=== PATIENT | male | born 1955 | race Caucasian/White ===

== ENCOUNTER 2020-05-03 17:03 | Inpatient (IN) | payer OTHER, SELFPAY ==
--- NOTE | ~2020-05-03 | US_ITS ---
EXAMINATION: US renal BI DATE: 05/06/2020 08:07 INDICATION: Abnormal kidney function tests. TECHNIQUE: Multiple ultrasound grayscale images of the kidneys were obtained. COMPARISON: Chest CT 03/04/2011 FINDINGS: The right kidney measures 11.5 x 6.5 x 6.8 cm. The left kidney measures 10.7 x 5.3 x 5.7 cm. The kidn eys demonstrate normal parenchymal echogenicity. There are cysts in the kidneys measuring up to 3.0 c m on the right. There is no hydronephrosis. The bladder is normal. The prostate is mildly enlarged. IMPRESSION: 1. Normal kidney sizes. No hydronephrosis. Reviewed, dictated and finalized at location B.
--- NOTE | ~2020-05-03 | XR_ITS ---
EXAMINATION: XR foot RT min 3V EXAM DATE: 05/03/2020 19:03 INDICATION: Diabetic infection. Dorsal plantar blister 1st metatarsal region. TECHNIQUE: Right foot dorsoplantar, lateral and oblique projections obtained and reviewed. There is no prior study for comparison. FINDINGS: There is osteopenia surrounding the right 1st metatarsophalangeal joint, consistent with os teomyelitis, and maybe septic arthritis. Some regions of cara erosion or ulcer identified. There is severe hallux valgus. The 2nd proximal phalanx is completely dislocated posterolaterally at the MTP joint. There is erosion of the 3rd metatarsal head, could be avascular necrosis given that the proximal phalanx appears unre markable, but difficult to exclude osteomyelitis at this location as well. There is soft tissue swell ing. No subcutaneous gas. There are no acute fractures identified. IMPRESSION: 1. Findings suspicious for right 1st MTP septic arthritis, osteomyelitis. 2. 2nd proximal phalangeal dislocation. 3. 3rd metatarsal head avascular necrosis or osteomyelitis. 4. Soft tissue swelling. Reviewed, dictated and finalized at location A.
--- NOTE | ~2020-05-03 | XR_ITS ---
EXAMINATION: XR chest 1V portable DATE: 05/10/2020 16:04 INDICATION: Pacemaker insertion. TECHNIQUE: frontal view of the chest was obtained. COMPARISON: Chest radiograph dated 05/07/2020 FINDINGS: Interval placement of a dual lead pacemaker seen with leads projecting over the expected locations of the right atrium and right ventricle. Right upper extremity peripherally inserted central venous cat heter (PICC) tip at the mid superior vena cava. Unchanged large calcified right lower lobe nodule consistent with old granulomatous disease. No new a irspace opacities, pulmonary edema, pleural effusion or pneumothorax. The cardiomediastinal silhouett e is within normal limits for AP technique. Calcified right hilar and mediastinal lymph nodes consist ent with old granulomatous disease. IMPRESSION: 1. New dual-lead cardiac pacemaker in expected position. No acute cardiopulmonary disease. Reviewed, dictated and finalized at location A. IMPRESSION: 1. New dual-lead cardiac pacemaker in expected position. No acute cardiopulmona ry disease.
--- NOTE | ~2020-05-03 | XR_ITS ---
EXAMINATION: XR chest 2V DATE: 05/11/2020 11:39 INDICATION: Pacemaker insertion TECHNIQUE: AP and lateral views of the chest are obtained. COMPARISON: 05/10/2020 FINDINGS: A dual-lead pacemaker of the left chest wall ends with its leads in expected positions. The re is no pneumothorax. A calcified nodule of the right lower lobe is consistent with old granulomatou s disease. The lungs are free of acute opacities. There is no pleural effusion. The heart size is nor mal. There are bridging osteophytes at multiple levels in the spine, consistent with diffuse idiopath ic skeletal hyperostosis (DISH). A right upper extremity PICC ends with its tip in the midsuperior ve na cava. IMPRESSION: 1. Left chest wall pacemaker without pneumothorax. Reviewed, dictated and finalized at location A.
--- NOTE | ~2020-05-03 | US_ITS ---
EXAMINATION: US venous doppler LE RT EXAM DATE: 05/03/2020 17:47 INDICATION: Right leg swelling. Varicose veins. TECHNIQUE: Multiple grayscale, color flow and Doppler images of the right lower extremity deep venous system were obtained and reviewed. There is no prior study for comparison. FINDINGS: The right common femoral, femoral and profunda veins demonstrate normal color flow, respira tory variation, augmentation and compressibility. Compressibility, color flow confirmed within the r ight popliteal, posterior tibial, peroneal, and greater saphenous veins. IMPRESSION: 1. No right lower extremity deep venous thrombosis. Reviewed, dictated and finalized at location A.
--- NOTE | ~2020-05-03 | XR_ITS ---
XR chest PICC line DATE: 05/07/2020 12:22 INDICATION: PICC line placement TECHNIQUE: Portable AP chest on 05/07/2020 at 1223 hours COMPARISON: 07/16/2014 portable AP chest at 1825 hours FINDINGS: There is cardiomegaly. There is pulmonary vascular congestion and redistribution, prominenc e of minor fissure consistent with subpleural edema. There is aortic calcification and tortuosity. There is diffuse osteopenia. There is diffuse idiopathic skeletal hyperostosis of the thoracic spine. There is a right upper extremity PIC catheter, the catheter tip apparently in the superior vena cava, obscured to some extent by overlapping thoracic spine. Approximately 1.5 cm stable nodule in the right lateral lung base, unchanged since 07/16/2014, consis tent with benign process, likely an old granuloma. IMPRESSION: Right upper extremity PIC catheter apparently in superior vena cava Cardiomegaly, mild congestive changes Reviewed, dictated and finalized at Location A. Reviewed, dictated and finalized at location A.
--- NOTE | ~2020-05-03 | MR_ITS ---
EXAMINATION: MR foot RT wo con DATE: 05/04/2020 14:24 INDICATION: Diabetic foot ulcer. TECHNIQUE: Magnetic resonance imaging (MRI) of the right foot was performed without intravenous contr ast. Sequences included sagittal STIR FSE and T1-weighted FSE and short-axis and long-axis T1-weighte d FSE and T2-weighted FS FSE. COMPARISON: Right foot radiographs 05/03/2020 FINDINGS: There is moderate hallux valgus. There is dorsal dislocation of second proximal phalanx wit h respect to the metatarsal with joint effusion. There is chronic deformity of head of third metatars al. There is moderate to severe osteoarthritis of third metatarsophalangeal joint, likely posttraumat ic. There is bone marrow edema throughout first metatarsal and the great toe sesamoids. There is bone marrow edema in first proximal phalanx with sparing of the head. There is increased T2-weighted sign al intensity in the soft tissues around first metatarsal and first proximal phalanx. Foci of markedly increased T2-weighted signal intensity and decreased T1-weighted signal intensity in the soft tissue s medial to first metatarsal may be abscess. There is focal susceptibility artifact in the soft tissu es medial to head of first metatarsal correlating with a thin 2 mm radiopaque foreign body on radiogr aphs. There is moderate to severe fatty atrophy of the forefoot musculature. There is increased T2-we ighted signal intensity in all of the musculature, consistent with subacute on chronic denervation. T here is an ulcer plantar to first metatarsophalangeal joint. Lisfranc ligament is intact. IMPRESSION: 1. Osteomyelitis involving first metatarsal and first proximal phalanx. 2. Cellulitis around first metatarsal and first proximal phalanx with likely abscess medial to first metatarsal. 3. Dislocation of third metatarsophalangeal joint. 4. 2 mm radiopaque foreign body in the soft tissues medial to head of first proximal phalanx. Reviewed, dictated and finalized at location B. IMPRESSION: 1. Osteomyelitis involving first metatarsal and first proximal phalanx. 2. Cellulitis around first metatarsal and first proximal phalanx with likely ab scess medial to first metatarsal. 3. Dislocation of third metatarsophalangeal joint. 4. 2 mm radiopaque foreign body in the soft tissues medial to head of first pro ximal phalanx.
--- NOTE | ~2020-05-03 | XR_ITS ---
EXAMINATION: XR chest 2V DATE: 05/12/2020 13:58 INDICATION: Pick assessment post pacemaker insertion TECHNIQUE: AP and lateral views of the chest are obtained. COMPARISON: 05/11/2020 FINDINGS: The lungs are free of acute opacities. There is no pleural effusion or pneumothorax. The ca rdiomediastinal silhouette is normal. There are bridging osteophytes at multiple levels in the spine, consistent with diffuse idiopathic skeletal hyperostosis (DISH). A right upper extremity PICC ends w ith its tip in the midsuperior vena cava. There is a dual-lead pacemaker of the left chest wall with its leads in expected position. IMPRESSION: 1. Right upper extremity PICC ending in the midsuperior vena cava. 2. No acute cardiopulmonary abnormality. Reviewed, dictated and finalized at location A.
[2020-05-03 17:08] VITALS: BP 129/79; PULSE 94; RESP 16; TEMP 36.8; O2SAT 99
--- NOTE | 2020-05-03 17:40 | ED.LOWEXIN ---
HPI - Extremity Injury (Lower) General Chief Complaint: Extremity Injury, Lower Stated Complaint: blood clot right leg Time Seen by Provider: 05/03/20 17:17 Source: patient and family Mode of arrival: ambulatory Limitations: no limitations History of Present Illness HPI Narrative: Patient is a 64-year-old male with a history of hypertension, type 2 diabetes, who presents for evaluation of right leg swelling and pain. Patient reports right lower extremity swelling, pain over the past 4 weeks. Patient states pain has been worsening. Patient noticed that his vein has been more prominent in his legs. He does report some calf tenderness. No recent surgery or immobility, patient does ride motorcycles, developed a blister on his right great toe approximately 1 week ago, and is currently on Bactrim for a foot infection as prescribed by his primary care physician. Swelling, pain in foot and leg is not improving despite the bactrim. Patient denies any fever or chills. Patient states he had noticed leg swelling and calf pain prior to the evaluation of this. Related Data Home Medications Medication Instructions Recorded Confirmed albuterol sulfate INHALATION 05/03/20 allopurinol 05/03/20 gemfibrozil mg 05/03/20 inhalational spacing device 05/03/20 05/03/20 [[facility]] lisinopril 05/03/20 metformin mg PO 05/03/20 ofloxacin 05/03/20 prednisolone acetate 05/03/20 05/03/20 sitagliptin [Januvia] mg 05/03/20 Allergies Allergy/AdvReac Type Severity Reaction Status Date / Time ibuprofen Allergy Mild SWELLS Verified 05/03/20 17:05 RESPIR. DISTRESS Review of Systems Review of Systems: Narrative: CONSTITUTIONAL: Denies fever, chills, or sweats. EYES: Denies visual changes, redness, or discharge. ENT: Denies rhinorrhea, congestion, sore throat, or otalgia. CARDIOVASCULAR: Denies current chest pain, palpitations,reports right leg swelling or redness RESPIRATORY: Denies cough or dyspnea. GASTROINTESTINAL: Denies abdominal pain, nausea, vomiting, or diarrhea. GENITOURINARY: Denies dysuria or hematuria. SKIN:Reports right leg swelling, redness MUSCULOSKELETAL: Denies back pain, joint pain, or myalgia. NEUROLOGIC: Denies headache, numbness, or weakness. PMFSH Past Medical History Medical History (Updated 05/03/20 @ 19:09 by Carmen Reyes MD) Cellulitis of foot Chronic kidney disease Diabetes Hypertension Social History Social History (Updated 05/03/20 @ 17:43 by Carmen Reyes MD) Smoking status: Never smoker Alcohol intake: current Alcohol use details: Social Substance use: current Substance use type: marijuana Living arrangements: with family Gender identity (if verbalized by the patient): Male Exam Narrative: Exam Narrative: GENERAL: Awake, alert, conversant HEAD: Normocephalic, atraumatic. EYES: PERRLA and EOMI. ENT: Nares clear, no rhinorrhea or epistaxis. Mucous membranes moist. NECK: Supple. CHEST: No respiratory distress, breathing even and non labored HEART: Regular rate, sinus rhythm ABDOMEN:Non distended, non tender EXTREMITIES: Normal range of motion. Mild, nonpitting edema of the right lower extremity to the mid ankle, associated erythema extending from forefoot into ankle and lower calf, mild warmth. No petechiae. There is a stage II pressure ulceration, wound to the first metatarsal on the right foot. No drainage. No eschar. SKIN: Warm, dry, no rash. NEURO:No focal deficits. Alert and oriented x3 Course Vital Signs Vital signs: Vital Signs Temperature 36.8 C 05/03/20 17:08 Pulse Rate 94 05/03/20 17:08 Respiratory Rate 16 05/03/20 17:08 Blood Pressure 129/79 05/03/20 17:08 Pulse Oximetry 99 05/03/20 17:08 Temperature 36.8 C 05/03/20 17:08 Pulse Rate 94 05/03/20 17:08 Respiratory Rate 16 05/03/20 17:08 Blood Pressure 129/79 05/03/20 17:08 Pulse Oximetry 99 05/03/20 17:08 MDM - Extremity Injury (
[2020-05-03 18:01] LABS: Basophils Absolute Auto 0.1 K/mm3 (0.0-0.1); Basophils Percent Auto 0.6 % (0.2-1.2); Eosinophils Absolute Auto 0.3 K/mm3 (0-0.3); Eosinophils Percent Auto 2.4 % (0-4.4); Hematocrit 40.6 % (42.0-52.0); Hemoglobin 13.3 g/dL (14.0-18.0); Immature Granulocyte Absolute 0.07 K/mm3 (0.00-0.031); Immature Granulocyte Percent A 0.6 % (0-0.5); Lymphocytes Absolute Auto 3.02 K/mm3 (0.9-3.2); Lymphocytes Percent Auto 24.1 % (18.3-44.2); Mean Corpuscular HGB Conc 32.8 g/dl (32-36); Mean Corpuscular Volume 91.4 fl (80-100); Monocytes Absolute Auto 0.8 K/mm3 (0.1-0.6); Monocytes Percent Auto 6.6 % (2.6-8.5); Neutrophils Absolute Auto 8.2 K/mm3 (1.3-6.7); Neutrophils Percent Auto 65.7 % (45.5-73.1); Platelet Count Result 640 k/mm3 (150-375); Red Blood Count 4.44 M/mm3 (4.6-6.20); Red Cell Distribution Width 13.6 % (11.5-14.5); White Blood Count 12.5 K/mm3 (4.5-10.0)
[2020-05-03 18:13] LABS: Anion Gap 9 mmol/L (8-16); Blood Urea Nitrogen 27 mg/dL (9-20); CRP 6.1 mg/dL (<1.0); Calcium 10.2 mg/dL (8.4-10.2); Carbon Dioxide 26 mmol/L (22-30); Chloride 103 mmol/L (98-107); Estimated CRCL calculation 48 ml/min; Estimated Glomerular Filt Rate 36; Glucose 127 mg/dL (75-110); Potassium 5.5 mmol/L (3.4-5.0); Sodium 138 mmol/L (137-145)
[2020-05-03 18:34] LABS: Erythrocyte Sedimentation Rate 77 mm/hr (0-20)
--- NOTE | 2020-05-03 18:41 | ECG_ITS ---
Measurements Intervals [place] Rate: 86 P: 173 VA: 304 QRS: -3 QRSD: 109 T: 30 QT: 344 QTc: 413 Interpretive Statements SINUS OR ECTOPIC ATRIAL RHYTHM BASELINE ARTIFACT- I, II, III, AVR, AVL, AVF, V1-V6 BORDERLINE ECG Electronically Signed On 05-04-2020 7:12:56 CDT by Real Lopez D.O.
[2020-05-03] MEDS: SODIUM CHLORIDE 0.9% IV 1,000 ML 999 ML IV CONT (19:13)
[2020-05-03 20:56] VITALS: BP 137/80; PULSE 78; RESP 18; O2SAT 99
[2020-05-03 21:09] VITALS: BMI 33.3
[2020-05-03 21:30] VITALS: BP 125/59; PULSE 55; RESP 18; TEMP 36.8; O2SAT 99
[2020-05-03 21:40] VITALS: PULSE 60
[2020-05-03 21:59] LABS: Anion Gap 6 mmol/L (8-16); Blood Urea Nitrogen 26 mg/dL (9-20); Calcium 9.5 mg/dL (8.4-10.2); Carbon Dioxide 25 mmol/L (22-30); Chloride 103 mmol/L (98-107); Estimated CRCL calculation 50 ml/min; Estimated Glomerular Filt Rate 38; Glucose 139 mg/dL (75-110); Potassium 4.6 mmol/L (3.4-5.0); Sodium 134 mmol/L (137-145)
[2020-05-03] MEDS: SODIUM CHLORIDE 0.9% IV 1,000 ML 125 ML IV CONT (22:00)
--- NOTE | 2020-05-03 22:13 | ADMGEN ---
This patient, Ankur Corral, was admitted to Medical Room 340-01. Patient/family oriented to hospital policies and general routines including ID bracelet, bed and alarms, visiting hours, pain management, procedures, bathroom and other care routines, personal items, smoking policy, room service/diet, and visiting hours. Valuables list has been completed. Information on how to activate the Rapid Response Team has been discussed. Patient/Family are encouraged to report perceived risks to care and to ask questions if they do not understand what they are told or what they should do.
[2020-05-04] VITALS (19 sets, daily range): BP systolic 105–123; BP diastolic 46–75; PULSE 26–91; RESP 18–24; TEMP 36.2–36.7; O2SAT 98–100; BMI 33.3
--- NOTE | 2020-05-04 | ECHO_ITS ---
Patient Info Name: Ankur Corral Age: 64 years : 1955 Gender: Male Ht: 74 in Wt: 260 lbs BSA: 2.52 m2 HR: 45 bpm BP: 115 / 58 mmHg Heart Rhythm: Bradycardia Technical Quality: Good Exam Date: 05/04/2020 11:08 AM Exam Location: [facility] Patient Status: Inpatient Admit Date: 05/03/2020 Staff Ordering Physician: Mayi Marie DO Verse Writer: Jayjay Solomon RDCS Attending Provider: Mayi Marie DO Referring Physician: Cynthia SOUSA; Exam Type: CA echo dop color flow w con Study Info Indications I45.5 - Other specified heart block Complete two-dimensional, color flow and Doppler transthoracic echocardiogram is performed. Strain analysis performed. History/Risk Factors Third degree HB; DM, HTN, CKD3. Summary 1. Left ventricular chamber dimension is mildly enlarged. 2. Left ventricular systolic function is normal, estimated at 60-65%. 3. There is mildly increased left ventricular wall thickness. 4. Left ventricular septal wall motion is normal. 5. The left ventricular diastolic function is indeterminate. 6. Global longitudinal strain is normal at -17 %. 7. Left atrial chamber dimension is mildly enlarged. 8. There is mild mitral valve regurgitation. 9. There is mild tricuspid valve regurgitation. 10. Mild pulmonary hypertension, estimated pulmonary arterial systolic pressure is 40 mmHg. 11. Aortic valve leaflets are moderately thickened and restricted. 12. while no clear vegetation is seen, it cannot be excluded. Left Ventricle Left ventricular chamber dimension is mildly enlarged. Left ventricular systolic function is normal, estimated at 60-65%. There is mildly increased left ventricular wall thickness. Left ventricular septal wall motion is normal. The left ventricular diastolic function is indeterminate. Global longitudinal strain is normal at -17 %. Right Ventricle Right ventricular chamber dimension is normal. Right ventricular systolic function is normal. Left Atria Left atrial chamber dimension is mildly enlarged. Right Atria Right atrial chamber dimension is normal. Atrial Septum Intact interatrial septum visualized by color flow imaging. Aortic Valve The aortic valve is trileaflet. There is no aortic valve stenosis. There is trace aortic valve regurgitation. Aortic valve leaflets are moderately thickened and restricted. while no clear vegetation is seen, it cannot be excluded. Pulmonic Valve The pulmonic valve is normal. There is no pulmonic valve stenosis. There is trace pulmonic regurgitation. Mitral Valve The mitral valve has normal leaflets. There is no mitral valve stenosis. There is mild mitral valve regurgitation. Tricuspid Valve The tricuspid valve leaflets are normal. There is no significant tricuspid valve stenosis. There is mild tricuspid valve regurgitation. Mild pulmonary hypertension, estimated pulmonary arterial systolic pressure is 40 mmHg. Pericardium/Pleural The pericardium appears normal. There is no pericardial effusion. Inferior Vena Cava Normal inferior vena cava with >50% collapse upon inspiration consistent with elevated right atrial pressure, 10 mmHg. Aorta The aortic root size at the sinus of Valsalva is normal. The prox ascending aorta size is normal. Left Ventricular Outflow Tract Name Value Normal
--- NOTE | 2020-05-04 01:46 | ECG_ITS ---
Measurements Intervals [place] Rate: 39 P: ME: 0 QRS: 1 QRSD: 122 T: 46 QT: 471 QTc: 383 Interpretive Statements SINUS RHYTHM WITH COMPLETE HEART BLOCK JUNCTIONAL ESCAPE RHYTHM INTRAVENTRICULAR CONDUCTION DELAY CANNOT RULE OUT SEPTAL INFARCT, AGE INDETERMINATE BASELINE ARTIFACT- I, II, AVR, AVF ABNORMAL ECG Electronically Signed On 05-04-2020 7:16:52 CDT by Real Lopez D.O.
--- NOTE | 2020-05-04 02:27 | ECG_ITS ---
Measurements Intervals [place] Rate: 41 P: SD: 0 QRS: 0 QRSD: 130 T: 35 QT: 481 QTc: 401 Interpretive Statements SINUS RHYTHM WITH COMPLETE HEART BLOCK JUNCTIONAL ESCAPET RHYTHM INTRAVENTRICULAR CONDUCTION DELAY ABNORMAL ECG Electronically Signed On 05-04-2020 7:18:18 CDT by Real Lopez D.O.
--- NOTE | 2020-05-04 02:31 | PM.IMHP ---
H&P: HPI History of Present Illness Date/Time: 05/04/20 02:31 Chief complaint: right leg pain and bulging veins Narrative: Ankur Corral is a 64 year old male with a past medical history of obstructive sleep apnea, type 2 diabetes mellitus, and hypertension who presented to the ER due to right leg pain and bulging veins. The patient reports that about a month ago he had to come motorcycle trip throughout the [facility]. During the last 2 days of his trip his boot got saturated when it rained. he developed a blister on his right forefoot under is right great toe. He developed a right foot wound which was ulcerated. He reported that the wound had gradually started to fill in for about 2 weeks. However, about a week ago he noticed drainage from the right foot wound. he reported drainage is reddish in yellow in color. He denies having any pain in the foot. He does have diabetic neuropathy. He reports that about 7-10 days ago he was having some subjective fevers and night sweats. he called his primary care physician and received a prescription for Bactrim. After he started on antibiotic therapy his symptoms of fevers and chills resolved. despite being on antibiotic therapy he has been having right lower extremity swelling. He reports that if he leaves his leg down for any length of time he will start to get some discomfort in his leg associated with bulging veins and swelling. The pain in the leg has been getting worse especially longer he leaves his leg down. He had noticed also some calf tenderness. He had a venous Doppler performed in the ER which was negative for DVT. despite antibiotic therapy is continued to have swelling in his foot and calf pain. He has also noticed over recent months that if he closes eyes while he is in the shower that he will fall backwards. he does check his glucoses each morning and they are usually between 100 and 120. He is currently taking a supplement that he hopes will help eliminate his need for metformin. He admits to significant loss of feeling in his feet. He denies any chest pain, dyspnea on exertion, orthopnea or paroxysmal nocturnal dyspnea. He does have a history of obstructive sleep apnea but does not wear CPAP. He denies any palpitations. When the patient was initially arrived to the ER his EKG demonstrated normal sinus rhythm. The patient was admitted and placed on telemetry. Nursing staff noticed on telemetry bed he will continue to have multiple episodes of bradycardia. 2 repeat EKGs were performed that demonstrated third-degree heart block. The patient denies any cough, congestion or shortness of breath. He does have a significant smoking history and smoked up to 4 packs cigarettes per day but quit in 2006. He denies a history of COPD. He does admit that he has had decreased strength in his urinary stream and has difficulty starting and stopping his urinary stream. He often gets up 4-5 times a night to urinate. He has not discussed the symptoms with his primary care physician. He does have a history of chronic kidney disease but he does not know what his baseline creatinine. Review of Systems Review of Systems: Narrative: 12 systems were reviewed with pertinent positives and negatives per HPI. Except as documented in the HPI, all other systems were reviewed and are negative. [facility] Past Medical History Medical History Chronic kidney disease Chronic kidney disease, stage III (moderate) Diabetes Diabetic neuropathy Gout Hyperlipidemia Hypertension Kidney stones Reflex sympathetic dystrophy a left lower extremity Surgical History Surgical History History of colonoscopy with polypectomy 1999 History of left inguinal hernia repair 2015 History of surgical removal of pilonidal cyst History of umbilical hernia repair 2001 Presence of intrathecal pump nonfunctioning p
--- NOTE | 2020-05-04 04:33 | PC.NURSE ---
This patient, Ankur Corral, was transferred to [ IMU [id number]] on 05/04/20 at 0433. Personal belongings sent with patient. Belongings list checked and signed. Appropriate documentation sent with patient.
[2020-05-04 05:44] LABS: Basophils Percent Auto 0.5 % (0.2-1.2); Eosinophils Absolute Auto 0.3 K/mm3 (0-0.3); Hematocrit 35.6 % (42.0-52.0); Hemoglobin 11.7 g/dL (14.0-18.0); Immature Granulocyte Absolute 0.03 K/mm3 (0.00-0.031); Immature Granulocyte Percent A 0.3 % (0-0.5); Lymphocytes Absolute Auto 2.46 K/mm3 (0.9-3.2); Lymphocytes Percent Auto 28.7 % (18.3-44.2); Mean Corpuscular HGB Conc 32.9 g/dl (32-36); Mean Corpuscular Hemoglobin 29.9 pg (26-34); Monocytes Absolute Auto 0.7 K/mm3 (0.1-0.6); Monocytes Percent Auto 8.2 % (2.6-8.5); Neutrophils Absolute Auto 5.1 K/mm3 (1.3-6.7); Neutrophils Percent Auto 59.3 % (45.5-73.1); Platelet Count Result 504 k/mm3 (150-375); Red Blood Count 3.91 M/mm3 (4.6-6.20); Red Cell Distribution Width 13.6 % (11.5-14.5); White Blood Count 8.6 K/mm3 (4.5-10.0)
[2020-05-04 05:55] LABS: Anion Gap 6 mmol/L (8-16); Blood Urea Nitrogen 25 mg/dL (9-20); Calcium 8.9 mg/dL (8.4-10.2); Carbon Dioxide 25 mmol/L (22-30); Chloride 105 mmol/L (98-107); Estimated CRCL calculation 53 ml/min; Estimated Glomerular Filt Rate 41; Glucose 102 mg/dL (75-110); Potassium 4.7 mmol/L (3.4-5.0); Sodium 136 mmol/L (137-145)
[2020-05-04] MEDS: SODIUM CHLORIDE 0.9% IV 1,000 ML 125 ML IV CONT ×2 (06:41→18:02)
[2020-05-04] MEDS: allopurinoL 300 MG TABLET PO (08:39)
[2020-05-04] MEDS: ASPIRIN 81 MG CHEWABLE TABLET PO (08:39)
[2020-05-04] MEDS: allopurinoL 150 MG TABLET PO (08:39)
[2020-05-04] MEDS: lisinopriL 20 MG TABLET PO (08:40)
[2020-05-04] MEDS: TAMSULOSIN HCL 0.4 MG CAPSULE PO (08:40)
[2020-05-04] MEDS: ENOXAPARIN 40 MG/0.4 ML SYRINGE SUB-Q (09:25)
--- NOTE | 2020-05-04 09:29 | PM.CNCAR ---
Assessment and Plan Assessment and plan (1) Third degree heart block: Code(s): I44.2 - Atrioventricular block, complete Status: Acute Assessment and Plan: 64-year-old male with hypertension, type 2 diabetes mellitus, BILLY not compliant with CPAP, obesity, history of tobacco abuse. Patient admitted with right leg swelling and bilateral feet wounds with possibility of osteomyelitis in the right foot. He was incidentally found to be in bradyarrhythmia with complete heart block and junctional escape. Patient is essentially asymptomatic from cardiac standpoint without any dizziness or syncope. Hypertension with mildly elevated but does not explain the complete heart block. No prior cardiac history of bradyarrhythmias or any known coronary events. - at this time, continue to monitor patient on telemetry. There is no urgency for either temporary or permanent pacemaker at this time , especially given patient's ongoing infection and the fact that patient has a stable junctional rhythm and is essentially asymptomatic. However, he does need close monitoring on the telemetry, and may eventually need a permanent pacemaker. - monitor electrolytes - check bilateral lower extremity arterial Doppler to assess for any significant to peripheral artery disease. - Recommend MRI of the foot to rule out osteomyelitis. - Recommend Infectious Disease evaluation and appropriate antibiotics - echocardiogram With Doppler is pending. - will continue to follow and make further recommendations As appropriate. (2) Diabetic foot infection: Code(s): E11.628 - Type 2 diabetes mellitus with other skin complications; L08.9 - Local infection of the skin and subcutaneous tissue, unspecified Status: Acute Assessment and Plan: Management as per primary team (3) Type 2 diabetes mellitus: Qualifiers: Diabetes mellitus fci insulin use: without fci use Diabetes mellitus complication status: with skin complications Diabetes mellitus complication detail: with foot ulcer Qualified Code(s): E11.621 - Type 2 diabetes mellitus with foot ulcer; L97.509 - Non-pressure chronic ulcer of other part of unspecified foot with unspecified severity Code(s): E11.9 - Type 2 diabetes mellitus without complications Status: Acute History of Present Illness History of Present Illness Consult date/time: 05/04/20 09:29 Date of service -05/04/2020 Reason for consult: heart block Requesting physician:Dr Marie Chief complaint: Right leg swelling HPI: 64-year-old male with hypertension, type 2 diabetes mellitus, BILLY not compliant with CPAP, obesity, history of tobacco abuse. Patient was admitted to [facility] on 05/03/2020 with complaints of right leg swelling. 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 He also has numbness in the right leg associated with wounds in bilateral feet. He denies chest pain, shortness of breath, palpitation, dizziness. He denies any known prior cardiac history including any heart blocks. His initial EKG which I personally evaluated showed sinus rhythm. On telemetry, patient was found to be in AV block, and subsequent EKG showed complete heart block with junctional escape rhythm closed 40 beats per minute. K is mildly elevated at 5.5, creatinine elevated at 1.9. Right lower extremity venous Doppler was negative for DVT. X-ray of the foot reportedly showed findings suspicious for right 1st MTP septic arthritis, osteomyelitis, 2nd proximal phalangeal dislocation, 3rd metatarsal head avascular necrosis or osteomyelitis, soft tissue swelling. Reason For Visit: right leg pain and bulging veins Review of Systems Constitutional: Constitutional: Denies chills, Denies fatigue, Denies fever(s) and Denies headache(s) Eyes: Eyes: Reports as per HPI, Denies change in vision, Denies loss of vision and Denies eye p
--- NOTE | 2020-05-04 11:05 | PM.CNGS ---
Assessment and Plan Assessment and plan (1) Diabetic foot infection: Code(s): E11.628 - Type 2 diabetes mellitus with other skin complications; L08.9 - Local infection of the skin and subcutaneous tissue, unspecified Status: Acute Assessment and Plan: The patient has a diabetic right foot ulcer that does tunnel to bone on exam. X-rays suggesting possible right 1st MTP septic arthritis versus osteomyelitis, 2nd proximal phalangeal dislocation, and 3rd metatarsal head avascular necrosis or osteomyelitis. There is no purulent drainage on exam. No wound cultures were obtained prior to my exam and the patient has already been started on broad-spectrum IV antibiotics. I discussed the patient's case and plan of care with Dr. Rubalcava. We will initiate local wound care with a silver mepilex dressing and gauze to the wounds. Although he is high risk for peripheral vascular disease, he does have strong pulses on exam and will defer further vascular work-up at this time. The patient is currently afebrile and his white blood cell count has come down to normal this morning. CRP elevated at 6.1 on admission. We will order an MRI of the right foot today. It is not ideal, but this will be done without contrast due to his kidney function. If the MRI does show evidence of osteomyelitis, then we will consult an Orthopedic Surgeon to evaluate the patient for partial foot amputation and also consider Infectious Disease consultation. That being said, the patient does have multiple other medical issues that make him a poor surgical candidate at this time. With the complete heart block, he would have to be evaluated and cleared by Cardiology prior to performing any surgical intervention. I discussed the current treatment plan with the patient and answered all questions. Thank you for allowing us to see the patient in consultation and we will continue to follow along with you. (2) Third degree heart block: Code(s): I44.2 - Atrioventricular block, complete Status: Acute Assessment and Plan: Cardiology following and recommendations noted. No plan for pacing at this time. Patient is asymptomatic. Echocardiogram pending. (3) Chronic kidney disease, stage III (moderate): Code(s): N18.3 - Chronic kidney disease, stage 3 (moderate) Status: Acute Assessment and Plan: Creatinine 1.9 on admission and down to 1.7 today. Discussed this with the Hospitalist regarding using contrast for the MRI and will defer using contrast at this time. Continue management per the primary service. (4) Type 2 diabetes mellitus: Qualifiers: Diabetes mellitus intermediate insulin use: without ferry terminal agent use Diabetes mellitus complication status: with skin complications Diabetes mellitus complication detail: with foot ulcer Qualified Code(s): E11.621 - Type 2 diabetes mellitus with foot ulcer; L97.509 - Non-pressure chronic ulcer of other part of unspecified foot with unspecified severity Code(s): E11.9 - Type 2 diabetes mellitus without complications Status: Acute Assessment and Plan: Glucose has been stable on labs with normal glucose this morning. Metformin is being held due to kidney function and he is on sliding scale insulin for glycemic control for now. Management per primary service. (5) BPH (benign prostatic hyperplasia): Qualifiers: Lower urinary tract symptom presence: symptoms present Lower urinary tract symptom detail: weak urinary stream Qualified Code(s): N40.1 - Benign prostatic hyperplasia with lower urinary tract symptoms; R39.12 - Poor urinary stream Code(s): N40.0 - Benign prostatic hyperplasia without lower urinary tract symptoms Status: Acute (6) Wound of left foot: Code(s): S91.302A - Unspecified open wound, left foot, initial encounter Status: Acute Assessment and Plan: There is also a stable diabetic foot wound on the left foot. No active infection or surrounding cellul
[2020-05-04] MEDS: PERFLUTREN LIPID MICROSPHERES 1.5 ML VIAL DILUTED TO 10 ML TOTAL VOLUME IV PUSH (11:29)
[2020-05-04 12:23] LABS: Glucose Point of Care 135 (65-105)
[2020-05-04] MEDS: gemfibroziL 600 MG TABLET PO (16:02)
[2020-05-04 16:25] LABS: Glucose Point of Care 124 (65-105)
--- NOTE | 2020-05-04 18:10 | PM.IMPN ---
Progress Note: A&P Assessment and Plan (1) Diabetic foot infection: Code(s): E11.628 - Type 2 diabetes mellitus with other skin complications; L08.9 - Local infection of the skin and subcutaneous tissue, unspecified Status: Acute Assessment and Plan: with possible underlying osteomyelitis. The patient has been started on Primaxin and vancomycin per antibiotic stewardship guidelines. General surgery has been consulted. an MRI order (2) Third degree heart block: Code(s): I44.2 - Atrioventricular block, complete Status: Acute Assessment and Plan: Patient is relatively asymptomatic. He is not on any beta-blockers or rate-controlling medications. echocardiogram has been ordered evaluate cardiac structure and function Cardiology to [place] (3) Chronic kidney disease, stage III (moderate): Code(s): N18.3 - Chronic kidney disease, stage 3 (moderate) Status: Acute Assessment and Plan: creatinine 1.7 probably his baseline, check ultrasound (4) BPH (benign prostatic hyperplasia): Qualifiers: Lower urinary tract symptom presence: symptoms present Lower urinary tract symptom detail: weak urinary stream Qualified Code(s): N40.1 - Benign prostatic hyperplasia with lower urinary tract symptoms; R39.12 - Poor urinary stream Code(s): N40.0 - Benign prostatic hyperplasia without lower urinary tract symptoms Status: Acute Assessment and Plan: Will start the patient on Flomax 0.4 mg p.o. daily. (5) Type 2 diabetes mellitus: Qualifiers: Diabetes mellitus exterminator insulin use: without exterminator use Diabetes mellitus complication status: with skin complications Diabetes mellitus complication detail: with foot ulcer Qualified Code(s): E11.621 - Type 2 diabetes mellitus with foot ulcer; L97.509 - Non-pressure chronic ulcer of other part of unspecified foot with unspecified severity Code(s): E11.9 - Type 2 diabetes mellitus without complications Status: Acute Assessment and Plan: will hold the patient's metformin due to his kidney function. Continue home Januvia. Will add low-dose sliding scale insulin with Accu-Cheks a.c. HS. (6) Acute hyperkalemia: Code(s): E87.5 - Hyperkalemia Status: Resolved Assessment and Plan: Resolved after IV fluid administration. Subjective Date/time seen: 05/04/20 18:10 Interval history: date of visit 05/04. 64-year-old hypertensive type 2 diabetic admitted swollen right leg and wound MTP plantar surface of right foot. neuropathy some not much pain. no fever no chills no shortness of breath Exam Narrative: Exam Narrative: PHYSICAL EXAM: blood pressure 116/56 pulse 46 sat 99% on room air afebrile General: no acute distress, obese, appears stated age HEENT: pupils equal and reactive to light sclera anicteric and mouth normal Respiratory: clear to auscultation bilaterally, Cardiovascular: irregularly irregular, bradycardic Gastrointestinal: soft, nontender, nondistended, positive bowel sounds Skin: generalized pallor, non jaundice Musculoskeletal: foot ulcer in the right 1st metatarsal head, serous sanguinous drainage, small amount of macerated skin around the lateral edge, thick callus to the 1st metatarsal head of the left foot Neurological: decreased sensation to both feet, otherwise alert and no focal deficits Psychiatric: appropriate mood and affect, pleasant and cooperative : deferred Hematologic/lymphatic: no petechiae, bruising or bleeding Objective Data Vital Signs Vital Signs: Vital Signs - 24 hr 05/03/20 20:56 05/03/20 21:30 05/03/20 21:40 Temperature 36.8 C Pulse Rate 78 55 L 60 Respiratory Rate 18 18 Blood Pressure 137/80 125/59 L Pulse Oximetry 99 99 05/04/20 00:00 05/04/20 04:00 05/04/20 04:27 Temperature Pulse Rate 41 L 67 40 L Respiratory Rate Blood Pressure Pulse Oximetry
[2020-05-04 20:33] LABS: Glucose Point of Care 131 (65-105)
[2020-05-05] VITALS (13 sets, daily range): BP systolic 113–150; BP diastolic 59–77; PULSE 30–113; RESP 18–20; TEMP 36.3–36.9; O2SAT 98–100
[2020-05-05] MEDS: SODIUM CHLORIDE 0.9% IV 1,000 ML 125 ML IV CONT ×3 (02:06→23:00)
[2020-05-05 09:08] LABS: Glucose Point of Care 112 (65-105)
[2020-05-05] MEDS: ASPIRIN 81 MG CHEWABLE TABLET PO (09:44)
[2020-05-05] MEDS: ENOXAPARIN 40 MG/0.4 ML SYRINGE SUB-Q (09:44)
[2020-05-05] MEDS: allopurinoL 150 MG TABLET PO (09:45)
[2020-05-05] MEDS: lisinopriL 20 MG TABLET PO (09:45)
[2020-05-05] MEDS: TAMSULOSIN HCL 0.4 MG CAPSULE PO (09:45)
[2020-05-05] MEDS: allopurinoL 300 MG TABLET PO (09:45)
--- NOTE | 2020-05-05 10:28 | PM.PNCARD ---
Progress Note: A&P Additional Plan 64-year-old man with high-grade AV block including complete heart block. This morning rhythm appears to be more consistent with second-degree AV block. He has no history of syncope or near-syncope in his escape rhythm appears to be favorable. Implantation of the pacemaker is indicated but I would agree with Dr. Salcedo''s note yesterday that the procedure should ideally be delayed until he is no longer infected. My expectation would be that this infection will be treated as an inpatient, finished as an outpatient and then we will follow him in the office and determine appropriate planning for scheduling a pacemaker implant. Certainly if he becomes symptomatic in the arrhythmia worsens we have may need to proceed more urgently. Nico Arnold MD [facility] Subjective Date/time seen: Date of service:05/05/20 10:28 Interval history: Follow-up visit in this 64-year-old man with complete heart block admitted with treatment of an infected diabetic foot ulcer. Patient has no cardiovascular symptoms at all. detailed lengthy conversation about the patient regarding his heart block and indication for implantation of a pacemaker device. Since he is asymptomatic it would be far for for bbl to defer this procedure until he no longer has an active infection. Patient tells me today there is some concern that he might have osteomyelitis of the foot. Exam Const: General: comfortable and no acute distress HENMT: Mouth: Yes moist mucous membranes Eyes: Sclera: sclerae normal Pupils: Equal, round and reactive pupils present Neck: Neck: supple and no JVD Thyroid: thyroid normal Other: Carotid impulses normal, no bruits audible Resp: Effort & Inspection: normal respiratory effort Auscultation: clear to auscultation bilaterally Cardio: Rhythm: abnormal rhythm Other: irregular rhythm GI: Auscultation: normal bowel sounds Skin: General skin exam: normal color Neuro: Cognition (Neuro): normal cognition Extrem: General: normal to inspection Objective Data Vital Signs Vital Signs: Vital Signs - 24 hr 05/04/20 12:00 05/04/20 12:27 05/04/20 14:00 Temperature 36.6 C Pulse Rate 47 L 91 49 L Respiratory Rate 24 H Blood Pressure 114/62 Pulse Oximetry 98 05/04/20 16:00 05/04/20 17:22 05/04/20 18:00 Temperature 36.2 C L Pulse Rate 45 L 47 L 62 Respiratory Rate 20 Blood Pressure 117/55 L Pulse Oximetry 99 05/04/20 19:56 05/04/20 20:00 05/04/20 22:00 Temperature 36.5 C Pulse Rate 47 L 43 L 33 L Respiratory Rate 18 18 Blood Pressure 123/75 Pulse Oximetry 100 100 05/04/20 22:50 05/04/20 22:52 05/04/20 23:14 Temperature 36.7 C 36.7 C Pulse Rate 41 L 26 L 41 L Respiratory Rate 20 20 Blood Pressure 118/57 L 118/57 L Pulse Oximetry 100 100 05/05/20 00:00 05/05/20 02:00 05/05/20 04:00 Temperature 36.7 C Pulse Rate 41 L 30 L 34 L Respiratory Rate 20 18 Blood Pressure 113/59 L Pulse Oximetry 100 99 05/05/20 06:00 05/05/20 08:00 05/05/20 10:00 Temperature 36.3 C L Pulse Rate 39 L 55 L 57 L Respiratory Rate 18 Blood Pressure 143/77 H Pulse Oximetry 98 Intake/Output Intake/Output: Intake & Output 05/02/20 05/03/20 05/04/20 05/05/20 23:59 23:59 23:59 23:59 Intake Total 1600 4120 1150 Output Total 600 2550 950 Balance 1000 1570 200 Meds/Results Medications: Active Medications Generic Name Dose Route Start Last Admin Trade Name Freq PRN Reason Stop Dose Admin Acetaminophen 650 mg 05/03/20 19:13 Tylenol Tablet PO Q4H PRN Mild Pain (1-3) or Fever Allopurinol 150 mg 05/04/20 09:00 05/05/20 09:45 Zyloprim PO 150 mg DAILY CHRISTIANO Administration Allopurinol 300 mg 05/04/20 09:00 05/05/20 09:45 Zyloprim PO 300 mg DAILY CHRISTIANO Administration Artificial Tears 1 drop 05/04/20 03:01 EACH EYE BID PRN Dry Eye(s) Aspirin 81 mg 05/04/20 09:00 05/05/20 09:44 Aspirin
--- NOTE | 2020-05-05 11:17 | PM.PNGS ---
Progress Note: A&P Assessment and Plan (1) Wound of left foot: Code(s): S91.302A - Unspecified open wound, left foot, initial encounter Status: Acute Assessment and Plan: cont local wound care, cont abx, MRI reviewed, consult ortho for likely amp (2) Type 2 diabetes mellitus: Qualifiers: Diabetes mellitus intermediate frame tender insulin use: without intermediate frame tender use Diabetes mellitus complication status: with skin complications Diabetes mellitus complication detail: with foot ulcer Qualified Code(s): E11.621 - Type 2 diabetes mellitus with foot ulcer; L97.509 - Non-pressure chronic ulcer of other part of unspecified foot with unspecified severity Code(s): E11.9 - Type 2 diabetes mellitus without complications Status: Acute Assessment and Plan: cont bs control per primary Subjective Subjective Date/Time Seen: 05/05/20 11:17 pt doing better, reports no c/o Review of Systems Constitutional: Constitutional: Reports fatigue, Reports lethargy and Reports weakness Cardiovascular: Cardiovascular: Denies chest pain Respiratory: Respiratory: Denies dyspnea Gastrointestinal: Gastrointestinal: Denies abdominal pain, Denies nausea and Denies vomiting Exam Const: General: no acute distress Resp: Auscultation: clear to auscultation bilaterally Cardio: Rate: regular rate Rhythm: regular rhythm GI: Other: SNTND Extrem: Other: len foot - drsg C/D/I Objective Data Vital Signs Vital Signs: Vital Signs - 24 hr 05/04/20 12:00 05/04/20 12:27 05/04/20 14:00 Temperature 36.6 C Pulse Rate 47 L 91 49 L Respiratory Rate 24 H Blood Pressure 114/62 Pulse Oximetry 98 05/04/20 16:00 05/04/20 17:22 05/04/20 18:00 Temperature 36.2 C L Pulse Rate 45 L 47 L 62 Respiratory Rate 20 Blood Pressure 117/55 L Pulse Oximetry 99 05/04/20 19:56 05/04/20 20:00 05/04/20 22:00 Temperature 36.5 C Pulse Rate 47 L 43 L 33 L Respiratory Rate 18 18 Blood Pressure 123/75 Pulse Oximetry 100 100 05/04/20 22:50 05/04/20 22:52 05/04/20 23:14 Temperature 36.7 C 36.7 C Pulse Rate 41 L 26 L 41 L Respiratory Rate 20 20 Blood Pressure 118/57 L 118/57 L Pulse Oximetry 100 100 05/05/20 00:00 05/05/20 02:00 05/05/20 04:00 Temperature 36.7 C Pulse Rate 41 L 30 L 34 L Respiratory Rate 20 18 Blood Pressure 113/59 L Pulse Oximetry 100 99 05/05/20 06:00 05/05/20 08:00 05/05/20 10:00 Temperature 36.3 C L Pulse Rate 39 L 55 L 57 L Respiratory Rate 18 Blood Pressure 143/77 H Pulse Oximetry 98 Intake/Output Intake/Output: Intake & Output 05/02/20 05/03/20 05/04/20 05/05/20 23:59 23:59 23:59 23:59 Intake Total 1600 4120 2150 Output Total 600 2550 950 Balance 1000 1570 1200 Meds/Results Medications: Active Medications Generic Name Dose Route Start Last Admin Trade Name Freq PRN Reason Stop Dose Admin Acetaminophen 650 mg 05/03/20 19:13 Tylenol Tablet PO Q4H PRN Mild Pain (1-3) or Fever Allopurinol 150 mg 05/04/20 09:00 05/05/20 09:45 Zyloprim PO 150 mg DAILY CHRISTIANO Administration Allopurinol 300 mg 05/04/20 09:00 05/05/20 09:45 Zyloprim PO 300 mg DAILY CHRISTIANO Administration Artificial Tears 1 drop 05/04/20 03:01 EACH EYE BID PRN Dry Eye(s) Aspirin 81 mg 05/04/20 09:00 05/05/20 09:44 Aspirin Chewable PO 81 mg DAILY CHRISTIANO Administration Dextrose 12.5 gm 05/04/20 02:19 Dextrose 50% Syringe IV PUSH PRN PRN Hypoglycemia Protocol Enoxaparin Sodium 40 mg 05/04/20 09:00 05/05/20 09:44 Lovenox SUB-Q 40 mg DAILY CHRISTIANO Administration Gemfibrozil 600 mg 05/04/20 07:30 05/05/20 09:43 Lopid PO Not Given 0730,1630 CHRISTIANO Glucagon 1 mg 05/04/20 02:19 Glucagon For Inj IM PRN PRN Hypoglycemia Protocol Glucose 15 gm 05/04/20 02:19 Glutose 15 PO PRN PRN Hypoglycemia Protocol Sodium Chloride 1,000 mls @
[2020-05-05 12:36] LABS: Glucose Point of Care 122 (65-105)
--- NOTE | 2020-05-05 15:41 | PM.CNOR ---
Assessment and Plan Assessment and plan (1) Osteomyelitis of foot, acute: Code(s): M86.179 - Other acute osteomyelitis, unspecified ankle and foot Status: Acute Assessment and Plan: right diabetic foot ulcer plantar hallux metatarsophalangeal joint. Ulceration over the past month. Worsening over the past several days and not improved with oral antibiotics. MRI shows changes of the 1st metatarsal and metatarsophalangeal joint consistent with septic arthritis and osteomyelitis. Ulcer open to bone in joint on exam. Also complicated by severe hallux valgus deformity and clawtoe deformity most likely secondary to neuropathy. Also patient with history of ankle fracture with loss of dorsiflexion of the ankle with resultant increased pressure on the right forefoot. Patient has been started on oral antibiotics. He started on dressing changes 2 days ago. His MRI results were reviewed with the patient showing bone involvement. In addition he has a heart block and needs cardiac treatment with possible pacemaker placement in the near future. Potential for salvage of the toe and foot versus amputation were discussed in detail with the patient in regard to treatment for the osteomyelitis. Patient's questions were answered. Risks, benefits and alternatives of debridement with salvage versus limited amputation versus forefoot amputation reviewed in detail. He would like to proceed with toe amputation. Discussed amputation of the hallux and evaluation of the 2nd toe with possible need for amputation of the 2nd toe at the time of surgery. Discussed nonoperative and operative treatment options with the patient. Risks and benefits of each as well as alternatives were reviewed. All of the patient's questions were answered. The risks of surgery reviewed including but not limited to: Neurovascular damage, wound complication, infection, blood clot, pulmonary embolus, stroke, myocardial infarction, and anesthetic risks up to and including . Continued pain and possible dysfunction were explained. Specific risks of the procedure including later recurrence of deformity. No guarantees were offered. If hardware used, discussed risk of failure/ breakage and possible need for removal. If complications occur, the patient understands the need for further treatment, possible further surgery. Patient verbalizes understanding and wishes to proceed. PLAN: Right hallux amputation with possible 2nd toe amputation. 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 Continue with local wound care. No signs of infection. (5) Diabetic foot ulcer associated with diabetes mellitus due to underlying condition: Code(s): E08.621 - Diabetes mellitus due to underlying condition with foot ulcer; L97.509 - Non-pressure chronic ulcer of other part of unspecified foot with unspecified severity Status: Acute Additional Plan Discussed the patient's case and plan of care with Dr. Rubalcava. History of Present Illness HPI Consult date: 05/05/20 Requesting physician: Katina Rubalcava MD Consult reason: other ( right foot osteomyelitis) Chief complaint: right leg pain and bulging veins Narrative: 64-
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
[2020-05-05] MEDS: gemfibroziL 600 MG TABLET PO (17:05)
[2020-05-05 17:22] LABS: Glucose Point of Care 103 (65-105)
--- NOTE | 2020-05-05 17:40 | PM.IMPN ---
Progress Note: A&P Assessment and Plan (1) Diabetic foot infection: Code(s): E11.628 - Type 2 diabetes mellitus with other skin complications; L08.9 - Local infection of the skin and subcutaneous tissue, unspecified Status: Acute Assessment and Plan: with underlying osteomyelitis by MR. The patient has been started on Primaxin and vancomycin per antibiotic stewardship guidelines. Ortho plans amp and will need long tem antibiotics post per ID especially with probable pacer later (2) Third degree heart block: Code(s): I44.2 - Atrioventricular block, complete Status: Acute Assessment and Plan: Patient is relatively asymptomatic. He is not on any beta-blockers or rate-controlling medications. echocardiogram normal EF and no structural abnorm Cardiology evaluate for pacer after infection all cleared (3) Chronic kidney disease, stage III (moderate): Code(s): N18.3 - Chronic kidney disease, stage 3 (moderate) Status: Acute Assessment and Plan: creatinine 1.7 probably his baseline, check ultrasound (4) BPH (benign prostatic hyperplasia): Qualifiers: Lower urinary tract symptom presence: symptoms present Lower urinary tract symptom detail: weak urinary stream Qualified Code(s): N40.1 - Benign prostatic hyperplasia with lower urinary tract symptoms; R39.12 - Poor urinary stream Code(s): N40.0 - Benign prostatic hyperplasia without lower urinary tract symptoms Status: Acute Assessment and Plan: Will start the patient on Flomax 0.4 mg p.o. daily. (5) Type 2 diabetes mellitus: Qualifiers: Diabetes mellitus medical terminologist insulin use: without intermediate use Diabetes mellitus complication status: with skin complications Diabetes mellitus complication detail: with foot ulcer Qualified Code(s): E11.621 - Type 2 diabetes mellitus with foot ulcer; L97.509 - Non-pressure chronic ulcer of other part of unspecified foot with unspecified severity Code(s): E11.9 - Type 2 diabetes mellitus without complications Status: Acute Assessment and Plan: will hold the patient's metformin due to his kidney function. Continue home Januvia. Will add low-dose sliding scale insulin with Accu-Cheks a.c. HS. FBS 112 today (6) Acute hyperkalemia: Code(s): E87.5 - Hyperkalemia Status: Resolved Assessment and Plan: Resolved after IV fluid administration. Subjective Date/time seen: 08/12/20 17:40 Interval history: date of visit 05/05. 64-year-old hypertensive type 2 diabetic admitted swollen right leg and wound MTP plantar surface of right foot. neuropathy some not much pain. no fever no chills no shortness of breath Exam Narrative: Exam Narrative: PHYSICAL EXAM: blood pressure 138/72 pulse 60 sat 98% on room air afebrile General: no acute distress, obese, appears stated age HEENT: pupils equal and reactive to light sclera anicteric Respiratory: clear to auscultation bilaterally, Cardiovascular: irregularly irregular, bradycardic Gastrointestinal: soft, nontender, nondistended, positive bowel sounds Skin: generalized pallor, non jaundice Musculoskeletal: foot ulcer in the right 1st metatarsal head, serous sanguinous drainage, small amount of macerated skin around the lateral edge, thick callus to the 1st metatarsal head of the left foot Neurological: decreased sensation to both feet, otherwise alert and no focal deficits Psychiatric: appropriate mood and affect, pleasant and cooperative : deferred Hematologic/lymphatic: no petechiae, bruising or bleeding Objective Data Vital Signs Vital Signs: Vital Signs - 24 hr 05/04/20 18:00 05/04/20 19:56 05/04/20 20:00 Temperature 36.5 C Pulse Rate 62 47 L 43 L Respiratory Rate 18 18 Blood Pressure 123/75 Pulse Oximetry 100 100 05/04/20 22:00 05/04/20 22:50 05/04/20 22:52 Temperature 36.7 C Pulse Rate
[2020-05-05 20:50] LABS: Glucose Point of Care 93 (65-105)
--- NOTE | 2020-05-05 22:24 | PCRCNOTE ---
PT REFUSES SLEEP STUDY; HAS HAD BEFORE AND HAS CPAP @ HOME THAT HE CANNOT WEAR, HOME [facility] CANNOT FIT MASK APPROPRIATELY
[2020-05-06] VITALS (21 sets, daily range): BP systolic 96–146; BP diastolic 53–83; PULSE 35–85; RESP 12–22; TEMP 35.7–37.2; O2SAT 96–100
[2020-05-06 01:51] LABS: Vancomycin Trough 13.3 ug/mL (10.0-20.0)
[2020-05-06 04:47] LABS: Basophils Absolute Auto 0.1 K/mm3 (0.0-0.1); Basophils Percent Auto 0.9 % (0.2-1.2); Eosinophils Absolute Auto 0.3 K/mm3 (0-0.3); Eosinophils Percent Auto 4.4 % (0-4.4); Hematocrit 33.8 % (42.0-52.0); Hemoglobin 11.1 g/dL (14.0-18.0); Immature Granulocyte Absolute 0.03 K/mm3 (0.00-0.031); Immature Granulocyte Percent A 0.4 % (0-0.5); Lymphocytes Absolute Auto 2.98 K/mm3 (0.9-3.2); Lymphocytes Percent Auto 38.9 % (18.3-44.2); Mean Corpuscular HGB Conc 32.8 g/dl (32-36); Mean Corpuscular Hemoglobin 29.9 pg (26-34); Mean Corpuscular Volume 91.1 fl (80-100); Mean Platelet Volume 10.1 fl (7.4-10.4); Monocytes Absolute Auto 0.6 K/mm3 (0.1-0.6); Monocytes Percent Auto 7.8 % (2.6-8.5); Neutrophils Absolute Auto 3.7 K/mm3 (1.3-6.7); Neutrophils Percent Auto 47.6 % (45.5-73.1); Platelet Count Result 478 k/mm3 (150-375); Red Blood Count 3.71 M/mm3 (4.6-6.20); Red Cell Distribution Width 13.5 % (11.5-14.5); White Blood Count 7.7 K/mm3 (4.5-10.0)
[2020-05-06 05:04] LABS: Anion Gap 6 mmol/L (8-16); Blood Urea Nitrogen 23 mg/dL (9-20); Calcium 8.7 mg/dL (8.4-10.2); Carbon Dioxide 24 mmol/L (22-30); Chloride 107 mmol/L (98-107); Estimated CRCL calculation 64 ml/min; Estimated Glomerular Filt Rate 51; Glucose 138 mg/dL (75-110); Sodium 137 mmol/L (137-145)
--- NOTE | 2020-05-06 07:18 | WPDHPUPDATE1 ---
History and Physical Update Update Date/Time: 05/06/20 07:18 History and Physical has been reviewed, including an updated exam of the patient. There are NO changes in the patient's condition. Risks, benefits, and alternatives have been discussed and questions answered. Patient agrees to proceed with procedure.
[2020-05-06 07:42] LABS: Glucose Point of Care 96 (65-105)
[2020-05-06] MEDS: allopurinoL 300 MG TABLET PO (08:15)
[2020-05-06] MEDS: lisinopriL 20 MG TABLET PO (08:15)
[2020-05-06] MEDS: ASPIRIN 81 MG CHEWABLE TABLET PO (08:15)
[2020-05-06] MEDS: allopurinoL 150 MG TABLET PO (08:15)
[2020-05-06] MEDS: TAMSULOSIN HCL 0.4 MG CAPSULE PO (08:15)
[2020-05-06] MEDS: SODIUM CHLORIDE 0.9% IV 1,000 ML 125 ML IV CONT (09:35)
--- NOTE | 2020-05-06 10:19 | PM.PNCARD ---
Progress Note: A&P Assessment and Plan (1) Third degree heart block: Code(s): I44.2 - Atrioventricular block, complete Status: Acute Assessment and Plan: 64-year-old male with hypertension, type 2 diabetes mellitus, BILLY not compliant with CPAP, obesity, history of tobacco abuse. Patient admitted with right leg swelling and bilateral feet wounds with possibility of osteomyelitis in the right foot. He was incidentally found to be in bradyarrhythmia with complete heart block and junctional escape. Patient is essentially asymptomatic from cardiac standpoint without any dizziness or syncope. Hypertension with mildly elevated but does not explain the complete heart block. No prior cardiac history of bradyarrhythmias or any known coronary events. continue Telemetry. Eventual pacemaker after treatment of his osteo (2) Diabetic foot infection: Code(s): E11.628 - Type 2 diabetes mellitus with other skin complications; L08.9 - Local infection of the skin and subcutaneous tissue, unspecified Status: Acute Assessment and Plan: Management as per primary team (3) Type 2 diabetes mellitus: Qualifiers: Diabetes mellitus mcfp insulin use: without intermediate card tender use Diabetes mellitus complication status: with skin complications Diabetes mellitus complication detail: with foot ulcer Qualified Code(s): E11.621 - Type 2 diabetes mellitus with foot ulcer; L97.509 - Non-pressure chronic ulcer of other part of unspecified foot with unspecified severity Code(s): E11.9 - Type 2 diabetes mellitus without complications Status: Acute Subjective Date/time seen: 05/06/20 10:19 Interval history: Follow-up visit in this 64-year-old man with complete heart block admitted with treatment of an infected diabetic foot ulcer. date of service 05/06/2020: My cardiac perspective he continues to feel well. No chest pain or shortness of breath. No syncope or presyncope. Plan is for partial amputation of his right foot/toes today Review of Systems Constitutional: Constitutional: Denies chills, Denies fatigue, Denies fever(s) and Denies headache(s) Eyes: Eyes: Reports as per HPI, Denies change in vision, Denies loss of vision and Denies eye pain ENT: Reports as per HPI, Reports Normal hearing present, Denies headache(s), Denies lip swelling, Denies epistaxis and Denies sore throat Cardiovascular: Cardiovascular: Reports as per HPI, Denies chest pain, Denies syncope, Denies irregular heart rhythm, Denies lightheadedness and Denies dyspnea Respiratory: Respiratory: Reports as per HPI, Denies cough, Denies dyspnea and Denies wheezing Gastrointestinal: Gastrointestinal: Reports as per HPI, Denies abdominal pain, Denies melena, Denies nausea and Denies vomiting Genitourinary: Genitourinary: Reports as per HPI Musculoskeletal: Musculoskeletal: Reports as per HPI, Denies myalgias, Denies muscle cramps and Denies muscle weakness Integumentary/Breasts: Skin/Breast: Reports as per HPI, Denies pruritus and Denies rash Neurologic: Reports as per HPI, Reports Normal hearing present, Denies behavioral changes, Denies syncope, Denies headache(s) and Denies loss of vision Psychiatric: Psychiatric: Reports as per HPI, Denies anxiety, Denies behavioral changes and Denies depression Endocrine: Endocrine: Reports as per HPI, Denies fatigue, Denies polydipsia and Denies polyuria Hematologic/Lymphatic: Hematologic/Lymphatic: Reports as per HPI, Denies easy bleeding and Denies easy bruising Allergic/Immunologic: Allergic/Immunologic: Reports as per HPI, Denies lip swelling and Denies wheezing Exam Const: General: comfortable, no acute distress, alert and awake HENMT: Head: normocephalic and atraumatic Ears: hearing grossly normal bilaterally and external ears normal General nose exam: Normal external nose present and no epistaxis Face and sinus: normal facial exam and no ecchymosis Mouth: Yes tongue normal an
[2020-05-06] MEDS: LACTATED RINGERS 1,000 ML 30 ML IV CONT (10:20)
--- NOTE | 2020-05-06 11:02 | WPDANESEPPF ---
Anes - Initial Pre Proc Eval Procedure: Operation Date: 05/06/20 11:30 Proposed Procedures p Right Great Toe Amputation, Possible Right Second Toe Amputation - Alexy Del Cid MD Date/Time: 05/06/20 11:02 Surgeon: Mayi Marie DO Pre Op Diagnosis: right leg pain and bulging veins Patient Data Age: 64 Gender: M Height: 6 ft 2 in Weight: 117.9 kg Last Vital Signs Temp 96.2 F L 05/06/20 08:18 Pulse 40 L 05/06/20 08:18 Resp 22 H 05/06/20 08:18 BP 146/79 H 05/06/20 08:18 Pulse Ox 100 05/06/20 08:18 Allergies Allergy/AdvReac Type Severity Reaction Status Date / Time ibuprofen Allergy Mild SWELLS Verified 05/06/20 10:49 RESPIR. DISTRESS bee venom protein (honey bee) Allergy Swelling Verified 05/06/20 10:49 of Lip/Tongue/Throat Home Medications Medication Instructions Recorded Confirmed Type Refresh Tears 1 drp OPHTHALMIC (EYE) BID PRN 05/03/20 05/03/20 History albuterol sulfate 90 mcg INHALATION BID PRN 05/03/20 05/03/20 History allopurinol 450 mg PO DAILY 05/03/20 05/03/20 History aspirin 81 mg PO DAILY 05/03/20 05/03/20 History gemfibrozil 600 mg PO BID 05/03/20 05/03/20 History inhalational spacing device 05/03/20 05/03/20 History [[facility]] lisinopril 20 mg PO DAILY 05/03/20 05/03/20 History metformin 1,000 mg PO DAILY 05/03/20 05/03/20 History sitagliptin [Januvia] 100 mg PO DAILY 05/03/20 05/03/20 History Laboratory Tests 05/05/20 05/05/20 05/05/20 12:14 16:39 20:46 WBC RBC Hgb Hct MCV MCH MCHC RDW Plt Count MPV Immature Gran % (Auto) Neut % (Auto) Lymph % (Auto) [place] % (Auto) Eos % (Auto) Baso % (Auto) Lymph # (Auto) [place] # (Auto) Eos # (Auto) Baso # (Auto) Abs Immat Gran (auto) Absolute Neuts (auto) Absolute Nucleated RBC Nucleated RBC % Sodium Potassium Chloride Carbon Dioxide Anion Gap BUN Creatinine Estim Creat Clear Calc Estimated GFR Glucose POC Capillary Glucose 122 mg/dl H mg/dl 103 mg/dl mg/dl 93 mg/dl mg/dl (65-105) (65-105) (65-105) Calcium Vancomycin Trough 05/06/20 05/06/20 05/06/20 01:20 04:02 04:02 WBC 7.7 K/mm3 K/mm3 (4.5-10.0) RBC 3.71 M/mm3 L M/mm3 (4.6-6.20) Hgb 11.1 g/dL L g/dL (14.0-18.0) Hct 33.8 % L % (42.0-52.0) MCV 91.1 fl fl (80-100) MCH 29.9 pg pg (26-34) MCHC 32.8 g/dl g/dl (32-36) RDW 13.5 % % (11.5-14.5) Plt Count 478 k/mm3 H k/mm3 (150-375) MPV 10.1 fl fl (7.4-10.4) Immature Gran % (Auto) 0.4 % % (0-0.5) Neut % (Auto) 47.6 % % (45.5-73.1) Lymph % (Auto) 38.9 % % (18.3-44.2) [place] % (Auto) 7.8 % % (2.6-8.5) Eos % (Auto) 4.4 % % (0-4.4) Baso % (Auto) 0.9 % % (0.2-1.2) Lymph # (Auto) 2.98 K/mm3 K/mm3 (0.9-3.2) [place] # (Auto) 0.6 K/mm3 K/mm3 (0.1-0.6) Eos # (Auto) 0.3 K/mm3 K/mm3 (0-0.3) Baso # (Auto) 0.1 K/mm3 K/mm3 (0.0-0.1) Abs Immat Gran (auto) 0.03 K/mm3 K/mm3 (0.00-0.031) Absolute Neuts (auto) 3.7 K/mm3 K/mm3 (1.3-6.7) Absolute Nucleated RBC 0.0 K/mm3 K/mm3 (0.0-0.012) Nucleated RBC % 0.0 % % (0.0-0.2) Sodium 137 mmol/L mmol/L (137-145) Potassium 4.0 mmol/L mmol/L (3.4-5.0) Chloride 107 mmol/L mmol/L (98-107) Carbon Dioxide 24 mmol/L mmol/L (22-30) Anion Gap 6 mmol/L L mmol/L (8-16) BUN 23 mg/dL H m
[2020-05-06 11:29] LABS: Glucose Point of Care 112 (65-105)
--- NOTE | 2020-05-06 13:01 | PM.PROC ---
Procedure Note - Detailed Date of procedure: 05/06/20 Pre-op diagnosis: right leg pain and bulging veins right 1st ray osteomyelitis, 2nd metatarsophalangeal dislocation and diabetic foot ulcer Post-op diagnosis: same Procedure performed: right 1st ray amputation, excision of 2nd metatarsal head, Excisional debridement diabetic foot ulcer to the muscle layer Description of procedure: indications: Patient is a 64-year-old gentleman with dense peripheral neuropathy, diabetes and diabetic foot ulcer of the right foot. He has developed osteomyelitis of the 1st ray as well as dislocation of the 2nd metatarsophalangeal joint. He presents now for operative treatment. Description of procedure: Patient identified in the preoperative holding. Informed consent given. Operative extremity marked. Patient received intravenous antibiotics. Patient brought to the operating room where underwent general anesthetic by anesthesia team. Positioned supine on operating room table. Time-out performed confirming the patient, site of the surgery and the plan. Right foot prepped and draped in usual sterile surgical fashion using Betadine prep solution. There was an ulcer over the planter medial aspect of the hallux which revealed full-thickness necrosis with exposed bone of the First metatarsal. No ability to heal the wound and no soft tissue coverage of the bone, amputation of the hallux was indicated. Fifteen blade knife used to make fishmouth shaped incision at the base of the hallux. Hemostasis controlled with electrocautery. the incision was extended proximally on the dorsum in a longitudinal fashion to expose the distal 1st metatarsal. Sagittal saw used to transect the 1st metatarsal at the midportion, the metatarsal and hallux removed and passed off the table. plantar plate, sesamoids and tendinous structures removed and passed off. Thorough irrigation done. Metatarsal Prominences removed with a rongeur and smoothed. Wound thoroughly irrigated again. 2nd dislocation metatarsophalangeal joint was then addressed. The medial soft tissue and capsule were divided over the metatarsophalangeal joint to expose fluid and inflammation in the joint itself. The distal 2nd metatarsal resected with sagittal saw and removed with rongeur. Metatarsal prominences smoothed with a rongeur. Thorough irrigation done. The capsules and closed with 0 Vicryl interrupted suture. The soft tissue was closed in a pursestring fashion over the end of the 1st metatarsal with 0 Vicryl interrupted suture. Wound closed with 0 Vicryl interrupted suture for the deep tissue and 3 O nylon interrupted sutures for the skin. Diabetic foot ulcer on the plantar aspect was then debrided with 15 blade knife to excise and passed off the skin, subcutaneous tissue, muscle at the ulcer area. [place] E used to excise and remove a large devitalized tissue fragments. Wound thoroughly irrigated with antibiotic solution and closed with 3 O nylon interrupted suture. Sterile dressings applied. Patient awoke from anesthesia, extubated and taken to the recovery room in stable condition. All sponge needle and instrument counts correct at the end the case. Anesthesia: GLMA Surgeon: Alexy Del Cid MD Gas Utility Worker: 1st event sales assistant Estimated blood loss (mL): 5 Tourniquet time (min): 45 Drains: No Packing: No Pathology: none sent Complications: None Condition: stable Disposition: PACU
[2020-05-06 13:16] LABS: Glucose Point of Care 79 (65-105)
--- NOTE | 2020-05-06 14:33 | SUR.PHASEI ---
1430: Left a message for Dr. Del Cid's office about missing orders if any since transfer orders got deleted by RN on accident.
--- NOTE | 2020-05-06 15:50 | SUR.PHASEI ---
1550: Left a second voicemail at Dr. Del Cid's office in regards to this patient stating that I accidentally deleted the orders when trying to change the transfer location from Med surg to IMU.
[2020-05-06 17:14] LABS: Glucose Point of Care 150 (65-105)
[2020-05-06] MEDS: gemfibroziL 600 MG TABLET PO (17:33)
--- NOTE | 2020-05-06 17:35 | PM.IMPN ---
Progress Note: A&P Assessment and Plan (1) Diabetic foot infection: Code(s): E11.628 - Type 2 diabetes mellitus with other skin complications; L08.9 - Local infection of the skin and subcutaneous tissue, unspecified Status: Acute Assessment and Plan: with underlying osteomyelitis by MR. The patient has been started on Primaxin and vancomycin per antibiotic stewardship guidelines. Ortho plans amp today and will need long tem antibiotics post, per ID especially with probable pacer later (2) Third degree heart block: Code(s): I44.2 - Atrioventricular block, complete Status: Acute Assessment and Plan: Patient is relatively asymptomatic. He is not on any beta-blockers or rate-controlling medications. echocardiogram normal EF and no structural abnorm Cardiology evaluate for pacer after infection all cleared (3) Chronic kidney disease, stage III (moderate): Code(s): N18.3 - Chronic kidney disease, stage 3 (moderate) Status: Acute Assessment and Plan: creatinine 1.4 today slightly improved and sonogram no obstruction or abnormalities (4) BPH (benign prostatic hyperplasia): Qualifiers: Lower urinary tract symptom presence: symptoms present Lower urinary tract symptom detail: weak urinary stream Qualified Code(s): N40.1 - Benign prostatic hyperplasia with lower urinary tract symptoms; R39.12 - Poor urinary stream Code(s): N40.0 - Benign prostatic hyperplasia without lower urinary tract symptoms Status: Acute Assessment and Plan: started the patient on Flomax 0.4 mg p.o. daily. (5) Type 2 diabetes mellitus: Qualifiers: Diabetes mellitus halfway insulin use: without moth exterminator use Diabetes mellitus complication status: with skin complications Diabetes mellitus complication detail: with foot ulcer Qualified Code(s): E11.621 - Type 2 diabetes mellitus with foot ulcer; L97.509 - Non-pressure chronic ulcer of other part of unspecified foot with unspecified severity Code(s): E11.9 - Type 2 diabetes mellitus without complications Status: Acute Assessment and Plan: hold the patient's metformin due to his kidney function. Continue home Januvia. added low-dose sliding scale insulin with Accu-Cheks a.c. HS. FBS 138 today and will check a1c (6) Acute hyperkalemia: Code(s): E87.5 - Hyperkalemia Status: Resolved Assessment and Plan: Resolved after IV fluid administration. Subjective Date/time seen: 05/06/20 17:35 Interval history: date of visit 05/06. 64-year-old hypertensive type 2 diabetic admitted swollen right leg and wound MTP plantar surface of right foot. neuropathy some not much pain. no fever no chills no shortness of breath. In 3rd degree heart block also , asymtomatic Exam Narrative: Exam Narrative: PHYSICAL EXAM: blood pressure 134/70 pulse 60 sat 96% on room air afebrile General: no acute distress, obese, appears stated age HEENT: pupils equal and reactive to light sclera anicteric Respiratory: clear to auscultation bilaterally, Cardiovascular: irregularly irregular, bradycardic Gastrointestinal: soft, nontender, nondistended, positive bowel sounds Skin: generalized pallor, non jaundice Musculoskeletal: foot ulcer in the right 1st metatarsal head, serous sanguinous drainage, small amount of macerated skin around the lateral edge, Neurological: decreased sensation to both feet, otherwise alert and no focal deficits Psychiatric: appropriate mood and affect, pleasant and cooperative : deferred Hematologic/lymphatic: no petechiae, bruising or bleeding Objective Data Vital Signs Vital Signs: Vital Signs - 24 hr 05/05/20 18:00 05/05/20 20:00 05/05/20 22:00 Temperature 36.6 C Pulse Rate 59 L 47 L 60 Respiratory Rate 20 Blood Pressure 131/62 Pulse Oximetry 98 05/05/20 23:33 05/06/20 00:00 05/06/20 02:00
[2020-05-06 20:57] LABS: Glucose Point of Care 144 (65-105)
[2020-05-06] MEDS: ACETAMINOPHEN 325 MG TABLET 650 MG PO (21:44)
[2020-05-07] VITALS (16 sets, daily range): BP systolic 111–143; BP diastolic 55–67; PULSE 34–95; RESP 12–20; TEMP 36–36.9; O2SAT 94–100
[2020-05-07] MEDS: ACETAMINOPHEN 325 MG TABLET 650 MG PO ×4 (02:00→20:21)
[2020-05-07 05:25] LABS: Basophils Absolute Auto 0.1 K/mm3 (0.0-0.1); Basophils Percent Auto 0.6 % (0.2-1.2); Eosinophils Absolute Auto 0.3 K/mm3 (0-0.3); Eosinophils Percent Auto 2.9 % (0-4.4); Hematocrit 35.4 % (42.0-52.0); Hemoglobin 11.6 g/dL (14.0-18.0); Immature Granulocyte Absolute 0.04 K/mm3 (0.00-0.031); Immature Granulocyte Percent A 0.4 % (0-0.5); Lymphocytes Absolute Auto 2.51 K/mm3 (0.9-3.2); Lymphocytes Percent Auto 23.1 % (18.3-44.2); Mean Corpuscular HGB Conc 32.8 g/dl (32-36); Mean Corpuscular Hemoglobin 30.1 pg (26-34); Mean Corpuscular Volume 91.9 fl (80-100); Mean Platelet Volume 10.3 fl (7.4-10.4); Monocytes Absolute Auto 0.9 K/mm3 (0.1-0.6); Monocytes Percent Auto 8.2 % (2.6-8.5); Neutrophils Percent Auto 64.8 % (45.5-73.1); Platelet Count Result 441 k/mm3 (150-375); Red Blood Count 3.85 M/mm3 (4.6-6.20); Red Cell Distribution Width 13.6 % (11.5-14.5); White Blood Count 10.9 K/mm3 (4.5-10.0)
[2020-05-07 05:32] LABS: Anion Gap 5 mmol/L (8-16); Blood Urea Nitrogen 22 mg/dL (9-20); Calcium 8.3 mg/dL (8.4-10.2); Carbon Dioxide 23 mmol/L (22-30); Chloride 107 mmol/L (98-107); Estimated CRCL calculation 80 ml/min; Estimated Glomerular Filt Rate > 60; Glucose 140 mg/dL (75-110); Sodium 135 mmol/L (137-145)
[2020-05-07 05:44] LABS: Hemoglobin A1C 6.1 % (<5.7)
[2020-05-07] MEDS: ASPIRIN 81 MG CHEWABLE TABLET PO (08:26)
[2020-05-07] MEDS: gemfibroziL 600 MG TABLET PO ×2 (08:26→16:44)
[2020-05-07] MEDS: TAMSULOSIN HCL 0.4 MG CAPSULE PO (08:26)
[2020-05-07] MEDS: allopurinoL 150 MG TABLET PO (08:27)
[2020-05-07] MEDS: lisinopriL 20 MG TABLET PO (08:27)
[2020-05-07] MEDS: ENOXAPARIN 40 MG/0.4 ML SYRINGE SUB-Q (08:27)
[2020-05-07] MEDS: allopurinoL 300 MG TABLET PO (08:27)
[2020-05-07 08:53] LABS: Glucose Point of Care 125 (65-105)
--- NOTE | 2020-05-07 09:29 | PM.PNORT ---
Progress Note: A&P Assessment and Plan (1) Osteomyelitis of foot, acute: Code(s): M86.179 - Other acute osteomyelitis, unspecified ankle and foot Status: Acute Assessment and Plan: postop day 1. 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 Incision clean and dry. Dressing changed. Good capillary refill neuro remaining toes. May start with heel weight-bearing for the right foot. Daily dressing change orders entered. Okay from orthopedic standpoint to proceed with cardiac treatment as necessary. (2) Diabetic foot ulcer associated with diabetes mellitus due to underlying condition: Code(s): E08.621 - Diabetes mellitus due to underlying condition with foot ulcer; L97.509 - Non-pressure chronic ulcer of other part of unspecified foot with unspecified severity Status: Acute Assessment and Plan: Continue dressing changes on the left foot. Postop shoe for pressure relief. PT/OT. (3) Chronic kidney disease, stage III (moderate): Code(s): N18.3 - Chronic kidney disease, stage 3 (moderate) Status: Acute Assessment and Plan: Creatinine improved. Continue supportive care. Subjective Subjective Date/Time Seen: 05/07/20 09:29 Patient awake and alert. Eating breakfast. Minimal complaints of pain right foot. No new complaints. Exam Extrem: Right lower extremity: foot Details: vascular exam Details: dorsalis pedis pulse present and normal capillary refill ( Lesser toes), motor-sensory exam Details: light-touch abnormal Location: in all toes and other ( 1st ray amputated) Left lower extremity: foot Details: vascular exam Details: dorsalis pedis pulse present and normal capillary refill and motor-sensory exam light-touch abnormal in all toes Other: Right foot dressing removed. Incision clean dry and intact. Minimal sanguinous drainage. No erythema or warmth. Lesser toes appear viable with good capillary refill. Palpable DP pulse. New dressing applied. Left foot with nickel sized superficial ulceration plantar 1st metatarsal head. No erythema or drainage. Good capillary refill in the toes. Objective Data Vital Signs Vital Signs: Vital Signs - 24 hr 05/06/20 12:44 05/06/20 13:00 05/06/20 13:15 Temperature 97.8 F Pulse Rate 60 85 53 L Respiratory Rate 18 14 14 Blood Pressure 116/60 105/57 L 115/83 Pulse Oximetry 97 100 97 05/06/20 13:30 05/06/20 13:45 05/06/20 14:00 Temperature Pulse Rate 44 L 49 L 40 L Respiratory Rate 20 18 12 Blood Pressure 96/73 L 105/53 L 112/61 Pulse Oximetry 97 97 96 05/06/20 14:15 05/06/20 14:20 05/06/20 16:00 Temperature Pulse Rate 47 L 58 L 56 L Respiratory Rate 12 Blood Pressure 111/66 Pulse Oximetry 96 05/06/20 18:00 05/06/20 19:49 05/06/20 19:58 Temperature 98.2 F 98.2 F Pulse Rate 55 L 53 L 53 L Respiratory Rate 16 16 Blood Pressure 107/58 L 107/58 L Pulse Oximetry 97 97 05/06/20 20:00 05/06/20 22:00 05/06/20 23:24 Temperature 99 F Pulse Rate 60 53 L 57 L Respiratory Rate 16 20 Blood Pressure 116/62 Pulse Oximetry 97 98 05/07/20 00:00 05/07/20 02:00 05/07/20 04:00 Temperature 98.4 F Pulse Rate 42 L 43 L 45 L Respiratory Rate 20 18 Blood Pressure 111/58 L Pulse Oximetry 98 98 05/07/20 06:00 05/07/20 07:41 Temperature 96.8 F L Pulse Rate 34 L 48 L Respiratory Rate 16 Blood Pressure 131/60 Pulse Oximetry 100 Intake/Output Intake/Output: Intake & Output 05/04/20 05/05/20 05/06/20 05/07/20 23:59 23:59 23:59 23:59 Intake Total 4120 5170 3490 2500 Output Total 2550 3190 2950 1830 Balance 1570 1980 540 670 Meds/Results Medications: Active Medications Generic Name Dose Route Start Last Admin Trade Name Freq PRN Reason Stop Dose Admin Acetaminophen 650 mg 05/03/20 19:13 05/07/20 08:23 Tylenol Tablet PO 650 mg Q4H PRN Administration Mild Pain (1-3) or Fever Allopurinol 150 mg 05/04/20 09:00 05/07/20 08:27 Z
--- NOTE | 2020-05-07 10:42 | WPDANESPN ---
Anes - Prog Note Post-Op Date/Time: 05/07/20 10:42 Cardiovascular status: normal Respiratory status: normal Airway patency: baseline Mental status: baseline Post-Op hydration status: normal Vital Signs: Last Vital Signs Temp 36.0 C L 05/07/20 07:41 Pulse 95 05/07/20 10:00 Resp 16 05/07/20 07:41 BP 131/60 05/07/20 07:41 Pulse Ox 100 05/07/20 07:41 I/O: Intake & Output 05/06/20 05/07/20 05/07/20 23:59 07:59 15:59 Intake Total 1340 2500 Output Total 1350 1830 Balance -10 670 Laboratory Tests 05/07/20 04:13 05/07/20 04:13 05/06/20 05/06/20 05/06/20 11:26 13:13 17:09 WBC RBC Hgb Hct MCV MCH MCHC RDW Plt Count MPV Immature Gran % (Auto) Neut % (Auto) Lymph % (Auto) [place] % (Auto) Eos % (Auto) Baso % (Auto) Lymph # (Auto) [place] # (Auto) Eos # (Auto) Baso # (Auto) Abs Immat Gran (auto) Absolute Neuts (auto) Absolute Nucleated RBC Nucleated RBC % Sodium Potassium Chloride Carbon Dioxide Anion Gap BUN Creatinine Estim Creat Clear Calc Estimated GFR Glucose POC Capillary Glucose 112 H 79 150 H Hemoglobin A1c Calcium 05/06/20 05/07/20 05/07/20 20:52 04:13 04:13 WBC 10.9 H RBC 3.85 L Hgb 11.6 L Hct 35.4 L MCV 91.9 MCH 30.1 MCHC 32.8 RDW 13.6 Plt Count 441 H MPV 10.3 Immature Gran % (Auto) 0.4 Neut % (Auto) 64.8 Lymph % (Auto) 23.1 [place] % (Auto) 8.2 Eos % (Auto) 2.9 Baso % (Auto) 0.6 Lymph # (Auto) 2.51 [place] # (Auto) 0.9 H Eos # (Auto) 0.3 Baso # (Auto) 0.1 Abs Immat Gran (auto) 0.04 H Absolute Neuts (auto) 7.0 H Absolute Nucleated RBC 0.0 Nucleated RBC % 0.0 Sodium 135 L Potassium 4.0 Chloride 107 Carbon Dioxide 23 Anion Gap 5 L BUN 22 H Creatinine 1.10 Estim Creat Clear Calc 80 Estimated GFR > 60 Glucose 140 H POC Capillary Glucose 144 H Hemoglobin A1c Calcium 8.3 L 05/07/20 05/07/20 04:13 07:39 WBC RBC Hgb Hct MCV MCH MCHC RDW Plt Count MPV Immature Gran % (Auto) Neut % (Auto) Lymph % (Auto) [place] % (Auto) Eos % (Auto) Baso % (Auto) Lymph # (Auto) [place] # (Auto) Eos # (Auto) Baso # (Auto) Abs Immat Gran (auto) Absolute Neuts (auto) Absolute Nucleated RBC Nucleated RBC % Sodium Potassium Chloride Carbon Dioxide Anion Gap BUN Creatinine Estim Creat Clear Calc Estimated GFR Glucose POC Capillary Glucose 125 H Hemoglobin A1c 6.1 H Calcium Microbiology 05/05/20 11:50 Blood Blood Culture - Preliminary 05/05/20 12:06 Blood Blood Culture - Preliminary Post-procedural complaints: none Patient Feedback: Patient satisfied with anesthetic care.
[2020-05-07] MEDS: LIDOCAINE HCL 1% PF INJ 5 ML VIAL INFILTRATE (11:45)
--- NOTE | 2020-05-07 11:59 | WPDINFPN2 ---
Progress Note: A&P Assessment and Plan (1) Osteomyelitis of foot, acute: Code(s): M86.179 - Other acute osteomyelitis, unspecified ankle and foot Status: Acute Assessment and Plan: 1. Acute OM of R 1st toe and MT 1-2, POD # 1. BCs ng 2 days 2. CHB 3. DM REC Operative findings reviewed. Imipenem and Vanc #7 / 28-42 days. Glycemic control. PPM planned, ok with me anytime. Subjective Date/time seen: 05/07/20 11:59 Interval history: pain under control Exam Narrative: Exam Narrative: afebrile Const: General: no acute distress Resp: Effort & Inspection: normal respiratory effort Auscultation: clear to auscultation bilaterally Cardio: Rate: regular rate Rhythm: regular rhythm Heart sounds: no murmurs Extrem: Other: feet dressed Objective Data Vital Signs Vital Signs: Vital Signs - 24 hr 05/06/20 12:44 05/06/20 13:00 05/06/20 13:15 Temperature 36.6 C Pulse Rate 60 85 53 L Respiratory Rate 18 14 14 Blood Pressure 116/60 105/57 L 115/83 Pulse Oximetry 97 100 97 05/06/20 13:30 05/06/20 13:45 05/06/20 14:00 Temperature Pulse Rate 44 L 49 L 40 L Respiratory Rate 20 18 12 Blood Pressure 96/73 L 105/53 L 112/61 Pulse Oximetry 97 97 96 05/06/20 14:15 05/06/20 14:20 05/06/20 16:00 Temperature Pulse Rate 47 L 58 L 56 L Respiratory Rate 12 Blood Pressure 111/66 Pulse Oximetry 96 05/06/20 18:00 05/06/20 19:49 05/06/20 19:58 Temperature 36.8 C 36.8 C Pulse Rate 55 L 53 L 53 L Respiratory Rate 16 16 Blood Pressure 107/58 L 107/58 L Pulse Oximetry 97 97 05/06/20 20:00 05/06/20 22:00 05/06/20 23:24 Temperature 37.2 C Pulse Rate 60 53 L 57 L Respiratory Rate 16 20 Blood Pressure 116/62 Pulse Oximetry 97 98 05/07/20 00:00 05/07/20 02:00 05/07/20 04:00 Temperature 36.9 C Pulse Rate 42 L 43 L 45 L Respiratory Rate 20 18 Blood Pressure 111/58 L Pulse Oximetry 98 98 05/07/20 06:00 05/07/20 07:41 05/07/20 08:00 Temperature 36.0 C L Pulse Rate 34 L 48 L 50 L Respiratory Rate 16 Blood Pressure 131/60 Pulse Oximetry 100 05/07/20 10:00 Temperature Pulse Rate 95 Respiratory Rate Blood Pressure Pulse Oximetry Intake/Output Intake/Output: Intake & Output 05/04/20 05/05/20 05/06/20 05/07/20 23:59 23:59 23:59 23:59 Intake Total 4120 5170 3490 2980 Output Total 2550 3190 2950 1830 Balance 1570 5934 409 6108 Meds/Results Medications: Active Medications Generic Name Dose Route Start Last Admin Trade Name Freq PRN Reason Stop Dose Admin Acetaminophen 650 mg 05/03/20 19:13 05/07/20 08:23 Tylenol Tablet PO 650 mg Q4H PRN Administration Mild Pain (1-3) or Fever Allopurinol 150 mg 05/04/20 09:00 05/07/20 08:27 Zyloprim PO 150 mg DAILY CHRISTIANO Administration Allopurinol 300 mg 05/04/20 09:00 05/07/20 08:27 Zyloprim PO 300 mg DAILY CHRISTIANO Administration Artificial Tears 1 drop 05/04/20 03:01 EACH EYE BID PRN Dry Eye(s) Aspirin 81 mg 05/04/20 09:00 05/07/20 08:26 Aspirin Chewable PO 81 mg DAILY CHRISTIANO Administration Dextrose 12.5 gm 05/04/20 02:19 Dextrose 50% Syringe IV PUSH PRN PRN Hypoglycemia Protocol Enoxaparin Sodium 40 mg 05/04/20 09:00 05/07/20 08:27 Lovenox SUB-Q 40 mg DAILY CHRISTIANO Administration Gemfibrozil 600 mg 05/04/20 07:30 05/07/20 08:26 Lopid PO 600 mg 0730,1630 CHRISTIANO Administration Glucagon 1 mg 05/04/20 02:19 Glucagon For Inj IM PRN PRN Hypoglycemia Protocol Glucose 15 gm 05/04/20 02:19 Glutose 15 PO PRN PRN Hypoglycemia Protocol Imipenem/Cilastatin Sodium 500 mg in 100 mls @ 300 mls/hr 05/04/20 02:00 05/07/20 09:20 Primaxin 500 Mg/D5w 100 Ml IVPB 300 mls/hr Q8H CHRISTIANO Administration Dextrose 1,000 mls @ 100 mls/hr 05/04/20 02:19 Dextrose 5% 1,000 Ml IVPB PRN PRN Hypoglycemia Protocol Vancomycin HCl 1,750 mg in 500 mls @ 2
[2020-05-07] MEDS: traMADol HCL 50 MG TABLET PO ×2 (12:13→20:22)
[2020-05-07 12:50] LABS: Glucose Point of Care 134 (65-105)
--- NOTE | 2020-05-07 13:45 | PM.PNCARD ---
Progress Note: A&P Assessment and Plan (1) Third degree heart block: Code(s): I44.2 - Atrioventricular block, complete Status: Acute Assessment and Plan: Vital signs stable. No complaints of dizziness, lightheadedness or faint feeling. Eventual pacemaker implantation. He has a follow-up appointment scheduled in the office with Dr. Arnold to discuss the timing of pacemaker implantation. Reassured that his rhythm has been stable. His vital signs have been stable. Need for treatment of the infection before pacemaker can be placed. Clarified that the device will NOT be placed during this hospitalization unless he becomes unstable. (2) Diabetic foot infection: Code(s): E11.628 - Type 2 diabetes mellitus with other skin complications; L08.9 - Local infection of the skin and subcutaneous tissue, unspecified Status: Acute Assessment and Plan: Management as per surgical andprimary team (3) Type 2 diabetes mellitus: Qualifiers: Diabetes mellitus fdc insulin use: without adjunct faculty for medical terminology use Diabetes mellitus complication status: with skin complications Diabetes mellitus complication detail: with foot ulcer Qualified Code(s): E11.621 - Type 2 diabetes mellitus with foot ulcer; L97.509 - Non-pressure chronic ulcer of other part of unspecified foot with unspecified severity Code(s): E11.9 - Type 2 diabetes mellitus without complications Status: Acute Assessment and Plan: Management per primary team Additional Plan Plan discussed with Dr. Catalina Darby 05/07/2020 Subjective Date/time seen: 05/07/20 13:45 Interval history: Follow-up for: complete heart block admitted with treatment of an infected diabetic foot ulcer. Date of service: 05/07/2020 Subjective: Denied chest discomfort or shortness of breath. Feels that he has to take short breaths when he has some heart fluttering. PICC line has been inserted. Concerned about going home as he lives alone and has no nearby medical facilities. Review of Systems Constitutional: Constitutional: Denies chills, Denies fatigue, Denies fever(s) and Denies headache(s) Eyes: Eyes: Denies change in vision, Denies loss of vision and Denies eye pain ENT: Reports Normal hearing present, Denies headache(s), Denies lip swelling, Denies epistaxis and Denies sore throat Cardiovascular: Cardiovascular: Denies chest pain, Denies syncope, Denies irregular heart rhythm, Denies lightheadedness and Denies dyspnea Respiratory: Respiratory: Denies cough, Denies dyspnea and Denies wheezing Gastrointestinal: Gastrointestinal: Denies abdominal pain, Denies melena, Denies nausea and Denies vomiting Genitourinary: Genitourinary: Denies hematuria Musculoskeletal: Musculoskeletal: Denies myalgias, Denies muscle cramps and Denies muscle weakness Integumentary/Breasts: Skin/Breast: Denies pruritus and Denies rash Neurologic: Reports as per HPI, Reports Normal hearing present, Denies behavioral changes, Denies syncope, Denies headache(s) and Denies loss of vision Psychiatric: Psychiatric: Denies anxiety, Denies behavioral changes and Denies depression Endocrine: Endocrine: Denies fatigue, Denies polydipsia and Denies polyuria Hematologic/Lymphatic: Hematologic/Lymphatic: Denies easy bleeding and Denies easy bruising Allergic/Immunologic: Allergic/Immunologic: Denies lip swelling and Denies wheezing Exam Const: General: comfortable, no acute distress, alert and awake HENMT: Head: normocephalic and atraumatic Ears: hearing grossly normal bilaterally and external ears normal General nose exam: Normal external nose present and no epistaxis Face and sinus: normal facial exam and no ecchymosis Mouth: Yes tongue normal and Yes moist mucous membranes Teeth and gingiva: dentition normal Eyes: Conjunctivae: conjunctivae
[2020-05-07 14:09] LABS: Vancomycin Trough 18.5 ug/mL (10.0-20.0)
[2020-05-07] MEDS: CENTRAL LINE FLUSH 10 ML IV PUSH ×2 (15:00→22:16)
--- NOTE | 2020-05-07 17:33 | PM.IMPN ---
Progress Note: A&P Assessment and Plan (1) Diabetic foot infection: Code(s): E11.628 - Type 2 diabetes mellitus with other skin complications; L08.9 - Local infection of the skin and subcutaneous tissue, unspecified Status: Acute Assessment and Plan: with underlying osteomyelitis by MR. The patient was started on Primaxin and vancomycin and ID recommends 4-6 weeks rx. BC NG POD #1 amp of 1st and 2cnd toes R foot (2) Third degree heart block: Code(s): I44.2 - Atrioventricular block, complete Status: Acute Assessment and Plan: Patient is relatively asymptomatic. He is not on any beta-blockers or rate-controlling medications. echocardiogram normal EF and no structural abnorm Cardiology will decide appropriate time to place pacer (3) Chronic kidney disease, stage III (moderate): Code(s): N18.3 - Chronic kidney disease, stage 3 (moderate) Status: Acute Assessment and Plan: creatinine 1.1 today slightly improved and sonogram no obstruction or abnormalities (4) BPH (benign prostatic hyperplasia): Qualifiers: Lower urinary tract symptom presence: symptoms present Lower urinary tract symptom detail: weak urinary stream Qualified Code(s): N40.1 - Benign prostatic hyperplasia with lower urinary tract symptoms; R39.12 - Poor urinary stream Code(s): N40.0 - Benign prostatic hyperplasia without lower urinary tract symptoms Status: Acute Assessment and Plan: started the patient on Flomax 0.4 mg p.o. daily. (5) Type 2 diabetes mellitus: Qualifiers: Diabetes mellitus lobsterman insulin use: without lobsterman use Diabetes mellitus complication status: with skin complications Diabetes mellitus complication detail: with foot ulcer Qualified Code(s): E11.621 - Type 2 diabetes mellitus with foot ulcer; L97.509 - Non-pressure chronic ulcer of other part of unspecified foot with unspecified severity Code(s): E11.9 - Type 2 diabetes mellitus without complications Status: Acute Assessment and Plan: hold the patient's metformin due to his kidney function. Continue home Januvia. added low-dose sliding scale insulin with Accu-Cheks a.c. HS. FBS 134 today and A1c 6.1 (6) Acute hyperkalemia: Code(s): E87.5 - Hyperkalemia Status: Resolved Assessment and Plan: Resolved after IV fluid administration. Subjective Date/time seen: 05/07/20 17:33 Interval history: date of visit 05/07. 64-year-old hypertensive type 2 diabetic admitted swollen right leg and wound MTP plantar surface of right foot. neuropathy some not much pain. no fever no chills no shortness of breath. In 3rd degree heart block also , asymtomatic s/p amp 1 st and second toe R 05/06. tolerating pain well Exam Narrative: Exam Narrative: PHYSICAL EXAM: blood pressure 142/60 pulse 50 sat 96% on room air afebrile General: no acute distress, obese, appears stated age HEENT: pupils equal and reactive to light sclera anicteric Respiratory: clear to auscultation bilaterally, Cardiovascular: irregularly irregular, bradycardic Gastrointestinal: soft, nontender, nondistended, positive bowel sounds Skin: generalized pallor, non jaundice Musculoskeletal: foot bandaged and ot removed post op Neurological: decreased sensation to both feet, otherwise alert and no focal deficits Psychiatric: appropriate mood and affect, pleasant and cooperative Objective Data Vital Signs Vital Signs: Vital Signs - 24 hr 05/06/20 18:00 05/06/20 19:49 05/06/20 19:58 Temperature 36.8 C 36.8 C Pulse Rate 55 L 53 L 53 L Respiratory Rate 16 16 Blood Pressure 107/58 L 107/58 L Pulse Oximetry 97 97 05/06/20 20:00 05/06/20 22:00 05/06/20 23:24 Temperature 37.2 C Pulse Rate 60 53 L 57 L Respiratory Rate 16 20 Blood Pressure 116/62 Pulse Oximetry 97 98 05/07/20 00:00 05/07/20 02:00 05/07/20
[2020-05-07 17:57] LABS: Glucose Point of Care 158 (65-105)
[2020-05-07 21:46] LABS: Glucose Point of Care 101 (65-105)
[2020-05-08] VITALS (17 sets, daily range): BP systolic 123–147; BP diastolic 62–66; PULSE 34–66; RESP 16–20; TEMP 35.8–36.5; O2SAT 97–100
[2020-05-08] MEDS: ACETAMINOPHEN 325 MG TABLET 650 MG PO ×4 (00:11→19:43)
[2020-05-08] MEDS: traMADol HCL 50 MG TABLET PO ×3 (04:26→19:43)
[2020-05-08] MEDS: CENTRAL LINE FLUSH 10 ML IV PUSH ×3 (05:32→21:27)
[2020-05-08] MEDS: allopurinoL 300 MG TABLET PO (08:37)
[2020-05-08] MEDS: gemfibroziL 600 MG TABLET PO ×2 (08:37→17:03)
[2020-05-08] MEDS: lisinopriL 20 MG TABLET PO (08:38)
[2020-05-08] MEDS: ASPIRIN 81 MG CHEWABLE TABLET PO (08:38)
[2020-05-08] MEDS: allopurinoL 150 MG TABLET PO (08:39)
[2020-05-08] MEDS: TAMSULOSIN HCL 0.4 MG CAPSULE PO (08:39)
[2020-05-08] MEDS: ENOXAPARIN 40 MG/0.4 ML SYRINGE SUB-Q (08:39)
[2020-05-08 08:45] LABS: Glucose Point of Care 105 (65-105)
--- NOTE | 2020-05-08 09:26 | PM.PNCARD ---
Progress Note: A&P Additional Plan 64-year-old man with acquired complete heart block. Implanting the patient's pacemaker as an outpatient would still be reasonable but in order to achieve patient's satisfaction we will proceed with this before discharge. There are a lot of cases already on the schedule for [facility] this pre implant will not take place until later in the day on Sunday. Nico Arnold MD [facility] Subjective Date/time seen: date of service:05/08/20 09:26 Interval history: 64-year-old man with acquired complete heart block with which remarkably he has been essentially asymptomatic. Foot infection with complicated osteomyelitis status post operative resection of the infected toe Long conversation with the patient today about plans for pacemaker implantation. Initially the plan was to allow the patient's infection to completely heal and then implant his pacemaker device in an elective fashion since he is asymptomatic. According to the chart and reading the ID consultants note they are fine with device implantation at any time. The patient is not happy about the planned to implanted device as an outpatient he wants to have it done during this hospitalization. To satisfy that desire we will anticipate implanting pacemaker next week hopefully I can get this done on Sunday Exam Const: General: comfortable and no acute distress Other: patient comfortable receiving physical therapy range of motion exercises when I entered the room to see him HENMT: Mouth: Yes moist mucous membranes Eyes: Sclera: sclerae normal Pupils: Equal, round and reactive pupils present Neck: Neck: supple and no JVD Thyroid: thyroid normal Resp: Effort & Inspection: normal respiratory effort Auscultation: clear to auscultation bilaterally Cardio: Rhythm: abnormal rhythm irregularly irregular GI: Auscultation: normal bowel sounds Skin: General skin exam: normal color Neuro: Cognition (Neuro): normal cognition Extrem: Other: surgical foot dressings are clean and dry Objective Data Vital Signs Vital Signs: Vital Signs - 24 hr 05/07/20 10:00 05/07/20 12:00 05/07/20 14:00 Temperature 36.1 C L Pulse Rate 95 59 L 60 Respiratory Rate 16 Blood Pressure 132/67 Pulse Oximetry 94 05/07/20 16:00 05/07/20 16:57 05/07/20 18:00 Temperature 36.2 C L Pulse Rate 51 L 51 L 59 L Respiratory Rate 16 Blood Pressure 143/60 H Pulse Oximetry 98 05/07/20 19:34 05/07/20 20:00 05/07/20 22:00 Temperature 36.1 C L Pulse Rate 40 L 48 L 37 L Respiratory Rate 12 12 Blood Pressure 116/55 L Pulse Oximetry 100 100 05/07/20 23:53 05/08/20 00:00 05/08/20 02:00 Temperature 36.4 C L Pulse Rate 44 L 37 L 42 L Respiratory Rate 20 Blood Pressure 132/58 L Pulse Oximetry 99 05/08/20 04:00 05/08/20 04:20 05/08/20 05:28 Temperature 36.5 C Pulse Rate 48 L 37 L 34 L Respiratory Rate 20 20 Blood Pressure 123/66 Pulse Oximetry 100 100 05/08/20 09:10 Temperature 35.8 C L Pulse Rate 59 L Respiratory Rate 16 Blood Pressure 147/65 H Pulse Oximetry 100 Intake/Output Intake/Output: Intake & Output 05/05/20 05/06/20 05/07/20 05/08/20 23:59 23:59 23:59 23:59 Intake Total 5170 3490 5136 1586 Output Total 3190 2950 4075 1380 Balance 7116 200 8333 206 Meds/Results Medications: Active Medications Generic Name Dose Route Start Last Admin Trade Name Freq PRN Reason Stop Dose Admin Acetaminophen 650 mg 05/03/20 19:13 05/08/20 04:25 Tylenol Tablet PO 650 mg Q4H PRN Administration Mild Pain (1-3) or Fever Allopurinol 150 mg 05/04/20 09:00 05/08/20 08:39 Zyloprim PO 150 mg DAILY CHRISTIANO Administration Allopurinol 300 mg 05/04/20 09:00 05/08/20 08:37 Zyloprim PO 300 mg DAILY CHRISTIANO Administration Artificial Tears 1 drop 05/04/20 03:01 EACH EYE BID PRN Dry Eye(s) Aspirin 81 mg 05/04/20 09:00 05/08/20 08:38 Aspirin Chew
[2020-05-08 13:09] LABS: Glucose Point of Care 160 (65-105)
--- NOTE | 2020-05-08 17:02 | PM.IMPN ---
Progress Note: A&P Assessment and Plan (1) Diabetic foot infection: Code(s): E11.628 - Type 2 diabetes mellitus with other skin complications; L08.9 - Local infection of the skin and subcutaneous tissue, unspecified Status: Acute Assessment and Plan: with underlying osteomyelitis by MR. The patient was started on Primaxin and vancomycin and ID recommends 4-6 weeks rx. BC NG POD #2 amp of 1st and 2cnd toes R foot (2) Third degree heart block: Code(s): I44.2 - Atrioventricular block, complete Status: Acute Assessment and Plan: Patient is relatively asymptomatic but sob with exertion. He is not on any beta-blockers or rate-controlling medications. echocardiogram normal EF and no structural abnorm Cardiology Proceed with pacer placement 05/10 since has been cleared by ID and Ortho (3) Chronic kidney disease, stage III (moderate): Code(s): N18.3 - Chronic kidney disease, stage 3 (moderate) Status: Acute Assessment and Plan: creatinine 1.1 05/07 slightly improved and sonogram no obstruction or abnormalities recheck am (4) BPH (benign prostatic hyperplasia): Qualifiers: Lower urinary tract symptom presence: symptoms present Lower urinary tract symptom detail: weak urinary stream Qualified Code(s): N40.1 - Benign prostatic hyperplasia with lower urinary tract symptoms; R39.12 - Poor urinary stream Code(s): N40.0 - Benign prostatic hyperplasia without lower urinary tract symptoms Status: Acute Assessment and Plan: started the patient on Flomax 0.4 mg p.o. daily. (5) Type 2 diabetes mellitus: Qualifiers: Diabetes mellitus fpc insulin use: without fpc use Diabetes mellitus complication status: with skin complications Diabetes mellitus complication detail: with foot ulcer Qualified Code(s): E11.621 - Type 2 diabetes mellitus with foot ulcer; L97.509 - Non-pressure chronic ulcer of other part of unspecified foot with unspecified severity Code(s): E11.9 - Type 2 diabetes mellitus without complications Status: Acute Assessment and Plan: hold the patient's metformin due to his kidney function. Continue home Januvia. added low-dose sliding scale insulin with Accu-Cheks a.c. HS. FBS 105 today and A1c 6.1 (6) Acute hyperkalemia: Code(s): E87.5 - Hyperkalemia Status: Resolved Assessment and Plan: Resolved after IV fluid administration. Subjective Date/time seen: 05/08/20 17:02 Interval history: date of visit 05/08. 64-year-old hypertensive type 2 diabetic admitted swollen right leg and wound MTP plantar surface of right foot. neuropathy so not much pain. no fever no chills no shortness of breath. In 3rd degree heart block also , asymtomatic s/p amp 1 st and second toe R 8/13. tolerating pain well, up with PT and sob with exertion Exam Narrative: Exam Narrative: PHYSICAL EXAM: blood pressure 124/62 pulse 42 sat 98% on room air afebrile General: no acute distress, obese, appears stated age HEENT: pupils equal and reactive to light sclera anicteric Respiratory: clear to auscultation bilaterally, Cardiovascular: irregularly irregular, bradycardic Gastrointestinal: soft, nontender, positive bowel sounds Skin: generalized pallor, non jaundice Musculoskeletal: foot bandaged and not removed post op Neurological: decreased sensation to both feet, otherwise alert and no focal deficits Psychiatric: appropriate mood and affect, pleasant and cooperative Objective Data Vital Signs Vital Signs: Vital Signs - 24 hr 05/07/20 18:00 05/07/20 19:34 05/07/20 20:00 Temperature 36.1 C L Pulse Rate 59 L 40 L 48 L Respiratory Rate 12 12 Blood Pressure 116/55 L Pulse Oximetry 100 100 05/07/20 22:00 05/07/20 23:53 05/08/20 00:00 Temperature 36.4 C L Pulse Rate 37 L 44 L 37 L Respiratory Rate 20 Blood Pressure
[2020-05-08 17:13] LABS: Glucose Point of Care 140 (65-105)
[2020-05-08 20:09] LABS: Glucose Point of Care 109 (65-105)
[2020-05-09] VITALS (17 sets, daily range): BP systolic 116–148; BP diastolic 60–77; PULSE 35–65; RESP 16–20; TEMP 35.9–36.5; O2SAT 98–100
[2020-05-09] MEDS: ACETAMINOPHEN 325 MG TABLET 650 MG PO ×3 (04:08→20:25)
[2020-05-09] MEDS: traMADol HCL 50 MG TABLET PO (04:11)
[2020-05-09 04:34] LABS: Basophils Absolute Auto 0.1 K/mm3 (0.0-0.1); Basophils Percent Auto 0.7 % (0.2-1.2); Eosinophils Absolute Auto 0.4 K/mm3 (0-0.3); Hematocrit 34.3 % (42.0-52.0); Hemoglobin 11.5 g/dL (14.0-18.0); Immature Granulocyte Absolute 0.02 K/mm3 (0.00-0.031); Immature Granulocyte Percent A 0.2 % (0-0.5); Lymphocytes Absolute Auto 3.29 K/mm3 (0.9-3.2); Lymphocytes Percent Auto 38.5 % (18.3-44.2); Mean Corpuscular HGB Conc 33.5 g/dl (32-36); Mean Corpuscular Hemoglobin 30.3 pg (26-34); Mean Corpuscular Volume 90.3 fl (80-100); Mean Platelet Volume 9.9 fl (7.4-10.4); Monocytes Absolute Auto 0.7 K/mm3 (0.1-0.6); Monocytes Percent Auto 8.1 % (2.6-8.5); Neutrophils Absolute Auto 4.1 K/mm3 (1.3-6.7); Neutrophils Percent Auto 47.5 % (45.5-73.1); Platelet Count Result 412 k/mm3 (150-375); Red Cell Distribution Width 13.8 % (11.5-14.5); White Blood Count 8.5 K/mm3 (4.5-10.0)
[2020-05-09 04:47] LABS: Anion Gap 4 mmol/L (8-16); Blood Urea Nitrogen 16 mg/dL (9-20); Calcium 8.8 mg/dL (8.4-10.2); Carbon Dioxide 27 mmol/L (22-30); Chloride 105 mmol/L (98-107); Estimated CRCL calculation 80 ml/min; Estimated Glomerular Filt Rate > 60; Glucose 155 mg/dL (75-110); Potassium 3.7 mmol/L (3.4-5.0); Sodium 136 mmol/L (137-145)
[2020-05-09] MEDS: CENTRAL LINE FLUSH 10 ML IV PUSH ×2 (06:47→14:43)
[2020-05-09 08:08] LABS: Glucose Point of Care 108 (65-105)
[2020-05-09] MEDS: ENOXAPARIN 40 MG/0.4 ML SYRINGE SUB-Q (08:27)
[2020-05-09] MEDS: allopurinoL 300 MG TABLET PO (08:28)
[2020-05-09] MEDS: allopurinoL 150 MG TABLET PO (08:28)
[2020-05-09] MEDS: TAMSULOSIN HCL 0.4 MG CAPSULE PO (08:28)
[2020-05-09] MEDS: lisinopriL 20 MG TABLET PO (08:28)
[2020-05-09] MEDS: gemfibroziL 600 MG TABLET PO ×2 (08:28→17:12)
[2020-05-09] MEDS: ASPIRIN 81 MG CHEWABLE TABLET PO (08:29)
--- NOTE | 2020-05-09 09:52 | PM.PNCARD ---
Progress Note: A&P Additional Plan 64-year-old man with: Acquired complete heart block either asymptomatic or minimally symptomatic. As dictated in my note yesterday plans are to proceed with pacemaker implantation tomorrow. As the case will not happen until the afternoon will allow him to be NPO after breakfast. Nico Arnold MD [facility] Subjective Date/time seen: Date of service:05/09/20 09:53 Interval history: 64-year-old man with acquired complete heart block with which remarkably he has been essentially asymptomatic. Foot infection with complicated osteomyelitis status post operative resection of the infected toe Long conversation with the patient today about plans for pacemaker implantation. Initially the plan was to allow the patient's infection to completely heal and then implant his pacemaker device in an elective fashion since he is asymptomatic. According to the chart and reading the ID consultants note they are fine with device implantation at any time. The patient is not happy about the planned to implanted device as an outpatient he wants to have it done during this hospitalization. To satisfy that desire we will anticipate implanting pacemaker next week hopefully I can get this done on Sunday Exam Const: General: comfortable HENMT: Mouth: Yes moist mucous membranes Eyes: Sclera: sclerae normal Pupils: Equal, round and reactive pupils present Neck: Neck: supple Thyroid: thyroid normal Resp: Effort & Inspection: normal respiratory effort Auscultation: clear to auscultation bilaterally Cardio: Rate: regular rate Rhythm: regular rhythm GI: Auscultation: normal bowel sounds Skin: General skin exam: normal color Neuro: Cognition (Neuro): normal cognition Extrem: General: normal to inspection Objective Data Vital Signs Vital Signs: Vital Signs - 24 hr 05/08/20 10:00 05/08/20 11:54 05/08/20 12:00 Temperature 35.9 C L Pulse Rate 66 65 59 L Respiratory Rate 16 Blood Pressure 133/65 Pulse Oximetry 97 05/08/20 14:00 05/08/20 16:00 05/08/20 16:13 Temperature 35.9 C L Pulse Rate 66 53 L 43 L Respiratory Rate 16 Blood Pressure 124/63 Pulse Oximetry 98 05/08/20 18:00 05/08/20 19:30 05/08/20 20:00 Temperature 36.0 C L Pulse Rate 41 L 48 L 48 L Respiratory Rate 16 16 Blood Pressure 130/62 Pulse Oximetry 98 98 05/08/20 21:49 05/09/20 00:00 05/09/20 00:19 Temperature 36.3 C L Pulse Rate 49 L 50 L 43 L Respiratory Rate 20 20 Blood Pressure 120/61 Pulse Oximetry 100 100 05/09/20 02:00 05/09/20 04:00 05/09/20 04:05 Temperature 36.3 C L Pulse Rate 42 L 54 L 41 L Respiratory Rate 20 20 Blood Pressure 130/77 Pulse Oximetry 100 100 05/09/20 06:00 05/09/20 07:43 Temperature 35.9 C L Pulse Rate 38 L 51 L Respiratory Rate 16 Blood Pressure 148/68 H Pulse Oximetry 98 Intake/Output Intake/Output: Intake & Output 05/06/20 05/07/20 05/08/20 05/09/20 23:59 23:59 23:59 23:59 Intake Total 3490 5136 3276 1826 Output Total 2950 4075 3105 1100 Balance 540 1061 171 726 Meds/Results Medications: Active Medications Generic Name Dose Route Start Last Admin Trade Name Freq PRN Reason Stop Dose Admin Acetaminophen 650 mg 05/03/20 19:13 05/09/20 04:08 Tylenol Tablet PO 650 mg Q4H PRN Administration Mild Pain (1-3) or Fever Allopurinol 150 mg 05/04/20 09:00 05/09/20 08:28 Zyloprim PO 150 mg DAILY [facility] Administration Allopurinol 300 mg 05/04/20 09:00 05/09/20 08:28 Zyloprim PO 300 mg DAILY [facility] Administration Artificial Tears 1 drop 05/04/20 03:01 EACH EYE BID PRN Dry Eye(s) Aspirin 81 mg 05/04/20 09:00 05/09/20 08:29 Aspirin Chewable PO 81 mg DAILY [facility] Administration Dextrose 12.5 gm 05/04/20 02:19 Dextrose 50% Syringe IV PUSH PRN PRN Hypoglycemia Protocol Enoxaparin Sodium 40 mg 05/04/20 09:00 05/09/20 08:27 Lovenox
[2020-05-09 13:34] LABS: Glucose Point of Care 152 (65-105)
[2020-05-09 15:41] LABS: Vancomycin Trough 20.4 ug/mL (10.0-20.0)
--- NOTE | 2020-05-09 16:48 | PM.IMPN ---
Progress Note: A&P Assessment and Plan (1) Diabetic foot infection: Code(s): E11.628 - Type 2 diabetes mellitus with other skin complications; L08.9 - Local infection of the skin and subcutaneous tissue, unspecified Status: Acute Assessment and Plan: with underlying osteomyelitis by MR. The patient was started on Primaxin and vancomycin and ID recommends 4-6 weeks rx. BC NG POD #3 amp of 1st and 2cnd toes R foot (2) Third degree heart block: Code(s): I44.2 - Atrioventricular block, complete Status: Acute Assessment and Plan: Patient is relatively asymptomatic but sob with exertion. He is not on any beta-blockers or rate-controlling medications. echocardiogram normal EF and no structural abnorm Cardiology Proceed with pacer placement 05/10 since has been cleared by ID and Ortho (3) Chronic kidney disease, stage III (moderate): Code(s): N18.3 - Chronic kidney disease, stage 3 (moderate) Status: Acute Assessment and Plan: creatinine 1.1 again today and sonogram no obstruction or abnormalities (4) BPH (benign prostatic hyperplasia): Qualifiers: Lower urinary tract symptom presence: symptoms present Lower urinary tract symptom detail: weak urinary stream Qualified Code(s): N40.1 - Benign prostatic hyperplasia with lower urinary tract symptoms; R39.12 - Poor urinary stream Code(s): N40.0 - Benign prostatic hyperplasia without lower urinary tract symptoms Status: Acute Assessment and Plan: started the patient on Flomax 0.4 mg p.o. daily. (5) Type 2 diabetes mellitus: Qualifiers: Diabetes mellitus watermelon inspector insulin use: without watermelon inspector use Diabetes mellitus complication status: with skin complications Diabetes mellitus complication detail: with foot ulcer Qualified Code(s): E11.621 - Type 2 diabetes mellitus with foot ulcer; L97.509 - Non-pressure chronic ulcer of other part of unspecified foot with unspecified severity Code(s): E11.9 - Type 2 diabetes mellitus without complications Status: Acute Assessment and Plan: held the patient's metformin due to his kidney function. Continue home Januvia. added low-dose sliding scale insulin with Accu-Cheks a.c. HS. FBS 155 today and A1c 6.1 (6) Acute hyperkalemia: Code(s): E87.5 - Hyperkalemia Status: Resolved Assessment and Plan: Resolved after IV fluid administration. Subjective Date/time seen: 05/09/20 16:48 Interval history: date of visit 05/09. 64-year-old hypertensive type 2 diabetic admitted swollen right leg and wound MTP plantar surface of right foot. neuropathy so not much pain. no fever no chills no shortness of breath. In 3rd degree heart block also , asymtomatic s/p amp [address] st and second toe R 8/13. tolerating pain well, up with PT and sob with exertion. Up in chair anxious to get pacer placed Exam Narrative: Exam Narrative: PHYSICAL EXAM: blood pressure 116/60 pulse 56 sat 98% on room air afebrile General: no acute distress HEENT: pupils equal and reactive to light sclera anicteric Respiratory: clear to auscultation bilaterally, Cardiovascular: irregularly irregular, bradycardic Gastrointestinal: soft, nontender, positive bowel sounds Skin: generalized pallor, non jaundice Musculoskeletal: foot bandaged and not removed post op Neurological: decreased sensation to both feet, otherwise alert and no focal deficits Psychiatric: appropriate mood and affect, pleasant and cooperative Objective Data Vital Signs Vital Signs: Vital Signs - 24 hr 05/08/20 18:00 05/08/20 19:30 05/08/20 20:00 Temperature 36.0 C L Pulse Rate 41 L 48 L 48 L Respiratory Rate 16 16 Blood Pressure 130/62 Pulse Oximetry 98 98 05/08/20 21:49 05/09/20 00:00 05/09/20 00:19 Temperature 36.3 C L Pulse Rate 49 L 50 L 43 L Respiratory Rate 20 20 Blood Pressure 120/61
[2020-05-09 17:40] LABS: Glucose Point of Care 114 (65-105)
[2020-05-09 20:36] LABS: Glucose Point of Care 101 (65-105)
[2020-05-10] VITALS (17 sets, daily range): BP systolic 124–148; BP diastolic 52–89; PULSE 34–71; RESP 14–20; TEMP 36.4–36.8; O2SAT 96–99
[2020-05-10] MEDS: CENTRAL LINE FLUSH 10 ML IV PUSH ×3 (01:20→16:36)
[2020-05-10 06:12] LABS: Estimated CRCL calculation 88 ml/min; Estimated Glomerular Filt Rate > 60
[2020-05-10] MEDS: lisinopriL 20 MG TABLET PO (08:10)
[2020-05-10] MEDS: gemfibroziL 600 MG TABLET PO ×2 (08:10→16:40)
[2020-05-10] MEDS: TAMSULOSIN HCL 0.4 MG CAPSULE PO (08:10)
[2020-05-10] MEDS: allopurinoL 300 MG TABLET PO (08:10)
[2020-05-10] MEDS: allopurinoL 150 MG TABLET PO (08:10)
[2020-05-10] MEDS: ACETAMINOPHEN 325 MG TABLET 650 MG PO (08:18)
--- NOTE | 2020-05-10 08:30 | WPDINFPN2 ---
Progress Note: A&P Assessment and Plan (1) Osteomyelitis of foot, acute: Code(s): M86.179 - Other acute osteomyelitis, unspecified ankle and foot Status: Acute Assessment and Plan: 1. Acute OM of R 1st toe and MT 1-2, POD # 4. BCs ng, no micro sent from OR 2. CHB 3. DM REC Imipenem and Vanc #10 / 42 days, through 06/11. PICC in place. Glycemic control. PPM planned today, ok discharge planning thereafter. Subjective Date/time seen: 05/10/20 08:30 Interval history: not sleeping well. He is more aware of his low HR than he had been. Foot pain doing much better Exam Narrative: Exam Narrative: afebrile Const: General: no acute distress Resp: Effort & Inspection: normal respiratory effort Auscultation: clear to auscultation bilaterally Cardio: Rate: bradycardic Heart sounds: no gallops and no murmurs GI: GI Palp: Yes Soft to palpation, No Tenderness to palpation present (GI) and No Guarding due to palpation present (GI) Skin: General skin exam: normal color and no rashes or lesions noted Other: feet dressed Objective Data Vital Signs Vital Signs: Vital Signs - 24 hr 05/09/20 10:00 05/09/20 12:00 05/09/20 14:00 Temperature 36.0 C L Pulse Rate 56 L 65 44 L Respiratory Rate 16 Blood Pressure 116/60 Pulse Oximetry 98 05/09/20 16:00 05/09/20 17:19 05/09/20 18:00 Temperature 35.9 C L Pulse Rate 41 L 48 L 50 L Respiratory Rate 16 Blood Pressure 131/73 Pulse Oximetry 98 98 05/09/20 20:00 05/09/20 22:00 05/09/20 23:40 Temperature 36.5 C 36.5 C Pulse Rate 52 L 35 L 58 L Respiratory Rate 18 20 Blood Pressure 140/72 137/73 Pulse Oximetry 99 98 05/10/20 00:00 05/10/20 02:00 05/10/20 04:00 Temperature 36.4 C Pulse Rate 35 L 42 L 34 L Respiratory Rate 20 Blood Pressure 137/65 Pulse Oximetry 97 05/10/20 06:00 Temperature Pulse Rate 41 L Respiratory Rate Blood Pressure Pulse Oximetry Intake/Output Intake/Output: Intake & Output 05/07/20 05/08/20 05/09/20 05/10/20 23:59 23:59 23:59 23:59 Intake Total 5136 3276 3796 900 Output Total 4075 3105 1950 650 Balance 9871 449 8252 250 Meds/Results Medications: Active Medications Generic Name Dose Route Start Last Admin Trade Name Freq PRN Reason Stop Dose Admin Acetaminophen 650 mg 05/03/20 19:13 05/10/20 08:18 Tylenol Tablet PO 650 mg Q4H PRN Administration Mild Pain (1-3) or Fever Allopurinol 150 mg 05/04/20 09:00 05/10/20 08:10 Zyloprim PO 150 mg DAILY [facility] Administration Allopurinol 300 mg 05/04/20 09:00 05/10/20 08:10 Zyloprim PO 300 mg DAILY [facility]O Administration Artificial Tears 1 drop 05/04/20 03:01 EACH EYE BID PRN Dry Eye(s) Aspirin 81 mg 05/04/20 09:00 05/09/20 08:29 Aspirin Chewable PO 81 mg DAILY [facility] Administration Dextrose 12.5 gm 05/04/20 02:19 Dextrose 50% Syringe IV PUSH PRN PRN Hypoglycemia Protocol Enoxaparin Sodium 40 mg 05/04/20 09:00 05/10/20 08:10 Lovenox SUB-Q Not Given DAILY [facility] Gemfibrozil 600 mg 05/04/20 07:30 05/10/20 08:10 Lopid PO 600 mg 0730,1630 [facility] Administration Glucagon 1 mg 05/04/20 02:19 Glucagon For Inj IM PRN PRN Hypoglycemia Protocol Glucose 15 gm 05/04/20 02:19 Glutose 15 PO PRN PRN Hypoglycemia Protocol Imipenem/Cilastatin Sodium 500 mg in 100 mls @ 300 mls/hr 05/04/20 02:00 05/10/20 01:40 Primaxin 500 Mg/D5w 100 Ml IVPB Infused Q8H [facility] Infusion Dextrose 1,000 mls @ 100 mls/hr 05/04/20 02:19 Dextrose 5% 1,000 Ml IVPB PRN PRN Hypoglycemia Protocol Vancomycin HCl 1,750 mg in 500 mls @ 250 mls/hr 05/06/20 14:00 05/10/20 03:20 Vancomycin 1,750 Mg/D5w 500 Ml IVPB Infused Q12H [facility] Infusion Insulin Aspart 2 - 5 units 05/04/20 08:00 05/10/20 08:10 Novolog SUB-Q Not Given TIDWM [facility] Protocol Lisinopril 20 mg 05/04/20 09:00 05/10/20 08:
--- NOTE | 2020-05-10 08:39 | PM.PNORT ---
Progress Note: A&P Assessment and Plan (1) Osteomyelitis of foot, acute: Code(s): M86.179 - Other acute osteomyelitis, unspecified ankle and foot Status: Acute Assessment and Plan: Postoperative day 4. Right 1st ray amputation. Patient overall improving. Appreciate Infectious Disease. Continue dressing changes. No new recommendations per Ortho. Subjective Subjective Date/Time Seen: 05/10/20 08:39 to patient states right foot pain improving. No new complaints. Exam Extrem: Other: Right foot dressing in place. Clean and dry. No proximal redness or streaking. Good pulses. Left foot dressing in place. Good pulses. No erythema. Objective Data Vital Signs Vital Signs: Vital Signs - 24 hr 05/09/20 10:00 05/09/20 12:00 05/09/20 14:00 Temperature 96.8 F L Pulse Rate 56 L 65 44 L Respiratory Rate 16 Blood Pressure 116/60 Pulse Oximetry 98 05/09/20 16:00 05/09/20 17:19 05/09/20 18:00 Temperature 96.7 F L Pulse Rate 41 L 48 L 50 L Respiratory Rate 16 Blood Pressure 131/73 Pulse Oximetry 98 98 05/09/20 20:00 05/09/20 22:00 05/09/20 23:40 Temperature 97.7 F 97.7 F Pulse Rate 52 L 35 L 58 L Respiratory Rate 18 20 Blood Pressure 140/72 137/73 Pulse Oximetry 99 98 05/10/20 00:00 05/10/20 02:00 05/10/20 04:00 Temperature 97.6 F Pulse Rate 35 L 42 L 34 L Respiratory Rate 20 Blood Pressure 137/65 Pulse Oximetry 97 05/10/20 06:00 Temperature Pulse Rate 41 L Respiratory Rate Blood Pressure Pulse Oximetry Intake/Output Intake/Output: Intake & Output 05/07/20 05/08/20 05/09/20 05/10/20 23:59 23:59 23:59 23:59 Intake Total 5136 1576 3796 900 Output Total 4070 9576 3692 650 Balance 8690 887 3938 250 Meds/Results Medications: Active Medications Generic Name Dose Route Start Last Admin Trade Name Freq PRN Reason Stop Dose Admin Acetaminophen 650 mg 05/03/20 19:13 05/10/20 08:18 Tylenol Tablet PO 650 mg Q4H PRN Administration Mild Pain (1-3) or Fever Allopurinol 150 mg 05/04/20 09:00 05/10/20 08:10 Zyloprim PO 150 mg DAILY [facility] Administration Allopurinol 300 mg 05/04/20 09:00 05/10/20 08:10 Zyloprim PO 300 mg DAILY [facility] Administration Artificial Tears 1 drop 05/04/20 03:01 EACH EYE BID PRN Dry Eye(s) Aspirin 81 mg 05/04/20 09:00 05/09/20 08:29 Aspirin Chewable PO 81 mg DAILY [facility] Administration Dextrose 12.5 gm 05/04/20 02:19 Dextrose 50% Syringe IV PUSH PRN PRN Hypoglycemia Protocol Enoxaparin Sodium 40 mg 05/04/20 09:00 05/10/20 08:10 Lovenox SUB-Q Not Given DAILY [facility] Gemfibrozil 600 mg 05/04/20 07:30 05/10/20 08:10 Lopid PO 600 mg 0730,1630 [facility] Administration Glucagon 1 mg 05/04/20 02:19 Glucagon For Inj IM PRN PRN Hypoglycemia Protocol Glucose 15 gm 05/04/20 02:19 Glutose 15 PO PRN PRN Hypoglycemia Protocol Imipenem/Cilastatin Sodium 500 mg in 100 mls @ 300 mls/hr 05/04/20 02:00 05/10/20 01:40 Primaxin 500 Mg/D5w 100 Ml IVPB Infused Q8H [facility] Infusion Dextrose 1,000 mls @ 100 mls/hr 05/04/20 02:19 Dextrose 5% 1,000 Ml IVPB PRN PRN Hypoglycemia Protocol Vancomycin HCl 1,750 mg in 500 mls @ 250 mls/hr 05/06/20 14:00 05/10/20 03:20 Vancomycin 1,750 Mg/D5w 500 Ml IVPB Infused Q12H [facility] Infusion Insulin Aspart 2 - 5 units 05/04/20 08:00 05/10/20 08:10 Novolog SUB-Q Not Given TIDWM [facility] Protocol Lisinopril 20 mg 05/04/20 09:00 05/10/20 08:10 Prinivil PO 20 mg DAILY [facility] Administration Ondansetron HCl 4 mg 05/03/20 19:13 Zofran Inj IV PUSH Q4H PRN Nausea Silver 1 each 05/04/20 09:00 05/09/20 08:29 Mepilex Ag 4 X4 Dressing TOPICAL 1 each DAILY [facility] Administration Sitagliptin Phosphate 100 mg 05/04/20 09:00 05/10/20 08:09 Januvia PO 100 mg DAILY [facility]O Administration
[2020-05-10 08:40] LABS: Glucose Point of Care 96 (65-105)
[2020-05-10 12:29] LABS: Glucose Point of Care 110 (65-105)
--- NOTE | 2020-05-10 12:29 | WPDMODSED ---
Moderate Sedation Note-Pt Data Patient Data Diagnosis: acquired complete heart block Present Complaint: 64-year-old patient with no previous cardiac history who presented to the hospital with infection of the lower extremity. He had osteomyelitis of his foot and the infected toe has been surgically removed. The patient surprisingly was found to be bradycardic with evidence of complete heart block and has no history of syncope. He does have symptoms of exertional fatigue and shortness of breath which certainly may be attributable to AV node dysfunction. Because of acquired complete heart block a permanent pacemaker has been recommended. As the infected bone has been amputated the patient is felt to be acceptable candidate now for device implantation. Blood cultures are negative. Procedure to be performed/Plan: Implantation of permanent dual-chamber pacemaker Allergies Allergy/AdvReac Type Severity Reaction Status Date / Time ibuprofen Allergy Mild SWELLS Verified 05/06/20 10:49 RESPIR. DISTRESS bee venom protein (honey bee) Allergy Swelling Verified 05/06/20 10:49 of Lip/Tongue/Throat Home Medications Medication Instructions Recorded Confirmed Type Refresh Tears 1 drp OPHTHALMIC (EYE) BID PRN 05/03/20 05/03/20 History albuterol sulfate 90 mcg INHALATION BID PRN 05/03/20 05/03/20 History allopurinol 450 mg PO DAILY 05/03/20 05/03/20 History aspirin 81 mg PO DAILY 05/03/20 05/03/20 History gemfibrozil 600 mg PO BID 05/03/20 05/03/20 History inhalational spacing device 05/03/20 05/03/20 [facility] lisinopril 20 mg PO DAILY 05/03/20 05/03/20 History metformin 1,000 mg PO DAILY 05/03/20 05/03/20 History sitagliptin [Januvia] 100 mg PO DAILY 05/03/20 05/03/20 History Current Medications: Active Medications Acetaminophen (Tylenol Tablet) 650 mg PO Q4H PRN PRN Reason: Mild Pain (1-3) or Fever Last Admin: 05/10/20 08:18 Dose: 650 mg Documented by: Allopurinol (Zyloprim) 150 mg PO DAILY [facility] Last Admin: 05/10/20 08:10 Dose: 150 mg Documented by: Allopurinol (Zyloprim) 300 mg PO DAILY [facility] Last Admin: 08/17/20 08:10 Dose: 300 mg Documented by: Artificial Tears () 1 drop EACH EYE BID PRN PRN Reason: Dry Eye(s) Aspirin (Aspirin Chewable) 81 mg PO DAILY [facility] Last Admin: 05/09/20 08:29 Dose: 81 mg Documented by: Dextrose (Dextrose 50% Syringe) 12.5 gm IV PUSH PRN PRN; Protocol PRN Reason: Hypoglycemia Enoxaparin Sodium (Lovenox) 40 mg SUB-Q DAILY [facility] Last Admin: 05/10/20 08:10 Dose: Not Given Documented by: Gemfibrozil (Lopid) 600 mg PO 0730,1630 [facility] Last Admin: 05/10/20 08:10 Dose: 600 mg Documented by: Glucagon (Glucagon For Inj) 1 mg IM PRN PRN; Protocol PRN Reason: Hypoglycemia Glucose (Glutose 15) 15 gm PO PRN PRN; Protocol PRN Reason: Hypoglycemia Imipenem/Cilastatin Sodium (Primaxin 500 Mg/D5w 100 Ml) 500 mg in 100 mls @ 300 mls/hr IVPB Q8H [facility] Last Infusion: 05/10/20 10:05 Dose: Infused Documented by: Dextrose (Dextrose 5% 1,000 Ml) 1,000 mls @ 100 mls/hr IVPB PRN PRN; Protocol PRN Reason: Hypoglycemia Vancomycin HCl (Vancomycin 1,750 Mg/D5w 500 Ml) 1,750 mg in 500 mls @ 250 mls/hr IVPB Q12H [facility] Last Infusion: 05/10/20 03:20 Dose: Infused Documented by: Insulin Aspart (Novolog) 2 - 5 units SUB-Q TIDWM [facility]; Protocol Last Admin: 05/10/20 08:10 Dose: Not Given Documented by: Lisinopril (Prinivil) 20 mg PO DAILY [facility] Last Admin: 05/10/20 08:10 Dose: 20 mg Documented by: Ondansetron HCl (Zofran Inj) 4 mg IV PUSH Q4H PRN PRN Reason: Nausea Silver (Mepilex Ag 4 X4 Dressing) 1 each TOPICAL DAILY [facility] Last Admin: 05/10/20 10:00 Dose: 1 each Documented by: Sitagliptin Phosphate (Januvia) 100 mg PO DAILY [facility] Last Admin: 05/10/20 08:09 Dose: 100 mg Documented by: Sodium Chloride (Central Line Flush) 10 ml IV PUSH Q8HR [facility] Last Admin: 05/10/20 05:47 Dose: 10 ml Documented by: Sodium Chloride (Central Line Flush) 10
--- NOTE | 2020-05-10 13:25 | PC.NURSE ---
Patient to cath lab technologist for pace maker placement.
--- NOTE | 2020-05-10 14:51 | ECG_ITS ---
Measurements Intervals [place] Rate: 71 P: 34 [place]: 153 QRS: -78 QRSD: 212 T: 81 QT: 498 QTc: 544 Interpretive Statements ATRIAL SENSE- ELECTRONIC VENTRICULAR PACEMAKER NO FURTHER INTERPRETATION IS POSSIBLE ATYPICAL ECG Electronically Signed On 05-10-2020 16:06:27 CDT by Real Lopez D.O.
--- NOTE | 2020-05-10 14:53 | WPDCARDPROC ---
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 Coincidentally he was found to have complete heart block. As the infected bone has been excised and cultures are negative infectious Disease consultation has felt that implantation of pacemaker is now reasonable Procedure Procedure performed:: permanent dual-chamber pacemaker implantation Sedation/Medication given:: fentanyl 50 mg Versed 4 mg case start time 2:05 p.m. case end time 2:47 p.m. sedation provided Scarlet Alan RN, trained observer Access site:: left subclavian Estimated blood loss:: 10-15 cc Procedure note:: patient was brought to the cardiac catheterization lab in the postabsorptive state where the left anterior chest wall was prepared and draped in the usual sterile fashion. Anesthesia was provided with 1% lidocaine infiltrated below the clavicle. Incision was then made for about an inch below the clavicle clavicle from the midclavicular line to the deltopectoral groove. Sharp and blunt dissection was used to separate the subcutaneous tissue to the level of the prepectoral fascia. Electrocautery was used to provide cutaneous hemostasis. Following this blunt dissection was used to create a pacemaker pocket along the fascial plane inferior to the incision. This was packed with an antibiotic-soaked 4 x 4. After this attention was turned a venous access. Two separate punctures were made of the left subclavian vein using the needles in the safe sheath kit. The J stylets were placed into the venous circulation under fluoroscopic visualization to the level of the right atrium. After this attention was turned to the ventricular lead. The straight stylet was removed and a J-tip stylet was placed into the lead which was used to direct the lead through the right ventricle out to the pulmonary artery position. A straight stylet was placed into the lead and used to position the lead tip in the right ventricular apex. The fixation screw was then deployed. The lead was tested using the Analyzer with appropriate pacing and sensing performance being documented and a 10 volts stimulation showed no evidence of extracardiac stimulation. following this attention was turned to the atrial lead. The straight stylet was removed and replaced with a preformed atrial J. This was used to place the lead tip in the right atrial appendage. The fixation screw was deployed upon withdrawal of the stylet the lead tip was fixed into position. The lead was tested using the analyzer and appropriate pacing and sensing performance was again demonstrated and no evidence of extracardiac stimulation was seen with a 10 volts stimulus. Following this the leads were secured to the base of the pocket using 2 0 silk ties and the suture sleeves that are on the leads. The retained sponge was removed from the pocket and the pocket was irrigated with Ancef infused saline. The generator detailed below was connected to the lead using the torque wrench and the entire assembly was placed into the newly created pocket. The pocket was then closed in layers using 3 0 Vicryl in an interrupted fashion for the subcutaneous tissue and 4 0 Vicryl in a running subcuticular fashion for the skin. The wound was dressed with an Aquacel dressing and the case was terminated. The patient was taken to the holding area left arm was placed in a mobilizer postop EKG chest x-ray and antibiotics and analgesics were ordered. Findings:: Patient received a Biotronik dual-chamber pacemaker model Edora * DR-T, serial number [id number]. the device is programmed in the DDD mode lower rate limit 60 upper rate limit 130. The atrial lead is a Biotronik screw-in bipolar lead model Solia S 53, serial
--- NOTE | 2020-05-10 16:30 | PC.NURSE ---
Patient returned to room following pace maker insertion.
[2020-05-10 17:26] LABS: Glucose Point of Care 101 (65-105)
--- NOTE | 2020-05-10 18:16 | PM.IMPN ---
Progress Note: A&P Assessment and Plan (1) Diabetic foot infection: Code(s): E11.628 - Type 2 diabetes mellitus with other skin complications; L08.9 - Local infection of the skin and subcutaneous tissue, unspecified Status: Acute Assessment and Plan: with underlying osteomyelitis by MR. The patient was started on Primaxin and vancomycin and ID recommends 4-6 weeks rx. BC NG day to end 06/11 Picc in and arranging home antibotics POD #4 amp of 1st and 2cnd toes R foot (2) Third degree heart block: Code(s): I44.2 - Atrioventricular block, complete Status: Acute Assessment and Plan: Patient is relatively asymptomatic but sob with exertion. He is not on any beta-blockers or rate-controlling medications. echocardiogram normal EF and no structural abnorm Cardiology Proceed with pacer placement today since has been cleared by ID and Ortho (3) Chronic kidney disease, stage III (moderate): Code(s): N18.3 - Chronic kidney disease, stage 3 (moderate) Status: Acute Assessment and Plan: creatinine 1.0 down from 1.7 on admission and sonogram no obstruction or abnormalities (4) BPH (benign prostatic hyperplasia): Qualifiers: Lower urinary tract symptom presence: symptoms present Lower urinary tract symptom detail: weak urinary stream Qualified Code(s): N40.1 - Benign prostatic hyperplasia with lower urinary tract symptoms; R39.12 - Poor urinary stream Code(s): N40.0 - Benign prostatic hyperplasia without lower urinary tract symptoms Status: Acute Assessment and Plan: started the patient on Flomax 0.4 mg p.o. daily. (5) Type 2 diabetes mellitus: Qualifiers: Diabetes mellitus prison insulin use: without emt intermediate use Diabetes mellitus complication status: with skin complications Diabetes mellitus complication detail: with foot ulcer Qualified Code(s): E11.621 - Type 2 diabetes mellitus with foot ulcer; L97.509 - Non-pressure chronic ulcer of other part of unspecified foot with unspecified severity Code(s): E11.9 - Type 2 diabetes mellitus without complications Status: Acute Assessment and Plan: held the patient's metformin due to his kidney function on admission. Continue home Januvia. added low-dose sliding scale insulin with Accu-Cheks a.c. HS. FBS 101 today and A1c 6.1 (6) Acute hyperkalemia: Code(s): E87.5 - Hyperkalemia Status: Resolved Assessment and Plan: Resolved after IV fluid administration. Subjective Date/time seen: 05/10/20 18:16 Interval history: date of visit 05/10. 64-year-old hypertensive type 2 diabetic admitted swollen right leg and wound MTP plantar surface of right foot. neuropathy so not much pain. no fever no chills no shortness of breath. In 3rd degree heart block also , asymtomatic at rest s/p amp 1 st and second toe R 05/06. tolerating pain well, up with PT and sob with exertion. Up in chair anxious to get pacer placed today Exam Narrative: Exam Narrative: PHYSICAL EXAM: blood pressure 134/60 pulse 50 sat 98% on room air afebrile General: no acute distress HEENT: sclera anicteric Respiratory: clear to auscultation Cardiovascular: irregularly irregular, bradycardic Gastrointestinal: soft, Skin: generalized pallor, non jaundice Musculoskeletal: foot bandaged and not removed post op Neurological: decreased sensation to both feet, otherwise alert and no focal deficits Psychiatric: appropriate mood and affect, pleasant and cooperative Objective Data Vital Signs Vital Signs: Vital Signs - 24 hr 05/09/20 20:00 05/09/20 22:00 05/09/20 23:40 Temperature 36.5 C 36.5 C Pulse Rate 52 L 35 L 58 L Respiratory Rate 18 20 Blood Pressure 140/72 137/73 Pulse Oximetry 99 98 05/10/20 00:00 05/10/20 02:00 05/10/20 04:00 Temperature 36.4 C Pulse Rate 35 L 42 L 34 L Respiratory Ra
[2020-05-10] MEDS: SODIUM CHLORIDE 0.9% IV 1,000 ML 50 ML IV CONT (18:20)
[2020-05-10] MEDS: ASPIRIN 81 MG CHEWABLE TABLET PO (18:20)
[2020-05-10 21:17] LABS: Glucose Point of Care 129 (65-105)
[2020-05-11] VITALS (16 sets, daily range): BP systolic 127–158; BP diastolic 68–82; PULSE 56–87; RESP 18–20; TEMP 36.1–37.2; O2SAT 93–100
[2020-05-11] MEDS: CENTRAL LINE FLUSH 10 ML IV PUSH ×4 (00:26→20:22)
[2020-05-11 07:54] LABS: Glucose Point of Care 113 (65-105)
[2020-05-11] MEDS: allopurinoL 300 MG TABLET PO (08:02)
[2020-05-11] MEDS: TAMSULOSIN HCL 0.4 MG CAPSULE PO (08:02)
[2020-05-11] MEDS: lisinopriL 20 MG TABLET PO (08:02)
[2020-05-11] MEDS: ASPIRIN 81 MG CHEWABLE TABLET PO (08:02)
[2020-05-11] MEDS: allopurinoL 150 MG TABLET PO (08:02)
[2020-05-11] MEDS: gemfibroziL 600 MG TABLET PO ×2 (08:03→17:47)
[2020-05-11] MEDS: ENOXAPARIN 40 MG/0.4 ML SYRINGE SUB-Q (08:03)
--- NOTE | 2020-05-11 11:20 | PM.PNCARD ---
Progress Note: A&P Assessment and Plan (1) Third degree heart block: Code(s): I44.2 - Atrioventricular block, complete Status: Acute Assessment and Plan: Post dual chamber pacemaker 05/10/2020. Pacemaker functioning normally . Immobilizer removed. Activity restrictions with left arm reviewed. Chest x-ray reviewed. No pneumothorax. (2) Diabetic foot infection: Code(s): E11.628 - Type 2 diabetes mellitus with other skin complications; L08.9 - Local infection of the skin and subcutaneous tissue, unspecified Status: Acute Assessment and Plan: Management as per surgical andprimary team (3) Type 2 diabetes mellitus: Qualifiers: Diabetes mellitus complication detail: with foot ulcer Diabetes mellitus complication status: with skin complications Diabetes mellitus terminal clerk insulin use: without terminal clerk use Qualified Code(s): E11.621 - Type 2 diabetes mellitus with foot ulcer; L97.509 - Non-pressure chronic ulcer of other part of unspecified foot with unspecified severity Code(s): E11.9 - Type 2 diabetes mellitus without complications Status: Acute Assessment and Plan: Management per primary team Additional Plan OK to discharge from cardiac standpoint. See discharge instructions for follow-up He states that he will be staying until tomorrow so that the infusion and home health can be set up. He does not need to stay in IMU nor on telemetry Plan discussed Dr Acosta 1230 05/11/2020 Subjective Date/time seen: 05/11/20 11:20 Interval history: Follow-up for: complete heart block admitted with treatment of an infected diabetic foot ulcer. Date of service: 05/11/2020 Subjective:No chest discomfort or shortness of breath. Feels like he has better circulation and energy since the pacemaker was put in. No lightheadedness or dizziness. Review of Systems Constitutional: Constitutional: Denies chills, Denies fatigue, Denies fever(s) and Denies headache(s) Eyes: Eyes: Denies change in vision, Denies loss of vision and Denies eye pain ENT: Reports Normal hearing present, Denies headache(s), Denies lip swelling, Denies epistaxis and Denies sore throat Cardiovascular: Cardiovascular: Denies chest pain, Denies syncope, Denies irregular heart rhythm, Denies lightheadedness and Denies dyspnea Respiratory: Respiratory: Denies cough, Denies dyspnea and Denies wheezing Gastrointestinal: Gastrointestinal: Denies abdominal pain, Denies melena, Denies nausea and Denies vomiting Genitourinary: Genitourinary: Denies hematuria Musculoskeletal: Musculoskeletal: Denies myalgias, Denies muscle cramps and Denies muscle weakness Integumentary/Breasts: Skin/Breast: Denies pruritus and Denies rash Neurologic: Reports Normal hearing present, Denies behavioral changes, Denies syncope, Denies headache(s) and Denies loss of vision Psychiatric: Psychiatric: Denies anxiety, Denies behavioral changes and Denies depression Endocrine: Endocrine: Denies fatigue, Denies polydipsia and Denies polyuria Hematologic/Lymphatic: Hematologic/Lymphatic: Denies easy bleeding and Denies easy bruising Allergic/Immunologic: Allergic/Immunologic: Denies lip swelling and Denies wheezing Exam Narrative: Exam Narrative: Up in chair. Cheerful. Const: General: comfortable, no acute distress, alert and awake HENMT: Head: normocephalic and atraumatic Ears: hearing grossly normal bilaterally and external ears normal General nose exam: Normal external nose present and no epistaxis Face and sinus: normal facial exam and no ecchymosis Mouth: Yes tongue normal and Yes moist mucous membranes Eyes: Conjunctivae: conjunctivae normal Sclera: sclerae normal Pupils: Equal, round and reactive pupils present Neck: Neck: normal visual inspection and supple Chest: Other: Left subclavian Aquacel dressing intact. No
--- NOTE | 2020-05-11 12:13 | PM.PNORT ---
Progress Note: A&P Assessment and Plan (1) Osteomyelitis of foot, acute: Code(s): M86.179 - Other acute osteomyelitis, unspecified ankle and foot Status: Acute Assessment and Plan: POD #5: Right 1st ray amputation. Patient overall improving. Wants to go home. No complaints of pain. Appreciate Infectious Disease recommendations. Awaiting home infusion arrangement. Continue dressing changes daily. PWB on heel. Post Op Shoe. Walker. Will arrange follow up for 3 weeks post op for suture removal. Subjective Subjective Date/Time Seen: 05/11/20 12:13 POD #5. Wants to go home. Feeling well. No complaints of pain. Review of Systems Constitutional: Constitutional: Denies fever(s) Eyes: Eyes: Denies blurry vision ENT: Reports Normal hearing present Cardiovascular: Cardiovascular: Denies chest pain and Denies dyspnea Respiratory: Respiratory: Denies dyspnea and Denies wheezing Gastrointestinal: Gastrointestinal: Denies abdominal pain Genitourinary: Genitourinary: Denies urinary urgency Musculoskeletal: Musculoskeletal: Reports as per HPI and Denies numbness Integumentary/Breasts: Skin/Breast: Denies changing lesions and Denies sores Neurologic: Reports Normal hearing present, Denies behavioral changes, Denies confusion, Reports numbness (bilateral feet) and Denies convulsions Psychiatric: Psychiatric: Denies behavioral changes, Denies confusion and Denies hallucinations Endocrine: Endocrine: Denies heat intolerance Hematologic/Lymphatic: Hematologic/Lymphatic: Denies easy bleeding Allergic/Immunologic: Allergic/Immunologic: Denies wheezing Exam Extrem: Other: Right foot dressing in place. Clean and dry. No proximal redness or streaking. Good pulses. Left foot dressing in place. Good pulses. No erythema. Objective Data Vital Signs Vital Signs: Vital Signs - 24 hr 05/10/20 15:15 05/10/20 15:30 05/10/20 15:45 Temperature Pulse Rate 63 64 60 Respiratory Rate 14 14 15 Blood Pressure 143/80 H 124/75 126/79 Pulse Oximetry 99 99 98 05/10/20 16:00 05/10/20 16:30 05/10/20 17:00 Temperature 36.6 C 36.6 C Pulse Rate 60 61 63 Respiratory Rate 14 18 18 Blood Pressure 141/76 H 143/89 H 133/69 Pulse Oximetry 98 99 98 05/10/20 18:00 05/10/20 20:00 05/10/20 22:00 Temperature 36.8 C 36.6 C Pulse Rate 68 71 68 Respiratory Rate 16 20 Blood Pressure 131/66 132/60 Pulse Oximetry 98 99 05/11/20 00:00 05/11/20 02:00 05/11/20 04:00 Temperature 36.6 C 36.1 C L Pulse Rate 63 68 60 Respiratory Rate 20 18 Blood Pressure 148/74 H 139/68 Pulse Oximetry 100 99 05/11/20 06:00 05/11/20 07:56 05/11/20 08:00 Temperature 36.3 C L Pulse Rate 60 56 L 60 Respiratory Rate 18 Blood Pressure 155/82 H Pulse Oximetry 93 05/11/20 10:00 05/11/20 11:46 Temperature 36.9 C Pulse Rate 68 76 Respiratory Rate 18 Blood Pressure 142/79 H Pulse Oximetry 97 Intake/Output Intake/Output: Intake & Output 05/08/20 05/09/20 05/10/20 05/11/20 23:59 23:59 23:59 23:59 Intake Total 3276 3796 2810 1340 Output Total 3105 1950 2200 775 Balance 171 1846 610 565 Meds/Results Medications: Active Medications Generic Name Dose Route Start Last Admin Trade Name Freq PRN Reason Stop Dose Admin Acetaminophen 650 mg 05/03/20 19:13 05/10/20 08:18 Tylenol Tablet PO 650 mg Q4H PRN Administration Mild Pain (1-3) or Fever Allopurinol 150 mg 05/04/20 09:00 05/11/20 08:02 Zyloprim PO 150 mg DAILY CHRISTIANO Administration Allopurinol 300 mg 05/04/20 09:00 05/11/20 08:02 Zyloprim PO 300 mg DAILY CHRITSIANO Administration Artificial Tears 1 drop 05/04/20 03:01 EACH EYE BID PRN Dry Eye(s) Aspirin 81 mg 05/04/20 09:00 05/11/20 08:02 Aspirin Chewable PO 81 mg DAILY CHRISTIANO Administration Dextrose 12.5 gm 05/04/20 02:19 Dextrose 50% Syringe IV PUSH PRN PRN Hypoglycemia Protocol Enoxaparin Sodium 40
--- NOTE | 2020-05-11 12:40 | WPDINFPN2 ---
Progress Note: A&P Assessment and Plan (1) Osteomyelitis of foot, acute: Code(s): M86.179 - Other acute osteomyelitis, unspecified ankle and foot Status: Acute Assessment and Plan: 1. Acute OM of R 1st toe and MT 1-2, POD # 5. BCs ng, no micro sent from OR 2. CHB 3. DM REC Imipenem and Vanc #11 / 42 days, through 06/11. PICC in place. Glycemic control. ok discharge once above arranged. Leave PICC in place x 6 additional weeks, awaiting PPM leads to firmly implant, before removal. Subjective Date/time seen: 05/11/20 12:40 Interval history: no complaints Exam Narrative: Exam Narrative: afebrile Const: General: no acute distress Skin: General skin exam: normal color and no rashes or lesions noted Other: pacemaker pocket L chest = no hematoma Extrem: Other: right foot dressed, no pus Objective Data Vital Signs Vital Signs: Vital Signs - 24 hr 05/10/20 15:15 05/10/20 15:30 05/10/20 15:45 Temperature Pulse Rate 63 64 60 Respiratory Rate 14 14 15 Blood Pressure 143/80 H 124/75 126/79 Pulse Oximetry 99 99 98 05/10/20 16:00 05/10/20 16:30 05/10/20 17:00 Temperature 36.6 C 36.6 C Pulse Rate 60 61 63 Respiratory Rate 14 18 18 Blood Pressure 141/76 H 143/89 H 133/69 Pulse Oximetry 98 99 98 05/10/20 18:00 05/10/20 20:00 05/10/20 22:00 Temperature 36.8 C 36.6 C Pulse Rate 68 71 68 Respiratory Rate 16 20 Blood Pressure 131/66 132/60 Pulse Oximetry 98 99 05/11/20 00:00 05/11/20 02:00 05/11/20 04:00 Temperature 36.6 C 36.1 C L Pulse Rate 63 68 60 Respiratory Rate 20 18 Blood Pressure 148/74 H 139/68 Pulse Oximetry 100 99 05/11/20 06:00 05/11/20 07:56 05/11/20 08:00 Temperature 36.3 C L Pulse Rate 60 56 L 60 Respiratory Rate 18 Blood Pressure 155/82 H Pulse Oximetry 93 05/11/20 10:00 05/11/20 11:46 Temperature 36.9 C Pulse Rate 68 76 Respiratory Rate 18 Blood Pressure 142/79 H Pulse Oximetry 97 Intake/Output Intake/Output: Intake & Output 05/08/20 05/09/20 05/10/20 05/11/20 23:59 23:59 23:59 23:59 Intake Total 3276 3796 2810 1340 Output Total 3105 1950 2200 775 Balance 171 1846 610 565 Meds/Results Medications: Active Medications Generic Name Dose Route Start Last Admin Trade Name Freq PRN Reason Stop Dose Admin Acetaminophen 650 mg 05/03/20 19:13 05/10/20 08:18 Tylenol Tablet PO 650 mg Q4H PRN Administration Mild Pain (1-3) or Fever Allopurinol 150 mg 05/04/20 09:00 05/11/20 08:02 Zyloprim PO 150 mg DAILY CHRISTIANO Administration Allopurinol 300 mg 05/04/20 09:00 05/11/20 08:02 Zyloprim PO 300 mg DAILY CHRISTIANO Administration Artificial Tears 1 drop 05/04/20 03:01 EACH EYE BID PRN Dry Eye(s) Aspirin 81 mg 05/04/20 09:00 05/11/20 08:02 Aspirin Chewable PO 81 mg DAILY CHRISTIANO Administration Dextrose 12.5 gm 05/04/20 02:19 Dextrose 50% Syringe IV PUSH PRN PRN Hypoglycemia Protocol Enoxaparin Sodium 40 mg 05/04/20 09:00 05/11/20 08:03 Lovenox SUB-Q 40 mg DAILY CHRISTIANO Administration Gemfibrozil 600 mg 05/04/20 07:30 05/11/20 08:03 Lopid PO 600 mg 0730,1630 CHRISTIANO Administration Glucagon 1 mg 05/04/20 02:19 Glucagon For Inj IM PRN PRN Hypoglycemia Protocol Glucose 15 gm 05/04/20 02:19 Glutose 15 PO PRN PRN Hypoglycemia Protocol Imipenem/Cilastatin Sodium 500 mg in 100 mls @ 300 mls/hr 05/04/20 02:00 05/11/20 10:55 Primaxin 500 Mg/D5w 100 Ml IVPB Infused Q8H CHRISTIANO Infusion Dextrose 1,000 mls @ 100 mls/hr 05/04/20 02:19 Dextrose 5% 1,000 Ml IVPB PRN PRN Hypoglycemia Protocol Vancomycin HCl 1,750 mg in 500 mls @ 250 mls/hr 05/06/20 14:00 05/11/20 03:00 Vancomycin 1,750 Mg/D5w 500 Ml IVPB Infused Q12H CHRISTIANO Infusion Insulin Aspart 2 - 5 units 05/04/20 08:00 05/11/20 11:32 Novolog SUB-Q Not Given TIDWM [facility] Protocol Lisinopril 20 mg 0
[2020-05-11 12:41] LABS: Glucose Point of Care 147 (65-105)
[2020-05-11 16:40] LABS: Glucose Point of Care 102 (65-105)
--- NOTE | 2020-05-11 17:50 | PM.IMPN ---
Progress Note: A&P Assessment and Plan (1) Diabetic foot infection: Code(s): E11.628 - Type 2 diabetes mellitus with other skin complications; L08.9 - Local infection of the skin and subcutaneous tissue, unspecified Status: Acute Assessment and Plan: Right foot cellulitis with underlying osteomyelitis by MRI. POD #5 amp of 1st and 2nd toes R foot. The patient was started on Primaxin and vancomycin and ID recommends 4-6 weeks rx. BCx negative. Day (through 06/11/20). PICC line in place for home abx. (2) Third degree heart block: Code(s): I44.2 - Atrioventricular block, complete Status: Acute Assessment and Plan: Patient is relatively asymptomatic but sob with exertion. He is not on any beta-blockers or rate-controlling medications. Echocardiogram normal EF and no structural abnormalities. Cardiology consulted and they proceed with pacer placement 05/10. He has tolerated the procedure well. (3) Chronic kidney disease, stage III (moderate): Code(s): N18.3 - Chronic kidney disease, stage 3 (moderate) Status: Acute Assessment and Plan: ISMAEL with creatinine 1.9 on admission but down from 1.0. Renal US showing no obstruction or abnormalities. (4) BPH (benign prostatic hyperplasia): Qualifiers: Lower urinary tract symptom detail: weak urinary stream Lower urinary tract symptom presence: symptoms present Qualified Code(s): N40.1 - Benign prostatic hyperplasia with lower urinary tract symptoms; R39.12 - Poor urinary stream Code(s): N40.0 - Benign prostatic hyperplasia without lower urinary tract symptoms Status: Acute Assessment and Plan: Started the patient on Flomax 0.4 mg p.o. daily. (5) Type 2 diabetes mellitus: Qualifiers: Diabetes mellitus complication detail: with foot ulcer Diabetes mellitus complication status: with skin complications Diabetes mellitus filleter insulin use: without filleter use Qualified Code(s): E11.621 - Type 2 diabetes mellitus with foot ulcer; L97.509 - Non-pressure chronic ulcer of other part of unspecified foot with unspecified severity Code(s): E11.9 - Type 2 diabetes mellitus without complications Status: Acute Assessment and Plan: A1c 6.1. Glucose reviewed on 05/11. Glucose well controlled. Continue Januvia. Continue low-dose sliding scale insulin with Accu-Cheks (6) Acute hyperkalemia: Code(s): E87.5 - Hyperkalemia Status: Resolved Assessment and Plan: Related to ISMAEL. Resolved after IV fluid administration. Subjective Date/time seen: 05/11/20 17:50 Interval history: date of visit 05/11. 64-year-old male with HTN and DM admitted swollen right leg and wound MTP plantar surface of right foot. In 3rd degree heart block s/p PM placement. Had amputation 1 st and second toe R 05/06. PM site pain well controlled. No CP ro SOB. No cough. Feels better. Toelrating therapy. No n/v. Exam Narrative: Exam Narrative: AF 158/82 66 96% Gen - NARD Chest - CTA bilaterally, nml RR CV - RRR S1/S2; tele showing paced rhythm Abd - soft, NT/ND, +BS Ext - no pedal edema, bilateral foot dressing clean and dry. Neruo - no sensation to the toes to light touch Pscyh - in good spirits Objective Data Vital Signs Vital Signs: Vital Signs - 24 hr 05/10/20 18:00 05/10/20 20:00 05/10/20 22:00 Temperature 98.2 F 97.9 F Pulse Rate 68 71 68 Respiratory Rate 16 20 Blood Pressure 131/66 132/60 Pulse Oximetry 98 99 05/11/20 00:00 05/11/20 02:00 05/11/20 04:00 Temperature 97.9 F 97.0 F L Pulse Rate 63 68 60 Respiratory Rate 20 18 Blood Pressure 148/74 H 139/68 Pulse Oximetry 100 99 05/11/20 06:00 05/11/20 07:56 05/11/20 08:00 Temperature 97.4 F L Pulse Rate 60 56 L 60 Respiratory Rate 18 Blood Pressure 155/82 H Pulse Oximetry 93 05/11/20 10:00 05/11/20 11:46 05/11/20 12:00 Temperature 98.5 F Pu
[2020-05-11 20:36] LABS: Glucose Point of Care 138 (65-105)
[2020-05-12] VITALS (10 sets, daily range): BP systolic 129–170; BP diastolic 66–84; PULSE 59–89; RESP 16–18; TEMP 36.1–36.6; O2SAT 98–100; BMI 33.3
[2020-05-12 08:36] LABS: Glucose Point of Care 106 (65-105)
[2020-05-12] MEDS: ASPIRIN 81 MG CHEWABLE TABLET PO (09:36)
[2020-05-12] MEDS: ENOXAPARIN 40 MG/0.4 ML SYRINGE SUB-Q (09:36)
[2020-05-12] MEDS: allopurinoL 150 MG TABLET PO (09:36)
[2020-05-12] MEDS: allopurinoL 300 MG TABLET PO (09:36)
[2020-05-12] MEDS: gemfibroziL 600 MG TABLET PO (09:36)
[2020-05-12] MEDS: TAMSULOSIN HCL 0.4 MG CAPSULE PO (09:37)
--- NOTE | 2020-05-12 11:29 | PM.DS ---
DS: Admitting Diagnosis Admitting Diagnosis Admitting Diagnosis: Status post pacemaker implantation DS: Discharge Diagnosis Discharge Diagnosis (1) Diabetic foot infection: Code(s): E11.628 - Type 2 diabetes mellitus with other skin complications; L08.9 - Local infection of the skin and subcutaneous tissue, unspecified Status: Acute Assessment and Plan: Right foot cellulitis with underlying osteomyelitis by MRI. Amputation 05/06 of 1st and 2nd toes R foot. The patient was started on Primaxin and vancomycin and ID recommended 6 weeks rx. BCx negative. Day (through 06/11/20). PICC line in place for home abx. (2) Third degree heart block: Code(s): I44.2 - Atrioventricular block, complete Status: Acute Assessment and Plan: Patient is relatively asymptomatic but sob with exertion. He is not on any beta-blockers or rate-controlling medications. Echocardiogram normal EF and no structural abnormalities. Cardiology consulted and they proceed with pacer placement 05/10. He has tolerated the procedure well. (3) ISMAEL (acute kidney injury): Code(s): N17.9 - Acute kidney failure, unspecified Status: Acute Assessment and Plan: ISMAEL with creatinine 1.9 on admission but down from 1.0. Renal US showing no obstruction or abnormalities. (4) Chronic kidney disease, stage III (moderate): Code(s): N18.3 - Chronic kidney disease, stage 3 (moderate) Status: Acute Assessment and Plan: Patient has CKD listed but renal function better now with eGFR >60. Continue to monitor as outpatient (5) BPH (benign prostatic hyperplasia): Qualifiers: Lower urinary tract symptom detail: weak urinary stream Lower urinary tract symptom presence: symptoms present Qualified Code(s): N40.1 - Benign prostatic hyperplasia with lower urinary tract symptoms; R39.12 - Poor urinary stream Code(s): N40.0 - Benign prostatic hyperplasia without lower urinary tract symptoms Status: Acute Assessment and Plan: Started the patient on Flomax 0.4 mg p.o. daily. Will continue (6) Type 2 diabetes mellitus: Qualifiers: Diabetes mellitus complication detail: with foot ulcer Diabetes mellitus complication status: with skin complications Diabetes mellitus buttermaker helper insulin use: without senior living use Qualified Code(s): E11.621 - Type 2 diabetes mellitus with foot ulcer; L97.509 - Non-pressure chronic ulcer of other part of unspecified foot with unspecified severity Code(s): E11.9 - Type 2 diabetes mellitus without complications Status: Acute Assessment and Plan: A1c 6.1. Glucose monitored closely. Glucose well controlled. We continued Januvia. We continued sliding scale insulin with Accu-Cheks (7) Acute hyperkalemia: Code(s): E87.5 - Hyperkalemia Status: Resolved Assessment and Plan: Related to ISMAEL. Resolved after IV fluid administration. DS: Summary Hospital Course Reason for hospitalization: 64yo male here for cellulitis and osteomyelitis who developed third-degree AVB. please see H&P for details Hospital Course: as above. Time Spent with Patient Time attestation: Total time spent providing and/or coordinating discharge services: 35 minutes Time spent: Greater than 30 minutes Exam Narrative: Exam Narrative: No problems overnight. Patient slept well. Pain is well controlled. No chest pain. Doing well with therapy. Voices understanding of therapy restrictions AF 143/66 89 Gen - NARD Chest - CTA bilaterally, nml RR CV - RRR S1/S2; tele showing paced rhythm Abd - soft, NT/ND, +BS Ext - no pedal edema, bilateral foot dressings clean and dry. Negative Karis's sign. Psych - in good spirits DS: Data Data Completed and Pending Completed studies during hospitalization: Pending at discharge 05/06/20 12:12 Surgical [PTH] Routine Labs on day of discharge: Labs from last
[2020-05-12 12:20] LABS: Glucose Point of Care 134 (65-105)
[2020-05-12] MEDS: lisinopriL 20 MG TABLET PO (12:53)
[2020-05-12] MEDS: ALTEPLASE 2 MG VIAL (CATHFLO) IV PUSH (13:36)
[2020-05-12] MEDS: CENTRAL LINE FLUSH 10 ML IV PUSH (13:46)
[2020-05-12 16:39] LABS: Glucose Point of Care 118 (65-105)
== END 2020-05-12 18:00 | disposition home health service (06) | DRG 305 ==
LOC: ANHED 19:22 → ANH3MED 19:48 → ANHIMU 05-04 04:35
PROVIDERS: Internal Medicine; Orthopaedic Surgery; Specialist; Admitting Provider Internal Medicine; Emergency Provider Emergency Medicine; PCP Physician Assistant; Visit Provider Internal Medicine
PROC: 0Y6M0Z4 Detachment at Right Foot, Complete 1st Ray, Open Approach (ICD-10-PCS; principal; 2020-05-06 11:30)
PROC: 0JH606Z Insertion of Pacemaker, Dual Chamber into Chest Subcutaneous Tissue and Fascia, Open Approach (ICD-10-PCS; CPT 33208; principal; 2020-05-10 12:30)
DX: E11.69 Type 2 diabetes mellitus with other specified complication (principal); M86.171 Other acute osteomyelitis, right ankle and foot; E11.628 Type 2 diabetes mellitus with other skin complications; I44.2 Atrioventricular block, complete; I12.9 Hypertensive chronic kidney disease with stage 1 through stage 4 chronic kidney disease, or unspecified chronic kidney disease; E11.22 Type 2 diabetes mellitus with diabetic chronic kidney disease; N18.3 Chronic kidney disease, stage 3 (moderate); Z87.891 Personal history of nicotine dependence; N40.0 Benign prostatic hyperplasia without lower urinary tract symptoms; E87.5 Hyperkalemia; E11.621 Type 2 diabetes mellitus with foot ulcer; L97.519 Non-pressure chronic ulcer of other part of right foot with unspecified severity; E66.9 Obesity, unspecified; L03.115 Cellulitis of right lower limb; N17.9 Acute kidney failure, unspecified
CPT/HCPCS: 33208; 36415; 36569; 71045; 71046; 73630; 73718; 76775; 80048; 80202; 82565; 83036; 85025; 85652; 86140; 87040; 88305; 88311; 93005; 93971; 96361; 96365; 96366; 96367; 96372; 97110; 97116; 97161; 97164; 97165; 97530; 99285; A9270; C1751; C1779; C1785; C8929; G0378; G0379; J0690; J0743; J1650; J2250; J2405; J2704; J2997; J3010; J3370; J7030; J7040; J7120; Q9957

== ENCOUNTER 2020-05-28 07:38 | Outpatient (RCR) | payer OTHER, SELFPAY ==
[2020-05-28 10:46] LABS: Anion Gap 6 mmol/L (8-16); Blood Urea Nitrogen 25 mg/dL (9-20); Calcium 9.4 mg/dL (8.4-10.2); Carbon Dioxide 27 mmol/L (22-30); Chloride 107 mmol/L (98-107); Estimated Glomerular Filt Rate > 60; Glucose 97 mg/dL (75-110); Potassium 4.4 mmol/L (3.4-5.0); Sodium 140 mmol/L (137-145)
== END 2020-08-26 23:59 | disposition home or self-care (01) ==
LOC: ANHVASCINF 07:38
PROVIDERS: PCP Physician Assistant; Visit Provider Internal Medicine Infectious Disease
DX: M86.10 Other acute osteomyelitis, unspecified site (principal); T82.898A Other specified complication of vascular prosthetic devices, implants and grafts, initial encounter
CPT/HCPCS: 36415; 36592; 36593; 80048; J2997

== ENCOUNTER 2020-06-10 14:36 | Outpatient (RCR) | payer OTHER, SELFPAY ==
[2020-05-25 19:13] LABS: Basophils Absolute Auto 0.1 K/mm3 (0.0-0.1); Basophils Percent Auto 1.1 % (0.2-1.2); Eosinophils Absolute Auto 0.7 K/mm3 (0-0.3); Eosinophils Percent Auto 10.8 % (0-4.4); Hemoglobin 13.1 g/dL (14.0-18.0); Immature Granulocyte Absolute 0.02 K/mm3 (0.00-0.031); Immature Granulocyte Percent A 0.3 % (0-0.5); Lymphocytes Absolute Auto 3.09 K/mm3 (0.9-3.2); Lymphocytes Percent Auto 46.8 % (18.3-44.2); Mean Corpuscular HGB Conc 33.6 g/dl (32-36); Mean Corpuscular Hemoglobin 30.9 pg (26-34); Monocytes Absolute Auto 0.6 K/mm3 (0.1-0.6); Monocytes Percent Auto 8.3 % (2.6-8.5); Neutrophils Absolute Auto 2.2 K/mm3 (1.3-6.7); Neutrophils Percent Auto 32.7 % (45.5-73.1); Platelet Count Result 301 k/mm3 (150-375); Red Blood Count 4.24 M/mm3 (4.6-6.20); White Blood Count 6.6 K/mm3 (4.5-10.0)
[2020-05-25 19:14] LABS: Anion Gap 7 mmol/L (8-16); Blood Urea Nitrogen 21 mg/dL (9-20); CRP < 0.5 mg/dL (<1.0); Calcium 9.6 mg/dL (8.4-10.2); Carbon Dioxide 29 mmol/L (22-30); Chloride 105 mmol/L (98-107); Estimated Glomerular Filt Rate > 60; Glucose 131 mg/dL (75-110); Potassium 4.2 mmol/L (3.4-5.0); Sodium 141 mmol/L (137-145)
[2020-05-25 19:32] LABS: Vancomycin Random 16.7 ug/mL (10-20)
[2020-06-08 18:02] LABS: Basophils Absolute Auto 0.1 K/mm3 (0.0-0.1); Basophils Percent Auto 1.4 % (0.2-1.2); Eosinophils Absolute Auto 0.5 K/mm3 (0-0.3); Hematocrit 39.7 % (42.0-52.0); Hemoglobin 13.1 g/dL (14.0-18.0); Immature Granulocyte Absolute 0.01 K/mm3 (0.00-0.031); Immature Granulocyte Percent A 0.2 % (0-0.5); Lymphocytes Absolute Auto 2.08 K/mm3 (0.9-3.2); Mean Corpuscular Hemoglobin 30.3 pg (26-34); Mean Corpuscular Volume 91.7 fl (80-100); Mean Platelet Volume 10.7 fl (7.4-10.4); Monocytes Absolute Auto 0.6 K/mm3 (0.1-0.6); Monocytes Percent Auto 15.1 % (2.6-8.5); Neutrophils Absolute Auto 0.8 K/mm3 (1.3-6.7); Neutrophils Percent Auto 20.3 % (45.5-73.1); Platelet Count Result 247 k/mm3 (150-375); Red Blood Count 4.33 M/mm3 (4.6-6.20); Red Cell Distribution Width 14.7 % (11.5-14.5); White Blood Count 4.2 K/mm3 (4.5-10.0)
[2020-06-08 18:11] LABS: Anion Gap 6 mmol/L (8-16); Blood Urea Nitrogen 27 mg/dL (9-20); Calcium 9.4 mg/dL (8.4-10.2); Carbon Dioxide 28 mmol/L (22-30); Chloride 106 mmol/L (98-107); Estimated Glomerular Filt Rate > 60; Glucose 132 mg/dL (75-110); Potassium 4.2 mmol/L (3.4-5.0); Sodium 140 mmol/L (137-145)
[2020-06-08 18:48] LABS: Vancomycin Trough 17.2 ug/mL (10.0-20.0)
[2020-06-10 15:13] LABS: Anion Gap 7 mmol/L (8-16); Blood Urea Nitrogen 24 mg/dL (9-20); Calcium 9.9 mg/dL (8.4-10.2); Carbon Dioxide 26 mmol/L (22-30); Chloride 105 mmol/L (98-107); Estimated Glomerular Filt Rate > 60; Glucose 161 mg/dL (75-110); Potassium 4.1 mmol/L (3.4-5.0); Sodium 138 mmol/L (137-145)
[2020-06-10 15:35] LABS: CRP < 0.5 mg/dL (<1.0)
== END 2020-08-23 23:59 | disposition home or self-care (01) ==
LOC: HOME HLTH 14:36
PROVIDERS: PCP Physician Assistant; Visit Provider Internal Medicine Infectious Disease
DX: M86.10 Other acute osteomyelitis, unspecified site (principal)
CPT/HCPCS: 80048; 80202; 85025; 86140

== ENCOUNTER 2020-10-16 09:09 | Outpatient (CLI) | payer OTHER, SELFPAY ==
[2020-10-16 10:30] LABS: Basophils Absolute Auto 0.1 K/mm3 (0.0-0.1); Basophils Percent Auto 0.6 % (0.2-1.2); Eosinophils Absolute Auto 0.4 K/mm3 (0-0.3); Eosinophils Percent Auto 5.1 % (0-4.4); Hemoglobin 14.5 g/dL (14.0-18.0); Immature Granulocyte Absolute 0.02 K/mm3 (0.00-0.031); Immature Granulocyte Percent A 0.2 % (0-0.5); Lymphocytes Absolute Auto 3.48 K/mm3 (0.9-3.2); Lymphocytes Percent Auto 43.4 % (18.3-44.2); Mean Corpuscular HGB Conc 33.7 g/dl (32-36); Mean Corpuscular Volume 92.1 fl (80-100); Mean Platelet Volume 11.4 fl (7.4-10.4); Monocytes Absolute Auto 0.4 K/mm3 (0.1-0.6); Monocytes Percent Auto 5.1 % (2.6-8.5); Neutrophils Absolute Auto 3.7 K/mm3 (1.3-6.7); Neutrophils Percent Auto 45.6 % (45.5-73.1); Platelet Count Result 237 k/mm3 (150-375); Red Blood Count 4.67 M/mm3 (4.6-6.20); Red Cell Distribution Width 13.4 % (11.5-14.5)
[2020-10-16 10:42] LABS: Alanine Aminotransferase 28 U/L (4-50); Albumin Level 4.4 g/dL (3.5-5.1); Alkaline Phosphatase 54 U/L (38-126); Anion Gap 5 mmol/L (8-16); Aspartate Amino Transferase 30 U/L (17-59); Bilirubin,Total 0.6 mg/dL (0.2-1.3); Blood Urea Nitrogen 35 mg/dL (9-20); Calcium 10.3 mg/dL (8.4-10.2); Carbon Dioxide 31 mmol/L (22-30); Chloride 103 mmol/L (98-107); Estimated Glomerular Filt Rate 41; Glucose 219 mg/dL (75-110); Potassium 4.7 mmol/L (3.4-5.0); Sodium 139 mmol/L (137-145)
== END 2020-10-16 09:10 | disposition home or self-care (01) ==
PROVIDERS: PCP Physician Assistant; Visit Provider Internal Medicine Cardiovascular Disease
DX: I48.91 Unspecified atrial fibrillation (principal); Z95.0 Presence of cardiac pacemaker
CPT/HCPCS: 36415; 80053; 85025

== ENCOUNTER 2020-11-16 17:03 | Outpatient (CLI) | payer OTHER, SELFPAY ==
[2020-11-16 17:27] LABS: Basophils Absolute Auto 0.1 K/mm3 (0.0-0.1); Basophils Percent Auto 0.8 % (0.2-1.2); Eosinophils Absolute Auto 0.7 K/mm3 (0-0.3); Eosinophils Percent Auto 7.2 % (0-4.4); Hemoglobin 13.6 g/dL (14.0-18.0); Immature Granulocyte Absolute 0.04 K/mm3 (0.00-0.031); Immature Granulocyte Percent A 0.4 % (0-0.5); Lymphocytes Percent Auto 46.2 % (18.3-44.2); Mean Corpuscular HGB Conc 33.2 g/dl (32-36); Mean Corpuscular Hemoglobin 30.6 pg (26-34); Mean Corpuscular Volume 92.3 fl (80-100); Mean Platelet Volume 10.7 fl (7.4-10.4); Monocytes Absolute Auto 0.7 K/mm3 (0.1-0.6); Monocytes Percent Auto 7.9 % (2.6-8.5); Neutrophils Absolute Auto 3.5 K/mm3 (1.3-6.7); Neutrophils Percent Auto 37.5 % (45.5-73.1); Platelet Count Result 260 k/mm3 (150-375); Red Blood Count 4.44 M/mm3 (4.6-6.20); Red Cell Distribution Width 13.1 % (11.5-14.5); White Blood Count 9.3 K/mm3 (4.5-10.0)
[2020-11-16 17:37] LABS: Prothrombin Time 14.2 Seconds (11.1-14.7)
[2020-11-16 17:38] LABS: Alanine Aminotransferase 29 U/L (4-50); Albumin Level 4.2 g/dL (3.5-5.1); Alkaline Phosphatase 46 U/L (38-126); Anion Gap 5 mmol/L (8-16); Aspartate Amino Transferase 27 U/L (17-59); Bilirubin,Total 0.3 mg/dL (0.2-1.3); Blood Urea Nitrogen 28 mg/dL (9-20); Carbon Dioxide 30 mmol/L (22-30); Chloride 108 mmol/L (98-107); Estimated Glomerular Filt Rate 41; Glucose 121 mg/dL (75-110); Potassium 4.1 mmol/L (3.4-5.0); Sodium 143 mmol/L (137-145)
== END 2020-11-16 17:04 | disposition home or self-care (01) ==
LOC: ANHLAB 17:05
PROVIDERS: PCP Physician Assistant; Visit Provider Internal Medicine Cardiovascular Disease
DX: R94.39 Abnormal result of other cardiovascular function study (principal)
CPT/HCPCS: 36415; 80053; 85025; 85610

== ENCOUNTER → 2020-11-27 00:33 | Outpatient (CLI) | payer OTHER, SELFPAY ==
[2020-11-27 19:48] LABS: SARS-CoV-2 RNA PCR Negative
== END ==
PROVIDERS: PCP Physician Assistant; Visit Provider Internal Medicine Cardiovascular Disease
DX: Z01.812 Encounter for preprocedural laboratory examination (principal); Z20.822 Contact with and (suspected) exposure to COVID-19
CPT/HCPCS: 80053; 83735; C9803; U0003; U0005

== ENCOUNTER 2020-11-27 08:17 | Outpatient (CLI) | payer OTHER, SELFPAY ==
[2020-11-27 09:21] LABS: Alanine Aminotransferase 23 U/L (4-50); Albumin Level 4.2 g/dL (3.5-5.1); Alkaline Phosphatase 52 U/L (38-126); Anion Gap 8 mmol/L (8-16); Aspartate Amino Transferase 28 U/L (17-59); Bilirubin,Total 0.2 mg/dL (0.2-1.3); Blood Urea Nitrogen 35 mg/dL (9-20); Calcium 9.4 mg/dL (8.4-10.2); Carbon Dioxide 29 mmol/L (22-30); Chloride 105 mmol/L (98-107); Estimated Glomerular Filt Rate 43; Glucose 207 mg/dL (75-110); Magnesium 1.8 mg/dL (1.6-2.3); Potassium 4.1 mmol/L (3.4-5.0); Sodium 142 mmol/L (137-145)
== END 2020-11-27 08:18 | disposition home or self-care (01) ==
PROVIDERS: PCP Physician Assistant; Visit Provider Nurse Practitioner Adult Health
DX: I48.91 Unspecified atrial fibrillation (principal)
CPT/HCPCS: 36415; 80053; 83735

== ENCOUNTER 2020-11-30 00:31 | Day surgery (SDC) | payer OTHER, SELFPAY ==
[2020-11-29 14:29] VITALS: BMI 36.6
--- NOTE | 2020-11-30 08:00 | ECG_ITS ---
Measurements Intervals [place] Rate: 69 P: 16 MS: 96 QRS: -78 QRSD: 217 T: 89 QT: 470 QTc: 505 Interpretive Statements ELECTRONIC ATRIAL PACEMAKER WITH INHIBITION ELECTRONIC VENTRICULAR PACEMAKER NO FURTHER INTERPRETATION IS POSSIBLE ATYPICAL ECG Electronically Signed On 11-30-2020 8:13:01 TELEVISION DIRECTOR by Real Lopez D.O.
[2020-11-30 08:30] VITALS: BP 122/80; PULSE 73; RESP 18; TEMP 36.8; O2SAT 99
--- NOTE | 2020-11-30 09:39 | ECG_ITS ---
Measurements Intervals [place] Rate: 70 P: 150 MA: 175 QRS: -77 QRSD: 219 T: 87 QT: 483 QTc: 521 Interpretive Statements ELECTRONIC ATRIAL PACEMAKER ELECTRONIC VENTRICULAR PACEMAKER NO FURTHER INTERPRETATION IS POSSIBLE ATYPICAL ECG Electronically Signed On 11-30-2020 9:46:06 ELECTRONIC PARTS SALESPERSON by Real Lopez D.O.
--- NOTE | 2020-11-30 09:41 | WPDMODSED ---
Moderate Sedation Note-Pt Data Patient Data Allergies Allergy/AdvReac Type Severity Reaction Status Date / Time ibuprofen Allergy Mild SWELLS Verified 06/23/20 10:10 RESPIR. DISTRESS bee venom protein (honey bee) Allergy Unknown Swelling Verified 06/23/20 10:10 of Lip/Tongue/Throat Home Medications Medication Instructions Recorded Confirmed Type Januvia 100 mg PO DAILY 05/03/20 11/29/20 History OptiChamber [facility] 05/03/20 05/03/20 History Refresh Tears 1 drp OPHTHALMIC (EYE) BID PRN 05/03/20 11/29/20 History albuterol sulfate 90 mcg INHALATION BID PRN 05/03/20 11/29/20 History allopurinol 450 mg PO DAILY 05/03/20 11/29/20 History aspirin 81 mg PO DAILY 05/03/20 11/29/20 History gemfibrozil 600 mg PO BID 05/03/20 11/29/20 History lisinopril 20 mg PO DAILY 05/03/20 11/29/20 History metformin 1,000 mg PO DAILY 05/03/20 05/03/20 History tamsulosin 0.4 mg PO QAM #30 cap 05/12/20 11/29/20 Rx apixaban [Eliquis] 5 mg PO BID 11/29/20 11/29/20 History rosuvastatin 20 mg PO DAILY 11/29/20 11/29/20 History ticagrelor [Brilinta] 90 mg PO Q12H 11/29/20 11/29/20 History Current Medications: Active Medications Sodium Chloride (Normal Saline Iv) 1,000 mls @ 30 mls/hr IV CONT .Q24H CHRISTIANO Sedation/Anesthesia: No previous sedation/anesthesia problems (including family history). [facility] Past Medical History Medical History Chronic kidney disease Chronic kidney disease, stage III (moderate) Diabetes Diabetic foot ulcer associated with diabetes mellitus due to underlying condition Diabetic neuropathy Gout Hyperlipidemia Hypertension Kidney stones Osteomyelitis of foot, acute Reflex sympathetic dystrophy a left lower extremity Surgical History Surgical History History of colonoscopy with polypectomy 1999 History of left inguinal hernia repair 2014 History of surgical removal of pilonidal cyst History of umbilical hernia repair 2002 Presence of intrathecal pump nonfunctioning pain pump Status post cataract extraction of both eyes with insertion of intraocular lens Family History Family History Other Unknown family medical history Social History Social History Smoking packs per day: 4 Smoking cigarettes per day: 80.0 Years smoked: 45 Smoking pack-years: 180.00 Smoking status: Former smoker Tobacco type: cigarettes Alcohol intake: never Drinks per week: 3 Substance use: current Substance use type: marijuana Other substance usage details: 2 joints a day. Last use: 05/03/2020 Living arrangements: with roommate(s) Additional living arrangements comments: He lives with his girlfriend of 20 years. 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 Gender identity (if verbalized by the patient): Male Spiritual care concerns: No Mod Sed Physical Exam Physical Exam Pre Procedural Exam: Normal: Throat Hours since solid foods: 10 Hours since liquid intake: 10 Internal Medicine - PN: Obj Da Vital Signs Vital Signs: Vital Signs - 24 hr 11/30/20 08:30 Temperature 36.8 C Pulse Rate 73 Respiratory Rate 18 Blood Pressure 122/80 Pulse Oximetry 99 Meds/Results Medications: Active Medications Generic Name Dose Route Start Last Admin Trade Name Freq PRN Reason Stop Dose Admin Sodium Chloride 1,000 mls @ 30 mls/hr 11/30/20 08:00 Normal Saline Iv IV CONT .Q24H CHRISTIANO ASA Classification/Sedation ASA Classification/Sedation Risks: Risks, benefits and alternatives explained and patient/family accepted plan for sedation. Patient re-evaluated immediately prior to sedation.
--- NOTE | 2020-11-30 09:42 | PM.IMHP ---
H&P: HPI History of Present Illness Date/Time: 11/30/20 09:42 Chief complaint-shortness of breath HPI: 64-year-old male with history of complete heart block status post Biotronik dual-chamber pacemaker placement on 05/10/2020, CAD status post PCI/stenting, hypertension, type 2 diabetes mellitus, BILLY not compliant with CPAP, obesity, history of tobacco abuse. Patient has been experiencing dyspnea on exertion, and his pacemaker interrogation showed that patient has been in persistent atrial fibrillation. Patient opted rhythm control strategy with DC cardioversion. He has been on chronic anticoagulation with apixaban. Patient was brought to the hospital today for planned DC cardioversion. Chief Complaint: Shortness of breath Narrative: Ankur Corral is a 64 year old male [facility] Past Medical History Medical History (Updated 11/30/20 @ 09:44 by Heath Salcedo MD) Chronic kidney disease Chronic kidney disease, stage III (moderate) Diabetes Diabetic foot ulcer associated with diabetes mellitus due to underlying condition Diabetic neuropathy Gout Hyperlipidemia Hypertension Kidney stones Osteomyelitis of foot, acute Reflex sympathetic dystrophy a left lower extremity Surgical History Surgical History History of colonoscopy with polypectomy 1999 History of left inguinal hernia repair 2014 History of surgical removal of pilonidal cyst History of umbilical hernia repair 2001 Presence of intrathecal pump nonfunctioning pain pump Status post cataract extraction of both eyes with insertion of intraocular lens Family History Family History Other Unknown family medical history Social History Social History Smoking packs per day: 4 Smoking cigarettes per day: 80.0 Years smoked: 45 Smoking pack-years: 180.00 Smoking status: Former smoker Tobacco type: cigarettes Alcohol intake: never Drinks per week: 3 Substance use: current Substance use type: marijuana Other substance usage details: 2 joints a day. Last use: 05/03/2020 Living arrangements: with roommate(s) Additional living arrangements comments: He lives with his girlfriend of 20 years. 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 Gender identity (if verbalized by the patient): Male Spiritual care concerns: No Meds Home Medications and Allergies Home Medications Medication Instructions Recorded Confirmed Type Januvia 100 mg PO DAILY 05/03/20 11/29/20 History OptiChamber [facility] 05/03/20 05/03/20 History Refresh Tears 1 drp OPHTHALMIC (EYE) BID PRN 05/03/20 11/29/20 History albuterol sulfate 90 mcg INHALATION BID PRN 05/03/20 11/29/20 History allopurinol 450 mg PO DAILY 05/03/20 11/29/20 History aspirin 81 mg PO DAILY 05/03/20 11/29/20 History gemfibrozil 600 mg PO BID 05/03/20 11/29/20 History lisinopril 20 mg PO DAILY 05/03/20 11/29/20 History metformin 1,000 mg PO DAILY 05/03/20 05/03/20 History tamsulosin 0.4 mg PO QAM #30 cap 05/12/20 11/29/20 Rx apixaban [Eliquis] 5 mg PO BID 11/29/20 11/29/20 History rosuvastatin 20 mg PO DAILY 11/29/20 11/29/20 History ticagrelor [Brilinta] 90 mg PO Q12H 11/29/20 11/29/20 History Allergies Allergy/AdvReac Type Severity Reaction Status Date / Time ibuprofen Allergy Mild SWELLS Verified 06/23/20 10:10 RESPIR. DISTRESS bee venom protein (honey bee) Allergy Unknown Swelling Verified 06/23/20 10:10 of Lip/Tongue/Throat Vital Signs Vital Signs - 24 hr 11/30/20 08:30 Temperature 36.8 C Pulse Rate 73 Respiratory Rate 18 Blood Pressure 122/80 Pulse Oximetry 99 Exam Narrative: Exam Narrative: PHYSICAL EXAMINATION: GENERAL: Alert, oriented, no acute distress MENTAL STATUS: affect appropriate to mood E
[2020-11-30 09:45] VITALS: BP 100/68; PULSE 70; RESP 14; O2SAT 97
--- NOTE | 2020-11-30 09:45 | P.PCNCVR_ITS ---
Cardioversion Cardioversion Date of procedure: 11/30/20 Description of procedure: DATE OF PROCEDURE: 11/30/2020 INDICATION FOR PROCEDURE: Persistent atrial fibrillation PROCEDURES PERFORMED: 1. Successful synchronized DC cardioversion with jehovah's witness of sinus rhythm 2. Moderate sedation -CPT 90680 SEDATION: Propofol 80 mg in divided doses; start time 0932, stop time 0945; total anoc-yl-zcnk time 13 minutes; Lj Wesley RN was trained observer for the moderate sedation. PROCEDURE: Informed consent was taken prior to the procedure. Transcutaneous pads were placed in the right parasternal and left paravertebral positions. The pacemaker rep from the [employer] interrogated the device prior to the procedure, which showed underlying atrial fibrillation. After adequate conscious sedation with IV propofol, synchronized DC cardioversion was performed with 200 joules x with jehovah's witness of sinus rhythm. Postprocedure pacemaker interrogation showed sinus rhythm with A paced V paced rhythm. Patient tolerated procedure well without any immediate procedure related complications. CONCLUSIONS: Successful, synchronized DC cardioversion with jehovah's witness of sinus rhythm. RECOMMENDATIONS: Patient will continue on current medications including anticoagulation with apixaban. Follow-up in 1 week with EP nurse for pacemaker interrogation. Cardiology follow-up in 3-4 weeks or sooner if needed.
[2020-11-30 10:00] VITALS: BP 108/68; PULSE 70; RESP 14; O2SAT 99
[2020-11-30 10:15] VITALS: BP 117/66; PULSE 70; RESP 11; O2SAT 100
[2020-11-30 10:30] VITALS: BP 116/66; PULSE 70; RESP 11; O2SAT 100
--- NOTE | 2020-11-30 10:59 | SUR.PHASEII ---
1055-pt given D/C orders and instructions. Questions answered and verbalized understanding. AOx4. PIV removed intact. Taken via wheelchair to waiting vehicle. No distress noted or verbalized at time of departure.
== END 2020-11-30 10:57 | disposition home or self-care (01) ==
PROVIDERS: PCP Physician Assistant; Visit Provider Internal Medicine Cardiovascular Disease
PROC: 5A2204Z Restoration of Cardiac Rhythm, Single (ICD-10-PCS; principal; 2020-11-30 09:30)
DX: I48.19 Other persistent atrial fibrillation (principal); I12.9 Hypertensive chronic kidney disease with stage 1 through stage 4 chronic kidney disease, or unspecified chronic kidney disease; N18.30 Chronic kidney disease, stage 3 unspecified; E11.22 Type 2 diabetes mellitus with diabetic chronic kidney disease; E11.40 Type 2 diabetes mellitus with diabetic neuropathy, unspecified; E78.5 Hyperlipidemia, unspecified; M10.9 Gout, unspecified; G90.522 Complex regional pain syndrome I of left lower limb; Z79.01 Long term (current) use of anticoagulants; Z79.84 Long term (current) use of oral hypoglycemic drugs; Z87.891 Personal history of nicotine dependence; F12.90 Cannabis use, unspecified, uncomplicated
CPT/HCPCS: 92960; 93005; J2704; J7030

== ENCOUNTER 2020-12-07 15:32 | Outpatient (CLI) | payer OTHER, SELFPAY | END 2020-12-07 15:33 | disposition home or self-care (01) | LOC: ANHCOVIDVC 15:32 | PROVIDERS: PCP Physician Assistant | DX: Z23 Encounter for immunization (principal) | CPT/HCPCS: 0001A; 91300 ==

== ENCOUNTER 2020-12-09 21:07 | Inpatient (IN) | payer OTHER, SELFPAY ==
[2020-12-09] VITALS (10 sets, daily range): BP systolic 125–132; BP diastolic 77–79; PULSE 79–82; RESP 14–21; O2SAT 93–99
--- NOTE | ~2020-12-09 | CT_ITS ---
EXAMINATION: CT chest abdomen pelvis w con DATE: 12/10/2020 02:22 INDICATION: Chest and abdominal injury. Fall. TECHNIQUE: Computed tomography (CT) of the chest, abdomen, and pelvis was performed with 100 mL Omnip aque 350 intravenous contrast. Automated exposure control and iterative reconstruction technique were employed. The dose-length product was 1897.36 mGy-cm. COMPARISON: Chest CT 03/04/2011 FINDINGS: CHEST CT: There is mild emphysema. A calcified right lung nodule and calcified right hilar and mediastinal lymp h nodes are consistent with old granulomatous disease. There is mild atelectasis bilaterally. There i s a 3 mm nodule in right middle lobe, likely benign. No pleural effusion. The heart size is normal. T here are coronary artery calcifications. No pericardial effusion. There is a left chest wall pacer wi th leads in the right atrium and right ventricle. An intrathecal catheter is noted. There are bridgin g endplate osteophytes at multiple levels in the spine, consistent with diffuse idiopathic skeletal h yperostosis (DISH). There are fractures of the left fourth, fifth, and sixth ribs. ABDOMEN/PELVIS CT: The liver, gallbladder, spleen, pancreas, and adrenal glands are normal. There are cysts in the kidne ys measuring up to 3.3 cm on the right. There are 2 hyperdense masses in left kidney measuring up to 11 mm. There is a 3 mm stone in left kidney. There are no dilated loops of bowel. The appendix is nor mal. There are no pathologically enlarged lymph nodes. There is no free intraperitoneal fluid. There is moderate lumbar spondylosis. IMPRESSION: 1. Acute fractures of the left fourth-sixth ribs. 2. Mild emphysema. 3. Two hyperdense left kidney masses measuring up 11 mm, which may be hemorrhagic cysts or less likel y renal cell carcinoma. Abdomen CT without and with contrast is recommended. Reviewed, dictated and finalized at location A. IMPRESSION: 1. Acute fractures of the left fourth-sixth ribs. 2. Mild emphysema. 3. Two hyperdense left kidney masses measuring up 11 mm, which may be hemorrhag ic cysts or less likely renal cell carcinoma. Abdomen CT without and with contr ast is recommended.
--- NOTE | ~2020-12-09 | XR_ITS ---
EXAMINATION: XR chest 2V 12/14/2020 14:39 INDICATION: Cough. Rib fractures. PROCEDURE: AP and lateral views of the chest COMPARISON: Comparison to multiple prior studies sequentially, with oldest reviewed study dated 05/11. FINDINGS: The lungs are clear. The cardiomediastinal silhouette is within normal limits. There are no pleural effusions. There is no pneumothorax suspected. Densely calcified granuloma right lung ba se. Pacemaker leads are stable. Mildly elevated left diaphragm appears chronic. IMPRESSION: 1: NO ACUTE CARDIOPULMONARY DISEASE. Reviewed, dictated and finalized at location A.
--- NOTE | ~2020-12-09 | CT_ITS ---
EXAMINATION: CT cervical spine wo con DATE: 12/10/2020 02:16 INDICATION: Neck injury. TECHNIQUE: Computed tomography (CT) of the cervical spine was performed without intravenous contrast. Automated exposure control and iterative reconstruction technique were employed. The dose-length pro duct was 586.59 mGy-cm. COMPARISON: None FINDINGS: There is kyphosis of lower cervical spine. There is 2 mm anterolisthesis of C4 on C5. Verte bral body heights are normal. There is mildly decreased disc height at C4-C5, C5-C6, and C6-C7. The f ollowing disc levels are specifically discussed: C2-C3: There is moderate and severe left uncovertebral joint osteoarthritis. There is moderate right and severe left facet joint osteoarthritis. There is moderate left neural foraminal stenosis. There i s mild central canal stenosis. C3-C4: There is moderate right and severe left uncovertebral joint osteoarthritis. There is severe bi lateral facet joint osteoarthritis. There is mild right and moderate left neural foraminal stenosis. There is mild central canal stenosis. C4-C5: There is mild bilateral uncovertebral joint osteoarthritis. There is severe bilateral facet patrick int osteoarthritis. There is mild bilateral neural foraminal stenosis. There is mild central canal st enosis. C5-C6: There is mild right and moderate left uncovertebral joint osteoarthritis. There is mild bilate ral facet joint osteoarthritis. There is mild left neural foraminal stenosis. There is mild central c anal stenosis. C6-C7: There is no uncovertebral joint osteoarthritis. There is mild bilateral facet joint osteoarthr itis. There is no neural foraminal stenosis. There is no central canal stenosis. C7-T1: There is mild bilateral uncovertebral joint osteoarthritis. There is severe bilateral facet patrick int osteoarthritis. There is mild bilateral neural foraminal stenosis. There is no central canal sten osis. IMPRESSION: 1. No fracture. 2. Moderate cervical spondylosis. Reviewed, dictated and finalized at location A.
--- NOTE | ~2020-12-09 | XR_ITS ---
XR chest 2V 12/13/2020 12:23 Indication: Cough. Increased sputum production. Procedure: AP and lateral views of the chest Comparison: Comparison to multiple prior studies sequentially, with oldest reviewed study dated 05/10. Findings: Cardiomegaly. Small left pleural effusion. Densely calcified granuloma right lower lung zon e. Pacemaker leads are stable. No focal pneumonia, edema or pneumothorax. No acute osseous abnormalit y. Impression: 1: Small left pleural effusion. 2: Cardiomegaly. Reviewed, dictated and finalized at location A. Impression: 1: Small left pleural effusion. 2: Cardiomegaly.
--- NOTE | ~2020-12-09 | CT_ITS ---
EXAMINATION: CT brain wo con DATE: 12/09/2020 23:13 INDICATION: Fall. Head injury. TECHNIQUE: Computed tomography (CT) of the head was performed without intravenous contrast. The mA wa s adjusted according to patient size. Iterative reconstruction technique was employed. Exam dose: 68 1.00 mGy-cm total exam DLP. COMPARISON: None FINDINGS: Bilateral vertebral artery and bilateral carotid siphon internal carotid artery calcificati ons. There is nonspecific diminished attenuation of the cerebral white matter, likely due to chronic small vessel ischemic changes. No intracranial mass lesion or hemorrhage or cerebrovascular accident is evident. No midline shift or mass effect effect. No subdural or epidural hematoma is detected. There is a prominent left cephalohematoma and left periorbital soft tissue hematoma. No skull fracture is evident. No coup or contrecoup intracranial injury is identified. Bilateral maxillary sinus soft tissue thickening and patchy opacification of bilateral ethmoid air ce lls. The mastoid air cells are normally aerated. IMPRESSION: Prominent left frontal cephalohematoma; no skull fracture or acute intracranial finding Reviewed, dictated and finalized at [facility]. Reviewed, dictated and finalized at [facility].
--- NOTE | ~2020-12-09 | XR_ITS ---
XR ribs LT 2V w CXR 2V DATE: 12/09/2020 23:15 INDICATION: Fall. Lower anterior to axillary and posterior rib pain TECHNIQUE: PA and lateral chest. 3 views of the left ribs. COMPARISON: 05/12/2022 view chest 02/2011 PA and lateral views FINDINGS: Anterolateral left fourth minimally displaced acute rib fracture. Lateral fifth and sixth m inimally displaced acute rib fractures. Minimal atelectasis at the left lung base. No pleural effusio n or pneumothorax is evident. Chronic probable calcified pulmonary granuloma in the lateral right lung base, stable since 02/2011. Normal heart size. Aortic calcification. Left-sided dual-lead pacemaker device with leads overlying r ight atrium and right ventricle. Diffuse idiopathic skeletal hyperostosis of the thoracic spine. IMPRESSION: Acute left fourth, fifth and sixth rib fractures, minimally displaced; no pneumothorax Reviewed, dictated and finalized at [facility]. IMPRESSION: Acute left fourth, fifth and sixth rib fractures, minimally displac ed; no pneumothorax
--- NOTE | 2020-12-09 21:34 | ED.HEATRA ---
HPI - Head Injury General Chief complaint: Head Injury <Lindsey Bowser MD - Last Filed: 12/09/20 22:50> Stated complaint: fall/ hematoma to head <Lindsey Bowser MD - Last Filed: 12/09/20 22:50> Time Seen by Provider: 12/09/20 21:18 <Lindsey Bowser MD - Last Filed: 12/09/20 22:50> Source: patient and family <Lindsey Bowser MD - Last Filed: 12/09/20 22:50> Mode of arrival: ambulatory <Lindsey Bowser MD - Last Filed: 12/09/20 22:50> Limitations: no limitations <Lindsey Bowser MD - Last Filed: 12/09/20 22:50> History of Present Illness HPI Narrative: Patient 64 years old white male had a fall prior to arrival to the emergency room after his foot got hanged on something on the ground. Struck left forehead, complaining of headache and left upper chest pain. Patient denies other injuries. Patient denies any fever, chills, nausea, vomiting, shortness of breath, chest pain or neck pain. Currently patient on aspirin, Brilinta and Eliquis <Lindsey Bowser MD - Last Filed: 12/09/20 22:50> Related Data Home medications: Home Medications Medication Instructions Recorded Confirmed Januvia 100 mg PO DAILY 05/03/20 11/29/20 Breannajesus [facility] 05/03/20 05/03/20 Refresh Tears 1 drp OPHTHALMIC (EYE) BID PRN 05/03/20 11/29/20 albuterol sulfate 90 mcg INHALATION BID PRN 05/03/20 11/29/20 allopurinol 450 mg PO DAILY 05/03/20 11/29/20 aspirin 81 mg PO DAILY 05/03/20 11/29/20 gemfibrozil 600 mg PO BID 05/03/20 11/29/20 lisinopril 20 mg PO DAILY 05/03/20 11/29/20 metformin 1,000 mg PO DAILY 05/03/20 05/03/20 apixaban [Eliquis] 5 mg PO BID 11/29/20 11/29/20 rosuvastatin 20 mg PO DAILY 11/29/20 11/29/20 ticagrelor [Brilinta] 90 mg PO Q12H 11/29/20 11/29/20 <Lindsey Bowser MD - Last Filed: 12/09/20 22:50> Allergies/Adverse reactions: Allergies Allergy/AdvReac Type Severity Reaction Status Date / Time bee venom protein (honey bee) Allergy Severe Swelling Verified 12/07/20 15:38 of Lip/Tongue/Throat ibuprofen Allergy Severe SWELLS Verified 12/07/20 15:38 RESPIR. DISTRESS <Lindsey Bowser MD - Last Filed: 12/09/20 22:50> Review of Systems Review of Systems: Narrative: CONSTITUTIONAL: Denies fever, chills, or sweats. EYES: Denies visual changes, redness, or discharge. ENT: Denies rhinorrhea, congestion, sore throat, or otalgia. CARDIOVASCULAR: Denies chest pain, palpitations, or edema. RESPIRATORY: Denies cough or dyspnea. GASTROINTESTINAL: Denies abdominal pain, nausea, vomiting, or diarrhea. GENITOURINARY: Denies dysuria or hematuria. SKIN: Denies rash or itching. MUSCULOSKELETAL: Denies back pain, joint pain, or myalgia. NEUROLOGIC: Denies headache, numbness, or weakness. PSYCHIATRIC: Denies anxiety or depression. <Lindsey Bowser MD - Last Filed: 12/09/20 22:50> [facility] Past Medical History Medical History: Medical History (Updated 12/10/20 @ 01:34 by Randy Workman PA-C) Chronic kidney disease Chronic kidney disease, stage III (moderate) Diabetes Diabetic foot ulcer associated with diabetes mellitus due to underlying condition Diabetic neuropathy Gout Hyperlipidemia Hypertension Kidney stones Osteomyelitis of foot, acute Reflex sympathetic dystrophy a left lower extremity <Lindsey Bowser MD - Last Filed: 12/09/20 22:50> Surgical History Surgical History: Surgical History History of colonoscopy with polypectomy 1999 History of left inguinal hernia repair 2015 History of surgical removal of pilonidal cyst History of umbilical hernia repair 2001 Presence of intrathecal pump nonfunctioning pain pump Status post cataract extraction of both eyes with insertion of intraocular lens <Lindsey Bowser MD - Last Filed: 12/09/20 22:50> Family History Family History: Family History Other Unknown family medical history <Omero
--- NOTE | 2020-12-09 22:30 | PC.NURSE ---
pt refusing to go to imaging at this time unless he is medicated and it kicks in.
[2020-12-09] MEDS: HYDROcodone/acetaminophen (*CRX) 5-325 MG TABLET 1 TAB PO (22:41)
[2020-12-09] MEDS: ONDANSETRON INJ 4 MG/2 ML VIAL IV PUSH (22:47)
[2020-12-09] MEDS: MORPHINE SULFATE (*CRX) 4 MG/ML INJ IV PUSH (22:48)
--- NOTE | 2020-12-09 23:06 | ECG_ITS ---
Measurements Intervals [place] Rate: 79 P: [place]: 0 QRS: -80 QRSD: 209 T: 89 QT: 449 QTc: 516 Interpretive Statements ELECTRONIC VENTRICULAR PACEMAKER NO FURTHER INTERPRETATION IS POSSIBLE ATYPICAL ECG Electronically Signed On 12-10-2020 7:02:27 CDT by Real Lopez D.O.
[2020-12-10] VITALS (18 sets, daily range): BP systolic 115–146; BP diastolic 68–89; PULSE 78–86; RESP 11–23; TEMP 36.2–36.8; O2SAT 93–99; BMI 81.8; BMI 42.8
--- NOTE | 2020-12-10 00:10 | ED.GENADULT ---
HPI - General Adult General Chief complaint: Head Injury Stated complaint: fall/ hematoma to head Time Seen by Provider: 12/09/20 21:18 Source: patient and family Mode of arrival: ambulatory Limitations: no limitations Related Data Home Medications Medication Instructions Recorded Confirmed Januvia 100 mg PO DAILY 05/03/20 11/29/20 Jose J Minaya [facility] 05/03/20 05/03/20 Refresh Tears 1 drp OPHTHALMIC (EYE) BID PRN 05/03/20 11/29/20 albuterol sulfate 90 mcg INHALATION BID PRN 05/03/20 11/29/20 allopurinol 450 mg PO DAILY 05/03/20 11/29/20 aspirin 81 mg PO DAILY 05/03/20 11/29/20 gemfibrozil 600 mg PO BID 05/03/20 11/29/20 lisinopril 20 mg PO DAILY 05/03/20 11/29/20 metformin 1,000 mg PO DAILY 05/03/20 05/03/20 apixaban [Eliquis] 5 mg PO BID 11/29/20 11/29/20 rosuvastatin 20 mg PO DAILY 11/29/20 11/29/20 ticagrelor [Brilinta] 90 mg PO Q12H 11/29/20 11/29/20 Allergies Allergy/AdvReac Type Severity Reaction Status Date / Time bee venom protein (honey bee) Allergy Severe Swelling Verified 12/07/20 15:38 of Lip/Tongue/Throat ibuprofen Allergy Severe SWELLS Verified 12/07/20 15:38 RESPIR. DISTRESS PMFSH Past Medical History Medical History (Updated 12/10/20 @ 00:13 by Randy Workman PA-C) Chronic kidney disease Chronic kidney disease, stage III (moderate) Diabetes Diabetic foot ulcer associated with diabetes mellitus due to underlying condition Diabetic neuropathy Gout Hyperlipidemia Hypertension Kidney stones Osteomyelitis of foot, acute Reflex sympathetic dystrophy a left lower extremity Surgical History Surgical History History of colonoscopy with polypectomy 1999 History of left inguinal hernia repair 2014 History of surgical removal of pilonidal cyst History of umbilical hernia repair 2001 Presence of intrathecal pump nonfunctioning pain pump Status post cataract extraction of both eyes with insertion of intraocular lens Family History Family History Other Unknown family medical history Social History Social History Smoking packs per day: 4 Smoking cigarettes per day: 80.0 Years smoked: 45 Smoking pack-years: 180.00 Smoking status: Former smoker Tobacco type: cigarettes Alcohol intake: never Drinks per week: 3 Substance use: current Substance use type: marijuana Other substance usage details: 2 joints a day. Last use: 05/03/2020 Additional living arrangements comments: He lives with his girlfriend of 20 years. 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 Gender identity (if verbalized by the patient): Male Spiritual care concerns: No Course Vital Signs Vital signs: Vital Signs Pulse Rate 79 12/09/20 21:13 Respiratory Rate 20 12/09/20 21:13 Blood Pressure 132/78 12/09/20 21:13 Pulse Oximetry 93 12/09/20 21:13 Pulse Rate 79 12/09/20 21:13 Respiratory Rate 20 12/09/20 21:13 Blood Pressure 132/78 12/09/20 21:13 Pulse Oximetry 93 12/09/20 21:13 Medical Decision Making Vital Signs Vital Signs: Vital Signs Pulse Rate 79 12/09/20 21:13 Respiratory Rate 20 12/09/20 21:13 Blood Pressure 132/78 12/09/20 21:13 Pulse Oximetry 93 12/09/20 21:13 Pulse Rate 79 12/09/20 21:13 Respiratory Rate 20 12/09/20 21:13 Blood Pressure 132/78 12/09/20 21:13 Pulse Oximetry 93 12/09/20 21:13 Imaging Data Radiologist's impression: ITS Impressions Head CT 12/09/20 23:24 IMPRESSION: Prominent left frontal cephalohematoma; no skull fracture or acute intracranial finding Ribs w/Chest X-Ray 12/09/20 23:30 IMPRESSION: Acute left fourth, fifth and sixth rib fractures, minimally displaced; no pneumothorax Disch
[2020-12-10 01:16] LABS: Alveolar/Arterial O2 Gradient 23.9 mmHg; Base Excess ABG -2.2 mEq/l (+/-2.0); Carboxyhemoglobin 0.7 % THb (0-2.0); Fractional Inspired Oxygen 21 %; HCO3 ABG 22.8 mEq/l (22.0-26.0); Methemoglobin ABG 0.4 %THb (0-1.5); Oxygen Content ABG 19.6 %vol (16.0-22.0); Oxygen Saturation ABG 95.2 % (95.0-100.0); Oxyhemoglobin 93.5 % THb (90.0-100.0); PCO2 ABG 40.2 mmHg (35.0-45.0); PO2 ABG 77.7 mmHg (80.0-100.0); Reduced Hemoglobin 5.4 %THb (0-5.0); Total Hemoglobin 14.9 g/dL (12.0-18.0); pH ABG 7.372 (7.350-7.450)
[2020-12-10 01:17] LABS: Device ROOM AIR; Modified Allen's Test Pass; Site Drawn LEFT RADIAL
--- NOTE | 2020-12-10 01:22 | PC.NURSE ---
Patient requesting to stay and be admitted. Patient and his stating he does not feel safe to go home.
[2020-12-10 01:34] LABS: Basophils Absolute Auto 0.1 K/mm3 (0.0-0.1); Basophils Percent Auto 0.4 % (0.2-1.2); Eosinophils Absolute Auto 0.1 K/mm3 (0-0.3); Eosinophils Percent Auto 0.8 % (0-4.4); Hematocrit 42.8 % (42.0-52.0); Hemoglobin 14.2 g/dL (14.0-18.0); Immature Granulocyte Absolute 0.07 K/mm3 (0.00-0.031); Immature Granulocyte Percent A 0.4 % (0-0.5); Lymphocytes Absolute Auto 2.24 K/mm3 (0.9-3.2); Lymphocytes Percent Auto 14.2 % (18.3-44.2); Mean Corpuscular HGB Conc 33.2 g/dl (32-36); Mean Corpuscular Hemoglobin 30.6 pg (26-34); Mean Corpuscular Volume 92.2 fl (80-100); Mean Platelet Volume 10.7 fl (7.4-10.4); Monocytes Absolute Auto 0.7 K/mm3 (0.1-0.6); Monocytes Percent Auto 4.6 % (2.6-8.5); Neutrophils Absolute Auto 12.5 K/mm3 (1.3-6.7); Neutrophils Percent Auto 79.6 % (45.5-73.1); Platelet Count Result 267 k/mm3 (150-375); Red Blood Count 4.64 M/mm3 (4.6-6.20); Red Cell Distribution Width 13.3 % (11.5-14.5); White Blood Count 15.7 K/mm3 (4.5-10.0)
[2020-12-10 01:36] LABS: Add Urine Microscopic? YES; Appearance Urine Clear (Clear); Bilirubin Urine Negative (Negative); Blood Urine Negative (Negative); Color Urine Yellow (Yellow); Glucose Urine UA 3+ mg/dL (Negative); Ketones Urine Negative (Negative); Leukocyte Esterase Ur Negative LEU/UL (Negative); Nitrate Urine Negative (Negative); Protein Urine 1+ mg/dL (Negative); RBC Urine 0-2 /hpf (0-2); Specific Grav Ur 1.015 (1.001-1.035); Urobilinogen Urine Negative mg/dL (<2.0); WBC Urine 0-3 /hpf
[2020-12-10 01:47] LABS: Anion Gap 8 mmol/L (8-16); Blood Urea Nitrogen 39 mg/dL (9-20); Carbon Dioxide 25 mmol/L (22-30); Chloride 107 mmol/L (98-107); Estimated CRCL calculation 55 ml/min; Estimated Glomerular Filt Rate 40; Glucose 258 mg/dL (75-110); Potassium 4.9 mmol/L (3.4-5.0); Sodium 140 mmol/L (137-145)
[2020-12-10] MEDS: HYDROcodone/acetaminophen (*CRX) 5-325 MG TABLET 1 TAB PO ×4 (04:52→21:28)
--- NOTE | 2020-12-10 05:52 | ADMGEN ---
This patient, Ankur Corral, was admitted to Medical Room 348-. Patient/family oriented to hospital policies and general routines including ID bracelet, bed and alarms, visiting hours, pain management, procedures, bathroom and other care routines, personal items, smoking policy, room service/diet, and visiting hours. Information on how to activate the Rapid Response Team has been discussed. Patient/Family are encouraged to report perceived risks to care and to ask questions if they do not understand what they are told or what they should do.
[2020-12-10] MEDS: TAMSULOSIN HCL 0.4 MG CAPSULE PO (09:51)
[2020-12-10] MEDS: ROSUVASTATIN 10 MG TABLET 20 MG PO (09:51)
[2020-12-10] MEDS: lisinopriL 20 MG TABLET PO (09:51)
--- NOTE | 2020-12-10 12:08 | PM.IMHP ---
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 Mr. Corral had been at a bar playing pool in his weekly pool league when he was walking to the bathroom, he stated that his right leg got tripped up over his left leg and his left leg gave out. He fell directly on to his left-sided face. He had immediate pain of the left forehead and left eye, and was bleeding from the forehead. He denied loss of consciousness or confusion. He had 1 serving of whiskey prior to falling and denies intoxication. He denies precipitating symptoms including dizziness, lightheadedness, chest pain, or shortness of breath. He states this was simply a mechanical fall and his left leg will give out on him from time to time. He attempted to stop the bleeding from his forehead and continue to play pool, however he continued to have a steady stream of blood, therefore his friends convinced him to go to the emergency department. His significant other brought him in. At that time, he was complaining of stabbing, pleuritic pain in his left-sided chest, especially with deep inspiration. Upon presentation to the ED, his vital signs were stable, head CT evaluated showed prominent left frontal cephalohematoma without skull fracture or acute intracranial findings, and CXR with ribs showed acute left 4th 5th and 6th rib fractures, minimally displaced with no evidence of pneumothorax. Plan was to discharge from the ED, however upon preparing to go home, he was having difficulty getting around, which he states was due to his rib pain. At this time, he is complaining of sharp pain in the ribs. Also complaining of 6/10 pain in his head stretching from his left eye to his left ear. His left eye is swollen and he reports blurred vision on the left side. He is being admitted to the hospitalist service for observation. Supervising physician for this history and physical is Dr. Zahraa Lazaro. Review of Systems Review of Systems: Narrative: All systems reviewed with pertinent positives and negatives as per HPI. Additionally, patient complains of numbness and tingling in his legs which he reports is chronic. He is experiencing sinus congestion which is typical for him. He endorses shortness of breath only with a deep breath, which he attributes to pain. He denies wheezing, orthopnea, PND, or BAL. He reports his COPD is well controlled and he uses his rescue inhaler 3-4 times per week. He denies abdominal pain, vomiting, fever, or chills. He had occasional nausea only when his pain was severe. He has a blister on his left 4th toe, which he popped and has been dressing it daily. He reports urinary hesitancy and dribbling, which is chronic. He has been having regular bowel movements. His appetite has been good. Denies weight changes. [facility] Past Medical History Medical History (Updated 12/10/20 @ 12:33 by Rachel Buitrago PA-C) Atrial fibrillation Chronic kidney disease, stage III (moderate) Coronary artery disease Degenerative disc disease Diabetic foot ulcer associated with diabetes mellitus due to underlying condition Gout History of amputation of toe April 2020 History of cardioversion November
[2020-12-10 12:34] LABS: Glucose Point of Care 193 (65-105)
[2020-12-10] MEDS: ASPIRIN 81 MG CHEWABLE TABLET PO (13:59)
[2020-12-10] MEDS: APIXABAN 5 MG TABLET PO (16:49)
[2020-12-10 17:52] LABS: Glucose Point of Care 154 (65-105)
[2020-12-10 21:13] LABS: Glucose Point of Care 192 (65-105)
[2020-12-10] MEDS: TICAGRELOR 90 MG TABLET PO (21:27)
[2020-12-11] MEDS: HYDROcodone/acetaminophen (*CRX) 5-325 MG TABLET 1 TAB PO ×5 (02:43→21:17)
[2020-12-11 05:10] VITALS: BP 138/85; PULSE 79; RESP 18; TEMP 36.1; O2SAT 97
[2020-12-11 05:50] LABS: Hematocrit 40.8 % (42.0-52.0); Hemoglobin 13.7 g/dL (14.0-18.0); Mean Corpuscular HGB Conc 33.6 g/dl (32-36); Mean Corpuscular Hemoglobin 30.7 pg (26-34); Mean Corpuscular Volume 91.5 fl (80-100); Mean Platelet Volume 10.6 fl (7.4-10.4); Platelet Count Result 231 k/mm3 (150-375); Red Blood Count 4.46 M/mm3 (4.6-6.20); Red Cell Distribution Width 13.2 % (11.5-14.5); White Blood Count 10.6 K/mm3 (4.5-10.0)
[2020-12-11 06:27] LABS: Anion Gap 4 mmol/L (8-16); Blood Urea Nitrogen 29 mg/dL (9-20); Calcium 9.2 mg/dL (8.4-10.2); Carbon Dioxide 30 mmol/L (22-30); Chloride 104 mmol/L (98-107); Estimated CRCL calculation 63 ml/min; Estimated Glomerular Filt Rate 43; Glucose 151 mg/dL (75-110); Potassium 4.2 mmol/L (3.4-5.0); Sodium 138 mmol/L (137-145)
[2020-12-11 06:43] LABS: Hemoglobin A1C 6.7 % (<5.7)
[2020-12-11] MEDS: ROSUVASTATIN 10 MG TABLET 20 MG PO (08:17)
[2020-12-11] MEDS: TAMSULOSIN HCL 0.4 MG CAPSULE PO (08:17)
[2020-12-11] MEDS: TICAGRELOR 90 MG TABLET PO ×2 (08:17→21:18)
[2020-12-11] MEDS: lisinopriL 20 MG TABLET PO (08:18)
[2020-12-11] MEDS: ASPIRIN 81 MG CHEWABLE TABLET PO (08:18)
[2020-12-11] MEDS: APIXABAN 5 MG TABLET PO ×2 (08:18→16:52)
[2020-12-11 08:47] LABS: Glucose Point of Care 228 (65-105)
[2020-12-11 11:48] LABS: Glucose Point of Care 169 (65-105)
--- NOTE | 2020-12-11 12:07 | PM.IMPN ---
Progress Note: A&P Assessment and Plan (1) Closed rib fracture: Code(s): S22.39XA - Fracture of one rib, unspecified side, initial encounter for closed fracture Status: Acute Assessment and Plan: Acute fracture of left 4th, 5th, and 6th ribs with minimal displacement. No evidence of pneumothorax. Secondary to fall. He is having difficulty getting around due to pain from fracture. Pain is 9/10 with movement. Supportive care. Ice and heat. Continue PT/OT Analgesics available as needed He does not feel he can safely return home and ambulate at this time due to his pain. He does not want to go to [place]. CC following and considering home health. I am hopeful these issues will improve with adequate pain control. (2) Fall: Code(s): W19.XXXA - Unspecified fall, initial encounter Status: Acute Assessment and Plan: Mechanical fall on 12/09/2020. No precipitating symptoms to suggest syncope. Head CT negative for acute intracranial findings. PT/OT eval appreciated Fall precautions in place (3) Traumatic hematoma of forehead: Qualifiers: Encounter type: subsequent encounter Qualified Code(s): S00.83XD - Contusion of other part of head, subsequent encounter Code(s): S00.83XA - Contusion of other part of head, initial encounter Status: Acute Assessment and Plan: Secondary to fall. Prominent large left frontal cephalohematoma appreciated on exam and noted on head CT. No evidence of skull fracture. Supportive care. Ice packs p.r.n. Analgesics available as needed for pain (4) Leukocytosis: Code(s): D72.829 - Elevated white blood cell count, unspecified Status: Acute Assessment and Plan: WBC elevated at 15.7 upon arrival. May be reactive secondary to fall. No signs or symptoms to suggest underlying infectious etiology. Review of prior labs demonstrate normal baseline WBC. White count improved today at 10.6. Trend CBC (5) Chronic kidney disease, stage III (moderate): Code(s): N18.3 - Chronic kidney disease, stage 3 (moderate) Status: Acute Assessment and Plan: Baseline creatinine appears to be about 1.7. Labs are consistent with baseline. Monitor renal function. Renally dose medications and avoid nephrotoxins. (6) Type 2 diabetes mellitus with diabetic neuropathy: Code(s): E11.40 - Type 2 diabetes mellitus with diabetic neuropathy, unspecified Status: Inactive Assessment and Plan: A1c is 6.7 (12/10/2020). Blood sugars reviewed and are elevated above target. Fasting blood sugar was 151 this morning. Accu-Cheks, sliding scale insulin, and hypoglycemic protocol Initiate Lantus while hospitalized Hold home Lucy (7) Wound of foot: Code(s): S91.309A - Unspecified open wound, unspecified foot, initial encounter Status: Acute Assessment and Plan: He has a history of diabetic foot ulcers with associated osteomyelitis, for which he has undergone debridement. He has a callus of the left 5th toe and an area of ulceration on the right 4th toe with no signs or symptoms of underlying infection. Evaluated by wound nurse and input appreciated. Local wound care with topical Betadine application (8) Coronary artery disease: Code(s): I25.10 - Atherosclerotic heart disease of [place] coronary artery without angina pectoris Status: Inactive Assessment and Plan: He underwent cardiac catheterization 2 weeks ago at [facility]. He had 4 stents placed. He is asymptomatic. Continue Brilinta and aspirin Continue rosuvastatin (9) Kidney mass: Code(s): N28.89 - Other specified disorders of kidney and ureter Status: Acute Assessment and Plan: Two hyperdense kidney masses measuring up to 11 mm incident[address] noted on [address] chest/abdomen/pelvis. May be hemorrhagic cyst or less likely renal cell carcinoma. He will
[2020-12-11 14:00] VITALS: BP 122/80; PULSE 74; RESP 18; TEMP 36.1; O2SAT 96
[2020-12-11] MEDS: LORATADINE 5 MG TABLET PO (15:35)
[2020-12-11] MEDS: guaiFENesin 12 HR 600 MG TABCR PO ×2 (15:35→21:18)
[2020-12-11] MEDS: FLUTICASONE PROPIONATE 0.05% NA SPR 16 GM BTL (*BKC) 1 SPRAY NASAL ×2 (15:36→21:18)
[2020-12-11 18:20] LABS: Glucose Point of Care 171 (65-105)
[2020-12-11 20:51] VITALS: BP 110/68; PULSE 75; RESP 18; TEMP 36.3; O2SAT 98
[2020-12-11] MEDS: LIDOCAINE 5% PATCH 1 PATCH TRANSDERM (21:18)
[2020-12-11] MEDS: INSULIN GLARGINE (*BKC) 100 UNITS/ML 23 UNITS SUB-Q (21:19)
[2020-12-11 21:54] LABS: Glucose Point of Care 148 (65-105)
[2020-12-11] MEDS: ALBUTEROL SULFATE (*SP) AEROSOL 1 PUFF INHALATION (22:43)
[2020-12-11 23:18] VITALS: O2SAT 97
[2020-12-12] MEDS: HYDROcodone/acetaminophen (*CRX) 5-325 MG TABLET 1 TAB PO ×2 (01:39→06:24)
[2020-12-12 05:51] LABS: Hematocrit 41.5 % (42.0-52.0); Hemoglobin 13.8 g/dL (14.0-18.0); Mean Corpuscular HGB Conc 33.3 g/dl (32-36); Mean Corpuscular Hemoglobin 30.3 pg (26-34); Mean Platelet Volume 10.6 fl (7.4-10.4); Platelet Count Result 242 k/mm3 (150-375); Red Blood Count 4.56 M/mm3 (4.6-6.20); Red Cell Distribution Width 13.2 % (11.5-14.5); White Blood Count 8.4 K/mm3 (4.5-10.0)
[2020-12-12 06:17] LABS: Anion Gap 6 mmol/L (8-16); Blood Urea Nitrogen 29 mg/dL (9-20); Calcium 9.2 mg/dL (8.4-10.2); Carbon Dioxide 27 mmol/L (22-30); Chloride 103 mmol/L (98-107); Estimated CRCL calculation 72 ml/min; Estimated Glomerular Filt Rate 51; Glucose 134 mg/dL (75-110); Sodium 136 mmol/L (137-145)
[2020-12-12 06:48] VITALS: BP 127/81; PULSE 82; RESP 18; TEMP 35.9; O2SAT 99
[2020-12-12 07:09] LABS: Glucose Point of Care 134 (65-105)
[2020-12-12] MEDS: FLUTICASONE PROPIONATE 0.05% NA SPR 16 GM BTL (*BKC) 1 SPRAY NASAL ×2 (09:41→21:05)
[2020-12-12] MEDS: lisinopriL 20 MG TABLET PO (09:41)
[2020-12-12] MEDS: ASPIRIN 81 MG CHEWABLE TABLET PO (09:41)
[2020-12-12] MEDS: LORATADINE 5 MG TABLET PO (09:41)
[2020-12-12] MEDS: ROSUVASTATIN 10 MG TABLET 20 MG PO (09:41)
[2020-12-12] MEDS: TAMSULOSIN HCL 0.4 MG CAPSULE PO (09:41)
[2020-12-12] MEDS: TICAGRELOR 90 MG TABLET PO ×2 (09:41→21:04)
[2020-12-12] MEDS: APIXABAN 5 MG TABLET PO ×2 (09:41→16:25)
[2020-12-12] MEDS: guaiFENesin 12 HR 600 MG TABCR PO ×2 (09:41→21:04)
[2020-12-12] MEDS: LIDOCAINE 5% PATCH 1 PATCH TRANSDERM (09:42)
--- NOTE | 2020-12-12 11:09 | PM.IMPN ---
Progress Note: A&P Assessment and Plan (1) Closed rib fracture: Code(s): S22.39XA - Fracture of one rib, unspecified side, initial encounter for closed fracture Status: Acute Assessment and Plan: Acute fracture of left 4th, 5th, and 6th ribs with minimal displacement. No evidence of pneumothorax. Secondary to fall. His pain is poorly controlled, 9/10 with movement or deep inspiration. 7/10 at rest. Supportive care. Ice and heat. Continue PT/OT Schedule Tylenol 325 mg q.6 hours Administer 1 time dose 0.5 mg hydromorphone. Continue oral analgesics available as needed for pain. He does not wish to remain on IV analgesics. He does not feel he can safely return home and ambulate at this time due to his pain. He does not want to go to [place]. CC following and considering home health. I am hopeful issues with ambulation will improve with adequate pain control. (2) Fall: Code(s): W19.XXXA - Unspecified fall, initial encounter Status: Acute Assessment and Plan: Mechanical fall on 12/09/2020. No precipitating symptoms to suggest syncope. Head CT negative for acute intracranial findings. PT/OT eval appreciated Fall precautions in place (3) Traumatic hematoma of forehead: Qualifiers: Encounter type: subsequent encounter Qualified Code(s): S00.83XD - Contusion of other part of head, subsequent encounter Code(s): S00.83XA - Contusion of other part of head, initial encounter Status: Acute Assessment and Plan: Secondary to fall. Prominent large left frontal cephalohematoma appreciated on exam and noted on head CT. No evidence of skull fracture. Supportive care. Ice packs p.r.n. Analgesics available as needed for pain (4) Leukocytosis: Code(s): D72.829 - Elevated white blood cell count, unspecified Status: Acute Assessment and Plan: Resolved. WBC elevated at 15.7 upon arrival. Likely reactive secondary to fall. No signs or symptoms to suggest underlying infectious etiology. Review of prior labs demonstrate normal baseline WBC. White count has normalized. (5) Chronic kidney disease, stage III (moderate): Code(s): N18.3 - Chronic kidney disease, stage 3 (moderate) Status: Acute Assessment and Plan: Baseline creatinine appears to be about 1.7. Labs are consistent with baseline. Creatinine 1.4 today. Monitor renal function. Renally dose medications and avoid nephrotoxins. (6) Type 2 diabetes mellitus with diabetic neuropathy: Code(s): E11.40 - Type 2 diabetes mellitus with diabetic neuropathy, unspecified Status: Inactive Assessment and Plan: A1c is 6.7 (12/10/2020). Blood sugars reviewed and have been elevated above target. Fasting blood sugar was 134 this morning. Accu-Cheks, sliding scale insulin, and hypoglycemic protocol Initiate Lantus while hospitalized. Increase dose today with goal fasting glucose <120 Hold home Lucy (7) Wound of foot: Code(s): S91.309A - Unspecified open wound, unspecified foot, initial encounter Status: Acute Assessment and Plan: He has a history of diabetic foot ulcers with associated osteomyelitis, for which he has undergone debridement. He has a callus of the left 5th toe and an area of ulceration on the right 4th toe with no signs or symptoms of underlying infection. Evaluated by wound nurse and input appreciated. Local wound care with topical Betadine application (8) Coronary artery disease: Code(s): I25.10 - Atherosclerotic heart disease of [place] coronary artery without angina pectoris Status: Inactive Assessment and Plan: He underwent cardiac catheterization 2 weeks ago at [facility]. He had 4 stents placed. He is asymptomatic. Continue Brilinta and aspirin Continue rosuvastatin (9) Kidney mass: Code(s): N28.89 - Other specified disorders of kidney and ureter
[2020-12-12] MEDS: HYDROmorphone HCL INJ (*CRX) 1 MG/ML SYR 0.5 MG IV PUSH (11:55)
[2020-12-12 12:56] LABS: Glucose Point of Care 145 (65-105)
[2020-12-12 14:00] VITALS: BP 152/97; PULSE 109; RESP 12; TEMP 36.2; O2SAT 100
--- NOTE | 2020-12-12 14:37 | PCPTNOTE ---
Patient declined PT due to pain. PT will continue to follow per plan of care.
[2020-12-12] MEDS: ACETAMINOPHEN 325 MG TABLET PO (16:25)
[2020-12-12 18:57] LABS: Glucose Point of Care 118 (65-105)
[2020-12-12 20:00] VITALS: BP 128/74; PULSE 80; RESP 18; TEMP 35.9; O2SAT 97
[2020-12-12] MEDS: MELATONIN 3 MG TABLET PO (21:04)
[2020-12-12] MEDS: DOCUSATE SODIUM 100 MG CAPSULE PO (21:04)
[2020-12-12 21:13] LABS: Glucose Point of Care 166 (65-105)
[2020-12-12] MEDS: HYDROcodone/acetaminophen (*CRX) 7.5-325 MG TABLET 1 TAB PO (21:13)
[2020-12-12] MEDS: INSULIN GLARGINE (*BKC) 100 UNITS/ML 27 UNITS SUB-Q (21:20)
[2020-12-13] MEDS: traMADol HCL (*CRX) 50 MG TABLET PO ×2 (00:40→05:51)
[2020-12-13] MEDS: ACETAMINOPHEN 325 MG TABLET PO ×2 (00:40→05:51)
[2020-12-13] MEDS: HYDROcodone/acetaminophen (*CRX) 7.5-325 MG TABLET 1 TAB PO (04:28)
[2020-12-13 06:00] VITALS: BP 109/64; PULSE 80; RESP 18; TEMP 36.1; O2SAT 100
[2020-12-13 06:03] LABS: Hemoglobin 13.6 g/dL (14.0-18.0); Mean Corpuscular HGB Conc 33.2 g/dl (32-36); Mean Corpuscular Hemoglobin 29.8 pg (26-34); Mean Corpuscular Volume 89.9 fl (80-100); Mean Platelet Volume 10.4 fl (7.4-10.4); Platelet Count Result 239 k/mm3 (150-375); Red Blood Count 4.56 M/mm3 (4.6-6.20); White Blood Count 9.5 K/mm3 (4.5-10.0)
[2020-12-13 06:13] LABS: Anion Gap 4 mmol/L (8-16); Blood Urea Nitrogen 28 mg/dL (9-20); Calcium 9.3 mg/dL (8.4-10.2); Carbon Dioxide 29 mmol/L (22-30); Chloride 104 mmol/L (98-107); Estimated CRCL calculation 59 ml/min; Estimated Glomerular Filt Rate 40; Glucose 157 mg/dL (75-110); Potassium 3.8 mmol/L (3.4-5.0); Sodium 137 mmol/L (137-145)
[2020-12-13 07:37] LABS: Glucose Point of Care 188 (65-105)
[2020-12-13] MEDS: LORATADINE 5 MG TABLET PO (08:35)
[2020-12-13] MEDS: FLUTICASONE PROPIONATE 0.05% NA SPR 16 GM BTL (*BKC) 1 SPRAY NASAL ×2 (08:35→20:27)
[2020-12-13] MEDS: APIXABAN 5 MG TABLET PO ×2 (08:35→17:25)
[2020-12-13] MEDS: TAMSULOSIN HCL 0.4 MG CAPSULE PO (08:35)
[2020-12-13] MEDS: lisinopriL 20 MG TABLET PO (08:35)
[2020-12-13] MEDS: guaiFENesin 12 HR 600 MG TABCR PO ×2 (08:36→20:27)
[2020-12-13] MEDS: DOCUSATE SODIUM 100 MG CAPSULE PO ×2 (08:36→20:27)
[2020-12-13] MEDS: TICAGRELOR 90 MG TABLET PO ×2 (08:36→20:27)
[2020-12-13] MEDS: ASPIRIN 81 MG CHEWABLE TABLET PO (08:36)
[2020-12-13] MEDS: ROSUVASTATIN 10 MG TABLET 20 MG PO (08:36)
--- NOTE | 2020-12-13 10:33 | PCPTNOTE ---
Attempted PT treatment. Pt refused as he was going to shower.Will try again at later time.
[2020-12-13 11:40] LABS: Glucose Point of Care 148 (65-105)
[2020-12-13] MEDS: ACETAMINOPHEN 325 MG TABLET 650 MG PO ×3 (12:35→23:41)
[2020-12-13 14:00] VITALS: BP 106/58; PULSE 79; RESP 16; TEMP 36.6; O2SAT 97
--- NOTE | 2020-12-13 16:03 | PM.IMPN ---
Progress Note: A&P Assessment and Plan (1) Closed rib fracture: Code(s): S22.39XA - Fracture of one rib, unspecified side, initial encounter for closed fracture Status: Acute Assessment and Plan: Acute fracture of left 4th, 5th, and 6th ribs with minimal displacement. No evidence of pneumothorax. Secondary to fall. His pain is poorly controlled, 9/10 with movement or deep inspiration. 6/10 at rest. Supportive care. Ice and heat. Continue PT/OT Scheduled Tylenol 325 mg q.6 hours Tramadol prn pain 4-6 and hydromorphone prn pain 7-10. (2) Fall: Code(s): W19.XXXA - Unspecified fall, initial encounter Status: Acute Assessment and Plan: Mechanical fall on 12/09/2020. No precipitating symptoms to suggest syncope. Head CT negative for acute intracranial findings. PT/OT eval appreciated Fall precautions in place (3) Traumatic hematoma of forehead: Qualifiers: Encounter type: subsequent encounter Qualified Code(s): S00.83XD - Contusion of other part of head, subsequent encounter Code(s): S00.83XA - Contusion of other part of head, initial encounter Status: Acute Assessment and Plan: Secondary to fall. Prominent large left frontal cephalohematoma appreciated on exam and noted on head CT. No evidence of skull fracture. Supportive care. Ice packs p.r.n. Analgesics available as needed for pain (4) Periorbital hematoma: Qualifiers: Laterality: left Qualified Code(s): H05.232 - Hemorrhage of left orbit Code(s): H05.239 - Hemorrhage of unspecified orbit Status: Acute Assessment and Plan: Secondary to fall. As above, no skull fracture or intracranial hemorrhage. He is having blurred vision of the left eye. Vision was 20/200 in the left eye and 20/25 in the right eye. Funduscopic exam performed with no evidence of retinal detachment or hemorrhage. I spoke with the on-call carton stamper at [facility] regarding this who does not believe that patient needs emergent evaluation but would like to see the patient as an outpatient within the week. Reports that based on findings, traumatic globe injury is less likely. Notes that given his history of cataracts, lens dislocation or refractive changes from periorbital swelling is most likely cause for blurred vision. Patient does not have excess tearing, flashes, or floaters. Follow-up with [facility] carton stamper Dr. Flores within 1 week. Sooner evaluation or inpatient transfer to [facility] would be warranted if patient develops new flashes or floaters, increased eye pain, tearing, redness, or acute onset of nausea or vomiting. (5) Leukocytosis: Code(s): D72.829 - Elevated white blood cell count, unspecified Status: Acute Assessment and Plan: Resolved. WBC elevated at 15.7 upon arrival. Likely reactive secondary to fall. No signs or symptoms to suggest underlying infectious etiology. Review of prior labs demonstrate normal baseline WBC. White count has normalized. (6) Chronic kidney disease, stage III (moderate): Code(s): N18.3 - Chronic kidney disease, stage 3 (moderate) Status: Acute Assessment and Plan: Baseline creatinine appears to be about 1.7. Labs are consistent with baseline. Monitor renal function. Renally dose medications and avoid nephrotoxins. (7) Type 2 diabetes mellitus with diabetic neuropathy: Code(s): E11.40 - Type 2 diabetes mellitus with diabetic neuropathy, unspecified Status: Inactive Assessment and Plan: A1c is 6.7 (12/10/2020). Blood sugars reviewed and have been elevated above target. Fasting blood sugar was 157 this morning. Accu-Cheks, sliding scale insulin, and hypoglycemic protocol Continue Lantus while hospitalized. Hold home Lucy (8) Wound of foot: Code(s): S91.309A - Unspecified open wound, unspecified foot, initial encounter Status: Acute A
[2020-12-13 16:36] LABS: Glucose Point of Care 168 (65-105)
[2020-12-13] MEDS: ALBUTEROL SULFATE NEB 2.5 MG/0.5 ML INH INHALATION (18:18)
[2020-12-13 18:21] VITALS: PULSE 88; RESP 20
[2020-12-13 18:29] VITALS: PULSE 79; RESP 20
[2020-12-13 20:00] VITALS: BP 124/78; PULSE 78; RESP 18; TEMP 36; O2SAT 97
[2020-12-13] MEDS: MELATONIN 3 MG TABLET PO (20:26)
[2020-12-13] MEDS: HYDROmorphone HCL INJ (*CRX) 1 MG/ML SYR 0.5 MG IV PUSH (20:31)
[2020-12-13] MEDS: INSULIN GLARGINE (*BKC) 100 UNITS/ML 27 UNITS SUB-Q (20:38)
[2020-12-13 20:44] LABS: Glucose Point of Care 158 (65-105)
[2020-12-14] VITALS (7 sets, daily range): BP systolic 111–166; BP diastolic 61–99; PULSE 77–91; RESP 16–18; TEMP 35.9–36.6; O2SAT 96–100
[2020-12-14] MEDS: ALBUTEROL SULFATE NEB 2.5 MG/0.5 ML INH INHALATION ×2 (01:08→14:50)
[2020-12-14] MEDS: ACETAMINOPHEN 325 MG TABLET 650 MG PO ×3 (05:29→23:09)
[2020-12-14 06:08] LABS: Anion Gap 5 mmol/L (8-16); Blood Urea Nitrogen 26 mg/dL (9-20); Calcium 8.9 mg/dL (8.4-10.2); Carbon Dioxide 30 mmol/L (22-30); Chloride 105 mmol/L (98-107); Estimated CRCL calculation 63 ml/min; Estimated Glomerular Filt Rate 43; Glucose 141 mg/dL (75-110); Sodium 140 mmol/L (137-145)
[2020-12-14] MEDS: lisinopriL 20 MG TABLET PO (09:45)
[2020-12-14] MEDS: TICAGRELOR 90 MG TABLET PO ×2 (09:45→20:55)
[2020-12-14] MEDS: guaiFENesin 12 HR 600 MG TABCR PO ×2 (09:45→20:54)
[2020-12-14] MEDS: TAMSULOSIN HCL 0.4 MG CAPSULE PO (09:45)
[2020-12-14] MEDS: BENZONATATE 100 MG CAPSULE 200 MG PO ×3 (09:45→19:04)
[2020-12-14] MEDS: LORATADINE 5 MG TABLET PO (09:45)
[2020-12-14] MEDS: FLUTICASONE PROPIONATE 0.05% NA SPR 16 GM BTL (*BKC) 1 SPRAY NASAL ×2 (09:45→20:55)
[2020-12-14] MEDS: ROSUVASTATIN 10 MG TABLET 20 MG PO (09:45)
[2020-12-14] MEDS: DOCUSATE SODIUM 100 MG CAPSULE PO ×2 (09:45→20:54)
[2020-12-14] MEDS: ASPIRIN 81 MG CHEWABLE TABLET PO (09:45)
[2020-12-14] MEDS: APIXABAN 5 MG TABLET PO ×2 (09:45→19:05)
[2020-12-14] MEDS: LIDOCAINE 5% PATCH 1 PATCH TRANSDERM (09:46)
[2020-12-14] MEDS: traMADol HCL (*CRX) 50 MG TABLET PO ×2 (09:49→19:08)
[2020-12-14 12:00] LABS: Glucose Point of Care 223 (65-105)
[2020-12-14 12:00] LABS: Glucose Point of Care 167 (65-105)
--- NOTE | 2020-12-14 13:19 | PM.IMPN ---
Progress Note: A&P Assessment and Plan (1) Closed rib fracture: Code(s): S22.39XA - Fracture of one rib, unspecified side, initial encounter for closed fracture Status: Acute Assessment and Plan: Acute fracture of left 4th, 5th, and 6th ribs with minimal displacement. No evidence of pneumothorax. Secondary to fall. His pain is poorly controlled but is improving. Repeat CXR with no evidence of pneumothorax. Supportive care. Ice and heat. Continue PT/OT Scheduled Tylenol 325 mg q.6 hours Tramadol prn pain 4-6 and hydromorphone prn pain 7-10. (2) Fall: Code(s): W19.XXXA - Unspecified fall, initial encounter Status: Acute Assessment and Plan: Mechanical fall on 12/09/2020. No precipitating symptoms to suggest syncope. Head CT negative for acute intracranial findings. PT/OT eval appreciated Fall precautions in place (3) Traumatic hematoma of forehead: Qualifiers: Encounter type: subsequent encounter Qualified Code(s): S00.83XD - Contusion of other part of head, subsequent encounter Code(s): S00.83XA - Contusion of other part of head, initial encounter Status: Acute Assessment and Plan: Secondary to fall. Prominent large left frontal cephalohematoma appreciated on exam and noted on head CT. No evidence of skull fracture. He notes significant improvement in swelling and pain. Supportive care. Ice packs p.r.n. Analgesics available as needed for pain (4) Periorbital hematoma: Qualifiers: Laterality: left Qualified Code(s): H05.232 - Hemorrhage of left orbit Code(s): H05.239 - Hemorrhage of unspecified orbit Status: Acute Assessment and Plan: Secondary to fall. As above, no skull fracture or intracranial hemorrhage. He did report blurred vision of the left eye. Funduscopic exam performed with no evidence of retinal detachment or hemorrhage. The previous provider spoke with the on-call auricular acupuncturist at [place] regarding the patient's injury and blurred vision and the auricular acupuncturist did not believe that patient needs emergent evaluation but would like to see the patient as an outpatient within this week. The on-call auricular acupuncturist noted that that based on findings, traumatic globe injury is less likely and given his history of cataracts, lens dislocation or refractive changes from periorbital swelling is most likely cause for blurred vision. Patient does not have excess tearing, flashes, or floaters. Vision has improved significnatly today. Follow-up with [facility] auricular acupuncturist Dr. Flores within 1 week. Sooner evaluation or inpatient transfer to [facility] would be warranted if patient develops new flashes or floaters, increased eye pain, tearing, redness, or acute onset of nausea or vomiting. (5) Leukocytosis: Code(s): D72.829 - Elevated white blood cell count, unspecified Status: Resolved Assessment and Plan: Resolved. WBC elevated at 15.7 upon arrival. Likely reactive secondary to fall. No signs or symptoms to suggest underlying infectious etiology. Review of prior labs demonstrate normal baseline WBC. White count has normalized. (6) Chronic kidney disease, stage III (moderate): Code(s): N18.3 - Chronic kidney disease, stage 3 (moderate) Status: Acute Assessment and Plan: Baseline creatinine appears to be about 1.7. Labs are consistent with baseline. Monitor renal function. Renally dose medications and avoid nephrotoxins. (7) Type 2 diabetes mellitus with diabetic neuropathy: Code(s): E11.40 - Type 2 diabetes mellitus with diabetic neuropathy, unspecified Status: Inactive Assessment and Plan: A1c is 6.7 (12/10/2020). Blood sugars were reviewed and are acceptable. Most recent blood sugar 167. Accu-Cheks, sliding scale insulin, and hypoglycemic protocol Continue Lantus while hospitalized. Hold home Lucy (8) Wound of foot:
[2020-12-14 19:19] LABS: Glucose Point of Care 236 (65-105)
[2020-12-14] MEDS: INSULIN GLARGINE (*BKC) 100 UNITS/ML 27 UNITS SUB-Q (20:53)
[2020-12-14] MEDS: MELATONIN 3 MG TABLET PO (20:54)
[2020-12-14 21:32] LABS: Glucose Point of Care 194 (65-105)
[2020-12-14] MEDS: HYDROmorphone HCL INJ (*CRX) 1 MG/ML SYR 0.5 MG IV PUSH (23:08)
[2020-12-15] MEDS: traMADol HCL (*CRX) 50 MG TABLET PO ×2 (04:30→12:05)
[2020-12-15] MEDS: ACETAMINOPHEN 325 MG TABLET 650 MG PO (05:21)
[2020-12-15 05:41] VITALS: BP 129/87; PULSE 80; RESP 17; TEMP 36.3; O2SAT 99
[2020-12-15 07:27] LABS: Glucose Point of Care 140 (65-105)
[2020-12-15] MEDS: LORATADINE 5 MG TABLET PO (08:36)
[2020-12-15] MEDS: BENZONATATE 100 MG CAPSULE 200 MG PO ×2 (08:36→12:06)
[2020-12-15] MEDS: lisinopriL 20 MG TABLET PO (08:36)
[2020-12-15] MEDS: ROSUVASTATIN 10 MG TABLET 20 MG PO (08:36)
[2020-12-15] MEDS: guaiFENesin 12 HR 600 MG TABCR PO (08:36)
[2020-12-15] MEDS: FLUTICASONE PROPIONATE 0.05% NA SPR 16 GM BTL (*BKC) 1 SPRAY NASAL (08:36)
[2020-12-15] MEDS: ASPIRIN 81 MG CHEWABLE TABLET PO (08:36)
[2020-12-15] MEDS: APIXABAN 5 MG TABLET PO (08:36)
[2020-12-15] MEDS: TAMSULOSIN HCL 0.4 MG CAPSULE PO (08:37)
[2020-12-15] MEDS: TICAGRELOR 90 MG TABLET PO (08:37)
[2020-12-15 09:31] VITALS: O2SAT 96
[2020-12-15 11:40] LABS: Glucose Point of Care 123 (65-105)
--- NOTE | 2020-12-15 13:12 | PM.DS ---
DS: Admitting Diagnosis Admitting Diagnosis Admitting Diagnosis: Fall, Rib fractures DS: Discharge Diagnosis Discharge Diagnosis (1) Closed rib fracture: Code(s): S22.39XA - Fracture of one rib, unspecified side, initial encounter for closed fracture Status: Acute Assessment and Plan: Discharge Summary (Date of service 12/15/20): Mr. Corral is a 65 y.o. male with a PMH significant for CKD stage 3, type 2 diabetes mellitus with associated neuropathy, osteomyelitis s/p right toe amputation in April 2020, degenerative disc disease with associated reflex sympathetic dystrophy and chronic pain syndrome with intrathecal pump in place with no current medication administration, CAD with recent cardiac catheterization approximately 2 weeks ago with subsequent placement of 4 cardiac stents, atrial fibrillation s/p cardioversion on 11/30/2020, and third-degree heart block s/p pacemaker placement who presented to the emergency department on 12/09/2020 via private vehicle with his significant other due to head injury. He was playing at a bar playing pool when he suffered a mechanical fall and landed on his left face. He noted immediate pain to the left forehead and left eye with bleeding from the left forehead. He has no precipitating loss of consciousness or lateralizing weakness. He noted associated pleuritic pain in the left chest with deep inspiration. Upon presentation to the ED, his vital signs were stable. Head CT evaluated showed prominent left frontal cephalohematoma without skull fracture or acute intracranial findings. CXR with ribs showed acute left 4th 5th and 6th rib fractures, minimally displaced with no evidence of pneumothorax. Plan was to discharge from the ED, however upon preparing to go home, he was having difficulty getting around due to his rib pain. He also noted blurred vision in the left eye. He was admitted for pain control. The on-call board hammer operator at [facility] was contacted regarding the patient's injury and blurred vision and the board hammer operator did not believe that the patient needed emergent evaluation but recommended close outpatient follow-up within the week. The on-call board hammer operator noted that that based on findings, traumatic globe injury was less likely and given his history of cataracts, lens dislocation or refractive changes from periorbital swelling was the most likely cause for blurred vision. His vision continued to improve daily. He also reported cough of yellow sputum with sinus congestion and post-nasal drip so sputum culture was ordered and demonstrated Haemophilus influenzae, therefore augmentin was prescribed. Two hyperdense kidney masses measuring up to 11 mm were incidentally noted on CT chest/abdomen/pelvis and described as hemorrhagic cyst or less likely renal cell carcinoma. He will benefit from repeat CT without and with contrast outpatient. Given his CKD, we did not want to give an additional dose of contrast during this hospitalization. He will need follow-up with his PCP and likely his illuminator for repeat imaging and further diagnostics/management. This was discussed with the patient. Fall precautions were discussed as he is at risk for bleeding given concurrent DAPT and eliquis therapy given his recent coronary intervention and atrial fibrillation. He verbalized understanding. His pain continued to improve and he requested discharge as he felt much better. He was discharged in hemodynamically stable condition on the afternoon of 12/15/20. Worrisome signs and symptoms which would warrant return to the emergency department were discussed and he verbalized understanding. (2) Pneumonia: Code(s): J18.9 - Pneumonia, unspecified organism Status: Acute Assessment and Plan: He reported productive cough with yellow sputum, sinus congestion, and post-nasal drip. Sputum culture was ordered and demonstrated Haemophilus influenzae. Augmentin was prescribed for 7 days. Supportive care was encouraged at
== END 2020-12-15 14:45 | disposition home or self-care (01) | DRG 135 ==
LOC: ANHED 12-10 01:22 → ANH3MED 12-10 05:20
PROVIDERS: Emergency Medicine Emergency Medical Services; Physician Assistant; Admitting Provider Internal Medicine; Emergency Provider Emergency Medicine; PCP Physician Assistant; Visit Provider Physician Assistant
DX: S22.42XA Multiple fractures of ribs, left side, initial encounter for closed fracture (principal); J18.9 Pneumonia, unspecified organism; B96.3 Hemophilus influenzae [H. influenzae] as the cause of diseases classified elsewhere; R09.81 Nasal congestion; S00.83XA Contusion of other part of head, initial encounter; H05.232 Hemorrhage of left orbit; W19.XXXA Unspecified fall, initial encounter; E11.42 Type 2 diabetes mellitus with diabetic polyneuropathy; E11.22 Type 2 diabetes mellitus with diabetic chronic kidney disease; I12.9 Hypertensive chronic kidney disease with stage 1 through stage 4 chronic kidney disease, or unspecified chronic kidney disease; E78.5 Hyperlipidemia, unspecified; I25.10 Atherosclerotic heart disease of native coronary artery without angina pectoris; E11.621 Type 2 diabetes mellitus with foot ulcer; L97.519 Non-pressure chronic ulcer of other part of right foot with unspecified severity; N18.30 Chronic kidney disease, stage 3 unspecified; I48.20 Chronic atrial fibrillation, unspecified; D72.829 Elevated white blood cell count, unspecified; E66.9 Obesity, unspecified; G89.4 Chronic pain syndrome; N28.89 Other specified disorders of kidney and ureter; Z68.41 Body mass index [BMI] 40.0-44.9, adult; Z98.42 Cataract extraction status, left eye; Z98.41 Cataract extraction status, right eye; Z79.01 Long term (current) use of anticoagulants; Z79.82 Long term (current) use of aspirin; Z79.02 Long term (current) use of antithrombotics/antiplatelets; Z87.891 Personal history of nicotine dependence; Z89.421 Acquired absence of other right toe(s); Z95.5 Presence of coronary angioplasty implant and graft; Z95.0 Presence of cardiac pacemaker
CPT/HCPCS: 36415; 36600; 70450; 71046; 71100; 71260; 72125; 74177; 80048; 81001; 82375; 82805; 82948; 83036; 83050; 85025; 85027; 87070; 87077; 87185; 87205; 93005; 94640; 94668; 96374; 96375; 97110; 97116; 97161; 97165; 97530; 99285; A9270; G0378; G0379; J1170; J1815; J2270; J2405; Q9967

== ENCOUNTER 2020-12-28 15:27 | Outpatient (CLI) | payer OTHER, SELFPAY | END 2020-12-28 15:28 | disposition home or self-care (01) | LOC: ANHCOVIDVC 15:27 | PROVIDERS: PCP Physician Assistant | DX: Z23 Encounter for immunization (principal) | CPT/HCPCS: 0002A; 91300 ==

== ENCOUNTER 2020-12-28 16:03 | Outpatient (CLI) | payer OTHER, SELFPAY ==
--- NOTE | ~2020-12-28 | CT_ITS ---
EXAMINATION: CT abdomen pelvis wo/w con DATE: 12/28/2020 16:26 INDICATION: Neoplasm of uncertain behavior of unspecified kidney TECHNIQUE: Computed tomography (CT) of the abdomen was performed without intravenous contrast. CT of the abdomen and pelvis was then performed with a total of 100 mL Omnipaque 350 intravenous contrast. The dose-length product (DLP) was 2409.85 mGy-cm. Automated exposure control and iterative reconstruc tion technique were employed. COMPARISON: 12/10/2020 FINDINGS: Minimal dependent atelectasis is present in the lung bases. The heart size is normal. There is a calcified granuloma of the right lower lobe. The liver, spleen, pancreas, gallbladder, and adre nal glands are normal. There is an 11 mm hemorrhagic cyst in the upper pole of the left kidney. Cysts of the kidneys measure up to 3.3 cm on the right. No abnormal enhancing kidney mass is identified. T he second left kidney mass questioned on the comparison CT is consistent with a cyst. There is a 3 mm nonobstructing stone of the left kidney. No pathologically enlarged abdominal or pelvic lymph nodes are identified. There is no free intraperitoneal gas or evidence of bowel obstruction. There is moder ate lumbar spondylosis. IMPRESSION: 1. Hemorrhagic cyst of the left kidney corresponding to one of the two masses in question on the comp arison CT. Additional masses are consistent with simple cysts. No suspicious renal or urothelial lesi on identified. Reviewed, dictated and finalized at location A. IMPRESSION: 1. Hemorrhagic cyst of the left kidney corresponding to one of the two masses i n question on the comparison CT. Additional masses are consistent with simple c ysts. No suspicious renal or urothelial lesion identified.
== END 2020-12-28 16:04 | disposition home or self-care (01) ==
PROVIDERS: PCP Physician Assistant; Visit Provider Physician Assistant
DX: D49.519 Neoplasm of unspecified behavior of unspecified kidney (principal); N28.1 Cyst of kidney, acquired
CPT/HCPCS: 0002A; 74178; Q9967

== ENCOUNTER → 2021-01-15 07:04 | Outpatient (CLI) | payer OTHER, SELFPAY ==
[2021-01-15 20:54] LABS: SARS-CoV-2 RNA PCR Negative
== END ==
PROVIDERS: PCP Physician Assistant; Visit Provider Internal Medicine Cardiovascular Disease
DX: Z01.812 Encounter for preprocedural laboratory examination (principal); Z20.822 Contact with and (suspected) exposure to COVID-19
CPT/HCPCS: 36415; 80048; 83735; C9803; U0003; U0005

== ENCOUNTER 2021-01-15 09:26 | Outpatient (CLI) | payer OTHER, SELFPAY ==
[2021-01-15 10:21] LABS: Anion Gap 4 mmol/L (8-16); Blood Urea Nitrogen 33 mg/dL (9-20); Calcium 9.6 mg/dL (8.4-10.2); Carbon Dioxide 32 mmol/L (22-30); Chloride 107 mmol/L (98-107); Estimated Glomerular Filt Rate 36; Glucose 141 mg/dL (75-110); Magnesium 1.7 mg/dL (1.6-2.3); Potassium 4.1 mmol/L (3.4-5.0); Sodium 143 mmol/L (137-145)
== END 2021-01-15 09:27 | disposition home or self-care (01) ==
PROVIDERS: PCP Physician Assistant; Visit Provider Internal Medicine Cardiovascular Disease
DX: I48.91 Unspecified atrial fibrillation (principal)
CPT/HCPCS: 36415; 80048; 83735

== ENCOUNTER 2021-01-18 03:12 | Day surgery (SDC) | payer OTHER, SELFPAY ==
[2021-01-17 15:26] VITALS: BMI 37.3
[2021-01-18] VITALS (9 sets, daily range): BP systolic 107–138; BP diastolic 78–90; PULSE 79; RESP 14–22; TEMP 36.3; O2SAT 96–100
--- NOTE | 2021-01-18 07:00 | ECG_ITS ---
Measurements Intervals [place] Rate: 80 P: NE: 0 QRS: -72 QRSD: 228 T: 89 QT: 480 QTc: 556 Interpretive Statements ELECTRONIC VENTRICULAR PACEMAKER VENTRICULAR PREMATURE COMPLEX NO FURTHER INTERPRETATION IS POSSIBLE ATYPICAL ECG Electronically Signed On 01-18-2021 9:44:02 CDT by Real Lopez D.O.
--- NOTE | 2021-01-18 10:12 | WPDMODSED ---
Moderate Sedation Note-Pt Data Patient Data Allergies Allergy/AdvReac Type Severity Reaction Status Date / Time bee venom protein (honey bee) Allergy Severe Swelling Verified 01/17/21 15:17 of Lip/Tongue/Throat ibuprofen Allergy Severe SWELLS Verified 01/17/21 15:17 RESPIR. DISTRESS Home Medications Medication Instructions Recorded Confirmed Type Januvia 100 mg PO DAILY 05/03/20 01/17/21 History OptiChamber [facility] 05/03/20 12/10/20 History Refresh Tears 1 drp OPHTHALMIC (EYE) BID PRN 05/03/20 01/17/21 History albuterol sulfate 90 mcg INHALATION BID PRN 05/03/20 01/17/21 History allopurinol 450 mg PO DAILY 05/03/20 01/17/21 History lisinopril 20 mg PO DAILY 05/03/20 01/17/21 History tamsulosin 0.4 mg PO QAM #30 cap 05/12/20 01/17/21 Rx Brilinta 90 mg PO Q12H 11/29/20 01/17/21 History Eliquis 5 mg PO BID 11/29/20 01/17/21 History rosuvastatin 20 mg PO DAILY 11/29/20 01/17/21 History acetaminophen [Mapap 650 mg PO Q6HR PRN 7 Days #56 12/15/20 01/17/21 Rx (acetaminophen)] tablet fluticasone propionate 1 spray INTRANASAL Q12HR 7 Days 12/15/20 01/17/21 Rx #16 g guaifenesin [Mucus Relief ER] 600 mg PO Q12HR 7 Days #14 tablet 12/15/20 01/17/21 Rx lidocaine [Lidoderm] 1 patch TRANSDERMAL DAILY PRN 7 12/15/20 01/17/21 Rx Days #7 ea tramadol 50 mg PO Q6H PRN #24 tablet 12/15/20 01/17/21 Rx amiodarone 200 mg PO BID 01/17/21 01/17/21 History metoprolol tartrate 25 mg PO BID 01/17/21 01/17/21 History Current Medications: Active Medications Sodium Chloride (Normal Saline Iv) 500 mls @ 100 mls/hr IV CONT .Q5H CHRISTIANO Sedation/Anesthesia: No previous sedation/anesthesia problems (including family history). [facility] Past Medical History Medical History (Updated 12/16/20 @ 08:38 by Abigail Rodriguez PA-C) Atrial fibrillation Chronic kidney disease, stage III (moderate) Coronary artery disease Degenerative disc disease Diabetic foot ulcer associated with diabetes mellitus due to underlying condition Gout History of amputation of toe April 2020 History of cardioversion November 2020 Hyperlipidemia Hypertension Kidney stones Osteomyelitis of foot, acute Pacemaker Secondary to third-degree heart block Reflex sympathetic dystrophy a left lower extremity Type 2 diabetes mellitus with diabetic neuropathy Surgical History Surgical History (Updated 12/10/20 @ 12:33 by Rachel Buitrago PA-C) History of colonoscopy with polypectomy 2000 History of heart artery stent X4 November 2020 History of left inguinal hernia repair 2015 History of surgical removal of pilonidal cyst History of umbilical hernia repair 2001 Presence of intrathecal pump nonfunctioning pain pump Status post cataract extraction of both eyes with insertion of intraocular lens Family History Family History (Updated 12/10/20 @ 12:35 by Rachel Buitrago PA-C) Mother Unknown family medical history Sibling Multiple sclerosis Father , MVA No problems noted. Social History Social History (Updated 01/17/21 @ 15:25 by Betzaida Hoyt RN) Social History: Mr. Corral lives at home with his long-term significant other. He is independent in his daily activities. 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 His primary care provider is Joe Ha PA-C. He designates his significant other, Zahida, as his surrogate decision maker. He would like to be a full code. Smoking packs per day: 3 Smoking cigarettes per day: 60.0 Years smoked: 46 Smoking pack-years: 138.00 Smoking status: Former smoker Tobacco type: cigarettes Second hand tobacco smoke exposure: Yes Alcohol intake: former Substance use: current Substance use type: marijuana Other substance usage details: Smokes marijuana as needed for pain control Living arrangements: with friend(s) Additional living arrangements comments: Gender identity (if verbalized by the patient): Male Spiritual care concerns: No Mo
--- NOTE | 2021-01-18 10:45 | P.PCNCVR_ITS ---
Cardioversion Cardioversion Date of procedure: 01/18/21 Description of procedure: DATE OF PROCEDURE: 01/18/2021 INDICATION FOR PROCEDURE: Symptomatic, persistent atrial fibrillation PROCEDURES PERFORMED: 1. Successful synchronized DC cardioversion x2 with failure to restore sinus rhythm 2. Moderate sedation -CPT 04513 SEDATION: Propofol 120 mg in divided doses; start time 1025, stop time 1040; total [id number] time 15 minutes; Hale RN was trained observer for the moderate sedation. PROCEDURE: Informed consent was taken prior to the procedure. Transcutaneous pads were placed in the right parasternal and left paravertebral positions. The pacemaker rep from the [employer] interrogated the device prior to the procedure, which showed underlying atrial fibrillation. After adequate conscious sedation with IV propofol, synchronized DC cardioversion was performed with 200 joules x 2 with failure to restore sinus rhythm. Burst atrial pacing was attempted through the pacemaker, but patient still remained in the atrial fibrillation. Postprocedure pacemaker interrogation showed persistent atrial fibrillation. Patient tolerated procedure well without any immediate procedure related complications. CONCLUSIONS: Successful, synchronized DC cardioversion x2 with failure to restore sinus rhythm. RECOMMENDATIONS: Patient will continue on current medications including anticoagulation with apixaban. Patient has history of untreated BILLY. Spoke wi th patient and his in detail about importance of adequate treatment of BILLY. Patient is willing to be evaluated. He will be referred to sleep specialist to repeat polysomnography and for optimal management of BILLY.
== END 2021-01-18 11:45 | disposition home or self-care (01) ==
PROVIDERS: PCP Physician Assistant; Visit Provider Internal Medicine Cardiovascular Disease
PROC: 5A2204Z Restoration of Cardiac Rhythm, Single (ICD-10-PCS; principal; 2021-01-18 10:00)
DX: I48.19 Other persistent atrial fibrillation (principal); E11.22 Type 2 diabetes mellitus with diabetic chronic kidney disease; I12.9 Hypertensive chronic kidney disease with stage 1 through stage 4 chronic kidney disease, or unspecified chronic kidney disease; N18.30 Chronic kidney disease, stage 3 unspecified; Z79.84 Long term (current) use of oral hypoglycemic drugs; E11.40 Type 2 diabetes mellitus with diabetic neuropathy, unspecified; G47.33 Obstructive sleep apnea (adult) (pediatric); E78.5 Hyperlipidemia, unspecified; Z91.19 Patient's noncompliance with other medical treatment and regimen; Z79.01 Long term (current) use of anticoagulants; Z79.02 Long term (current) use of antithrombotics/antiplatelets; Z95.5 Presence of coronary angioplasty implant and graft; Z87.891 Personal history of nicotine dependence; Z95.0 Presence of cardiac pacemaker
CPT/HCPCS: 92960; 93005; J2704; J7040

== ENCOUNTER 2021-02-07 08:09 | Outpatient (CLI) | payer OTHER, SELFPAY ==
[2021-02-07 08:48] LABS: Alanine Aminotransferase 27 U/L (4-50); Albumin Level 4.2 g/dL (3.5-5.1); Alkaline Phosphatase 58 U/L (38-126); Anion Gap 6 mmol/L (8-16); Aspartate Amino Transferase 34 U/L (17-59); Bilirubin,Total 0.5 mg/dL (0.2-1.3); Blood Urea Nitrogen 46 mg/dL (9-20); Calcium 9.7 mg/dL (8.4-10.2); Carbon Dioxide 29 mmol/L (22-30); Chloride 106 mmol/L (98-107); Estimated Glomerular Filt Rate 29; Glucose 198 mg/dL (75-110); Potassium 4.3 mmol/L (3.4-5.0); Sodium 141 mmol/L (137-145)
== END 2021-02-07 08:10 | disposition home or self-care (01) ==
LOC: ANHLAB 08:12
PROVIDERS: PCP Physician Assistant; Visit Provider Internal Medicine Cardiovascular Disease
DX: I10 Essential (primary) hypertension (principal)
CPT/HCPCS: 36415; 80053

== ENCOUNTER 2021-02-16 08:41 | Outpatient (CLI) | payer OTHER, SELFPAY ==
--- NOTE | 2021-03-02 14:12 | WPDHOMESLEEP ---
Sleep Study - Home Unattended Date of Study: 02/16/21 Ordering Provider: Heath Salcedo MD Interpreting Provider: Laurie Skinner MD Home Sleep Study Type: Apnea Link Air Height: 1.88 m Weight: 129.727 kg Body Mass Index: 36.7 Neck Circumference (inches): 16.25 [place]: 3 Reason for Sleep Study chronic pain, poor sleep; atrial fibrillation, pacemaker Sleep History Ankur Benavides is a 65 year old man referred for a home sleep test by his security and compliance project manager. He rarely awakens from sleep feeling short of breath. He frequently awakens at night with heartburn, belching or coughing. He frequently snores and is frequently loud enough that others complain about it. He occasionally has trouble sleeping with a cold. He rarely wakes up gasping for breath at night. He frequently has breathing problems at night observed by others. He does not sweat excessively at night. He frequently notices his heart pounding or beating irregularly at night. He occasionally falls asleep during the day, rarely involuntarily and never falls asleep while driving. He does not have loss of muscle tone with strong emotion. He does not have daytime difficulties due to excessive sleepiness. He does not feel paralyzed on waking or falling asleep. He does not have vivid dreamlike scenes upon awakening or falling asleep. He does not feel afraid to go to sleep. He rarely has nightmares. He rarely remembers his dreams. He occasionally has racing thoughts. He frequently feels sad or depressed. He occasionally has anxiety. He frequently has muscular tension. He frequently notices parts of his body jerking. He frequently kicks at night. He frequently has crawling and aching feelings in his legs. He rarely has morning jaw pain. He constantly is bothered by pain during the day. He frequently is awakened by pain at night and frequently wakes up feeling stiff in the morning. He occasionally wakes up with sore achy muscles. He constantly wakes up with pain in the neck and spine. He has depression, fatigue. Normal bedtime is between 9:00 p.m. and 11:00 p.m. usually falling asleep quickly. He typically wakes up 2 or 3 times at night. While awake, he may get up and move around and watch TV. On average he stays awake for 30 minutes but sometimes this may take hours for him to return to sleep. He typically wakes up between 4 and 5 in the morning. His weekend schedule is the same. He estimates getting 4-5 hours of sleep at night but it is very disrupted sleep. he does take naps in the afternoon or evening. Short naps are not refreshing. He is drowsy for 3 hours after waking. He feels better in the morning compared other times a day. Habits: No tobacco for many years. No caffeine or alcohol kee. He does consume recreational drugs, The type is not specified. [facility] Past Medical History Medical History Atrial fibrillation Chronic kidney disease, stage III (moderate) Coronary artery disease Degenerative disc disease Diabetic foot ulcer associated with diabetes mellitus due to underlying condition Gout History of amputation of toe April 2020 History of cardioversion November 2020 Hyperlipidemia Hypertension Kidney stones Osteomyelitis of foot, acute Pacemaker Secondary to third-degree heart block Reflex sympathetic dystrophy a left lower extremity Type 2 diabetes mellitus with diabetic neuropathy Surgical History Surgical History History of colonoscopy with polypectomy 2000 History of heart artery stent X4 November 2020 History of left inguinal hernia repair 2015 History of surgical removal of pilonidal cyst History of umbilical hernia repair 2001 Presence of intrathecal pump nonfunctioning pain pump Status post cataract extraction of both eyes with insertion of intraocular lens Family History Family History (Reviewed 03/02/21 @ 14:18 by Laurie Barry
[2021-03-02 14:13] VITALS: BMI 36.7
== END 2021-02-17 08:10 | disposition home or self-care (01) ==
LOC: ANHCSM 08:41
PROVIDERS: PCP Physician Assistant; Visit Provider Internal Medicine Cardiovascular Disease
DX: G47.33 Obstructive sleep apnea (adult) (pediatric) (principal); I25.9 Chronic ischemic heart disease, unspecified
CPT/HCPCS: 95806

== ENCOUNTER 2021-04-18 14:47 | Inpatient (IN) | payer OTHER, SELFPAY ==
[2021-04-18] VITALS (29 sets, daily range): BP systolic 138–173; BP diastolic 67–100; PULSE 70–95; RESP 11–30; TEMP 36.4–36.8; O2SAT 91–100; BMI 37.8
--- NOTE | ~2021-04-18 | XR_ITS ---
EXAMINATION: XR chest 2V DATE: 04/18/2021 15:05 INDICATION: Shortness of breath TECHNIQUE: PA and lateral views of the chest were obtained. COMPARISON: Chest radiograph dated 12/14/2020 FINDINGS: Large right lower lobe calcified granuloma projects over the right costophrenic angle. Chronic elevat ion of the left hemidiaphragm. Small opacity at the lateral left mid to lower lung zone. Small left p ericardial fat pad. No pulmonary edema, pleural effusion or pneumothorax. Cardiomegaly. Dual lead pac emaker seen with leads projecting over the expected locations of the right atrium and right ventricle . There are bridging osteophytes at multiple levels in the spine, consistent with diffuse idiopathi c skeletal hyperostosis (DISH). Likely intrathecal pain catheter projects over the central canal the lower thoracic spine with distal tip at the mid thoracic spine. IMPRESSION: 1. Small opacity lateral left mid to lower lung zone and favor atelectasis over pneumonia. 2. Cardiomegaly. Reviewed, dictated and finalized at location A.
--- NOTE | ~2021-04-18 | XR_ITS ---
EXAMINATION: XR chest 1V portable INDICATION: COPD exacerbation TECHNIQUE: Portable AP chest at 1622 hours COMPARISON: 04/18/2021 FINDINGS: The lungs are free of acute opacities. There is no pleural effusion or pneumothorax. Cardio megaly is noted. A dual-lead cardiac pacemaker of the left chest wall ends with leads in expected loc ations. IMPRESSION: 1. Cardiomegaly. Reviewed, dictated and finalized at location A. IMPRESSION: 1. Cardiomegaly.
--- NOTE | 2021-04-18 14:48 | ECG_ITS ---
Measurements Intervals [place] Rate: 70 P: 145 [place]: 171 QRS: -81 QRSD: 217 T: 87 QT: 490 QTc: 529 Interpretive Statements ELECTRONIC ATRIAL PACEMAKER ELECTRONIC VENTRICULAR PACEMAKER BASELINE ARTIFACT- I, II, III, AVR, AVL, AVF, V6 NO FURTHER INTERPRETATION IS POSSIBLE ATYPICAL ECG Electronically Signed On 04-18-2021 15:24:50 CDT by Real Lopez D.O.
[2021-04-18 15:03] LABS: Basophils Absolute Auto 0.1 K/mm3 (0.0-0.1); Basophils Percent Auto 0.8 % (0.2-1.2); Eosinophils Percent Auto 10.9 % (0-4.4); Hematocrit 46.4 % (42.0-52.0); Hemoglobin 15.1 g/dL (14.0-18.0); Immature Granulocyte Absolute 0.02 K/mm3 (0.00-0.031); Immature Granulocyte Percent A 0.2 % (0-0.5); Lymphocytes Absolute Auto 3.01 K/mm3 (0.9-3.2); Mean Corpuscular HGB Conc 32.5 g/dl (32-36); Mean Corpuscular Hemoglobin 29.3 pg (26-34); Mean Corpuscular Volume 89.9 fl (80-100); Mean Platelet Volume 10.8 fl (7.4-10.4); Monocytes Absolute Auto 0.7 K/mm3 (0.1-0.6); Monocytes Percent Auto 7.9 % (2.6-8.5); Neutrophils Absolute Auto 4.1 K/mm3 (1.3-6.7); Neutrophils Percent Auto 46.2 % (45.5-73.1); Platelet Count Result 259 k/mm3 (150-375); Red Blood Count 5.16 M/mm3 (4.6-6.20); Red Cell Distribution Width 13.8 % (11.5-14.5); White Blood Count 8.8 K/mm3 (4.5-10.0)
[2021-04-18 15:15] LABS: Anion Gap 10 mmol/L (8-16); Blood Urea Nitrogen 24 mg/dL (9-20); Calcium 9.6 mg/dL (8.4-10.2); Carbon Dioxide 26 mmol/L (22-30); Chloride 107 mmol/L (98-107); Estimated CRCL calculation 62 ml/min; Estimated Glomerular Filt Rate 47; Glucose 166 mg/dL (65-110); Sodium 143 mmol/L (137-145)
--- NOTE | 2021-04-18 15:25 | ED.SOB ---
HPI - SOB/Dyspnea General Chief Complaint: Shortness of Breath/Dyspnea Stated Complaint: sob Time Seen by Provider: 04/18/21 15:10 Source: RN notes reviewed History of Present Illness HPI Narrative: Patient presents emergency department from home for shortness of breath. States that symptoms began approximately 3 weeks ago and progressively worsened states is associated with nonproductive cough as well as left-sided chest pain that is intermittent chest pain is described as pressure goes down his left arm. Patient states he does smoke marijuana but does not smoke cigarettes he denies any fevers or chills abdominal pain nausea vomiting or any other symptoms Related Data Home Medications Medication Instructions Recorded Confirmed Januvia 100 mg PO DAILY 05/03/20 01/17/21 Jose J Minaya [facility] 05/03/20 12/10/20 albuterol sulfate 90 mcg INHALATION BID PRN 05/03/20 01/17/21 allopurinol 450 mg PO DAILY 05/03/20 01/17/21 Eliquis 5 mg PO BID 11/29/20 01/17/21 amoxicillin-pot clavulanate tablet 04/18/21 clopidogrel 04/18/21 fenofibrate nanocrystallized mg PO 04/18/21 rosuvastatin mg 04/18/21 04/18/21 Allergies Allergy/AdvReac Type Severity Reaction Status Date / Time bee venom protein (honey bee) Allergy Severe Swelling Verified 04/18/21 17:30 of Lip/Tongue/Throat ibuprofen Allergy Severe SWELLS Verified 04/18/21 17:30 RESPIR. DISTRESS Review of Systems Review of Systems: Narrative: Gen.: Denies fevers or chills ENT: Denies congestion Respiratory: See HPI CV: Reports chest pain GI: Denies abdominal pain nausea, emesis or diarrhea Musculoskeletal: Denies back pain or muscle pain Neuro: Denies numbness, tingling, weakness or focal weakness Skin: Denies rash Except as documented, all other systems reviewed and negative PEND[facility] S[facility] TO [facility] Past Medical History Medical History Atrial fibrillation Chronic kidney disease, stage III (moderate) Coronary artery disease Degenerative disc disease Diabetic foot ulcer associated with diabetes mellitus due to underlying condition Gout History of amputation of toe April 2020 History of cardioversion November 2020 Hyperlipidemia Hypertension Kidney stones Osteomyelitis of foot, acute Pacemaker Secondary to third-degree heart block Reflex sympathetic dystrophy a left lower extremity Type 2 diabetes mellitus with diabetic neuropathy Surgical History Surgical History History of colonoscopy with polypectomy 2000 History of heart artery stent X4 November 2020 History of left inguinal hernia repair 2015 History of surgical removal of pilonidal cyst History of umbilical hernia repair 2001 Presence of intrathecal pump nonfunctioning pain pump Status post cataract extraction of both eyes with insertion of intraocular lens Family History Family History Mother Unknown family medical history Sibling Multiple sclerosis Father , MVA No problems noted. Social History Social History Social History: Mr. Corral lives at home with his long-term significant other. He is independent in his daily activities. 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 His primary care provider is Joe Ha PA-C. He designates his significant other, Zahida, as his surrogate decision maker. He would like to be a full code. Smoking packs per day: 3 Smoking cigarettes per day: 60.0 Years smoked: 46 Smoking pack-years: 138.00 Smoking status: Former smoker Tobacco type: cigarettes Second hand tobacco smoke exposure: Yes Alcohol intake: former Alcohol use details: 2-4 alcohol beverages per week. Substance use: current Substance use type: marijuana Other substance usage details: Smokes marijuana as needed for pain control Additiona
[2021-04-18] MEDS: ALBUTEROL SULFATE NEB 2.5 MG/0.5 ML INH 5 MG INHALATION ×3 (15:30→17:10)
[2021-04-18] MEDS: IPRATROPIUM BR 0.02% INH SOLN 0.5 MG/2.5 ML VIAL INHALATION ×3 (15:31→17:10)
[2021-04-18] MEDS: methylPREDNISolone SOD SUCC 125 MG VIAL IV PUSH (15:53)
[2021-04-18 16:37] LABS: Troponin I 0.017 ng/mL (0.000-0.034)
[2021-04-18 16:39] LABS: D Dimer 0.27 ug/mL (<0.48)
--- NOTE | 2021-04-18 18:21 | PC.NURSE ---
Pt takes Eliquis at home on a 6AM and 6 PM schedule. OK to change to home schedule per Dr Mora. Called pharmacy to make change.
[2021-04-18] MEDS: APIXABAN 5 MG TABLET PO (18:55)
--- NOTE | 2021-04-18 20:00 | PM.IMHP ---
H&P: HPI History of Present Illness Date/Time: 04/18/21 20:00 Chief Complaint: Shortness of breath. Narrative: This is a very pleasant 65-year-old male, former heavy smoker, with COPD, paroxysmal atrial fibrillation, coronary artery disease, type 2 diabetes mellitus, chronic kidney disease, sleep apnea, and hypertension who presented to the emergency department earlier today via private vehicle from home for evaluation of shortness of breath. Over the last 3 weeks or so he has had progressive dyspnea on lesser and lesser exertion as well as a cough occasionally productive of yellow sputum. He has a rescue inhaler that he has been using, sometimes also every hour, with lesser and lesser benefit. He also notes that his shortness of breath will get even worse if and when he flips into atrial fibrillation which seems to be a more frequent occurrence, and in fact he has an upcoming appointment on May 06 for a cardiac ablation. He is not on maintenance inhalers and does not have nebulizers at home. At the time my evaluation he is very wheezy but feels a little bit better after receiving IV steroids and a nebulizer. He does not have any current chest pain or pleuritic pain but 2 times in the last week or so he had self-limiting left lateral chest discomfort that radiated somewhat into the left arm though that resolved. He has not had exertional chest pain. No nausea, vomiting, fever, chills, sweats, or sick contacts. No known exposure to those positive for COVID-19. He is vaccinated for COVID. Review of Systems Review of Systems: Narrative: 12 systems were reviewed with pertinent positives and negatives as per HPI. No headache. he frequently has postnasal drip. No sinus congestion, rhinorrhea, otalgia, or odynophagia. Denies dysphagia and concerns for aspiration. He has had issues over the years wearing his CPAP but he is getting a different machine in the next several weeks. He endorses mild orthopnea but with further questioning it sounds as though he coughs more when he is lying supine and is less due to shortness of breath. He has chronic, mild right lower extremity edema which is unchanged. No calf pain or tenderness. No syncope or near syncope. He does get a bit lightheaded with coughing jags however. Except as documented, all other systems were reviewed and are negative. [facility] Past Medical History Medical History (Updated 04/18/21 @ 21:27 by Lorrie Smith PA-C) Benign prostatic hyperplasia Chronic anticoagulation Chronic kidney disease, stage III (moderate) Baseline creatinine is around 1.4 to 1.70. Chronic obstructive pulmonary disease Coronary artery disease Status post stent x4. Patient of Dr. Salcedo. Degenerative disc disease Diabetic foot ulcer associated with diabetes mellitus due to underlying condition (04/2020) Gout History of cardioversion (11/2020) Sees Dr. Rosen (EP) at [facility]. Hyperlipidemia Hypertension Kidney stones Obstructive sleep apnea Osteomyelitis of foot, acute (04/2020) Pacemaker Secondary to third-degree heart block Paroxysmal atrial fibrillation Reflex sympathetic dystrophy Left lower extremity. Type 2 diabetes mellitus with diabetic neuropathy Hemoglobin A1c was 6.7% in November 2020. Surgical History Surgical History (Updated 04/18/21 @ 21:20 by Lorrie Smith PA-C) History of amputation of toe (04/2020) History of colonoscopy with polypectomy (1999) History of heart artery stent (11/2020) X4 History of left inguinal hernia repair (2014) History of surgical removal of pilonidal cyst History of umbilical hernia repair (2001) Presence of intrathecal pump Nonfunctioning. Status post cataract extraction of both eyes with insertion of intraocular lens Family History Family History Mother Unknown family medical history Sibling Multiple sclerosis Father , MVA No problems noted. Social History
[2021-04-18 20:09] LABS: Troponin I 0.016 ng/mL (0.000-0.034)
[2021-04-18 21:36] LABS: Glucose Point of Care 216 mg/dl (65-105)
[2021-04-18 22:04] LABS: Troponin I 0.015 ng/mL (0.000-0.034)
--- NOTE | 2021-04-18 22:05 | ADMGEN ---
04/18/21 at 2030--This patient, Ankur Corral, was admitted to 3 [facility] Surg Room 322-02. Patient/family oriented to hospital policies and general routines including ID bracelet, bed and alarms, visiting hours, pain management, procedures, bathroom and other care routines, personal items, smoking policy, room service/diet, and visiting hours. Information on how to activate the Rapid Response Team has been discussed. Patient/Family are encouraged to report perceived risks to care and to ask questions if they do not understand what they are told or what they should do. TDialRNC
[2021-04-18] MEDS: methylPREDNISolone SOD SUCC 125 MG VIAL 60 MG IV PUSH (22:09)
[2021-04-18] MEDS: AMOXICILLIN/CLAVULANATE K 875-125 MG TAB 1 TABLET PO (22:10)
[2021-04-19] VITALS (18 sets, daily range): BP systolic 108–161; BP diastolic 68–82; PULSE 70–89; RESP 16–20; TEMP 35.8–36.6; O2SAT 91–96
[2021-04-19] MEDS: IPRATROPIUM BR 0.02% INH SOLN 0.5 MG/2.5 ML VIAL INHALATION ×3 (01:57→22:02)
[2021-04-19] MEDS: methylPREDNISolone SOD SUCC 125 MG VIAL 60 MG IV PUSH ×3 (04:00→21:46)
[2021-04-19] MEDS: APIXABAN 5 MG TABLET PO ×2 (05:41→17:54)
[2021-04-19 06:45] LABS: Basophils Percent Auto 0.1 % (0.2-1.2); Hematocrit 46.7 % (42.0-52.0); Hemoglobin 15.1 g/dL (14.0-18.0); Immature Granulocyte Absolute 0.06 K/mm3 (0.00-0.031); Immature Granulocyte Percent A 0.5 % (0-0.5); Lymphocytes Absolute Auto 2.51 K/mm3 (0.9-3.2); Lymphocytes Percent Auto 20.8 % (18.3-44.2); Mean Corpuscular HGB Conc 32.3 g/dl (32-36); Mean Corpuscular Hemoglobin 29.4 pg (26-34); Mean Corpuscular Volume 90.9 fl (80-100); Mean Platelet Volume 10.9 fl (7.4-10.4); Monocytes Absolute Auto 0.1 K/mm3 (0.1-0.6); Monocytes Percent Auto 0.7 % (2.6-8.5); Neutrophils Absolute Auto 9.4 K/mm3 (1.3-6.7); Neutrophils Percent Auto 77.9 % (45.5-73.1); Platelet Count Result 268 k/mm3 (150-375); Red Blood Count 5.14 M/mm3 (4.6-6.20); White Blood Count 12.1 K/mm3 (4.5-10.0)
[2021-04-19 07:05] LABS: Anion Gap 13 mmol/L (8-16); Blood Urea Nitrogen 27 mg/dL (9-20); Calcium 9.7 mg/dL (8.4-10.2); Carbon Dioxide 25 mmol/L (22-30); Chloride 103 mmol/L (98-107); Estimated CRCL calculation 72 ml/min; Estimated Glomerular Filt Rate 55; Glucose 176 mg/dL (65-110); Magnesium 1.8 mg/dL (1.6-2.3); Potassium 4.8 mmol/L (3.4-5.0); Sodium 141 mmol/L (137-145)
[2021-04-19 08:37] LABS: Glucose Point of Care 193 mg/dl (65-105)
[2021-04-19] MEDS: guaiFENesin 600 MG/DEXTROMETHORPHAN 30 MG SR TAB 12 HR 1 TAB PO ×2 (08:59→21:45)
[2021-04-19] MEDS: FLUTICASONE PROPIONATE 0.05% NA SPR 16 GM BTL (*BKC) 1 SPRAY NASAL ×2 (08:59→21:44)
[2021-04-19] MEDS: AMOXICILLIN/CLAVULANATE K 875-125 MG TAB 1 TABLET PO ×2 (08:59→21:44)
[2021-04-19] MEDS: ROSUVASTATIN 10 MG TABLET 20 MG PO (09:00)
[2021-04-19] MEDS: TAMSULOSIN HCL 0.4 MG CAPSULE PO (09:00)
[2021-04-19] MEDS: allopurinoL 150 MG TABLET 450 MG PO (09:00)
[2021-04-19] MEDS: guaiFENesin 12 HR 600 MG TABCR PO ×2 (09:00→21:44)
[2021-04-19] MEDS: FENOFIBRATE NANOCRYSTALLIZED 145 MG TABLET PO (09:00)
[2021-04-19] MEDS: CLOPIDOGREL BISULFATE 75 MG TABLET PO (09:00)
[2021-04-19] MEDS: CHOLECALCIFEROL 1,000 UNITS TABLET 2000 UNITS PO (09:01)
[2021-04-19] MEDS: SOTALOL HCL 80 MG TABLET PO (10:54)
[2021-04-19 11:51] LABS: Glucose Point of Care 222 mg/dl (65-105)
[2021-04-19] MEDS: INSULIN ASPART (*BKC) 100 UNITS/ML SUB-Q (12:21)
--- NOTE | 2021-04-19 13:23 | PM.IMPN ---
Progress Note: A&P Assessment and Plan (1) Chronic obstructive pulmonary disease: Code(s): J44.9 - Chronic obstructive pulmonary disease, unspecified Status: Acute Assessment and Plan: Patient appears to be in a COPD exacerbation and we will continue IV steroids but start to wean - he was started on Symbicort and we will continue with Xopenex breathing treatments - I have recommended that he follow-up with a team manager since he has had a COPD exacerbation that has hospitalized him. I recommend PFTs - differential diagnoses the seem less likely are PE ( anticoagulated and D-dimer negative) and COVID-19 ( no other symptoms and vaccinated) (2) Chronic kidney disease, stage III (moderate): Code(s): N18.3 - Chronic kidney disease, stage 3 (moderate) Status: Acute Assessment and Plan: Creatinine is stable on review of previous labs. (3) Type 2 diabetes mellitus: Qualifiers: Diabetes mellitus custodial insulin use: without supervisor intermediates use Diabetes mellitus complication status: with skin complications Diabetes mellitus complication detail: with foot ulcer Qualified Code(s): E11.621 - Type 2 diabetes mellitus with foot ulcer; L97.509 - Non-pressure chronic ulcer of other part of unspecified foot with unspecified severity Code(s): E11.9 - Type 2 diabetes mellitus without complications Status: Acute Assessment and Plan: Last glucose 222 - likely due to steroids - continue sliding scale insulin, Januvia and add Lantus tonight while on IV steroids - he is typically well controlled with a recent hemoglobin A1c of 6.7%. (4) Obstructive sleep apnea: Code(s): G47.33 - Obstructive sleep apnea (adult) (pediatric) Status: Acute Assessment and Plan: Continue cpap although he has a hx of noncompliance (5) Paroxysmal atrial fibrillation: Code(s): I48.0 - Paroxysmal atrial fibrillation Status: Acute Assessment and Plan: Upcoming appoint with Dr. Rosen for cardiac ablation and currently paced. (6) Chronic anticoagulation: Code(s): Z79.01 - meterman (current) use of anticoagulants Status: Acute Assessment and Plan: Continue Eliquis for stroke prophylaxis. (7) Coronary artery disease: Code(s): I25.10 - Atherosclerotic heart disease of [place] coronary artery without angina pectoris Status: Chronic Assessment and Plan: No acute issues though patient reports having 2 episodes of self-limiting left lateral chest discomfort last week. EKG reviewed, showing paced rhythm. Troponin negative x3. He is not having any chest pain at this time. Continue statin. f/u with cardiology and he was told to let us know if he has any CP Time Spent With Patient Time with patient: 25 - 35 minutes Subjective Date/time seen: 04/19/21 13:23 Interval history: Pt is a 65-year-old male here for COPD exacerbation. Patient was seen today and states he is doing much better than yesterday. He still has some wheezing and coughing but overall doing much better. He denies chest pain, nausea, vomiting, fevers, chills, rashes or wounds. He states he has never been hospitalized for COPD exacerbation but has been told he has emphysema. He does not see a team manager. He quit smoking about 14 Years ago and denies being around chemicals. He has had no further chest pain but has had some issues in the past few weeks that has resolved spontaneously. He has a follow-up appointment with his capability lead soon. Review of Systems Review of Systems: All systems reviewed & are unremarkable except as noted in HPI and below Exam Narrative: Exam Narrative: General: Well developed well nourished patient in NAD HEENT: normocephalic Neck: supple Neuro: Alert and oriented x4 CV:RRR On exam. Telemetry shows paced rhythm Resp: Expiratory wheezing bilaterally with slightly diminished breath s
--- NOTE | 2021-04-19 16:08 | PCRTNOTE ---
Window of time for administration has passed. See next scheduled administration.
[2021-04-19 17:01] LABS: Glucose Point of Care 191 mg/dl (65-105)
[2021-04-19] MEDS: INSULIN GLARGINE (*BKC) 100 UNITS/ML SUB-Q (21:46)
[2021-04-20] VITALS (18 sets, daily range): BP systolic 146–157; BP diastolic 85–89; PULSE 70–82; RESP 16–22; TEMP 35.9–37.2; O2SAT 93–96
[2021-04-20 00:52] LABS: Glucose Point of Care 186 mg/dl (65-105)
[2021-04-20] MEDS: IPRATROPIUM BR 0.02% INH SOLN 0.5 MG/2.5 ML VIAL INHALATION ×4 (02:25→19:19)
[2021-04-20] MEDS: BENZONATATE 100 MG CAPSULE PO (03:35)
[2021-04-20] MEDS: APIXABAN 5 MG TABLET PO ×2 (06:12→17:43)
[2021-04-20 06:50] LABS: Anion Gap 9 mmol/L (8-16); Blood Urea Nitrogen 34 mg/dL (9-20); Calcium 9.7 mg/dL (8.4-10.2); Carbon Dioxide 28 mmol/L (22-30); Chloride 102 mmol/L (98-107); Estimated CRCL calculation 63 ml/min; Estimated Glomerular Filt Rate 47; Glucose 155 mg/dL (65-110); Potassium 4.4 mmol/L (3.4-5.0); Sodium 139 mmol/L (137-145)
[2021-04-20 07:57] LABS: Glucose Point of Care 155 mg/dl (65-105)
[2021-04-20] MEDS: CLOPIDOGREL BISULFATE 75 MG TABLET PO (09:08)
[2021-04-20] MEDS: TAMSULOSIN HCL 0.4 MG CAPSULE PO (09:08)
[2021-04-20] MEDS: allopurinoL 150 MG TABLET 450 MG PO (09:08)
[2021-04-20] MEDS: guaiFENesin 600 MG/DEXTROMETHORPHAN 30 MG SR TAB 12 HR 1 TAB PO ×2 (09:09→20:57)
[2021-04-20] MEDS: SOTALOL HCL 80 MG TABLET PO (09:09)
[2021-04-20] MEDS: FENOFIBRATE NANOCRYSTALLIZED 145 MG TABLET PO (09:09)
[2021-04-20] MEDS: CHOLECALCIFEROL 1,000 UNITS TABLET 2000 UNITS PO (09:09)
[2021-04-20] MEDS: AMOXICILLIN/CLAVULANATE K 875-125 MG TAB 1 TABLET PO ×2 (09:09→20:58)
[2021-04-20] MEDS: guaiFENesin 12 HR 600 MG TABCR PO (09:10)
[2021-04-20] MEDS: ROSUVASTATIN 10 MG TABLET 20 MG PO (09:10)
[2021-04-20] MEDS: methylPREDNISolone SOD SUCC 125 MG VIAL 60 MG IV PUSH ×3 (09:13→17:43)
[2021-04-20] MEDS: FLUTICASONE PROPIONATE 0.05% NA SPR 16 GM BTL (*BKC) 1 SPRAY NASAL ×2 (09:22→20:58)
--- NOTE | 2021-04-20 11:50 | PM.IMPN ---
Progress Note: A&P Assessment and Plan (1) Chronic obstructive pulmonary disease: Code(s): J44.9 - Chronic obstructive pulmonary disease, unspecified Status: Acute Assessment and Plan: Patient appears to be in a COPD exacerbation and we will continue IV steroids but will increase them back to what they were yesterday as he appears worse today - he was started on Symbicort and we will continue with Xopenex breathing treatments - I have recommended that he follow-up with a assistant service manager since he has had a COPD exacerbation that has hospitalized him. I recommend PFTs. if he does not get better in the next couple days may consider inpatient consult. - differential diagnoses the seem less likely are PE ( anticoagulated and D-dimer negative) and COVID-19 ( no other symptoms and vaccinated) - will obtain sputum culture - continue Augmentin (2) Chronic kidney disease, stage III (moderate): Code(s): N18.3 - Chronic kidney disease, stage 3 (moderate) Status: Acute Assessment and Plan: Creatinine is stable on review of previous labs. (3) Type 2 diabetes mellitus: Qualifiers: Diabetes mellitus longterm insulin use: without terminal gauger use Diabetes mellitus complication status: with skin complications Diabetes mellitus complication detail: with foot ulcer Qualified Code(s): E11.621 - Type 2 diabetes mellitus with foot ulcer; L97.509 - Non-pressure chronic ulcer of other part of unspecified foot with unspecified severity Code(s): E11.9 - Type 2 diabetes mellitus without complications Status: Acute Assessment and Plan: Last glucose 155 - more elevated likely due to steroids - continue sliding scale insulin, Januvia and add Lantus tonight while on IV steroids - he is typically well controlled with a recent hemoglobin A1c of 6.7%. (4) Obstructive sleep apnea: Code(s): G47.33 - Obstructive sleep apnea (adult) (pediatric) Status: Acute Assessment and Plan: Continue cpap although he has a hx of noncompliance (5) Paroxysmal atrial fibrillation: Code(s): I48.0 - Paroxysmal atrial fibrillation Status: Acute Assessment and Plan: Upcoming appoint with Dr. Rosen for cardiac ablation and currently paced. - order echo due to chest pain as stated above (6) Chronic anticoagulation: Code(s): Z79.01 - FPC (current) use of anticoagulants Status: Acute Assessment and Plan: Continue Eliquis for stroke prophylaxis. (7) Coronary artery disease: Code(s): I25.10 - Atherosclerotic heart disease of [place] coronary artery without angina pectoris Status: Chronic Assessment and Plan: No acute issues though patient reports having 2 episodes of self-limiting left lateral chest discomfort last week and 1 last night. EKG reviewed, showing paced rhythm. Troponin negative x3. He is not having any chest pain at this time. Continue statin. echo ordered. He is to let us know immediately if he has any further chest pain. Subjective Date/time seen: 04/20/21 11:50 Interval history: Pt is a 65-year-old male here for COPD exacerbation. patient was seen today and states his breathing is any better than yesterday and might be a little worse. His cough, however, is slightly better but he is still having sputum production. He thinks he can get us a sputum sample. He said he has pressure-like chest pain from time to time that is not associated with coughing. He says this has been going on for a while intermittently and he had some yesterday but did not tell us. I explained to him that if he has this chest pain again to let us know right away and that we will look at the heart monitor and get an EKG. He cannot remember the last time he had an echo. today he denies chest pain so far, nausea, vomiting, fevers, chills or diarrhea. He had a bowel movement yesterday. Exam Narrative:
[2021-04-20 12:27] LABS: Glucose Point of Care 195 mg/dl (65-105)
[2021-04-20] MEDS: INSULIN ASPART (*BKC) 100 UNITS/ML SUB-Q (16:48)
[2021-04-20 16:56] LABS: Glucose Point of Care 205 mg/dl (65-105)
[2021-04-20] MEDS: INSULIN GLARGINE (*BKC) 100 UNITS/ML SUB-Q (20:58)
[2021-04-21] VITALS (14 sets, daily range): BP systolic 160–165; BP diastolic 87–91; PULSE 70–84; RESP 20; TEMP 36.2–36.7; O2SAT 90–96
--- NOTE | 2021-04-21 | ECHO_ITS ---
Patient Info Name: Ankur Corral Age: 65 years : 1955 Gender: Male Ht: 74 in Wt: 294 lbs BSA: 2.69 m2 Exam Date: 04/21/2021 8:49 AM Exam Location: [facility] Pulmonary Patient Status: Inpatient Admit Date: 04/20/2021 Staff Ordering Physician: Jacqueline Beckwith PA-C Tax Expert: Julia Attending Provider: Tanika Siu PA-C Referring Physician: Tang CATES; Exam Type: CA echo doppler color flow Study Info Indications R06.00 - Dyspnea, unspecified R06.02 - Shortness of breath Complete two-dimensional, color flow and Doppler transthoracic echocardiogram is performed. Summary 1. Complete two-dimensional, color flow and Doppler transthoracic echocardiogram is performed. 2. Estimated LVEF 55%. 3. There is moderately increased left ventricular wall thickness. 4. The left ventricular diastolic function is abnormal. 5. Left atrial chamber dimension is moderately enlarged. 6. There is mild aortic valve calcification. 7. There is moderate mitral valve regurgitation. 8. There is mild tricuspid valve regurgitation. 9. No pulmonary hypertension, estimated pulmonary arterial systolic pressure is 30 mmHg. 10. Linear artifact in right ventricle consistent with pacemaker/defibrillator wire. Left Ventricle Left ventricular chamber dimension is normal. Estimated LVEF 55%. There is moderately increased left ventricular wall thickness. Left ventricular septal wall motion is normal. The left ventricular diastolic function is abnormal. Right Ventricle Right ventricular chamber dimension is normal. Right ventricular systolic function is normal. Left Atria Left atrial chamber dimension is moderately enlarged. Right Atria Right atrial chamber dimension is normal. Atrial Septum Intact interatrial septum visualized by color flow imaging. Aortic Valve The aortic valve is trileaflet. There is no aortic valve sclerosis. There is no aortic valve stenosis. There is no aortic valve regurgitation. There is mild aortic valve calcification. Pulmonic Valve The pulmonic valve is normal. There is no pulmonic valve stenosis. There is mild pulmonic regurgitation. Mitral Valve The mitral valve has normal leaflets. There is no mitral valve stenosis. There is moderate mitral valve regurgitation. Tricuspid Valve The tricuspid valve leaflets are normal. There is no significant tricuspid valve stenosis. There is mild tricuspid valve regurgitation. No pulmonary hypertension, estimated pulmonary arterial systolic pressure is 30 mmHg. Pericardium/Pleural The pericardium appears normal. There is no pericardial effusion. Inferior Vena Cava Normal inferior vena cava with >50% collapse upon inspiration consistent with normal right atrial pressure, 5 mmHg. Aorta The aortic root size at the sinus of Valsalva is normal. The prox ascending aorta size is normal. Left Ventricular Outflow Tract Name Value Normal LVOT 2D LVOT Diameter 2.5 cm LVOT Doppler LVOT Peak Gradient 7 mmHg LVOT Mean Gradient 4 mmHg LVOT VTI
[2021-04-21] MEDS: methylPREDNISolone SOD SUCC 125 MG VIAL 60 MG IV PUSH ×4 (00:01→17:08)
[2021-04-21] MEDS: IPRATROPIUM BR 0.02% INH SOLN 0.5 MG/2.5 ML VIAL INHALATION ×3 (03:04→13:57)
[2021-04-21 03:05] LABS: Glucose Point of Care 225 mg/dl (65-105)
[2021-04-21] MEDS: APIXABAN 5 MG TABLET PO ×2 (05:42→17:08)
[2021-04-21 06:33] LABS: Hemoglobin 14.4 g/dL (14.0-18.0); Mean Corpuscular HGB Conc 32.7 g/dl (32-36); Mean Corpuscular Hemoglobin 29.3 pg (26-34); Mean Corpuscular Volume 89.4 fl (80-100); Platelet Count Result 264 k/mm3 (150-375); Red Blood Count 4.92 M/mm3 (4.6-6.20); Red Cell Distribution Width 14.1 % (11.5-14.5); White Blood Count 12.2 K/mm3 (4.5-10.0)
[2021-04-21 07:01] LABS: Alanine Aminotransferase 27 U/L (4-50); Albumin Level 3.9 g/dL (3.5-5.1); Alkaline Phosphatase 47 U/L (38-126); Anion Gap 9 mmol/L (8-16); Aspartate Amino Transferase 27 U/L (17-59); Bilirubin,Total 0.5 mg/dL (0.2-1.3); Blood Urea Nitrogen 38 mg/dL (9-20); Calcium 9.8 mg/dL (8.4-10.2); Carbon Dioxide 29 mmol/L (22-30); Chloride 99 mmol/L (98-107); Estimated CRCL calculation 67 ml/min; Estimated Glomerular Filt Rate 51; Glucose 173 mg/dL (65-110); Potassium 4.2 mmol/L (3.4-5.0); Sodium 137 mmol/L (137-145)
[2021-04-21] MEDS: allopurinoL 150 MG TABLET 450 MG PO (07:58)
[2021-04-21] MEDS: CHOLECALCIFEROL 1,000 UNITS TABLET 2000 UNITS PO (07:58)
[2021-04-21] MEDS: CLOPIDOGREL BISULFATE 75 MG TABLET PO (07:58)
[2021-04-21] MEDS: FENOFIBRATE NANOCRYSTALLIZED 145 MG TABLET PO (07:59)
[2021-04-21] MEDS: AMOXICILLIN/CLAVULANATE K 875-125 MG TAB 1 TABLET PO ×2 (07:59→20:25)
[2021-04-21] MEDS: guaiFENesin 600 MG/DEXTROMETHORPHAN 30 MG SR TAB 12 HR 1 TAB PO ×2 (07:59→20:25)
[2021-04-21] MEDS: SOTALOL HCL 80 MG TABLET PO (07:59)
[2021-04-21] MEDS: ROSUVASTATIN 10 MG TABLET 20 MG PO (07:59)
[2021-04-21] MEDS: FLUTICASONE PROPIONATE 0.05% NA SPR 16 GM BTL (*BKC) 1 SPRAY NASAL ×2 (08:00→20:25)
[2021-04-21] MEDS: TAMSULOSIN HCL 0.4 MG CAPSULE PO (08:00)
[2021-04-21 08:06] LABS: Glucose Point of Care 180 mg/dl (65-105)
[2021-04-21 11:47] LABS: Glucose Point of Care 242 mg/dl (65-105)
[2021-04-21] MEDS: INSULIN ASPART (*BKC) 100 UNITS/ML SUB-Q ×2 (12:12→17:07)
--- NOTE | 2021-04-21 15:04 | PM.IMPN ---
Progress Note: A&P Assessment and Plan (1) Chronic obstructive pulmonary disease: Code(s): J44.9 - Chronic obstructive pulmonary disease, unspecified Status: Acute Assessment and Plan: Patient appears to be in a COPD exacerbation - he was started on Symbicort and we will continue with Xopenex breathing treatments but INCREASE to Q4hrs - Continue IV steroids 60 mg q6hrs. - Continue Augmentin Q12hrs - I have recommended that he follow-up with a custom studio coordinator since he has had a COPD exacerbation that has hospitalized him. I recommend PFTs. if he does not get better in the next couple days may consider inpatient consult. - differential diagnoses the seem less likely are PE ( anticoagulated and D-dimer negative) and COVID-19 ( no other symptoms and vaccinated) - Pending sputum culture Continue monitoring (2) Chronic kidney disease, stage III (moderate): Code(s): N18.3 - Chronic kidney disease, stage 3 (moderate) Status: Acute Assessment and Plan: Creatinine is stable on review of previous labs. (3) Type 2 diabetes mellitus: Qualifiers: Diabetes mellitus complication detail: with foot ulcer Diabetes mellitus complication status: with skin complications Diabetes mellitus rat exterminator insulin use: without rat exterminator use Qualified Code(s): E11.621 - Type 2 diabetes mellitus with foot ulcer; L97.509 - Non-pressure chronic ulcer of other part of unspecified foot with unspecified severity Code(s): E11.9 - Type 2 diabetes mellitus without complications Status: Acute Assessment and Plan: Last glucose 155 - more elevated likely due to steroids - continue sliding scale insulin, Januvia and add Lantus tonight while on IV steroids - he is typically well controlled with a recent hemoglobin A1c of 6.7%. (4) Obstructive sleep apnea: Code(s): G47.33 - Obstructive sleep apnea (adult) (pediatric) Status: Acute Assessment and Plan: Continue cpap although he has a hx of noncompliance (5) Paroxysmal atrial fibrillation: Code(s): I48.0 - Paroxysmal atrial fibrillation Status: Acute Assessment and Plan: Upcoming appoint with Dr. Rosen for cardiac ablation and currently paced. - order echo due to chest pain as stated above (6) Chronic anticoagulation: Code(s): Z79.01 - senior care (current) use of anticoagulants Status: Acute Assessment and Plan: Continue Eliquis for stroke prophylaxis. (7) Coronary artery disease: Code(s): I25.10 - Atherosclerotic heart disease of [place] coronary artery without angina pectoris Status: Chronic Assessment and Plan: No acute issues though patient reports having 2 episodes of self-limiting left lateral chest discomfort last week and 1 last night. EKG reviewed, showing paced rhythm. Troponin negative x3. He is not having any chest pain at this time. Continue statin. echo ordered. He is to let us know immediately if he has any further chest pain. Time Spent With Patient Time with patient: 25 - 35 minutes Subjective Date/time seen: 04/21/21 15:04 Interval history: Pt is a 65-year-old male here for COPD exacerbation. Date of Service 04/21/21: the patient reports continued shortness of breath and wheezing. He reports overall improvement since arrival, but still having shortness of breath as compared to yesterday. He Reports improvement of his sputum production, no longer having yellow sputum but more white/clear. denies any chest pain, fever, chills, nausea, vomiting, abdominal pain, leg swelling, calf pain or any other symptoms at this time. Review of Systems Review of Systems: All systems reviewed & are unremarkable except as noted in HPI and below Exam Narrative: General: 65-year-old man sitting up in bed watching TV, resting comfortably on room air. Appears comfortable. In no acute distress. Skin: No jaundice or c
[2021-04-21 16:52] LABS: Glucose Point of Care 204 mg/dl (65-105)
[2021-04-21] MEDS: INSULIN GLARGINE (*BKC) 100 UNITS/ML SUB-Q (20:25)
[2021-04-21 21:43] LABS: Glucose Point of Care 310 mg/dl (65-105)
[2021-04-22] VITALS (19 sets, daily range): BP systolic 126–177; BP diastolic 51–105; PULSE 70–80; RESP 14–20; TEMP 36.2–36.9; O2SAT 93–94
[2021-04-22] MEDS: methylPREDNISolone SOD SUCC 125 MG VIAL 60 MG IV PUSH ×2 (00:34→04:43)
[2021-04-22] MEDS: IPRATROPIUM BR 0.02% INH SOLN 0.5 MG/2.5 ML VIAL INHALATION ×5 (01:40→21:15)
[2021-04-22] MEDS: APIXABAN 5 MG TABLET PO ×2 (04:43→17:12)
[2021-04-22 07:02] LABS: Glucose Point of Care 191 mg/dl (65-105)
[2021-04-22] MEDS: allopurinoL 150 MG TABLET 450 MG PO (11:40)
[2021-04-22] MEDS: AMOXICILLIN/CLAVULANATE K 875-125 MG TAB 1 TABLET PO ×2 (11:40→20:51)
[2021-04-22] MEDS: CHOLECALCIFEROL 1,000 UNITS TABLET 2000 UNITS PO (11:40)
[2021-04-22] MEDS: FENOFIBRATE NANOCRYSTALLIZED 145 MG TABLET PO (11:41)
[2021-04-22] MEDS: CLOPIDOGREL BISULFATE 75 MG TABLET PO (11:41)
[2021-04-22] MEDS: FLUTICASONE PROPIONATE 0.05% NA SPR 16 GM BTL (*BKC) 1 SPRAY NASAL ×2 (11:41→20:51)
[2021-04-22] MEDS: BENZONATATE 100 MG CAPSULE PO (11:42)
[2021-04-22] MEDS: TAMSULOSIN HCL 0.4 MG CAPSULE PO (11:43)
[2021-04-22] MEDS: SOTALOL HCL 80 MG TABLET PO (11:44)
[2021-04-22] MEDS: ROSUVASTATIN 10 MG TABLET 20 MG PO (11:45)
[2021-04-22 11:46] LABS: Glucose Point of Care 250 mg/dl (65-105)
[2021-04-22] MEDS: guaiFENesin 600 MG/DEXTROMETHORPHAN 30 MG SR TAB 12 HR 1 TAB PO ×2 (11:46→20:51)
[2021-04-22] MEDS: methylPREDNISolone SOD SUCC 40 MG VIAL IV PUSH ×2 (11:56→19:30)
[2021-04-22] MEDS: LOSARTAN POTASSIUM 25 MG TABLET PO (11:56)
[2021-04-22] MEDS: INSULIN ASPART (*BKC) 100 UNITS/ML SUB-Q ×2 (11:59→17:12)
--- NOTE | 2021-04-22 15:35 | PM.IMPN ---
Progress Note: A&P Assessment and Plan (1) Chronic obstructive pulmonary disease: Code(s): J44.9 - Chronic obstructive pulmonary disease, unspecified Status: Acute Assessment and Plan: Patient appears to be in a COPD exacerbation - Continue on Symbicort, continue with Xopenex breathing treatments but Continue at Q4hrs - Continue IV steroids but will DECREASE to 40 mg q6hrs. - Continue Augmentin Q12hrs - Will consult end finder twisting department due to continued wheezing symptoms. Appreciate their input. - differential diagnoses the seem less likely are PE ( anticoagulated and D-dimer negative) and COVID-19 ( no other symptoms and vaccinated) - Sputum culture was not preformed Continue monitoring (2) Chronic kidney disease, stage III (moderate): Code(s): N18.3 - Chronic kidney disease, stage 3 (moderate) Status: Acute Assessment and Plan: Creatinine is stable on review of previous labs. (3) Type 2 diabetes mellitus: Qualifiers: Diabetes mellitus [facility] insulin use: without termite treater helper use Diabetes mellitus complication status: with skin complications Diabetes mellitus complication detail: with foot ulcer Qualified Code(s): E11.621 - Type 2 diabetes mellitus with foot ulcer; L97.509 - Non-pressure chronic ulcer of other part of unspecified foot with unspecified severity Code(s): E11.9 - Type 2 diabetes mellitus without complications Status: Acute Assessment and Plan: Last glucose 250 - more elevated likely due to steroids - continue sliding scale insulin, Januvia and add Lantus tonight while on IV steroids - he is typically well controlled with a recent hemoglobin A1c of 6.7%. (4) Obstructive sleep apnea: Code(s): G47.33 - Obstructive sleep apnea (adult) (pediatric) Status: Acute Assessment and Plan: Continue cpap although he has a hx of noncompliance (5) Paroxysmal atrial fibrillation: Code(s): I48.0 - Paroxysmal atrial fibrillation Status: Acute Assessment and Plan: Upcoming appoint with Dr. Rosen for cardiac ablation and currently paced. 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 (7) Coronary artery disease: Code(s): I25.10 - Atherosclerotic heart disease of [place] coronary artery without angina pectoris Status: Chronic Assessment and Plan: No acute issues though patient reports having 2 episodes of self-limiting left lateral chest discomfort last week and 1 last night. EKG reviewed, showing paced rhythm. Troponin negative x3. He is not having any chest pain at this time. Continue statin. echo ordered. He is to let us know immediately if he has any further chest pain. (8) Elevated blood pressure reading: Code(s): R03.0 - Elevated blood-pressure reading, without diagnosis of hypertension Status: Acute Assessment and Plan: Patient has had elevated blood pressure readings during hospitalization. He is not on any BP medications at home. Will start losartan 25 mg continue monitoring blood pressure. Most likely uncontrolled for long period time due to moderate LVH. Make adjustments as needed. Time Spent With Patient Time with patient: 25 - 35 minutes Subjective Date/time seen: 04/22/21 15:35 Interval history: Pt is a 65-year-old male here for COPD exacerbation. Date of Service 04/22/21: The patient reports continued shortness of breath and wheezing. He reports overall improvement since arrival. He took a shower today without much BAL. He reports improvement of his sputum production,slight yellow sputum but more white/clear. denies any chest pain, fever, chills, nausea, vomiting,
--- NOTE | 2021-04-22 16:04 | PM.CNPUL ---
Assessment and Plan Assessment and plan (1) Obstructive sleep apnea: Code(s): G47.33 - Obstructive sleep apnea (adult) (pediatric) Status: Acute Assessment and Plan: Patient carries a diagnosis of obstructive sleep apnea diagnosed in 2000. He has been untreated since then. Has no pulmonary hypertension, right atrial or right ventricular enlargement on his echocardiogram now and no evidence of right heart failure. His recent home sleep study on 02/16/2021 has obstructive sleep apnea with an AHI 35, Miguel-Gutierrez respirations with 33% of the night spent with a Miguel-Gutierrez pattern. He had 30 central apneas which comprised 32% of the total apneas. per the sleep stabbed lab study He should have a CPAP titration in the sleep lab. He is not a candidate for APAP as this can worsen central events . I will discontinue his auto PAP in the hospital now. He is scheduled to come to the Pulmonary Clinic on 05/03/2021 at 1:30 pm. (2) COPD exacerbation: Code(s): J44.1 - Chronic obstructive pulmonary disease with (acute) exacerbation Status: Acute Assessment and Plan: patient carries a diagnosis of emphysema from 30 years ago and has a former history of tobacco smoking at 188 pack years, mild apical predominant paraseptal emphysema on his CT scan of the chest from 12/10/2020. I have no PFTs. I believe he does have COPD. patient also has eosinophilia and should be maintained on inhaled corticosteroids in the future. I do not think he is fluid overloaded and his D-dimer is negative essentially excluding pulmonary embolism. Currently he has a has a COPD exacerbation with worsening shortness of breath, increased phlegm production, change in his phlegm production and wheezing. Patient has improved with Steroids, bronchodilators and antibiotics. At this time I will continue Solu-Medrol 40 mg IV q.6, ipratropium 0.5 mg Q 4 hours nebulized, leave albuterol 1.25 mg q.4 hours nebulized and Augmentin. I will discontinue his Symbicort as he is on maximal beta agonist and muscarinic antagonist with the ipratropium and leave albuterol. I have repeated a chest x-ray and there are no new findings on the chest x-ray that would account for his continued slow improvement. ABG on RA 7.52/35/54 without evidence of hypercarbia. PaO2 < 55 and qualifies for home O2. I will place patient on 1 liter NC now. He requires oxygen at night per his home sleep study with 27 minutes with sats less than 88%. I will place on 1 L NC tonight and perform overnight oximetry and his oxygen should be titered up to achieve A time with saturations less than or equal to 88% at less than 5 minutes. In patient follow up will resume on 04/25.Call with questions. When patient ready for discharge he should be discharged on these pulmonary medications: Prednisone 50 mg PO X 5 days Beta agonist, muscarinic antagonist and inhaled corticosteroids that insurance will cover (Trelegy 200/62.5/24 at 1 puffs Q day or Breztri 160/9/4.8 at 2 puffs BID) or Beta agonist and inhaled corticosteroid (Advair discus 500/50 at 1 puff BID, Advair HFA 230/21 at 2 puffs BID, Breo Ellipts 200/25 at 1 puff Q day, Dulera 200/5 at 2 puffs BID, or symbicort 160/4.5 at 2 puffs BID) Plus a Muscarinic antagonist that insurance will cover (atrovent 2 puffs Q 6 HR, incruse ellipta 62.5 at 1 puffs Q day, spireva 18 mics at 1 puff Q day or spireva respimat 2.5 mics at 1 puff Q day) rescue albuterol 2 puffs Q 4 hours PRN sob and wheezing Augmentin 875-125 for total of 7 days. Oxygen per home O2 assessment Oxygen at night per overnight oximetry. Follow up in pulmonary clinic 05/03/21 at 1:30 with previously scheduled appointment. History of Present Illness History of Present Illness Consult date: 04/22/21 Reason for consult: COPD Chief complaint: AE COPD Narrative: This is a new pulmonary consult for COPD exacerbation 65-year-ol
[2021-04-22 16:58] LABS: Glucose Point of Care 232 mg/dl (65-105)
[2021-04-22 17:08] LABS: Alveolar/Arterial O2 Gradient 54.2 mmHg; Base Excess ABG 4.9 mEq/l (+/-2.0); Fractional Inspired Oxygen 21 %; HCO3 ABG 27.5 mEq/l (22.0-26.0); Oxygen Content ABG 20.7 %vol (16.0-22.0); Oxygen Saturation ABG 91.4 % (95.0-100.0); Oxyhemoglobin 90.2 % THb (90.0-100.0); PCO2 ABG 34.5 mmHg (35.0-45.0); PO2 ABG 54.2 mmHg (80.0-100.0); PO2 FiO2 Ratio Arterial Blood 2.58 %; Total Hemoglobin 16.4 g/dL (12.0-18.0)
[2021-04-22 17:16] LABS: Device ROOM AIR; Modified Allen's Test Pass; Site Drawn LEFT RADIAL; pH ABG 7.519 (7.350-7.450)
[2021-04-22] MEDS: INSULIN GLARGINE (*BKC) 100 UNITS/ML SUB-Q (20:50)
[2021-04-22 21:12] LABS: Glucose Point of Care 323 mg/dl (65-105)
[2021-04-23] VITALS (17 sets, daily range): BP systolic 135–166; BP diastolic 81–98; PULSE 67–86; RESP 14–20; TEMP 36–36.6; O2SAT 92–95
[2021-04-23] MEDS: IPRATROPIUM BR 0.02% INH SOLN 0.5 MG/2.5 ML VIAL INHALATION ×5 (00:36→21:27)
[2021-04-23] MEDS: methylPREDNISolone SOD SUCC 40 MG VIAL IV PUSH ×5 (00:53→23:59)
[2021-04-23 06:12] LABS: Anion Gap 9 mmol/L (8-16); Blood Urea Nitrogen 43 mg/dL (9-20); Calcium 9.6 mg/dL (8.4-10.2); Carbon Dioxide 30 mmol/L (22-30); Chloride 98 mmol/L (98-107); Estimated CRCL calculation 72 ml/min; Estimated Glomerular Filt Rate 55; Glucose 199 mg/dL (65-110); Magnesium 2.3 mg/dL (1.6-2.3); Potassium 5.3 mmol/L (3.4-5.0); Sodium 137 mmol/L (137-145)
[2021-04-23] MEDS: APIXABAN 5 MG TABLET PO ×2 (06:38→17:38)
[2021-04-23 06:53] LABS: Glucose Point of Care 203 mg/dl (65-105)
[2021-04-23] MEDS: BENZONATATE 100 MG CAPSULE PO (07:58)
[2021-04-23] MEDS: allopurinoL 150 MG TABLET 450 MG PO (07:59)
[2021-04-23] MEDS: INSULIN ASPART (*BKC) 100 UNITS/ML SUB-Q ×3 (07:59→17:36)
[2021-04-23] MEDS: ROSUVASTATIN 10 MG TABLET 20 MG PO (08:00)
[2021-04-23] MEDS: AMOXICILLIN/CLAVULANATE K 875-125 MG TAB 1 TABLET PO ×2 (08:00→20:44)
[2021-04-23] MEDS: LOSARTAN POTASSIUM 25 MG TABLET PO (08:00)
[2021-04-23] MEDS: TAMSULOSIN HCL 0.4 MG CAPSULE PO (08:00)
[2021-04-23] MEDS: CHOLECALCIFEROL 1,000 UNITS TABLET 2000 UNITS PO (08:00)
[2021-04-23] MEDS: CLOPIDOGREL BISULFATE 75 MG TABLET PO (08:00)
[2021-04-23] MEDS: guaiFENesin 600 MG/DEXTROMETHORPHAN 30 MG SR TAB 12 HR 1 TAB PO ×2 (08:00→20:44)
[2021-04-23] MEDS: FENOFIBRATE NANOCRYSTALLIZED 145 MG TABLET PO (08:01)
[2021-04-23] MEDS: SOTALOL HCL 80 MG TABLET PO (08:01)
[2021-04-23] MEDS: FLUTICASONE PROPIONATE 0.05% NA SPR 16 GM BTL (*BKC) 1 SPRAY NASAL ×2 (08:01→20:44)
[2021-04-23] MEDS: SODIUM POLYSTYRENE SULFONONATE 15 GM/60 ML BTL PO (12:04)
[2021-04-23 12:15] LABS: Glucose Point of Care 246 mg/dl (65-105)
--- NOTE | 2021-04-23 14:46 | PM.IMPN ---
Progress Note: A&P Assessment and Plan (1) Chronic obstructive pulmonary disease: Code(s): J44.9 - Chronic obstructive pulmonary disease, unspecified Status: Acute Assessment and Plan: - Continue on Symbicort, continue with Xopenex breathing treatments but Continue at Q4hrs - Continue IV steroids 40 mg q6hrs. - Continue Augmentin Q12hrs - travel pt following, recommendations appreciated Repeat CXR reviewed Will need home O2 @[facility] (2) Chronic kidney disease, stage III (moderate): Code(s): N18.3 - Chronic kidney disease, stage 3 (moderate) Status: Acute Assessment and Plan: Creatinine is stable 1.3 today Avoid nephrtotoxins Renally dose all meds Monitr (3) Type 2 diabetes mellitus: Qualifiers: Diabetes mellitus shelter insulin use: without shelter use Diabetes mellitus complication status: with skin complications Diabetes mellitus complication detail: with foot ulcer Qualified Code(s): E11.621 - Type 2 diabetes mellitus with foot ulcer; L97.509 - Non-pressure chronic ulcer of other part of unspecified foot with unspecified severity Code(s): E11.9 - Type 2 diabetes mellitus without complications Status: Acute Assessment and Plan: BG 203 on chem likely due to steroids Continue sliding scale insulin, Januvia, Lantus added while on IV steroids Last hemoglobin A1c of 6.7% 11/2020 (4) Obstructive sleep apnea: Code(s): G47.33 - Obstructive sleep apnea (adult) (pediatric) Status: Acute Assessment and Plan: Recent home sleep study on 02/16/2021 Cell Attendant following, recommendations apprecaiated should have a CPAP titration in the sleep lab; not a candidate for APAP as this can worsen central events, auto PAP d/c'd per pulm Scheduled to f/u in Pulmonary Clinic on 05/03/2021 (5) Paroxysmal atrial fibrillation: Code(s): I48.0 - Paroxysmal atrial fibrillation Status: Acute Assessment and Plan: Scheduled to f/u with Dr. 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 Status: Acute Assessment and Plan: Continue Eliquis for stroke prophylaxis (7) Coronary artery disease: Code(s): I25.10 - Atherosclerotic heart disease of [place] coronary artery without angina pectoris Status: Chronic Assessment and Plan: Stable No CP ECG unremarkable Troponin negative x3 Continue statin ECHO reviewed, noted above echo ordered (8) Elevated blood pressure reading: Code(s): R03.0 - Elevated blood-pressure reading, without diagnosis of hypertension Status: Acute Assessment and Plan: No BP medications on admission Continue with losartan 25 mg Monitor Subjective Date/time seen: 04/23/21 14:46 Interval history: Pt seen and evaluated; +SOB, BAL Review of Systems Review of Systems: All systems reviewed & are unremarkable except as noted in HPI and below Exam Const: General: no acute distress, alert and awake Orientation/consciousness: patient oriented x3 HENMT: Head: normocephalic and atraumatic Ears: hearing grossly normal bilaterally and external ears normal Face and sinus: face symmetric Mouth: Yes Normal oral and palatal mucosa present Eyes: Pupils: Equal, round and reactive pupils present EOM: EOMs intact bilaterally Neck: Neck: full ROM, trachea midline and no JVD Thyroid: thyroid normal Chest: Chest palpation & inspection: normal inspection of the chest Resp: Effort & Inspection: normal respiratory effort Auscultation: diminished lung sounds Cardio: Jugular venous distension: no JVD Heart sounds: S1 normal heart sound present and S2 normal heart sound present Other: paced GI: Inspection: normal to inspection GI P
[2021-04-23 18:19] LABS: Glucose Point of Care 258 mg/dl (65-105)
[2021-04-23] MEDS: INSULIN GLARGINE (*BKC) 100 UNITS/ML SUB-Q (20:45)
[2021-04-23 20:54] LABS: Glucose Point of Care 309 mg/dl (65-105)
[2021-04-24] VITALS (15 sets, daily range): BP systolic 124–152; BP diastolic 70–91; PULSE 70–76; RESP 12–20; TEMP 36–36.7; O2SAT 91–96
[2021-04-24] MEDS: IPRATROPIUM BR 0.02% INH SOLN 0.5 MG/2.5 ML VIAL INHALATION ×6 (00:15→20:45)
[2021-04-24 06:10] LABS: Basophils Percent Auto 0.2 % (0.2-1.2); Hematocrit 47.9 % (42.0-52.0); Hemoglobin 16.1 g/dL (14.0-18.0); Immature Granulocyte Absolute 0.09 K/mm3 (0.00-0.031); Immature Granulocyte Percent A 0.8 % (0-0.5); Lymphocytes Percent Auto 17.7 % (18.3-44.2); Mean Corpuscular HGB Conc 33.6 g/dl (32-36); Mean Corpuscular Hemoglobin 29.2 pg (26-34); Mean Corpuscular Volume 86.9 fl (80-100); Mean Platelet Volume 11.1 fl (7.4-10.4); Monocytes Absolute Auto 0.5 K/mm3 (0.1-0.6); Monocytes Percent Auto 4.5 % (2.6-8.5); Neutrophils Absolute Auto 8.7 K/mm3 (1.3-6.7); Neutrophils Percent Auto 76.8 % (45.5-73.1); Platelet Count Result 297 k/mm3 (150-375); Red Blood Count 5.51 M/mm3 (4.6-6.20); Red Cell Distribution Width 13.3 % (11.5-14.5); White Blood Count 11.3 K/mm3 (4.5-10.0)
[2021-04-24 06:21] LABS: Anion Gap 7 mmol/L (8-16); Blood Urea Nitrogen 42 mg/dL (9-20); Calcium 9.2 mg/dL (8.4-10.2); Carbon Dioxide 31 mmol/L (22-30); Chloride 99 mmol/L (98-107); Estimated CRCL calculation 72 ml/min; Estimated Glomerular Filt Rate 55; Glucose 186 mg/dL (65-110); Potassium 4.7 mmol/L (3.4-5.0); Sodium 137 mmol/L (137-145)
[2021-04-24] MEDS: methylPREDNISolone SOD SUCC 40 MG VIAL IV PUSH ×4 (06:46→23:53)
[2021-04-24] MEDS: APIXABAN 5 MG TABLET PO ×2 (06:46→18:02)
[2021-04-24 06:54] LABS: Glucose Point of Care 206 mg/dl (65-105)
[2021-04-24] MEDS: INSULIN ASPART (*BKC) 100 UNITS/ML SUB-Q ×3 (07:46→18:00)
[2021-04-24] MEDS: LOSARTAN POTASSIUM 25 MG TABLET PO (07:47)
[2021-04-24] MEDS: FLUTICASONE PROPIONATE 0.05% NA SPR 16 GM BTL (*BKC) 1 SPRAY NASAL ×2 (07:47→20:22)
[2021-04-24] MEDS: guaiFENesin 600 MG/DEXTROMETHORPHAN 30 MG SR TAB 12 HR 1 TAB PO ×2 (07:47→20:22)
[2021-04-24] MEDS: allopurinoL 150 MG TABLET 450 MG PO (07:48)
[2021-04-24] MEDS: ROSUVASTATIN 10 MG TABLET 20 MG PO (07:48)
[2021-04-24] MEDS: CHOLECALCIFEROL 1,000 UNITS TABLET 2000 UNITS PO (07:48)
[2021-04-24] MEDS: CLOPIDOGREL BISULFATE 75 MG TABLET PO (07:48)
[2021-04-24] MEDS: SOTALOL HCL 80 MG TABLET PO (07:49)
[2021-04-24] MEDS: TAMSULOSIN HCL 0.4 MG CAPSULE PO (07:49)
[2021-04-24] MEDS: BENZONATATE 100 MG CAPSULE PO (07:50)
--- NOTE | 2021-04-24 11:26 | PM.IMPN ---
Progress Note: A&P Assessment and Plan (1) Chronic obstructive pulmonary disease: Code(s): J44.9 - Chronic obstructive pulmonary disease, unspecified Status: Acute Assessment and Plan: - Continue on Symbicort, continue with Xopenex breathing treatments but Continue at Q4hrs - Continue IV steroids 40 mg q6hrs. 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, recommendations appreciated Repeat CXR reviewed Will need home O2 @[facility] (2) Chronic kidney disease, stage III (moderate): Code(s): N18.3 - Chronic kidney disease, stage 3 (moderate) Status: Acute Assessment and Plan: Creatinine is stable 1.3 today Avoid nephrtotoxins Renally dose all meds Monitr (3) Type 2 diabetes mellitus: Qualifiers: Diabetes mellitus [facility] use: without [facility] use Diabetes mellitus complication status: with skin complications Diabetes mellitus complication detail: with foot ulcer Qualified Code(s): E11.621 - Type 2 diabetes mellitus with foot ulcer; L97.509 - Non-pressure chronic ulcer of other part of unspecified foot with unspecified severity Code(s): E11.9 - Type 2 diabetes mellitus without complications Status: Acute Assessment and Plan: BG 203-->186 on chem likely due to steroids Continue sliding scale insulin, Januvia, Lantus added while on IV steroids Last hemoglobin A1c of 6.7% 11/2020 (4) Obstructive sleep apnea: Code(s): G47.33 - Obstructive sleep apnea (adult) (pediatric) Status: Acute Assessment and Plan: Recent home sleep study on 02/16/2021 [place] 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 Rosen for cardiac ablation Currently paced - Echo-->EF 55%, Moderate LVH, diastolic dysfunction, moderately enlarged LA chamber, no pulmonary HTN (6) Chronic anticoagulation: Code(s): Z79.01 - alf (current) use of anticoagulants Status: Acute Assessment and Plan: Continue Eliquis for stroke prophylaxis (7) Coronary artery disease: Code(s): I25.10 - Atherosclerotic heart disease of [place] coronary artery without angina pectoris Status: Chronic Assessment and Plan: Stable No CP ECG unremarkable Troponin negative x3 Continue statin ECHO reviewed, noted above echo ordered (8) Elevated blood pressure reading: Code(s): R03.0 - Elevated blood-pressure reading, without diagnosis of hypertension Status: Acute Assessment and Plan: No BP medications on admission Continue with losartan 25 mg Monitor Subjective Date/time seen: 04/24/21 11:26 Interval history: Pt seen and evaluated; SOB, BAL improving Review of Systems Review of Systems: All systems reviewed & are unremarkable except as noted in HPI and below Exam Const: General: no acute distress, alert and awake Orientation/consciousness: patient oriented x3 HENMT: Head: normocephalic and atraumatic Ears: hearing grossly normal bilaterally and external ears normal Face and sinus: face symmetric Mouth: Yes Normal oral and palatal mucosa present Eyes: Pupils: Equal, round and reactive pupils present EOM: EOMs intact bilaterally Neck: Neck: full ROM, trachea midline and no JVD Thyroid: thyroid normal Chest: Chest palpation & inspection: normal inspection of the chest Resp: Effort & Inspection: normal respiratory effort Auscultation: diminished lung sounds Cardio: Jugular venous distension: no JVD Rate: regular rate Rhythm: regular rhythm Heart sounds: S1 normal heart sound present and S2 normal heart sound
[2021-04-24] MEDS: AMOXICILLIN/CLAVULANATE K 875-125 MG TAB 1 TABLET PO ×2 (11:53→20:22)
[2021-04-24 12:02] LABS: Glucose Point of Care 266 mg/dl (65-105)
[2021-04-24] MEDS: FENOFIBRATE NANOCRYSTALLIZED 145 MG TABLET PO (13:55)
[2021-04-24 17:58] LABS: Glucose Point of Care 225 mg/dl (65-105)
[2021-04-24 19:51] LABS: Glucose Point of Care 260 mg/dl (65-105)
[2021-04-24] MEDS: INSULIN GLARGINE (*BKC) 100 UNITS/ML SUB-Q (20:19)
[2021-04-25] VITALS (13 sets, daily range): BP systolic 120–142; BP diastolic 59–81; PULSE 68–110; RESP 16–20; TEMP 36.1–36.6; O2SAT 92–94
[2021-04-25] MEDS: IPRATROPIUM BR 0.02% INH SOLN 0.5 MG/2.5 ML VIAL INHALATION ×2 (03:25→08:26)
[2021-04-25] MEDS: APIXABAN 5 MG TABLET PO ×2 (06:12→17:13)
[2021-04-25] MEDS: methylPREDNISolone SOD SUCC 40 MG VIAL IV PUSH (06:12)
[2021-04-25] MEDS: CHOLECALCIFEROL 1,000 UNITS TABLET 2000 UNITS PO (08:00)
[2021-04-25] MEDS: allopurinoL 150 MG TABLET 450 MG PO (08:00)
[2021-04-25] MEDS: ROSUVASTATIN 10 MG TABLET 20 MG PO (08:00)
[2021-04-25] MEDS: CLOPIDOGREL BISULFATE 75 MG TABLET PO (08:01)
[2021-04-25] MEDS: FLUTICASONE PROPIONATE 0.05% NA SPR 16 GM BTL (*BKC) 1 SPRAY NASAL ×2 (08:01→20:55)
[2021-04-25] MEDS: AMOXICILLIN/CLAVULANATE K 875-125 MG TAB 1 TABLET PO ×2 (08:01→20:55)
[2021-04-25] MEDS: LOSARTAN POTASSIUM 25 MG TABLET PO (08:02)
[2021-04-25] MEDS: SOTALOL HCL 80 MG TABLET PO (08:02)
[2021-04-25] MEDS: TAMSULOSIN HCL 0.4 MG CAPSULE PO (08:02)
[2021-04-25] MEDS: FENOFIBRATE NANOCRYSTALLIZED 145 MG TABLET PO (08:02)
[2021-04-25] MEDS: guaiFENesin 600 MG/DEXTROMETHORPHAN 30 MG SR TAB 12 HR 1 TAB PO ×2 (08:02→20:55)
[2021-04-25 08:37] LABS: Glucose Point of Care 191 mg/dl (65-105)
--- NOTE | 2021-04-25 10:04 | PM.PNPUL ---
Progress Note: A&P Assessment and Plan (1) Obstructive sleep apnea: Code(s): G47.33 - Obstructive sleep apnea (adult) (pediatric) Status: Acute Assessment and Plan: Patient carries a diagnosis of obstructive sleep apnea diagnosed in 2000. He has been untreated since then. Has no pulmonary hypertension, right atrial or right ventricular enlargement on his echocardiogram now and no evidence of right heart failure. His recent home sleep study on 02/16/2021 has obstructive sleep apnea with an AHI 35, Miguel-Gutierrez respirations with 33% of the night spent with a Miguel-Gutierrez pattern. He had 30 central apneas which comprised 32% of the total apneas. per the sleep stabbed lab study He should have a CPAP titration in the sleep lab. He is not a candidate for APAP as this can worsen central events . I will discontinue his auto PAP in the hospital now. He is scheduled to come to the Pulmonary Clinic on 05/03/2021 at 1:30 pm. He requires oxygen at night per his home sleep study with 27 minutes with sats less than 88%. Patient had an overnight oximetry on 1 L nasal cannula with average saturation 93%, lowest saturation 86%, time with saturation less than or equal to 88% was 2 minutes or 1% of the monitored time. Continue 1 L at night. (2) COPD exacerbation: Code(s): J44.1 - Chronic obstructive pulmonary disease with (acute) exacerbation Status: Acute Assessment and Plan: patient carries a diagnosis of emphysema from 30 years ago and has a former history of tobacco smoking at 188 pack years, mild apical predominant paraseptal emphysema on his CT scan of the chest from 12/10/2020. I have no PFTs. I believe he does have COPD. patient also has eosinophilia and should be maintained on inhaled corticosteroids in the future. I do not think he is fluid overloaded and his D-dimer is negative essentially excluding pulmonary embolism. Currently he has a has a COPD exacerbation with worsening shortness of breath, increased phlegm production, change in his phlegm production and wheezing. Patient has improved with Steroids, bronchodilators and antibiotics. At this time I will continue Solu-Medrol 40 mg IV q.6, ipratropium 0.5 mg Q 4 hours nebulized, leave albuterol 1.25 mg q.4 hours nebulized and Augmentin. I will discontinue his Symbicort as he is on maximal beta agonist and muscarinic antagonist with the ipratropium and leave albuterol. I have repeated a chest x-ray and there are no new findings on the chest x-ray that would account for his continued slow improvement. ABG on RA 7.52/35/54 without evidence of hypercarbia. PaO2 < 55 on RA and qualifies for home O2. I will place patient on 1 liter NC now. He requires oxygen at night per his home sleep study with 27 minutes with sats less than 88%. I will place on 1 L NC tonight and perform overnight oximetry and his oxygen should be titered up to achieve A time with saturations less than or equal to 88% at less than 5 minutes. 04/25 Patient states he continues to improve. I will change his Solu-Medrol to prednisone 50 mg p.o. today. I will change him to trilogy inhaler 200-60 2.5-24 at 1 puff q.day today. Today is day 7 of Augmentin. Will discontinue after today. I will check home O2 assessment today for anticipated discharge on 04/26. If stable overnight ready for discharge 04/26 on these pulmonary medications: Prednisone 50 mg PO X 5 days Trelegy 200/62.5/24 at 1 puffs Q day Rescue albuterol 2 puffs Q 4 hours PRN sob and wheezing Oxygen per home O2 assessment (I have ordered today) Oxygen 1 L at night. Follow up in pulmonary clinic 05/03/21 at 1:30 with previously scheduled appointment. Subjective Date/time seen: 04/25/21 10:04 Interval history: This is a new pulmonary consult for COPD exacerbation 65-year-old with a history of emphysema diagnosed 30 years ago on p.r.n. albuterol at home, BILLY diagnosed in
[2021-04-25 10:47] LABS: Anion Gap 7 mmol/L (8-16); Blood Urea Nitrogen 49 mg/dL (9-20); Calcium 8.8 mg/dL (8.4-10.2); Carbon Dioxide 29 mmol/L (22-30); Chloride 97 mmol/L (98-107); Estimated CRCL calculation 63 ml/min; Estimated Glomerular Filt Rate 47; Glucose 374 mg/dL (65-110); Potassium 4.7 mmol/L (3.4-5.0); Sodium 133 mmol/L (137-145)
[2021-04-25] MEDS: predniSONE 20 MG TABLET 40 MG PO (10:48)
[2021-04-25 12:25] LABS: Glucose Point of Care 312 mg/dl (65-105)
[2021-04-25] MEDS: INSULIN ASPART (*BKC) 100 UNITS/ML SUB-Q ×2 (12:30→12:33)
--- NOTE | 2021-04-25 13:41 | HOMEO2EVAL ---
Evaluation was performed at [facility] Home Oxygen Evaluation RC: Home Oxygen (O2) Evaluation Start: 04/25/21 10:13 Freq: ONCE Status: Active Protocol: RPE Activity Type Activity Date Activity User E-Sign Co-Sign Detail Recorded Client Recorded Date Recorded By Document 04/25/21 13:15 DJO [email or web address] 04/25/21 13:41 DJO Document 04/25/21 13:20 DJO [email or web address] 04/25/21 13:41 DJO Document 04/25/21 13:30 [email or web address] [email or web address] 04/25/21 13:41 DJO 04/25/21 04/25/21 04/25/21 13:15 13:20 13:30 Home O2 Evaluation Test Phase Resting Exercise Resting Oxygen Delivery Room Air Room Air Room Air Pulse Oximetry (90-100 %) 94 93 94 Pulse Rate (60-100 beats/min) 73 110 H 76 Ambulation Distance (feet) 1,000 Treatment Charges O2 Evaluation - Inpatient
--- NOTE | 2021-04-25 13:41 | PCRCNOTE ---
HOME O2 EVAL COMPLETE, NO REQUIREMENTS
--- NOTE | 2021-04-25 14:25 | PM.IMPN ---
Progress Note: A&P Assessment and Plan (1) Chronic obstructive pulmonary disease: Code(s): J44.9 - Chronic obstructive pulmonary disease, unspecified Status: Acute Assessment and Plan: Acute exacerbation with wheezing on presentation - Transition to PO prednisone 50 mg x 5 days. - Continue Trelelgy - Continue prn xopenex and atrovent nebs - Will complete day 7 of Augmentin today - Appreciate pulmonology consultation - Home O2 eval ordered to be completed for hopeful discharge tomorrow if continued improvement (2) Chronic kidney disease, stage III (moderate): Code(s): N18.3 - Chronic kidney disease, stage 3 (moderate) Status: Acute Assessment and Plan: Baseline 1.3-1.7 - Renal function is consistent with baseline - Renally dose medications and avoid nephrotoxins (3) Type 2 diabetes mellitus: Qualifiers: Diabetes mellitus [facility] insulin use: without [facility] use Diabetes mellitus complication status: with skin complications Diabetes mellitus complication detail: with foot ulcer Qualified Code(s): E11.621 - Type 2 diabetes mellitus with foot ulcer; L97.509 - Non-pressure chronic ulcer of other part of unspecified foot with unspecified severity Code(s): E11.9 - Type 2 diabetes mellitus without complications Status: Acute Assessment and Plan: Last A1c 6.7 in November 2020. Blood sugars been slightly elevated above target due to IV steroids - continue Lantus while on steroids - sliding scale insulin - Accu-Cheks and hypoglycemic protocol - continue Januvia - anticipate improvement in blood sugars as steroids are weaned (4) Obstructive sleep apnea: Code(s): G47.33 - Obstructive sleep apnea (adult) (pediatric) Status: Acute Assessment and Plan: Untreated, ongoing since 2000 - appreciate pulmonology consultation - continue with 1 L supplemental O2 at night - outpatient pulmonology clinic follow-up 05/03/2021 (5) Paroxysmal atrial fibrillation: Code(s): I48.0 - Paroxysmal atrial fibrillation Status: Acute Assessment and Plan: rate is controlled at this time. - Continue Eliquis and sotalol - Scheduled to f/u with lab animal technician Dr. Rosen for cardiac ablation (6) Coronary artery disease: Code(s): I25.10 - Atherosclerotic heart disease of [place] coronary artery without angina pectoris Status: Chronic Assessment and Plan: Stable with no acute issues - troponins negative x3 - echocardiogram reviewed - continue statin - continue Plavix (7) Elevated blood pressure reading: Code(s): R03.0 - Elevated blood-pressure reading, without diagnosis of hypertension Status: Acute Assessment and Plan: he is not currently on antihypertensive therapy - BP was elevated in the 160s during admission but has improved with addition of losartan - 120-130s systolic today. - monitor BP trends Subjective Date/time seen: 04/25/21 14:25 Interval history: date of service: 04/25/2021 Ankur Corral is a 65-year-old male with a history of BILLY, COPD, CKD stage 3, diabetes mellitus, and paroxysmal atrial fibrillation on chronic anticoagulation who is seen in follow-up for COPD exacerbation. He is beginning to feel better. He states he is back to 70% lung capacity. he is still coughing and feels that he has some phlegm but is unable to expectorates. He is wheezing occasionally but notes significant improvement. he denies chest tightness, pain or palpitations. he has been able to ambulate to the restroom. He does feel a bit lightheaded occasionally upon standing. he feels steady on his feet. Denies urinary symptoms. Reports regular bowel movements. No additional concerns at this time. Review of Systems Review of Systems: All systems reviewed & are unremarkable except as noted in HPI and below Exam Narrative: Mr. Corral is A well-nourished, well
[2021-04-25 17:39] LABS: Glucose Point of Care 194 mg/dl (65-105)
[2021-04-25] MEDS: INSULIN GLARGINE (*BKC) 100 UNITS/ML SUB-Q (20:56)
[2021-04-25 21:40] LABS: Glucose Point of Care 294 mg/dl (65-105)
[2021-04-26] MEDS: APIXABAN 5 MG TABLET PO (05:20)
[2021-04-26 06:00] VITALS: BP 156/98; PULSE 69; RESP 18; TEMP 36.2; O2SAT 95
[2021-04-26 06:41] LABS: Hematocrit 51.3 % (42.0-52.0); Hemoglobin 16.9 g/dL (14.0-18.0); Mean Corpuscular HGB Conc 32.9 g/dl (32-36); Mean Corpuscular Hemoglobin 29.2 pg (26-34); Mean Corpuscular Volume 88.8 fl (80-100); Mean Platelet Volume 10.9 fl (7.4-10.4); Platelet Count Result 286 k/mm3 (150-375); Red Blood Count 5.78 M/mm3 (4.6-6.20); Red Cell Distribution Width 13.5 % (11.5-14.5); White Blood Count 14.7 K/mm3 (4.5-10.0)
[2021-04-26 06:50] LABS: Anion Gap 6 mmol/L (8-16); Blood Urea Nitrogen 45 mg/dL (9-20); Calcium 9.1 mg/dL (8.4-10.2); Carbon Dioxide 33 mmol/L (22-30); Chloride 96 mmol/L (98-107); Estimated CRCL calculation 67 ml/min; Estimated Glomerular Filt Rate 51; Glucose 138 mg/dL (65-110); Potassium 4.9 mmol/L (3.4-5.0); Sodium 135 mmol/L (137-145)
[2021-04-26 07:44] LABS: Glucose Point of Care 153 mg/dl (65-105)
[2021-04-26] MEDS: allopurinoL 150 MG TABLET 450 MG PO (09:16)
[2021-04-26] MEDS: CHOLECALCIFEROL 1,000 UNITS TABLET 2000 UNITS PO (09:16)
[2021-04-26] MEDS: guaiFENesin 600 MG/DEXTROMETHORPHAN 30 MG SR TAB 12 HR 1 TAB PO (09:16)
[2021-04-26] MEDS: FLUTICASONE PROPIONATE 0.05% NA SPR 16 GM BTL (*BKC) 1 SPRAY NASAL (09:16)
[2021-04-26] MEDS: predniSONE 20 MG TABLET 40 MG PO (09:16)
[2021-04-26] MEDS: ROSUVASTATIN 10 MG TABLET 20 MG PO (09:17)
[2021-04-26 09:18] VITALS: PULSE 71
[2021-04-26] MEDS: FENOFIBRATE NANOCRYSTALLIZED 145 MG TABLET PO (09:18)
[2021-04-26] MEDS: SOTALOL HCL 80 MG TABLET PO (09:18)
[2021-04-26] MEDS: CLOPIDOGREL BISULFATE 75 MG TABLET PO (09:18)
[2021-04-26] MEDS: LOSARTAN POTASSIUM 25 MG TABLET PO (09:18)
[2021-04-26] MEDS: TAMSULOSIN HCL 0.4 MG CAPSULE PO (09:19)
--- NOTE | 2021-04-26 09:37 | PM.PNPUL ---
Progress Note: A&P Assessment and Plan (1) Obstructive sleep apnea: Code(s): G47.33 - Obstructive sleep apnea (adult) (pediatric) Status: Acute Assessment and Plan: Patient carries a diagnosis of obstructive sleep apnea diagnosed in 2000. He has been untreated since then. Has no pulmonary hypertension, right atrial or right ventricular enlargement on his echocardiogram now and no evidence of right heart failure. His recent home sleep study on 02/16/2021 has obstructive sleep apnea with an AHI 35, Miguel-Gutierrez respirations with 33% of the night spent with a Miguel-Gutierrez pattern. He had 30 central apneas which comprised 32% of the total apneas. per the sleep stabbed lab study He should have a CPAP titration in the sleep lab. He is not a candidate for APAP as this can worsen central events . I will discontinue his auto PAP in the hospital now. He is scheduled to come to the Pulmonary Clinic on 05/03/2021 at 1:30 pm. He requires oxygen at night per his home sleep study with 27 minutes with sats less than 88%. Patient had an overnight oximetry on 1 L nasal cannula with average saturation 93%, lowest saturation 86%, time with saturation less than or equal to 88% was 2 minutes or 1% of the monitored time. Continue 1 L at night. (2) COPD exacerbation: Code(s): J44.1 - Chronic obstructive pulmonary disease with (acute) exacerbation Status: Acute Assessment and Plan: patient carries a diagnosis of emphysema from 30 years ago and has a former history of tobacco smoking at 188 pack years, mild apical predominant paraseptal emphysema on his CT scan of the chest from 12/10/2020. I have no PFTs. I believe he does have COPD. patient also has eosinophilia and should be maintained on inhaled corticosteroids in the future. I do not think he is fluid overloaded and his D-dimer is negative essentially excluding pulmonary embolism. Currently he has a has a COPD exacerbation with worsening shortness of breath, increased phlegm production, change in his phlegm production and wheezing. Patient has improved with Steroids, bronchodilators and antibiotics. At this time I will continue Solu-Medrol 40 mg IV q.6, ipratropium 0.5 mg Q 4 hours nebulized, leave albuterol 1.25 mg q.4 hours nebulized and Augmentin. I will discontinue his Symbicort as he is on maximal beta agonist and muscarinic antagonist with the ipratropium and leave albuterol. I have repeated a chest x-ray and there are no new findings on the chest x-ray that would account for his continued slow improvement. ABG on RA 7.52/35/54 without evidence of hypercarbia. PaO2 < 55 on RA and qualifies for home O2. I will place patient on 1 liter NC now. He requires oxygen at night per his home sleep study with 27 minutes with sats less than 88%. I will place on 1 L NC tonight and perform overnight oximetry and his oxygen should be titered up to achieve A time with saturations less than or equal to 88% at less than 5 minutes. 04/25 Patient states he continues to improve. I will change his Solu-Medrol to prednisone 50 mg p.o. today. I will change him to trilogy inhaler 200-60 2.5-24 at 1 puff q.day today. Today is day 7 of Augmentin. Will discontinue after today. I will check home O2 assessment today for anticipated discharge on 04/26. 04/26 Patient continues to improve and he states he is 75-80% back to normal. He still has a cough and occasionally mild wheezes but is in no respiratory distress and ready to go home today. Patient had an overnight oximetry last night on room air demonstrating a average saturation of 94%, lowest saturation 83%, saturation less than or equal to 88% for 12 minutes or 3% of the monitored time. Patient had a home O2 assessment yesterday which demonstrated resting room air saturation 94%. Saturation with ambulation on room air was 93%. From a pulmonary perspective he is ready for discharge 04/26 on these pulmonary medications:
--- NOTE | 2021-04-26 10:37 | PCRCNOTE ---
Home o2 needed for nocturnal use per apnea link. Arranging with [facility], all paperwork, notes, order and eval faxed. [facility] will contact patient and arrange O2 equipment set-up in home.
--- NOTE | 2021-04-26 10:57 | PM.DS ---
DS: Admitting Diagnosis Admitting Diagnosis COPD exacerbation DS: Discharge Diagnosis Discharge Diagnosis (1) Chronic obstructive pulmonary disease: Code(s): J44.9 - Chronic obstructive pulmonary disease, unspecified Status: Acute Assessment and Plan: Acute exacerbation with wheezing on presentation - received IV Solu-Medrol and transitioned to p.o. prednisone. Will continue 50 mg p.o. prednisone x5 days - seen in consultation by pulmonology. - started on Spiriva and Symbicort inhalers - patient noted to have eosinophilia, indicating possible asthma-COPD, and will continue with inhaled corticosteroid - continue albuterol prn - completed 7 days of Augmentin - home O2 eval completed. No need for oxygen with rest or with exertion, but does require 1 L at night. See below. - outpatient pulmonology follow up in 1 week (2) Chronic kidney disease, stage III (moderate): Code(s): N18.3 - Chronic kidney disease, stage 3 (moderate) Status: Acute Assessment and Plan: Baseline 1.3-1.7. Renal function remained consistent with baseline (3) Type 2 diabetes mellitus: Qualifiers: Diabetes mellitus mcc insulin use: without terminal operator use Diabetes mellitus complication status: with skin complications Diabetes mellitus complication detail: with foot ulcer Qualified Code(s): E11.621 - Type 2 diabetes mellitus with foot ulcer; L97.509 - Non-pressure chronic ulcer of other part of unspecified foot with unspecified severity Code(s): E11.9 - Type 2 diabetes mellitus without complications Status: Acute Assessment and Plan: Last A1c 6.7 in November 2020. Blood sugars were slightly elevated above target due to IV steroids. Improved with Lantus which was added for steroid related hyperglycemia in addition to sliding scale insulin. Anticipate improvement in blood sugars with cessation of steroids. Encourage monitoring of blood sugars at home. Continue Januvia. (4) Obstructive sleep apnea: Code(s): G47.33 - Obstructive sleep apnea (adult) (pediatric) Status: Acute Assessment and Plan: Untreated, ongoing since 2000. Seen in consultation by pulmonology. Nocturnal O2 study performed. He will need 1 L supplemental O2 at night. Oxygen tank will be delivered to him. He will follow-up in pulmonology clinic on 05/03/2021 for further evaluation and management of his BILLY (5) Paroxysmal atrial fibrillation: Code(s): I48.0 - Paroxysmal atrial fibrillation Status: Acute Assessment and Plan: Rate remained controlled. Continue Eliquis and sotalol. Scheduled to f/u with furnace setter Dr. Rosen for cardiac ablation on 05/06/21. (6) Coronary artery disease: Code(s): I25.10 - Atherosclerotic heart disease of [place] coronary artery without angina pectoris Status: Chronic Assessment and Plan: Stable with no acute issues. Troponins negative x3. Echocardiogram reviewed. Continue statin and plavix. (7) Elevated blood pressure reading: Code(s): R03.0 - Elevated blood-pressure reading, without diagnosis of hypertension Status: Acute Assessment and Plan: He is not currently on antihypertensive therapy, stating that he was recently taken off his medications because his BP had been well controlled. BP noted to be elevated during hospitalization and he was started on Losartan with improvement in his BP. He reports with home monitoring his BP is in the 120-130s systolic. He would like to wait on initiating antihypertensive therapy. Discussed monitoring BP at home and recording for review by PCP. He has follow up scheduled already. DS: Summary Hospital Course Hospital Course: date of admission: 04/18/2021 date of discharge: 04/26/2021 Ankur Corral is a 65-year-old male with a history of BILLY, COPD, CKD stage 3, diabetes mellitus, and paroxysmal atrial fibrillation on chronic anticoagulation who pres
== END 2021-04-26 11:30 | disposition home or self-care (01) | DRG 140 ==
LOC: ANHED 17:41 → ANH3MEDSUR 19:25
PROVIDERS: Emergency Medicine; Internal Medicine Pulmonary Disease; Nurse Practitioner Adult Health; Physician Assistant; Admitting Provider Internal Medicine Critical Care Medicine; Emergency Provider Emergency Medicine; PCP Physician Assistant; Visit Provider Physician Assistant
DX: J44.1 Chronic obstructive pulmonary disease with (acute) exacerbation (principal); E11.22 Type 2 diabetes mellitus with diabetic chronic kidney disease; I12.9 Hypertensive chronic kidney disease with stage 1 through stage 4 chronic kidney disease, or unspecified chronic kidney disease; N18.30 Chronic kidney disease, stage 3 unspecified; I48.0 Paroxysmal atrial fibrillation; I25.10 Atherosclerotic heart disease of native coronary artery without angina pectoris; E11.621 Type 2 diabetes mellitus with foot ulcer; L97.509 Non-pressure chronic ulcer of other part of unspecified foot with unspecified severity; E11.42 Type 2 diabetes mellitus with diabetic polyneuropathy; E78.5 Hyperlipidemia, unspecified; N40.0 Benign prostatic hyperplasia without lower urinary tract symptoms; G47.33 Obstructive sleep apnea (adult) (pediatric); Z89.429 Acquired absence of other toe(s), unspecified side; Z95.0 Presence of cardiac pacemaker; Z95.5 Presence of coronary angioplasty implant and graft; Z98.42 Cataract extraction status, left eye; Z98.41 Cataract extraction status, right eye; Z87.891 Personal history of nicotine dependence; Z79.01 Long term (current) use of anticoagulants
CPT/HCPCS: 36415; 36600; 71045; 71046; 80048; 80076; 82805; 82948; 83735; 84484; 85025; 85027; 85380; 87070; 87205; 93005; 93306; 94618; 94640; 94667; 94762; 96374; 96376; 99285; A9270; G0378; G0379; J1815; J2920; J2930; J7512

== ENCOUNTER → 2021-06-10 08:01 | Outpatient (CLI) | payer OTHER, SELFPAY ==
--- NOTE | 2021-06-24 01:28 | WPDSLEEPSTUD ---
Sleep Study Date of Study: 06/10/21 Ordering Provider: Kade Rutherford APRN Interpreting Physician: Laurie Skinner MD Sleep Study Type: CPAP Titration Height: 1.88 m Weight: 130.181 kg Body Mass Index: 36.8 Neck Circumference (inches): 17.5 [place]: 7 Reason for Sleep Study * 02/16/2021 home sleep test using [facility] with severe obstructive sleep apnea, AHI of 35, desaturation to 80%, and Miguel-Gutierrez respirations with 33% of the night spent with a Miugel-Gutierrez pattern. He presents for a CPAP titration. Sleep History Ankur Benavides is a 65 year old man referred for a home sleep test by his oreman. He rarely awakens from sleep feeling short of breath. He frequently awakens at night with heartburn, belching or coughing. He frequently snores and is frequently loud enough that others complain about it. He occasionally has trouble sleeping with a cold. He rarely wakes up gasping for breath at night. He frequently has breathing problems at night observed by others. He does not sweat excessively at night. He frequently notices his heart pounding or beating irregularly at night. He occasionally falls asleep during the day, rarely involuntarily and never falls asleep while driving. He does not have loss of muscle tone with strong emotion. He does not have daytime difficulties due to excessive sleepiness. He does not feel paralyzed on waking or falling asleep. He does not have vivid dreamlike scenes upon awakening or falling asleep. He does not feel afraid to go to sleep. He rarely has nightmares. He rarely remembers his dreams. He occasionally has racing thoughts. He frequently feels sad or depressed. He occasionally has anxiety. He frequently has muscular tension. He frequently notices parts of his body jerking. He frequently kicks at night. He frequently has crawling and aching feelings in his legs. He rarely has morning jaw pain. He constantly is bothered by pain during the day. He frequently is awakened by pain at night and frequently wakes up feeling stiff in the morning. He occasionally wakes up with sore achy muscles. He constantly wakes up with pain in the neck and spine. He has depression, fatigue. Normal bedtime is between 9:00 p.m. and 11:00 p.m. usually falling asleep quickly. He typically wakes up 2 or 3 times at night. While awake, he may get up and move around and watch TV. On average he stays awake for 30 minutes but sometimes this may take hours for him to return to sleep. He typically wakes up between 4 and 5 in the morning. His weekend schedule is the same. He estimates getting 4-5 hours of sleep at night but it is very disrupted sleep. he does take naps in the afternoon or evening. Short naps are not refreshing. He is drowsy for 3 hours after waking. He feels better in the morning compared other times a day. Habits: No tobacco for many years. No caffeine or alcohol kee. He does consume recreational drugs, The type is not specified. [facility] Past Medical History Medical History Benign prostatic hyperplasia Chronic anticoagulation Chronic kidney disease, stage III (moderate) Baseline creatinine is around 1.4 to 1.70. Chronic obstructive pulmonary disease Coronary artery disease Status post stent x4. Patient of Dr. Salcedo. Degenerative disc disease Diabetic foot ulcer associated with diabetes mellitus due to underlying condition (04/2020) Gout History of cardioversion (11/2020) Sees Dr. Rosen (EP) at [facility]. Hyperlipidemia Hypertension Kidney stones Obstructive sleep apnea Osteomyelitis of foot, acute (04/2020) Pacemaker Secondary to third-degree heart block Paroxysmal atrial fibrillation Reflex sympathetic dystrophy Left lower extremity. Type 2 diabetes mellitus with diabetic neuropathy Hemoglobin A1c was 6.7% in November 2020. Surgical History Surgical History History o
[2021-06-24 01:49] VITALS: BMI 36.8
== END ==
PROVIDERS: PCP Physician Assistant; Visit Provider Nurse Practitioner Family
DX: G47.33 Obstructive sleep apnea (adult) (pediatric) (principal)
CPT/HCPCS: 95811

== ENCOUNTER 2021-12-19 09:56 | Outpatient (CLI) | payer OTHER, SELFPAY ==
--- NOTE | ~2021-12-19 | CT_ITS ---
EXAMINATION:CT lung screening DATE: 12/19/2021 10:34 INDICATION: Personal history of nicotine dependence. TECHNIQUE: Computed tomography (CT) of the chest was performed without intravenous contrast. Automate d exposure control and iterative reconstruction technique were employed. The dose-length product (DLP ) was 296.10 mGy-cm. COMPARISON: Chest CT 12/10/2020 FINDINGS: There is mild emphysema. Calcified right lung nodules and calcified right hilar and mediast inal lymph nodes are consistent with old granulomatous disease. There is mild atelectasis in the lowe r lobes, right middle lobe, and lingula. Again seen is a 5 mm nodule in right upper lobe. Again seen is a 3 mm nodule in right middle lobe. No pleural effusion. There is left atrial and left ventricular enlargement the heart. There are coronary artery calcifications. No pericardial effusion. There is a left chest wall pacer with leads in the right atrium and right ventricle. Calcifications in the sple en are consistent with old granulomatous disease. There is a 15 mm cyst in right kidney. There are br idging endplate osteophytes at multiple levels in the spine, consistent with diffuse idiopathic skele yi hyperostosis (DISH). There is an intrathecal catheter with tip at T7. There are old healed left r ib fractures. IMPRESSION: 1. Lung-RADS category 2: Benign appearance or behavior. Continue annual screening with noncontrast lo w-dose chest CT in 12 months. Reviewed, dictated and finalized at location A. IMPRESSION: 1. Lung-RADS category 2: Benign appearance or behavior. Continue annual screeni ng with noncontrast low-dose chest CT in 12 months.
[2021-12-19 11:21] LABS: Basophils Absolute Auto 0.1 K/mm3 (0.0-0.1); Basophils Percent Auto 0.5 % (0.2-1.2); Eosinophils Absolute Auto 0.4 K/mm3 (0-0.3); Eosinophils Percent Auto 3.8 % (0-4.4); Hematocrit 44.7 % (42.0-52.0); Hemoglobin 14.9 g/dL (14.0-18.0); Immature Granulocyte Absolute 0.04 K/mm3 (0.00-0.031); Immature Granulocyte Percent A 0.4 % (0-0.5); Lymphocytes Absolute Auto 3.89 K/mm3 (0.9-3.2); Lymphocytes Percent Auto 39.6 % (18.3-44.2); Mean Corpuscular HGB Conc 33.3 g/dl (32-36); Mean Corpuscular Hemoglobin 29.6 pg (26-34); Mean Corpuscular Volume 88.9 fl (80-100); Mean Platelet Volume 11.3 fl (7.4-10.4); Monocytes Absolute Auto 0.6 K/mm3 (0.1-0.6); Monocytes Percent Auto 6.2 % (2.6-8.5); Neutrophils Absolute Auto 4.9 K/mm3 (1.3-6.7); Neutrophils Percent Auto 49.5 % (45.5-73.1); Platelet Count Result 241 k/mm3 (150-375); Red Blood Count 5.03 M/mm3 (4.6-6.20); Red Cell Distribution Width 14.7 % (11.5-14.5); White Blood Count 9.8 K/mm3 (4.5-10.0)
[2021-12-19 11:36] LABS: Alanine Aminotransferase 22 U/L (4-50); Albumin Level 4.4 g/dL (3.5-5.1); Alkaline Phosphatase 63 U/L (38-126); Anion Gap 9 mmol/L (8-16); Aspartate Amino Transferase 24 U/L (17-59); Bilirubin,Total 0.3 mg/dL (0.2-1.3); Blood Urea Nitrogen 34 mg/dL (9-20); Calcium 9.6 mg/dL (8.4-10.2); Carbon Dioxide 25 mmol/L (22-30); Chloride 105 mmol/L (98-107); Estimated Glomerular Filt Rate 40; Glucose 208 mg/dL (65-110); Potassium 4.4 mmol/L (3.4-5.0); Sodium 139 mmol/L (137-145)
== END 2021-12-19 09:57 | disposition home or self-care (01) ==
PROVIDERS: PCP Physician Assistant; Referring Provider Internal Medicine Cardiovascular Disease; Visit Provider Physician Assistant
DX: Z01.810 Encounter for preprocedural cardiovascular examination (principal); I42.9 Cardiomyopathy, unspecified; Z87.891 Personal history of nicotine dependence
CPT/HCPCS: 36415; 71271; 80053; 85025

== ENCOUNTER 2022-02-01 13:30 | Outpatient (CLI) | payer OTHER, SELFPAY ==
[2022-02-01 13:59] LABS: Alanine Aminotransferase 21 U/L (6-50); Albumin Level 4.3 g/dL (3.5-5.1); Alkaline Phosphatase 55 U/L (38-126); Anion Gap 8 mmol/L (8-16); Aspartate Amino Transferase 29 U/L (17-59); Bilirubin,Total 0.3 mg/dL (0.2-1.3); Blood Urea Nitrogen 31 mg/dL (9-20); Calcium 9.6 mg/dL (8.4-10.2); Carbon Dioxide 25 mmol/L (22-30); Chloride 105 mmol/L (98-107); Estimated Glomerular Filt Rate 38; Glucose 157 mg/dL (65-110); Potassium 4.1 mmol/L (3.4-5.0); Sodium 138 mmol/L (137-145)
== END 2022-02-01 13:31 | disposition home or self-care (01) ==
LOC: ANHLAB 13:33
PROVIDERS: PCP Physician Assistant; Visit Provider Internal Medicine Cardiovascular Disease
DX: I25.118 Atherosclerotic heart disease of native coronary artery with other forms of angina pectoris (principal)
CPT/HCPCS: 36415; 80053

== ENCOUNTER 2022-12-20 08:34 | Outpatient (CLI) | payer OTHER, SELFPAY ==
--- NOTE | ~2022-12-20 | CT_ITS ---
CT Scan of the Chest without Contrast: Clinical Indication: Lung cancer screening, smoking history Technique: Contiguous sections were acquired throughout the chest without intravenous contrast. Dose reduction technique was used on this scan by utilizing automated exposure control and iterative recon struction technique. The dose-length product (DLP) was 326.25 mGy-cm. COMPARISON: 12/19/2021 and 12/10/2020 Findings: There is no evidence of any significant mediastinal, hilar or axillary lymphadenopathy. Calcified sub carinal lymph nodes are present. There are atherosclerotic calcifications of the aorta. Extensive cor onary artery calcifications are present. There is no evidence of pleural or pericardial effusion. Stable 4 mm subpleural nodule right upper lobe (axial image 60). Stable large calcified right lower l obe granuloma. Stable additional smaller right lower lobe calcified granuloma. Images through the upper abdomen reveal no abnormalities. Extensive DISH of the thoracic spine noted. Impression: Lung-RADS 2: Benign appearance. 12 month follow-up screening CT advised. Reviewed, dictated and finalized at location . Impression: Lung-RADS 2: Benign appearance. 12 month follow-up screening CT advised.
== END 2022-12-20 08:35 | disposition home or self-care (01) ==
PROVIDERS: PCP Physician Assistant; Visit Provider Physician Assistant
DX: Z12.2 Encounter for screening for malignant neoplasm of respiratory organs (principal); F17.210 Nicotine dependence, cigarettes, uncomplicated
CPT/HCPCS: 71271

== ENCOUNTER 2023-03-01 12:59 | Outpatient (CLI) | payer MEDICARE, MEDICAID, SELFPAY ==
--- NOTE | 2023-03-01 | ECHO_ITS ---
Patient Info Name: Ankur Corral Age: 67 years : 1955 Gender: Male Ht: 74 in Wt: 244 lbs BSA: 2.43 m2 HR: 110 bpm BP: 111 / 71 mmHg Heart Rhythm: Paced Technical Quality: Fair Exam Date: 03/01/2023 1:20 PM Exam Location: [facility] Patient Status: Outpatient Admit Date: 03/01/2023 Staff Ordering Physician: Feliciano Trimble Line Fisher: Yeni Love RDCS Attending Provider: Feliciano Trimble Referring Physician: Nai HAILE; Exam Type: CA echo doppler color flow Study Info Indications I48.0 - Paroxysmal atrial fibrillation Complete two-dimensional, color flow and Doppler transthoracic echocardiogram is performed. Summary 1. Complete two-dimensional, color flow and Doppler transthoracic echocardiogram is performed. 2. Left ventricular chamber dimension is mildly enlarged. 3. Left ventricular systolic function is mildly reduced, estimated at 40-45%. 4. There is mildly increased left ventricular wall thickness. 5. Left ventricular septal wall motion is abnormal with septal motion related to pacing. 6. The left ventricular diastolic function is grade I diastolic dysfunction. 7. Right ventricular systolic function is normal. 8. Left atrial chamber dimension is severely enlarged. 9. Right atrial chamber dimension is moderately enlarged. 10. There is trace mitral valve regurgitation. 11. There is trace tricuspid valve regurgitation. Left Ventricle Left ventricular chamber dimension is mildly enlarged. Left ventricular systolic function is mildly reduced, estimated at 40-45%. There is mildly increased left ventricular wall thickness. Left ventricular septal wall motion is abnormal with septal motion related to pacing. The left ventricular diastolic function is grade I diastolic dysfunction. Global longitudinal strain is abnormal at -7 %. Right Ventricle Linear artifact in right ventricle suggestive of catheter(s), pacemaker lead(s), or ICD lead(s). Right ventricular chamber dimension is normal. Right ventricular systolic function is normal. Left Atria Left atrial chamber dimension is severely enlarged. Right Atria Linear artifact in the right atrium suggestive of catheter(s), pacemaker lead(s), or ICD lead(s). Right atrial chamber dimension is moderately enlarged. Atrial Septum Intact interatrial septum visualized by color flow imaging. Aortic Valve The aortic valve is trileaflet. There is no aortic valve stenosis. There is no aortic valve regurgitation. There is mild aortic valve calcification. Pulmonic Valve The pulmonic valve is not well visualized. Mitral Valve The mitral valve has thickened leaflets. There is trace mitral valve regurgitation. Tricuspid Valve There is trace tricuspid valve regurgitation. Pericardium/Pleural There is no pericardial effusion. Inferior Vena Cava Normal IVC size. Aorta The aortic root size at the sinus of Valsalva is normal. Left Ventricular Outflow Tract Name Value Normal LVOT 2D LVOT Diameter 2.2 cm LVOT Doppler LVOT Peak Gradient 4 mmHg LVOT Mean Gradient 3 mmHg LVOT VTI 18 cm LVOT VTI/AV VTI Ratio
== END 2023-03-01 13:00 | disposition home or self-care (01) ==
PROVIDERS: PCP Physician Assistant
DX: I48.0 Paroxysmal atrial fibrillation (principal); R93.1 Abnormal findings on diagnostic imaging of heart and coronary circulation
CPT/HCPCS: 93306

== ENCOUNTER 2023-06-27 00:05 | Day surgery (SDC) | payer OTHER, SELFPAY ==
[2023-05-11 16:00] VITALS: BMI 31.0
[2023-06-19 14:00] VITALS: BMI 30.9
--- NOTE | 2023-06-26 13:26 | PM.HPGS ---
History of Present Illness History of Present Illness Consent: Risks, benefits, and alternatives have been discussed and questions answered. Patient agrees to proceed with procedure. Chief complaint: hematochezia Narrative: Ankur Corral is a 67 year old male referred for colon cancer screening. He does have a history of polyps. He recently performed Hemoccult test which was positive. Review of Systems Review of Systems: All systems reviewed & are unremarkable except as noted in HPI and below PMFSH Past Medical History Medical History Benign prostatic hyperplasia Chronic anticoagulation Chronic kidney disease, stage III (moderate) Baseline creatinine is around 1.4 to 1.70. Chronic obstructive pulmonary disease Coronary artery disease Status post stent x4. Patient of Dr. Salcedo. Degenerative disc disease Diabetic foot ulcer associated with diabetes mellitus due to underlying condition (04/2020) Gout History of cardioversion (11/2020) Sees Dr. Rosen () at [facility]. Hyperlipidemia Hypertension Kidney stones Obstructive sleep apnea Osteomyelitis of foot, acute (04/2020) Pacemaker Secondary to third-degree heart block Paroxysmal atrial fibrillation Reflex sympathetic dystrophy Left lower extremity. Type 2 diabetes mellitus with diabetic neuropathy Hemoglobin A1c was 6.7% in November 2020. Surgical History Surgical History History of amputation of toe (04/2020) History of colonoscopy with polypectomy (1999) History of heart artery stent (11/2020) X4 History of left inguinal hernia repair (2014) History of surgical removal of pilonidal cyst History of umbilical hernia repair (2001) Presence of intrathecal pump Nonfunctioning. Status post cataract extraction of both eyes with insertion of intraocular lens Family History Family History Mother Unknown family medical history Sibling Multiple sclerosis Father , MVA No problems noted. Social History Social History Social History: Mr. Corral lives at home with his long-term significant other. He is independent in his daily activities. 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 His primary care provider is Joe Ha PA-C. He designates his significant other, Zahida Frazier, as his surrogate decision maker. He would like to be a full code. Smoking packs per day: 2 Smoking cigarettes per day: 40.0 Years smoked: 46 Smoking pack-years: 92.00 Smoking status: Former smoker Tobacco type: cigarettes Second hand tobacco smoke exposure: No Alcohol intake: current Drinks per week: 6 Alcohol use details: DRINKS Substance use: current Substance use type: marijuana Other substance usage details: Smokes marijuana as needed for pain control. Living arrangements: with family Additional living arrangements comments: Gender identity (if verbalized by the patient): Male Sexual Orientation (if Verbalized by the Patient): Straight or Heterosexual Spiritual care concerns: No Meds Home Medications and Allergies Home Medications Medication Instructions Recorded Confirmed Type allopurinol 300 mg tablet 450 mg PO DAILY 05/03/20 06/19/23 History inhalational spacing device 05/03/20 06/19/23 History (Imanhamjesus Minaya [facility] spacer) sitagliptin phosphate 100 mg 100 mg PO DAILY 05/03/20 06/19/23 History tablet (Januvia) apixaban 5 mg tablet (Eliquis) 5 mg PO BID 11/29/20 06/19/23 History cholecalciferol (vitamin D3) 50 50 mcg PO DAILY 04/18/21 06/19/23 History mcg (2,000 unit) tablet (Vitamin D3) cinnamon bark 500 mg capsule 500 mg PO DAILY 04/18/21 06/19/23 History (Cinnamon) clopidogrel 75 mg tablet 75 mg PO DAILY 04/18/21 06/19/23 History coQ10 (ubiquinol) 100 mg capsule 100 mg PO
[2023-06-27 08:37] VITALS: BP 95/55; PULSE 73; RESP 20; TEMP 36.9; O2SAT 97
[2023-06-27] MEDS: LACTATED RINGERS 1,000 ML 150 ML IV CONT (08:52)
[2023-06-27 08:53] LABS: Glucose Point of Care 105 mg/dl (65-105)
--- NOTE | 2023-06-27 09:42 | WPDANESEPPF ---
Anes - Initial Pre Proc Eval Procedure: Operation Date: 06/27/23 10:00 Proposed Procedures p Colonoscopy - Filiberto Garibay MD Date/Time: 06/27/23 09:42 Surgeon: Filiberto Garibay MD Pre Op Diagnosis: hematochezia Patient Data Age: 67 Gender: M Height: 1.88 m Weight: 109.5 kg Last Vital Signs Temp 98.4 F 06/27/23 08:37 Pulse 73 06/27/23 08:37 Resp 20 06/27/23 08:37 BP 95/55 L 06/27/23 08:37 Pulse Ox 97 06/27/23 08:37 O2 Del Method Room Air 06/27/23 08:37 Allergies Allergy/AdvReac Type Severity Reaction Status Date / Time ibuprofen Allergy Severe SWELLS Verified 06/27/23 08:34 RESPIR. DISTRESS WASP Allergy Severe Anaphylaxis Uncoded 06/27/23 08:34 Home Medications Medication Instructions Recorded Confirmed Type allopurinol 300 mg tablet 450 mg PO DAILY 05/03/20 06/19/23 History inhalational spacing device 05/03/20 06/19/23 History ([facility] spacer) sitagliptin phosphate 100 mg 100 mg PO DAILY 05/03/20 06/19/23 History tablet (Januvia) apixaban 5 mg tablet (Eliquis) 5 mg PO BID 11/29/20 06/19/23 History cholecalciferol (vitamin D3) 50 50 mcg PO DAILY 04/18/21 06/19/23 History mcg (2,000 unit) tablet (Vitamin D3) cinnamon bark 500 mg capsule 500 mg PO DAILY 04/18/21 06/19/23 History (Cinnamon) clopidogrel 75 mg tablet 75 mg PO DAILY 04/18/21 06/19/23 History coQ10 (ubiquinol) 100 mg capsule 100 mg PO DAILY 04/18/21 06/19/23 History cod liver oil 1 cap PO DAILY 04/18/21 06/19/23 History fenofibrate nanocrystallized 145 145 mg PO DAILY 04/18/21 06/19/23 History mg tablet (Tricor) krill 1 cap PO DAILY 04/18/21 06/19/23 History fon-[id number]-roozhxcblvslv 300 mg-90 mg-24 mg-50 mg capsule (krill oil) milk thistle 175 mg capsule 175 mg PO DAILY 04/18/21 06/19/23 History omega-3 fatty acids 1,000 mg PO BID 04/18/21 06/19/23 History rosuvastatin 20 mg tablet 20 mg PO DAILY 04/18/21 06/19/23 History tamsulosin 0.4 mg capsule (Flomax) 0.4 mg PO QAM 04/18/21 06/19/23 History vitamin B complex 1 cap PO DAILY 04/18/21 06/19/23 History tiotropium bromide 18 mcg capsule 1 cap inhalation DAILY #30 04/26/21 06/19/23 Rx with inhalation device (Spiriva inhalations with HandiHaler) metoprolol succinate 25 mg 12.5 mg PO DAILY 11/11/21 06/19/23 History tablet,extended release 24 hr nitroglycerin 0.4 mg sublingual 0.4 mg sublingual Q5M PRN Angina 11/11/21 06/19/23 History tablet montelukast 10 mg tablet 10 mg PO DAILY #30 tabs 04/02/23 06/19/23 Rx azelastine 137 mcg (0.1 %) nasal See Rx Instructions .Route 04/12/23 06/19/23 Rx spray aerosol .COMPLEX #30 mL fluticasone propionate 50 1 spray intranasal BID PRN nasal 04/30/23 06/19/23 Rx mcg/actuation nasal congestion #16 mL spray,suspension Laboratory Tests 06/27/23 08:46 POC Capillary Glucose 105 mg/dl (65-105) Patient hx anesthesia problems: none Family hx anesthesia problems: none Results Review: All pre-operative results and documents have been reviewed as part of the pre-operative evaluation. [facility] Past Medical History Medical History Benign prostatic hyperplasia Chronic anticoagulation Chronic kidney disease, stage III (moderate) Baseline creatinine is around 1.4 to 1.70. Chronic obstructive pulmonary disease Coronary artery disease Status post stent x4. Patient of Dr. Salcedo. Degenerative disc disease Diabetic foot ulcer associated with diabetes mellitus due to underlying condition (04/2020) Gout History of cardioversion (11/2020) Sees Dr. Rosen (EP) at [facility]. Hyperlipidemia Hypertension Kidney stones Obstructive sleep apnea Osteomyelitis of foot, acute (04/2020) Pacemaker Secondary to third-degree heart block Paroxysmal atrial fibrillation Reflex sympathetic dystrophy Left lower extremity. Type 2 diabetes mellitus with diabetic neuropathy Hemoglobin A1c was
[2023-06-27 09:55] VITALS: BP 80/49; PULSE 71; RESP 20; O2SAT 96
[2023-06-27 10:05] VITALS: BP 92/55; PULSE 70; RESP 20; O2SAT 95
[2023-06-27 10:15] VITALS: BP 95/54; PULSE 70; RESP 20; O2SAT 93
== END 2023-06-27 10:25 | disposition home or self-care (01) ==
PROVIDERS: PCP Physician Assistant; Visit Provider Internal Medicine Gastroenterology
PROC: 0DJD8ZZ Inspection of Lower Intestinal Tract, Via Natural or Artificial Opening Endoscopic (ICD-10-PCS; CPT 45378; principal; 2023-06-27 10:00)
DX: Z12.11 Encounter for screening for malignant neoplasm of colon (principal); R19.5 Other fecal abnormalities; I12.9 Hypertensive chronic kidney disease with stage 1 through stage 4 chronic kidney disease, or unspecified chronic kidney disease; E11.22 Type 2 diabetes mellitus with diabetic chronic kidney disease; N18.30 Chronic kidney disease, stage 3 unspecified; E11.40 Type 2 diabetes mellitus with diabetic neuropathy, unspecified; I48.0 Paroxysmal atrial fibrillation; N40.0 Benign prostatic hyperplasia without lower urinary tract symptoms; I25.10 Atherosclerotic heart disease of native coronary artery without angina pectoris; M10.9 Gout, unspecified; J44.9 Chronic obstructive pulmonary disease, unspecified; E78.5 Hyperlipidemia, unspecified; G90.522 Complex regional pain syndrome I of left lower limb; Z95.0 Presence of cardiac pacemaker; Z95.5 Presence of coronary angioplasty implant and graft; Z79.51 Long term (current) use of inhaled steroids; Z79.01 Long term (current) use of anticoagulants; Z79.02 Long term (current) use of antithrombotics/antiplatelets; Z87.891 Personal history of nicotine dependence; F12.90 Cannabis use, unspecified, uncomplicated
CPT/HCPCS: 45378; 82948; J2704; J7120

== ENCOUNTER 2023-12-24 11:06 | Outpatient (CLI) | payer MEDICARE, MEDICAID, SELFPAY ==
--- NOTE | ~2023-12-24 | CT_ITS ---
CT Scan of the Chest without Contrast: Clinical Indication: Lung cancer screening, nicotine dependence Technique: Contiguous sections were acquired throughout the chest without intravenous contrast. Dose reduction technique was used on this scan by utilizing automated exposure control and iterative recon struction technique. The dose-length product (DLP) was 244.20 mGy-cm. Findings: There is no evidence of any significant mediastinal, hilar or axillary lymphadenopathy. Calcified sub carinal lymph nodes present. There are extensive coronary artery calcifications. There is no evidence of pleural or pericardial effusion. 4 mm apical pulmonary nodule present (axial image 60). 3 mm right middle lobe pulmonary nodule presen t (axial image 86). Large calcified right lower lobe granuloma present. Images through the upper abdomen reveal renal cysts, including probable left hyperdense cyst. Impression: Lung RADS 2: Benign appearance. 12 month follow-up screening CT advised. Reviewed, dictated and finalized at [facility]. Impression: Lung RADS 2: Benign appearance. 12 month follow-up screening CT advised.
== END 2023-12-24 11:07 | disposition home or self-care (01) ==
PROVIDERS: PCP Physician Assistant; Visit Provider Physician Assistant
DX: Z12.2 Encounter for screening for malignant neoplasm of respiratory organs (principal); Z87.891 Personal history of nicotine dependence
CPT/HCPCS: 71271

== ENCOUNTER 2024-03-20 13:01 | Outpatient (CLI) | payer OTHER, SELFPAY ==
--- NOTE | ~2024-03-20 | CT_ITS ---
CT brain wo con Ordering provider: Jayjay Ha, KIANNA History: 68 years Male with . headaches and syncopy x 6 months, prev head inj 1984 . Comparison: May 11, 2021 Technique: CT of the head without contrast. Radiation reduction technique utilized. DLP is 681 mGy. FINDINGS: BRAIN PARENCHYMA AND CSF SPACES: No midline shift, mass effect or hemorrhage. The brain parenchyma a nd CSF spaces are otherwise normal. VISUALIZED PARANASAL SINUSES: Bilateral maxillary and ethmoid sinus disease. MASTOIDS: Well aerated. BONES: The bones appear intact. SOFT TISSUES: Visualized nasopharynx is normal. Superficial soft tissues are normal. IMPRESSION: No acute intracranial findings. Reviewed, dictated and finalized at location A.
== END 2024-03-20 13:02 | disposition home or self-care (01) ==
PROVIDERS: PCP Physician Assistant; Visit Provider Physician Assistant
DX: G44.52 New daily persistent headache (NDPH) (principal)
CPT/HCPCS: 70450

== ENCOUNTER 2024-04-01 13:12 | Outpatient (CLI) | payer OTHER, SELFPAY ==
--- NOTE | ~2024-04-01 | US_ITS ---
EXAMINATION: US carotid duplex BI DATE: 04/01/2024 13:41 INDICATION: Syncope and collapse TECHNIQUE: Grayscale, color Doppler, and pulsed Doppler images of the cervical carotid arteries were obtained. The degree of vessel stenosis is placed in one of the following categories: normal, <50%, 5 0-69%, >=70% but less than near-occlusion, near-occlusion, or total occlusion. Note that percent sten osis relative to normal distal artery lumen diameter is indirectly measured from velocity measurement s as described by Angel, et al. Radiology 2003; [id number]:[id number]. COMPARISON: None. FINDINGS: RIGHT: The right common carotid artery (CCA) peak systolic velocity (PSV) is 103 cm/s. The right internal ca rotid artery (ICA) PSV is 61 cm/s. The right ICA end-diastolic velocity (EDV) is 23 cm/s. The right I CA/CCA PSV ratio is 0.6. Grayscale and color Doppler images yield an estimate of <50% diameter reduct ion from plaque in the ICA. The external carotid artery (ECA) PSV is 124 cm/s. There is antegrade anuel w in the right vertebral artery. LEFT: The left CCA PSV is 63 cm/s. The left ICA PSV is 74 cm/s. The left ICA EDV is 22 cm/s. The left ICA/C CA PSV ratio is 1.1. Grayscale and color Doppler images yield an estimate of <50% diameter reduction from plaque in the ICA. The ECA PSV is 108 cm/s. There is antegrade flow in the left vertebral artery . IMPRESSION: 1. <50% stenosis in the right internal carotid artery. 2. <50% stenosis in the left internal carotid artery. Reviewed, dictated and finalized at location A.
== END 2024-04-01 13:13 | disposition home or self-care (01) ==
LOC: CHSIMG 13:16
PROVIDERS: PCP Physician Assistant; Visit Provider Physician Assistant
DX: R55 Syncope and collapse (principal); I65.23 Occlusion and stenosis of bilateral carotid arteries
CPT/HCPCS: 93880

== ENCOUNTER 2025-01-06 13:29 | Outpatient (CLI) | payer OTHER, SELFPAY ==
--- NOTE | ~2025-01-06 | US_ITS ---
Renal-Bladder ultrasound Clinical History: Renal mass Technique: Real-time sonographic imaging of the kidneys and urinary bladder was performed. Findings: The right kidney measures 11.7 cm in length and the left kidney measures 10.8 cm. There is no hydronephrosis or renal calculus identified. Renal cortical echogenicity is mildly increased. Bila teral renal cysts are present.. The urinary bladder is moderately distended at the time of this exam. No intraluminal echoes are iden tified. No abnormal wall thickening is seen. Impression: Bilateral renal cysts. Increased renal echogenicity could reflect chronic medical renal disease. Reviewed, dictated and finalized at location . Impression: Bilateral renal cysts. Increased renal echogenicity could reflect chronic medical renal disease.
[2025-01-06 14:17] LABS: Hemoglobin 13.6 g/dL (12.4-15.3); Mean Corpuscular HGB Conc 32.4 g/dL (32-36); Mean Corpuscular Hemoglobin 29.2 pg (27.0-31.0); Mean Corpuscular Volume 90.1 fL (78.0-102.0); Mean Platelet Volume 10.4 fl (8.7-11.0); Platelet Count Result 277 K/mm3 (150-420); Red Blood Count 4.66 M/mm3 (4.70-6.10); Red Cell Distribution Width 14.6 % (11.6-14.4); White Blood Count 8.6 K/mm3 (4.8-10.8)
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
--- OUTSIDE RECORDS SUMMARY | 2025-01-06 14:28 | XMS_ITS | Data Portability ---
Author Organization [facility] Paula Gregory Address [address] [place] [address] Care Team Providers Care Multimedia Producer Name Role Phone ELIZ HA Primary Care Provider [phone] Assessment Encounter Date Assessment Date Assessment LastModified by Organization Details LastModified Time 11/17/2024 11/17/2024 Paroxysmal atria l fibrillation: AFib burden 3% on recent device interrogation.. No symptom awareness at this juncture. We had a lengthy discussion regarding anticoagulation management especially in light of multiple falls. I have encouraged discussions regarding left atrial appendage occlusion in light of elevated CHADS2 Vasc score but multiple falls and increased bleeding risk. He plans to undertake that with Dr. Trimble of electrophysiology with whom he has an established relationship. In the interim he will continue apixaban 5 mg b.i.d.. Complete heart block, MOTOR DRIVER-P : Followed by EP /Dr. Trimble. Device interrogation 11/10/2024 reviewed which shows 85% battery longevity and appropriate BiV pacing Coronary artery disease: Status post RCA PCI with moderate medically managed disease in the LAD. Given no PCI since 2020 and frequent falls, we will discontinue clopidogrel after shared decision-making. We will initiate aspirin 81 mg daily. In the absence of angina and orthostatic hypotension, we will discontinue isosorbide mononitrate. He will continue ranolazine 500 mg daily for now which we will consider deescalating at follow-up visits if he continues to remain angina free. CHF, chronic systolic and diastolic: Continue current doses of metoprolol succinate, Entresto and Jardiance. He is presumably not on spironolactone due to his CKD. In light of NYHA class 3 dyspnea, obtain follow-up echocardiogram given no assessment of LV function since 2021. CKD stage IIIB: Encouraged hydration, avoiding nonsteroidals. Check follow-up renal function. Hypertension: Metoprolol and sacubitril valsartan as above. Discontinue isosorbide mononitrate. Low-sodium diet and ambulatory blood pressure monitoring reinforced. Type 2 diabetes: Managed per expertise of primary care team. Mixed hyperlipidemia: Continue rosuvastatin 20 mg daily. Check follow-up CBC/CMP/thyroid study/renal function. We will request a routine follow-up in 6 weeks. Total time spent on this visit is 75 minutes including review of his records from electrophysiology, Cardiology, cardiac catheterization, echocardiography and PCP., [id number] discussion, physical examination and documentation [email or web address] Not available 11/17/2024 14:18:36 12/29/2024 12/29/2024 CAD: Symptoms stable. Single antiplatelet therapy with aspirin 81 mg daily. Ranolazine 500 mg b.i.d. for antianginal effect. Paroxysmal atrial fibrillation: [place] 3%. No symptom awareness .Currently on apixaban 5 BID with plans for left atrial appendage occlusion by EP/Dr. Trimble after which he will likely discontinue apixaban and initiate clopidogrel. Chronic systolic and diastolic heart failure : Recent echocardiogram with the recovery of LVEF to 50-55%. Continue metoprolol succinate 25 mg daily, sacubitril-valsarta n 97-103 mg b.i.d. and Jardiance 10 mg daily. Type 2 diabetes: Managed by PCP. Maintained on Jardiance and Januvia. Discussed cardiovascular benefits and side effect profile of GLP 1 receptor agonist. After shared decision-making initiate Ozempic 0.25 mg subcutaneous weekly. MOTOR DRIVER-P in situ: Appropriate functioning. Managed by EP/Dr. Trimble. Plan follow-up in 4 months and p.r.n. [email or web address] Not available 12/29/2024 14:01:03 Plan of Treatment Reminders Order Date Submit Date Provider Last Modified By Organization Details Last Modified Time Details Appointments ANY 15 2024 10:15A Jacqueline Allan MD Not available Not available Not available Lab TSH, serum or plasma 2024 025 [email or web address] [facility], [address] [address], [place], [address], 12/08/2024 10:07:28 CBC 2024 025 [facility], [address] [place] [address] 2, [place], [address], 11/18/2024 08:22:41 lipid panel, serum 2024 025 [facility], [address] [place] [address], [place], [address], 11/18/2024 08:22:38 CMP, serum or plasma 2024 025 [facility], [address] [place] [address], [place], [address], 11/18/2024 08:22:39 HbA1c (hemoglob in A1c), blood 2024 025 [facility], [address] [place] [address], [place], [address], 11/18/2024 08:22:40 Referral None recorded. Procedures None recorded. Surgeries None recorded. Imaging US, kidney 2024 025 [facility], [address] [facility], [place], [address], 01/02/2025 12:25:18 US, echocardi ogram, transthor acic, complete, w/ color flow 2024 025 [facility], [address], [place], [address], 12/17/2024 08:56:54 electroca rdiogram 2024 025 [email or web address] In-Office Order, Internal Use Only DO Not Attach Compendium DO Not Attach Compendium, Do Not Delete/merge, [id number] 11/17/2024 12:20:21 US, duplex, carotid artery [address] [facility], [address] [facility], [place], [address], 04/01/2024 15:13:19 US, subclavia n artery 2023 024 [facility] (Imaging), [address] [facility] [address], [place], [address], 05/21/2024 10:22:15 Medication Orders Ozempic 0.25 mg or 0.5 mg (2 mg/1.5 mL) subcutane ous pen injector 2024 025 [facility], [address] [place], [address], 12/29/2024 11:54:27 aspirin 81 mg tablet,de layed release 2024 025 [facility], [address] [place], [address], 11/17/2024 12:20:49 azithromy shyam 500 mg tablet 2024 025 [facility], [address] [place], [address], 11/17/2024 12:13:09 Januvia 100 mg tablet 2023 024 [facility] [address], [address] [place], [address], 03/26/2024 12:13:01 Patient TargetsNo targets recorded. Patient Instructions Encounter Date Encounter Id Patient Instructions Last Modified By Organization Details Last Modified Time 03/26/2024 [id number] A healthy lifestyle: care instructions [email or web address] Not available 03/26/2024 11:25:48 10/20/2024 [id number] A healthy lifestyle: care instructions [email or web address] Not available 10/20/2024 14:45:14 12/29/2024 [id number] A healthy lifestyle: care instructions [email or web address] Not available 12/29/2024 11:57:06 01/02/2025 [id number] A healthy lifestyle: care instructions [email or web address] Not available 01/02/2025 12:12:26 Reason for Referral None Reported. Results Created Date Observation Date Name Description Value Unit Range Abnormal Flag Note LastModifiedBy Organization Detail LastModifiedTime 03/04/20 24 03/05/2024 LIPID PANEL cholesterol, total 154 mg/dL 100-19 9 Not Available [address], [address], 03/05/2024 17:10:03 03/04/20 24 03/05/2024 LIPID PANEL triglyceride s 202 mg/dL 0-149 above high normal Not Available [address], [address], 03/05/2024 17:10:03 03/04/20 24 03/05/2024 LIPID PANEL HDL cholesterol 38 mg/dL >39 below low normal Not Available [address], [address], 03/05/2024 17:10:03 03/04/20 24 03/05/2024 LIPID PANEL VLDL cholesterol taylor 34 mg/dL 5-40 Not Available [address], [address], 03/05/2024 17:10:03 03/04/20 24 03/05/2024 LIPID PANEL LDL chol calc ([facility]) 82 mg/dL 0-99 Not Available [address], [address], 03/05/2024 17:10:03 03/04/20 24 03/05/2024 COMP. METAB OLIC PANEL (14) glucose 133 mg/dL 70-99 above high normal Not Available [address], [address], 03/05/2024 17:10:05 03/04/20 24 03/05/2024 COMP. METAB OLIC PANEL (14) BUN 34 mg/dL 8-27 above high normal Not Available [address], [address], 03/05/2024 17:10:05 03/04/20 24 03/05/2024 COMP. METAB OLIC PANEL (14) creatinine 1.81 mg/dL 0.76-1 .27 above high normal Not Available [address], [address], 03/05/2024 17:10:05 03/04/20 24 03/05/2024 COMP. METAB OLIC PANEL (14) eGFR 40 mL/mi n/1.7 3 >59 below low normal Not Available [address], [address], 03/05/2024 17:10:05 03/04/20 24 03/05/2024 COMP. METAB OLIC PANEL (14) BUN/creatini ne ratio 19 10-24 Not Available [address], [address], 03/05/2024 17:10:05 03/04/20 24 03/05/2024 COMP. METAB OLIC PANEL (14) sodium 143 mmol/ L 134-14 4 Not Available [address], [address], 03/05/2024 17:10:05 03/04/20 24 03/05/2024 COMP. METAB OLIC PANEL (14) potassium 4.4 mmol/ L 3.5-5. 2 Not Available [address], [address], 03/05/2024 17:10:05 03/04/20 24 03/05/2024 COMP. METAB OLIC PANEL (14) chloride 106 mmol/ L 96-106 Not Available [address], [address], 03/05/2024 17:10:05 03/04/20 24 03/05/2024 COMP. METAB OLIC PANEL (14) carbon dioxide, total 22 mmol/ L 20-29 Not Available [address], [address], 03/05/2024 17:10:05 03/04/20 24 03/05/2024 COMP. METAB OLIC PANEL (14) calcium 9.5 mg/dL 8.6-10 .2 Not Available [address], [address], 03/05/2024 17:10:05 03/04/20 24 03/05/2024 COMP. METAB OLIC PANEL (14) protein, total 7.0 g/dL 6.0-8. 5 Not Available [address], [address], 03/05/2024 17:10:05 03/04/20 24 03/05/2024 COMP. METAB OLIC PANEL (14) albumin 4.2 g/dL 3.9-4. 9 Not Available [address], [address], 03/05/2024 17:10:05 03/04/20 24 03/05/2024 COMP. METAB OLIC PANEL (14) globulin, total 2.8 g/dL 1.5-4. 5 Not Available [address], [address], 03/05/2024 17:10:05 03/04/20 24 03/05/2024 COMP. METAB OLIC PANEL (14) A/G ratio 1.5 Not Available [address], [address], 03/05/2024 17:10:05 03/04/20 24 03/05/2024 COMP. METAB OLIC PANEL (14) bilirubin, total 0.2 mg/dL 0.0-1. 2 Not Available [address], [address], 03/05/2024 17:10:05 03/04/20 24 03/05/2024 COMP. METAB OLIC PANEL (14) alkaline phosphatase 67 IU/L 44-121 Not Available [address], [address], 03/05/2024 17:10:05 03/04/20 24 03/05/2024 COMP. METAB OLIC PANEL (14) AST (SGOT) 24 IU/L 0-40 Not Available [address], [address], 03/05/2024 17:10:05 03/04/20 24 03/05/2024 COMP. METAB OLIC PANEL (14) ALT (SGPT) 24 IU/L 0-44 Not Available [address], [address], 03/05/2024 17:10:05 03/04/20 24 03/05/2024 PSA (SERI AL MONIT OR) prostate specific Ag 0.9 NG/mL 0.0-4. 0 Alayna ECLIA metho dolog y. Accor ding to the Ameri can [employer]o g[employer] iatio n, Serum PSA shoul d decre ase and remai n at undet ectab le level s after radic al prost atect abbey. The AUA defin es bioch emica l recur rence as an initi al PSA value 0.2 ng/mL or great er follo wed by a subse quent confi rmato ry PSA value 0.2 ng/mL or great er. Value s obtai theodora with diffe rent assay metho ds or kits canno t be used inter lara eably . Resul ts canno t be inter prete d as absol tohono o'[place]ham evide nce of the prese nce or absen ce of han krishna . Not Available [address], [address], 03/05/2024 17:10:06 03/04/20 24 03/05/2024 PSA (SERI AL MONIT OR) pdf . Not Available [facility] & [address], [address], 03/05/2024 17:10:06 03/04/20 24 03/05/2024 LITHO LINK CKD PROGR AM interpretati on Note Suppl ement al repor t is avail able. Not Available [address], [address], 03/05/2024 17:10:07 03/04/20 24 03/05/2024 LITHO LINK CKD PROGR AM pdf . Not Available [address], [address], 03/05/2024 17:10:07 03/04/20 24 03/05/2024 CARDI OVASC ULAR REPOR T interpretati on Note Suppl ement al repor t is avail able. Not Available [address], [address], 03/05/2024 17:10:08 03/04/20 24 03/05/2024 CARDI OVASC ULAR REPOR T pdf Not applic able Not Available [facility] & [address], [address], 03/05/2024 17:10:08 03/04/20 24 03/05/2024 HEMOG LOBIN A1C hemoglobin A1C 5.7 % 4.8-5. 6 above high normal Predi abete s: 5.7 - 6.4 Diabe maicol: >6.4 Glyce stanislav contr ol for adult s with diabe maicol: <7.0 Not Available [address] [place], [address], 03/05/2024 17:10:03/04/20 24 03/05/2024 CBC, PLATE LET, NO DIFFE RENTI AL WBC 7.9 x10e3 /uL 3.4-10 .8 Not Available [address], [address], 03/05/2024 17:10:03/04/20 24 03/05/2024 CBC, PLATE LET, NO DIFFE RENTI AL RBC 4.44 x10e6 /uL 4.14-5 .80 Not Available [address], [address], 03/05/2024 17:10:03/04/20 24 03/05/2024 CBC, PLATE LET, NO DIFFE RENTI AL hemoglobin 13.6 g/dL 13.0-1 7.7 Not Available [address], [address], 03/05/2024 17:10:03/04/20 24 03/05/2024 CBC, PLATE LET, NO DIFFE RENTI AL hematocrit 40.9 % 37.5-5 1.0 Not Available [address], [address], 03/05/2024 17:10:03/04/2003/05/2024 CBC, PLATE LET, NO DIFFE RENTI AL MCV 92 fL 79-97 Not Available [address], [address], 03/05/2024 17:10:03/04/2003/05/2024 CBC, PLATE LET, NO DIFFE RENTI AL MCH 30.6 pg 26.6-3 3.0 Not Available [address], [address], 03/05/2024 17:10:09 03/04/20 24 03/05/2024 CBC, PLATE LET, NO DIFFE RENTI AL MCHC 33.3 g/dL 31.5-3 5.7 Not Available [address], [address], 03/05/2024 17:10:09 03/04/20 24 03/05/2024 CBC, PLATE LET, NO DIFFE RENTI AL RDW 13.2 % 11.6-1 5.4 Not Available [address], [address], 03/05/2024 17:10:09 03/04/20 24 03/05/2024 CBC, PLATE LET, NO DIFFE RENTI AL platelets 270 x10e3 /uL 150-45 0 Not Available [address], [address], 03/05/2024 17:10:09 11/17/19 25 11/18/2024 TSH TSH 1.370 uIU/m L 0.450- 4.500 Not Available [facility] ([facility]) [address] [place], [address], 11/18/2024 07:40:08 11/17/19 25 11/18/2024 LIPID PANEL cholesterol, total 191 mg/dL 100-19 9 Not Available [facility] ([facility]) [address] [place], [address], 11/18/2024 08:22:38 11/17/19 25 11/18/2024 LIPID PANEL triglyceride s 169 mg/dL 0-149 above high normal Not Available [facility] ([facility]) [address] [place], [address], 11/18/2024 08:22:38 11/17/19 25 11/18/2024 LIPID PANEL HDL cholesterol 48 mg/dL >39 Not Available [facility]) [address] [place], [address], 11/18/2024 08:22:38 11/17/19 25 11/18/2024 LIPID PANEL VLDL cholesterol taylor 30 mg/dL 5-40 Not Available [facility] ([facility]) [address] [place], [address], 11/18/2024 08:22:38 11/17/19 25 11/18/2024 LIPID PANEL LDL chol calc ([facility]) 113 mg/dL 0-99 above high normal Not Available [facility] ([facility]) [address] [place], [address], 11/18/2024 08:22:38 11/17/19 25 11/18/2024 COMP. METAB OLIC PANEL (14) glucose 77 mg/dL 70-99 Not Available [facility] ([facility]) [address] [place], [address], 11/18/2024 08:22:39 11/17/19 25 11/18/2024 COMP. METAB OLIC PANEL (14) BUN 30 mg/dL 8-27 above high normal Not Available [facility] ([facility]) [address] [place], [address], 11/18/2024 08:22:39 11/17/19 25 11/18/2024 COMP. METAB OLIC PANEL (14) creatinine 1.52 mg/dL 0.76-1 .27 above high normal Not Available [facility] ([facility]) [address] [place], [address], 11/18/2024 08:22:39 11/17/19 25 11/18/2024 COMP. METAB OLIC PANEL (14) eGFR 49 mL/mi n/1.7 3 >59 below low normal Not Available [facility] ([facility]) [address] [place], [address], 11/18/2024 08:22:39 11/17/19 25 11/18/2024 COMP. METAB OLIC PANEL (14) BUN/creatini ne ratio 13 07- Not Available [facility] ([facility]) [address] [place], [address], 11/18/2024 08:22:39 11/17/19 25 11/18/2024 COMP. METAB OLIC PANEL (14) sodium 143 mmol/ L 134-14 4 Not Available [facility] ([facility]) [address] [place], [address], 11/18/2024 08:22:39 11/17/19 25 11/18/2024 COMP. METAB OLIC PANEL (14) potassium 4.5 mmol/ L 3.5-5. 2 Not Available [facility] ([facility]) [address] [place], [address], 11/18/2024 08:22:39 11/17/19 25 11/18/2024 COMP. METAB OLIC PANEL (14) chloride 105 mmol/ L 96-106 Not Available [facility] ([facility]) [address] [place], [address], 11/18/2024 08:22:39 11/17/19 25 11/18/2024 COMP. METAB OLIC PANEL (14) carbon dioxide, total 23 mmol/ L 20-29 Not Available [facility] ([facility]) [address] [place], [address], 11/18/2024 08:22:39 11/17/19 25 11/18/2024 COMP. METAB OLIC PANEL (14) calcium 9.8 mg/dL 8.6-10 .2 Not Available [facility] ([facility]) [address] [place], [address], 11/18/2024 08:22:39 11/17/19 25 11/18/2024 COMP. METAB OLIC PANEL (14) protein, total 7.1 g/dL 6.0-8. 5 Not Available [facility] ([facility]) [address] [place], [address], 11/18/2024 08:22:39 11/17/19 25 11/18/2024 COMP. METAB OLIC PANEL (14) albumin 4.3 g/dL 3.9-4. 9 Not Available [facility] ([facility]) [address] [place], [address], 11/18/2024 08:22:39 11/17/19 25 11/18/2024 COMP. METAB OLIC PANEL (14) globulin, total 2.8 g/dL 1.5-4. 5 Not Available [facility] ([facility]) [address] [place], [address], 11/18/2024 08:22:39 11/17/19 25 11/18/2024 COMP. METAB OLIC PANEL (14) bilirubin, total 0.2 mg/dL 0.0-1. 2 Not Available [facility] ([facility]) [address] [place], [address], 11/18/2024 08:22:39 11/17/19 25 11/18/2024 COMP. METAB OLIC PANEL (14) alkaline phosphatase 61 IU/L 44-121 Not Available [facility] ([facility]) [address] [place], [address], 11/18/2024 08:22:39 11/17/19 25 11/18/2024 COMP. METAB OLIC PANEL (14) AST (SGOT) 20 IU/L 0-40 Not Available [facility] ([facility]) [address] [place], [address], 11/18/2024 08:22:39 11/17/19 25 11/18/2024 COMP. METAB OLIC PANEL (14) ALT (SGPT) 19 IU/L 0-44 Not Available [facility] ([facility]) [address] [facility], [place], [address], 11/18/2024 08:22:39 11/17/1911/18/2024 HEMOG LOBIN A1C hemoglobin A1C 6.3 % 4.8-5. 6 above high normal Predi abete s: 5.7 - 6.4 Diabe maicol: >6.4 Glyce stanislav contr ol for adult s with diabe maicol: <7.0 Not Available [facility] ([facility]) [address] [facility], [place], [address], 11/18/2024 08:22:40 11/17/1911/18/2024 CBC, PLATE LET, NO DIFFE RENTI AL WBC 9.7 x10e3 /uL 3.4-10 .8 Not Available [facility] ([facility]) [address] [place], [address], 11/18/2024 08:22:41 11/17/1911/18/2024 CBC, PLATE LET, NO DIFFE RENTI AL RBC 4.75 x10e6 /uL 4.14-5 .80 Not Available [facility] ([facility]) [address] [facility], [place], [address], 11/18/2024 08:22:41 11/17/1911/18/2024 CBC, PLATE LET, NO DIFFE RENTI AL hemoglobin 14.0 g/dL 13.0-1 7.7 Not Available [facility] ([facility]) [address] [place], [address], 11/18/2024 08:22:41 11/17/1911/18/2024 CBC, PLATE LET, NO DIFFE RENTI AL hematocrit 43.4 % 37.5-5 1.0 Not Available [facility] ([facility]) [address] [place], [address], 11/18/2024 08:22:41 11/17/19 25 11/18/2024 CBC, PLATE LET, NO DIFFE RENTI AL MCV 91 fL 79-97 Not Available [facility] ([facility]) [address] [facility], [place], [address], 11/18/2024 08:22:41 11/17/19 25 11/18/2024 CBC, PLATE LET, NO DIFFE RENTI AL MCH 29.5 pg 26.6-3 3.0 Not Available [facility] ([facility]) [address] [facility], [place], [address], 11/18/2024 08:22:41 11/17/1911/18/2024 CBC, PLATE LET, NO DIFFE RENTI AL MCHC 32.3 g/dL 31.5-3 5.7 Not Available [facility] ([facility]) [address] [facility], [place], [address], 11/18/2024 08:22:41 11/17/1911/18/2024 CBC, PLATE LET, NO DIFFE RENTI AL RDW 13.1 % 11.6-1 5.4 Not Available [facility] ([facility]) [address] [facility], [place], [address], 11/18/2024 08:22:41 11/17/19 25 11/18/2024 CBC, PLATE LET, NO DIFFE RENTI AL platelets 303 x10e3 /uL 150-45 0 Not Available [facility] ([facility]) [address] [place], [address], 11/18/2024 08:22:41 03/20/20 24 03/20/2024 CT, head, w/o contr ast No observ ation record ed. [facility] [address] [place], [address], 03/20/2024 16:36:22 04/01/20 24 04/01/2024 US, chase x, carot id arter y No observ ation record ed. [facility] [address] [place], [address], 04/03/2024 10:16:29 11/17/19 25 11/17/2024 elect rocar diogr am No observ ation record ed. [facility] In-Office Order Internal Use Only DO Not Attach Compendium DO Not Attach Compendium, Do Not Delete/merge, [id number] 11/17/2024 14:19:27 11/17/19 elect rocar diogr am No observ ation record ed. [email or web address] Not Available 2024 14:19:28 12/18/19 25 12/16/2024 US, echoc ardio gram, trans thora cic, compl ete, w/ color flow No observ ation record ed. [facility] [address] [place], [address], 12/17/2024 10:49:36 12/18/19 25 12/16/2024 US, echoc ardio gram, trans thora cic, compl ete, w/ color flow No observ ation record ed. [facility] [address] [place] [address], [place], [address], 12/17/2024 10:49:37 01/01/20 25 12/26/2024 CT, heart funct ion and morph ology , w/ contr ast No observ ation record ed. [email or web address] [facility] [address] [place], [address], 12/31/2024 16:52:09 01/07/20 25 12/26/2024 CT, heart funct ion and morph ology , w/ contr ast No observ ation record ed. [email or web address] [facility] [address] [place], [address], 01/06/2025 11:17:50 Result Notes None recorded. Problems Name Problem SNOMED Code Status Onset Date Resolution Date Notes Provider Name and Address Organization Details Recorded Time Atrial fibrillation 73933468 Active 2020 Not Available [facility] 4 19:12:27 Cardiac pacemaker in situ 035085239 Active 2019 Not Available [facility] 4 19:12:27 Wound finding 311172974 Active 2019 Not Available [facility] 4 19:12:27 Cardiovascula r stress test abnormal 154331764 Active 2020 Not Available [facility] 4 19:12:27 Pain in toe 353014496 Active Not Available [facility] 4 19:12:27 Gout 25595987 Active Not Available [facility] 4 19:12:27 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 Procedures Surgical History Date Name Laterality Status Provider Name and Address Organization Details Recorded Time 0 Pacemaker completed Xiao Pablo [place] 08/10/2020 16:55:43 0 Removal of toe completed Xiao Pablo [place] 08/10/2020 16:56:22 0 cataract surgery completed Mae Durant MA [place] - [place] 04/29/2020 14:47:08 7 Coronary Artery Stent completed Viky Bradley LPN [place] - [place] 11/17/2024 11:43:35 Hernia Repair completed Renea donovan MA [place] - [place] 01/31/2022 18:12:23 Imaging Results Imaging Date Name Status LastModified by Organization Details LastModified Time 03/20/2024 CT, head, w/o contrast completed [facility] [address] [place], [address], 03/20/2024 16:36:22 04/01/2024 US, duplex, carotid artery completed [facility] [address] [place], [address], 04/03/2024 10:16:29 11/17/2024 electrocardiogram completed [facility] In-Offi ce Order Internal Use Only DO Not Attach Compendium DO Not Attach Compendium, Do Not Delete/merge, [id number] 11/17/2024 14:19:27 11/17/2024 electrocardiogram completed [email or web address] Informa tion not available 11/17/2024 14:19:28 12/16/2024 US, echocardiogram, transthoracic, complete, w/ color flow completed [facility] [address] [place], [address], 12/17/2024 10:49:36 12/16/2024 US, echocardiogram, transthoracic, complete, w/ color flow completed [facility] [address] [place] [address], [address], 12/17/2024 10:49:37 12/26/2024 CT, heart function and morphology, w/ contrast completed [email or web address] [facility] [address] [place], [address], 12/31/2024 16:52:09 12/26/2024 CT, heart function and morphology, w/ contrast [email or web address] [address] [place], [address], 01/06/2025 11:17:50 Procedure Notes None recorded. Medical Equipment None Reported. Allergies Allergen ID Allergen Name Allergen Category Reaction Reaction Severity Criticality Documentation Date Start Date Code Code System Note Provider Name and Address Organization Details Recorded Time [id number] wasp venoms environme nt angioedem a severe Not available 06/02/20212020 92177 RxNorm Not Available Not Available Not Available 39446 ibuprofen medicatio n swelling moderate Not available 11/16/20142019 5640 RxNorm Not Available Not Available Not Available Medications Name Sig Start Date Stop Date Status Note LastModified by Organization Details LastModified Time compound bucket 06/02 completed Not Available Not Available Not Available furosemide 40 mg tablet 06/02 completed Not Available Not Available Not Available metformin 500 mg tablet TAKE 1 TABLET BY MOUTH TWICE A DAY 07/12 completed Not Available Not Available Not Available clonidine HCl 0.1 mg tablet active Not Available Not Available Not Available doxycycline hyclate 100 mg capsule active Not Available Not Available N ot Available clindamycin HCl 300 mg capsule 07/12 completed Not Available Not Available Not Available trazodone 50 mg tablet active Not Available Not Available Not Available sildenafil 50 mg tablet Take 1 tablet every day by oral route as directed for 15 days. 06/02 completed Not Available Not Available Not Available ofloxacin 0.3 % eye drops 06/02 completed Not Available Not Available Not Available amiodarone 200 mg tablet TAKE 1 TABLET BY MOUTH TWICE A DAY 06/02 completed Not Available Not Available Not Available sotalol 80 mg tablet TAKE 1 TABLET BY MOUTH EVERY DAY 01/31 completed Not Available Not Available Not Available imipenem-ci lastatin 500 mg intravenous solution 06/02 completed Not Available Not Available Not Available lisinopril 20 mg tablet TAKE 1 TABLET BY MOUTH EVERY DAY 01/31 completed Not Available Not Available Not Available isosorbide mononitrate ER 30 mg tablet,exte nded release 24 hr TAKE 1 TABLET BY MOUTH ONCE DAILY 11/17 completed Not Available Not Available Not Available metoprolol succinate ER 100 mg tablet,exte nded release 24 hr TAKE ONE TABLET BY MOUTH DAILY active Not Available Not Available No t Available sertraline 100 mg tablet TAKE 1 TABLET BY MOUTH TWICE DAILY (NEED APPT BEFORE NEXT REFILL) active Not Available Not Available No t Available coenzyme Q10 10 mg capsule 10 mg by oral route. active Not Available Not Available No t Available clindamycin HCl 150 mg capsule active Not Available Not Available Not Available clopidogrel 75 mg tablet TAKE 1 TABLET BY MOUTH ONCE DAILY 11/17 completed Not Available Not Available Not Available allopurinol 100 mg tablet Take 1 tablet every day by oral route. 09/13 completed Not Available Not Available Not Available ciprofloxac in 500 mg tablet Take 1 tablet twice a day by oral route for 10 days. 10/31 completed Not Available Not Available Not Available sulfamethox azole 800 mg-trimetho prim 160 mg tablet TAKE 1 TABLET BY MOUTH EVERY 12 HOURS FOR 10 DAYS 03/04 completed Not Available Not Available Not Available aspirin 81 mg tablet,janine yed release Take 81 mg by oral route. 2024 active Not Available Not Available Not Avai lable tramadol 50 mg tablet TAKE 1 TABLET BY MOUTH EVERY 6 HOURS NEEDED 06/02 completed Not Available Not Available Not Available vancomycin 1,000 mg intravenous injection 06/02 completed Not Available Not Available Not Available fenofibrate micronized 134 mg capsule Take 1 capsule every day by oral route for 30 days. 07/12 completed Not Available Not Available Not Available terbinafine HCl 250 mg tablet 1 qd for 84 days active Not Available Not Available No t Available flaxseed oil 1,000 mg capsule Take 1 {capsule} by oral route. 06/02 completed Not Available Not Available Not Available clonidine HCl 0.2 mg tablet Take 1 tablet twice a day by oral route for 30 days. 07/25 completed Not Available Not Available Not Available prednisolon e acetate 1 % eye drops,suspe nsion 06/02 completed Not Available Not Available Not Available tamsulosin 0.4 mg capsule TAKE 1 CAPSULE BY MOUTH ONCE DAILY active Not Available Not Available No t Available dicyclomine 20 mg tablet active Not Available Not Available Not Available morphine ER 60 mg tablet,exte nded release Take 2 tablets twice a day by oral route for 30 days. 11/29 completed Not Available Not Available Not Available gemfibrozil 600 mg tablet TAKE 1 TABLET BY MOUTH TWICE A DAY 08/10 completed Not Available Not Available Not Available cephalexin 500 mg capsule TAKE 1 CAPSULE BY MOUTH 3 TIMES A DAY FOR 5 DAYS. 09/26 completed Not Available Not Available Not Available pantoprazol e 40 mg tablet,janine yed release 06/02 completed Not Available Not Available Not Available prednisone 50 mg tablet TAKE 1 TABLET BY MOUTH DAILY 06/02 completed Not Available Not Available Not Available lidocaine 5 % topical patch APPLY 1 PATCH TO SKIN FOR 7 DAYS NEEDED FOR RIB PAIN 06/02 completed Not Available Not Available Not Available glucose 4 gram chewable tablet Take 15 g by oral route. 06/02 completed Not Available Not Available Not Available nitroglycer in 0.4 mg sublingual tablet 1 TAB UNDER THE TONGUE EVERY 5 MINS NEEDED FOR CHEST PAIN MAY REPEAT EVERY 5 MINS MAX 3 DOSES active Not Available Not Available No t Available lisinopril 20 mg-hydrochl orothiazide 25 mg tablet TAKE ONE TABLET BY MOUTH DAILY active Not Available Not Available No t Available montelukast 10 mg tablet TAKE 1 TABLET BY MOUTH ONCE DAILY active Not Available Not Available No t Available allopurinol 300 mg tablet TAKE 1 & 1/2 (ONE & ONE-HALF) TABLETS BY MOUTH ONCE DAILY active Not Available Not Available No t Available metoprolol succinate ER 25 mg tablet,exte nded release 24 hr TAKE 1 TABLET BY MOUTH ONCE DAILY active Not Available Not Available No t Available lorazepam 1 mg tablet active Not Available Not Available No t Available azelastine 137 mcg (0.1 %) nasal spray USE 1 SPRAY(S) IN EACH NOSTRIL EVERY 12 HOURS active Not Available Not Available No t Available levofloxaci n 500 mg tablet Take 1 tablet every 24 hours by oral route for 7 days. 01/29 completed Not Available Not Available Not Available levofloxaci n 750 mg tablet Take 1 tablet every day by oral route for 5 days. 06/02 completed Not Available Not Available Not Available albuterol sulfate HFA 90 mcg/actuati on aerosol inhaler INHALE 1 TO 2 PUFFS BY MOUTH EVERY 4 TO 6 HOURS NEEDED FOR SHORTNESS OF BREATH FOR WHEEZING active Not Available Not Available No t Available pioglitazon e 30 mg tablet TAKE 1 TABLET BY MOUTH EVERY DAY FOR 30 DAYS 07/12 completed Not Available Not Available Not Available morphine 15 mg immediate release tablet Take 1 tablet 3 times a day by oral route for 30 days. 07/25 completed Not Available Not Available Not Available fluticasone propionate 50 mcg/actuati on nasal spray,suspe nsion 1 SPRAY INTRANASA LLY TWICE A DAY NEEDED FOR NASAL CONGESTIO N active Not Available Not Available No t Available metformin ER 500 mg tablet,exte nded release 24 hr TAKE 2 TABLETS BY MOUTH EVERY DAY 08/10 completed Not Available Not Available Not Available amoxicillin 875 mg-potassiu m clavulanate 125 mg tablet TAKE 1 TABLET BY MOUTH TWICE A DAY 03/21 completed Not Available Not Available Not Available amoxicillin 500 mg-potassiu m clavulanate 125 mg tablet TAKE ONE TABLET BY MOUTH EVERY 8 HOURS FOR 7 DAYS 06/02 completed Not Available Not Available Not Available azithromyci n 500 mg tablet TAKE 1 TABLET BY MOUTH ONCE DAILY FOR 3 DAYS 11/17 completed Not Available Not Available Not Available Zetia 10 mg tablet Take 1 tablet every day by oral route for 90 days. 07/12 completed Not Available Not Available Not Available rosuvastati n 20 mg tablet TAKE 1 TABLET BY MOUTH ONCE DAILY active Not Available Not Available No t Available metoprolol tartrate 25 mg tablet Take 25 mg twice a day by oral route. 06/02 completed Not Available Not Available Not Available Spiriva with HandiHaler 18 mcg and inhalation capsules INHALE 1 CAPSULE VIA HANDIHALE R ONCE DAILY AT THE SAME TIME EVERY DAY 2024 active Not Available Not Available Not Avai lable cinnamon bark 500 mg capsule 500 mg by oral route. active Not Available Not Available No t Available vitamin E phosphate 400 Unit capsule 400 units by oral route. active Not Available Not Available No t Available eszopiclone 2 mg tablet TAKE 1 TABLET WITH YOU TO SLEEP CENTER FOR SLEEP STUDY 06/02 completed Not Available Not Available Not Available cod liver oil active Not Available Not Available Not Available milk thistle active Not Available Not Available Not Available [place] Oil active Not Available Not Av ailable Not Available ranolazine ER 500 mg tablet,exte nded release,12 hr TAKE 1 TABLET BY MOUTH TWICE DAILY active Not Available Not Available No t Available fenofibrate nanocrystal lized 145 mg tablet TAKE 1 TABLET BY MOUTH ONCE DAILY active Not Available Not Available No t Available Januvia 100 mg tablet TAKE 1 TABLET BY MOUTH ONCE DAILY active Not Available Not Available No t Available Symbicort 160 mcg-4.5 mcg/actuati on HFA aerosol inhaler TAKE 2 PUFFS BY MOUTH EVERY 12 HRS RINSE MOUTH AND SPIT AFTER EACH USE. active Not Available Not Available No t Available vitamin E (dl, acetate) 180 mg (400 unit) capsule Take by oral route. 06/02 completed Not Available Not Available Not Available krill oil 500 mg capsule 11/17 completed Not Available Not Available Not Available Vitamin D3 50 mcg (2,000 unit) capsule Take 1 capsule every day by oral route. active Not Available Not Available No t Available Brilinta 90 mg tablet Take 90 mg twice a day by oral route. 06/02 completed Not Available Not Available Not Available Jose J Minaya [facility] spacer 06/02 completed Not Available Not Available Not Available Eliquis 5 mg tablet TAKE 1 TABLET BY MOUTH TWICE DAILY active Not Available Not Available No t Available Multi Vitamin active Not Available Not Available Not Available Jardiance 10 mg tablet TAKE 1 TABLET BY MOUTH ONCE DAILY active Not Available Not Available No t Available Spiriva Respimat 2.5 mcg/actuati on solution for inhalation INHALE 2 SPRAY(S) BY MOUTH ONCE DAILY IN THE MORNING active Not Available Not Available No t Available Entresto 97 mg-103 mg tablet TAKE 1 TABLET BY MOUTH TWICE DAILY active Not Available Not Available No t Available Entresto 49 mg-51 mg tablet 03/21 completed Not Available Not Available Not Available Entresto 24 mg-26 mg tablet TAKE 1 TABLET BY MOUTH TWICE A DAY 01/31 completed Not Available Not Available Not Available Ozempic 0.25 mg or 0.5 mg (2 mg/1.5 mL) subcutaneou s pen injector Inject 0.25 mg every week by subcutane ous route. 2024 active Not Available Not Available Not Avai lable vit B comp C no.24-iron- folic active Not Available Not Available Not Available turmeric 100 mg-pravin 150 mg-olive 50 mg-oreg 150 mg-capryl capsule Take by oral route. active Not Available Not Available No t Available Ozempic 0.25 mg or 0.5 mg (2 mg/3 mL) subcutaneou s pen injector INJECT 0.25MG SUBCUTANE OUSLY ONCE A WEEK active Not Available Not Available No t Available Vitals Date Recorded Body height Body mass index (BMI) Body weight Oxygen saturation Oxygen saturation in Arterial blood by Pulse oximetry Heart rate Systolic blood pressure Diastolic blood pressure Provider Name and Address Organization Details Last Updated DateTime 4 187.96 cm 31.2 kg/m2 347239. 35 g 97 % 97 % 69 /min 98 mm[Hg] 66 mm[Hg] Janette Vasquez [place] [facility] 4 11:07:39 Date Recorded Body height Body mass index (BMI) Body weight Oxygen saturation Oxygen saturation in Arterial blood by Pulse oximetry Heart rate Respiratory rate Body temperature Systolic blood pressure Diastolic blood pressure Provider Name and Address Organization Details Last Updated DateTime 5 187.96 cm 31.7 kg/m2 175230. 32 g 96 % 96 % 70 /min 18 /min 98 [degF] 102 mm[Hg] 70 mm[Hg] Sharla Calvert MA [facility] 5 14:29:50 Date Recorded Body height Body mass index (BMI) Body weight Heart rate Oxygen saturation Oxygen saturation in Arterial blood by Pulse oximetry Respiratory rate Systolic blood pressure Diastolic blood pressure Provider Name and Address Organization Details Last Updated DateTime 5 187.96 cm 32.3 kg/m2 211165. 12 g 70 /min 97 % 97 % 18 /min 106 mm[Hg] 60 mm[Hg] Viky Bradley LPN [facility] 5 11:42:38 Date Recorded Body height Body mass index (BMI) Body weight Respiratory rate Heart rate Oxygen saturation Oxygen saturation in Arterial blood by Pulse oximetry Systolic blood pressure Diastolic blood pressure Provider Name and Address Organization Details Last Updated DateTime 5 187.96 cm 32.7 kg/m2 748747. 05 g 18 /min 64 /min 98 % 98 % 118 mm[Hg] 68 mm[Hg] Viky Bradley LPN [place] [facility] 5 11:20:48 Date Recorded Body height Body mass index (BMI) Body weight Oxygen saturation Oxygen saturation in Arterial blood by Pulse oximetry Heart rate Respiratory rate Systolic blood pressure Diastolic blood pressure Provider Name and Address Organization Details Last Updated DateTime 5 187.96 cm 32.5 kg/m2 288174. 87 g 100 % 100 % 85 /min 18 /min 111 mm[Hg] 72 mm[Hg] Sharla Calvert MA [facility] 5 11:34:27 Social History Question Answer Notes LastModified by Organizat ion Details LastModified Time Tobacco Smoking Status Former Smoker Quit 2007 Marijuana Jojo Bowie MA null, [facility] 11/16/2014 16:30:14 What Is Your Level Of Alcohol Consumption? Occasional Information not available 06/01/2022 Are You Blind Or Do You Have Difficulty Seeing? No Information not available 12/22/2020 What Is Your Level Of Caffeine Consumption? None Information not available 10/20/2024 How Much Tobacco Do You Chew? None Information not available 04/29/2020 In The 14 Days Before Symptom Onset, Have You Had Close Contact With A Laboratory-confi rmed COVID-19 While That Case Was Ill? No Information not available 12/22/2020 In The 14 Days Before Symptom Onset, Have You Had Close Contact With A Person Who Is Under Investigation For COVID-19 While That Person Was Ill? No Information not available 12/22/2020 Have You Been To An Area Known To Be High Risk For COVID-19? No Information not available 12/22/2020 Are You Currently Employed? No Information not available 12/22/2020 Are You Deaf Or Do You Have Serious Difficulty Hearing? No Information not available 12/22/2020 What Type Of Diet Are You Following? REGULAR Low Carb Information not available 06/01/2022 Which Illicit Or Recreational Drugs Have You Used? None Information not available 04/29/2020 Do You Or Have You Ever Used E-cigarettes Or Vape? Never Used Electronic Cigarettes Information not available 04/29/2020 Hard Of Hearing Or Deaf In One Or Both Ears? No Information not available 04/29/2020 Legally Blind In One Or Both Eyes? No Information not available 04/29/2020 What Was The Date Of Your Most Recent Tobacco Screening? 01/02/2025 Information not available 01/02/2025 What Is Your Relationship Status? Single Information not available 12/22/2020 Do You Use Your Seat Belt Or Car Seat Routinely? Yes Information not available 06/01/2022 Do You Have Smoke And Carbon Monoxide Detectors In Your Home? Yes Information not available 06/02/2021 At What Age Did You Start Smoking Tobacco? 10 Information not available 04/29/2020 Are You Passively Exposed To Smoke? No Information not available 06/02/2021 Do You Or Have You Ever Used Smokeless Tobacco? Never Used Smokeless Tobacco Information not available 04/29/2020 How Much Tobacco Do You Smoke? No Information not available 04/29/2020 General Stress Level Medium Information not available 04/29/2020 Do You Feel Stressed (tense, Restless, Nervous, Or Anxious, Or Unable To Sleep At Night)? [id number] Information not available 03/21/2023 Do You Use Any Illicit Or Recreational Drugs? Yes Marijuana Information not available 12/22/2020 Has Tobacco Cessation Counseling Been Provided? No Information not available 06/02/2021 On What Date Was Tobacco Cessation Counseling Provided? 01/02/2025 Information not available 01/02/2025 How Many Years Have You Smoked Tobacco? 40 [email or web address] Information not available 11/16/2014 Do You Or Have You Ever Used Any Other Forms Of Tobacco Or Nicotine? No Information not available 12/22/2020 Sex: Male Functional Status Question Answer Note LastModified by Organization D etails LastModified Time Are you able to care for yourself? Yes Information n ot available 12/22/2020 What is your exercise level? None Information not available 04/29/2020 Mental Status None recorded. Family History Nothing Reported. Medical History Condition Response Coronary Artery Disease N Other N High Blood Pressure Y Atrial Fibrillation N Thyroid Problems N Kidney or Bladder Problems Y Depression Y COPD N Blood Clots N Skin Problems Y Eating Disorder N Anemia N Heart Attack (SD) N Anxiety Disorder N Diabetes N Muscle, Joint, or Bone Problems Y Seizures/Epilepsy N Acid Reflux (GERD) N Cancer N Stroke N Asthma N Allergies N ADHD N Substance Abuse N High Cholesterol N Hepatitis N Liver Disease N Schizophrenia N Headaches N Heart Failure N Osteoporosis N Immunizations Vaccine Type Date Status Note Provider Nam e and Address Organization Details Recorded Time COVID-19, mRNA, LNP-S, PF, 30 mcg/0.3 mL dose 1 completed Not Available [facility] 10/04/2023 19:12:27 COVID-19, mRNA, LNP-S, PF, 30 mcg/0.3 mL dose 1 completed Not Available [facility] 10/04/2023 19:12:27 Influenza, split virus, quadrivalent, preservative 0 completed BRINDA Anders, [place] [facility] 08/10/2020 18:03:50 Pneumococcal conjugate PCV20, polysaccharide HSC183 conjugate, adjuvant, PF 5 completed BRINDA Gutiérrez, [facility] 01/02/2025 12:22:30 Past Encounters Encounter ID Performer Location Encounter Start Date Encounter Closed Date Diagnosis/Indication Diagnosis SNOMED-CT Code Diagnosis ICD10 Code Diagnosis Note [id number] Luz Hewitt MA [facility] [address] [place] [address] 11/16/2014 16:11:50 11/16/2014 17:00:42 Pain in toe 225936884 Gout [id number] [facility] [address] [place] [address] 02/16/2015 11:10:58 02/16/2015 12:48:03 Gout 96014754 Neuroische stanislav foot ulcer 970445709 Pain in toe 087438269 Hyperglycemia 58262184 [id number] [facility] [address] [place] [address] 02/23/2015 14:11:55 02/23/2015 14:47:00 Diabetes mellitus 29012505 Anemia 521477708 [id number] Luz Hewitt MA [facility] [address] [place] [address] 03/16/2015 15:36:12 03/18/2015 13:13:46 Gout 09395766 Anemia 147374969 Neuroische stanislav foot ulcer 482672064 Diabetes mellitus 18493654 Pain in toe 370534484 Hyperglycemia 31199846 Onychomyco sis of toenails 292778958 Intermitte nt palpitations 832766935 [id number] Eliz Ha PA-C [facility] [address] [place] [address] 01/18/2016 13:37:20 01/18/2016 14:27:10 Diabetes mellitus 15406149 E11.9 [id number] Eliz Ha PA-C [facility] [address] [place] [address] 01/21/2016 10:05:57 01/21/2016 10:11:04 Diabetes mellitus 10435287 E11.9 [id number] Eliz Ha PA-C [facility] [address] [place] [address] 01/28/2016 16:30:42 01/28/2016 17:07:15 Diabetes mellitus 38533471 E11.9 [id number] Eliz Ha PA-C [facility] [address] [place] [address] 02/22/2016 14:15:40 02/22/2016 15:32:16 Diabetes mellitus 54762183 E11.9 Anemia 049086730 D64.9 [facility] 61393949 M10.9 [id number] Eliz Ha PA-C [facility] [address] [place] [address] 03/29/2016 16:27:19 03/29/2016 17:30:21 Diabetes mellitus 32787361 E11.9 [id number] Eliz Ha PA-C [facility] [address] [place] [address] 04/04/2016 18:41:38 04/04/2016 19:22:21 Diabetes mellitus 12839622 E11.9 [id number] Eliz Ha PA-C [facility] [address] [place] [address] 04/14/2016 16:43:24 04/14/2016 17:04:03 Cellulitis 727105969 L03.90 [id number] RAUL [facility]car[facility] [address] [place] [address] 05/23/2016 18:13:47 05/23/2016 19:20:57 Diabetes mellitus 66047083 E11.9 [id number] Eliz Ha PA-C [facility] [address] [place] [address] 07/12/2016 16:25:29 07/12/2016 17:33:17 Intermittent palpitations 092205762 R00.2 Cellulitis 526305601 L03 .90 Neuroische stanislav foot ulcer 782316791 L97.509 Anemia 330902834 D64.9 Pain in toe 245196134 M7 9.676 Onychomyco sis of toenails 419269767 B35.1 Diabetes mellitus 556084 09 E11.9 Epidermoid cyst of skin 573383926 L72.0 [id number] [facility] [address] [place] [address] 11/08/2016 18:55:35 11/08/2016 19:40:18 Type 2 diabetes mellitus 85003287 E11.9 Diabetes mellitus 819994 09 E11.9 Opioid dependence 012438 00 F11.20 [id number] Eliz Ha PA-C [facility] [address] [place] [address] 11/29/2016 18:50:23 11/29/2016 19:50:55 Essential hypertension 68096053 I10 Type 2 chrissy betes mellitus 79323975 E11.9 [id number] Brunilda Collier MA [facility] [address] [place] [address] 02/06/2017 18:23:01 02/07/2017 16:12:50 Diabetes mellitus 43572824 E11.9 [id number] Eliz Ha PA-C [facility] [address] [place] [address] 07/25/2017 16:15:45 07/26/2017 10:02:37 Left inguinal hernia 652031902 K40.90 Diabetes mellitus 417201 09 E11.9 [id number] RAUL [facility]car[facility] [address] [place] [address] 08/02/2017 15:56:55 08/02/2017 17:39:38 Hypertriglyceridemia 337116378 E78.2 Screening for malignant neoplasm of prostate 326218696 Z12.5 [id number] RAUL [facility]car[facility] [address] [place] [address] 10/31/2017 18:48:55 11/01/2017 14:35:55 Acute bronchitis 56375869 J20.0 Neuroische stanislav foot ulcer 207628809 L97.509 Screening for malignant neoplasm of prostate 987612855 Z12.5 [id number] Mae Durant MA [facility] [address] [place] [address] 12/25/2017 19:06:49 12/25/2017 19:52:18 Type 2 diabetes mellitus 12645693 E11.9 Community acquired pneumonia 741530577 J18.9 Screening for malignant neoplasm of prostate 397441321 Z12.5 [id number] Brunilda Collier MA [facility] [address] [place] [address] 06/10/2018 09:31:08 06/10/2018 11:10:04 [id number] Eliz Ha PA-C [facility] [address] [place] [address] 09/03/2018 17:38:59 09/03/2018 18:13:50 Diabetes mellitus 29321338 E11.9 Chronic ob structive pulmonary disease 42497158 J40 [id number] Brunilda Collier MA [facility] [address] [place] [address] 01/29/2019 16:07:09 01/29/2019 17:30:51 Diabetes mellitus 91909804 E11.9 [id number] RAUL [facility] [address] [place] [address] 07/29/2019 18:50:25 07/31/2019 14:51:17 Diabetes mellitus 40112383 E11.9 [id number] RAUL [facility] [address] [place] [address] 02/24/2020 09:58:27 02/25/2020 10:40:17 Diabetes mellitus 87955696 E11.9 Primary er ectile dysfunction 106108455 N52.01 [id number] Eliz Ha PA-C [facility] [address] [place] [address] 04/29/2020 09:35:10 04/30/2020 12:04:01 Edema of lower extremity 283279180 R60.0 Cellulitis of foot 70973 6007 L03.247 [id number] Eliz Ha PA-C [facility] [address] [place] [address] 08/10/2020 16:44:59 08/10/2020 18:10:19 Coronary atherosclerosis 619587313 I25.84 Type 2 chrissy betes mellitus without complication 692122842 E11.9 Screening for malignant neoplasm of prostate 190158684 Z12.5 Administra tion of influenza vaccine 30004655 Z23 Obstructiv e sleep apnea syndrome 93272538 G47.33 [id number] Eliz Ha PA-C [facility] [address] [place] [address] 12/22/2020 15:35:46 12/23/2020 06:53:45 Neoplasm of kidney 875022922 D49.465 [id number] Eliz Ha PA-C [facility] [address] [place] [address] 06/02/2021 16:08:26 06/03/2021 07:31:47 Atrial fibrillation 17892560 I48.0 Cardiac pa cemaker in situ 297408256 Z95.0 Diabetes mellitus 704684 09 E11.9 Type 2 chrissy betes mellitus without complication 248713731 E11.9 [id number] Eliz Ha PA-C [facility] [address] [place] [address] 01/31/2022 17:57:01 02/01/2022 12:59:13 Diabetes mellitus 15398967 E11.9 Adult [facility] th examination 071650987 Z00.00 Fatigue 32180916 R53.83 Chronic depression 14366 0009 F34.1 Screening for malignant neoplasm of prostate 045085573 Z12.5 Body mass index 30+ - obesity 885458454 Z68.36 [id number] Eliz aH PA-C [facility] [address] [place] [address] 06/01/2022 11:45:58 06/01/2022 13:45:16 Sebaceous cyst of skin 611907445 L72.3 [id number] Eliz Ha PA-C [facility] [address] [place] [address] 03/21/2023 18:28:37 03/22/2023 11:14:05 Type 2 diabetes mellitus without complication 892845437 E11.9 Screening for malignant neoplasm of prostate 523629301 Z12.5 Screening for malignant neoplasm of colon 424254929 Z12.11 Overweight 887695560 E66 .3 Chronic depression 40889 0009 F34.1 [id number] Eliz Ha PA-C [facility] [address] [place] [address] 09/26/2023 14:32:52 09/27/2023 10:51:27 Sebaceous cyst of skin 130383518 L72.3 Overweight 996374584 E66 .3 Atrial fibrillation 4943 6004 I48.0 [id number] Eliz Ha PA-C [facility] [address] [place] [address] 10/02/2023 11:38:22 10/03/2023 08:48:20 Infection of sebaceous cyst 213697513 L72.3 [id number] Eliz Ha PA-C [facility] [address] [place] [address] 10/11/2023 10:42:47 10/15/2023 15:40:49 Sebaceous cyst of skin 676547238 L72.3 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 Overweight 168982786 E66 .3 [id number] Eliz Ha PA-C [facility] [address] [place] [address] 10/20/2024 14:16:20 10/27/2024 09:05:05 Acute bronchitis with bronchospasm 10229828 J20.9 Overweight 937456525 E66 .3 [id number] John Allan MD [facility] [place] [address] [place] [address] 11/17/2024 11:27:03 11/18/2024 11:54:44 Atrial fibrillation 56820456 I48.0 Chronic co mbined systolic and diastolic heart failure 2916330240 05633 I50.42 Atheroscle rosis of coronary artery without angina pectoris 5016998923 86797 I25.10 [id number] John Allan MD [facility] [place] [address] [place] [address] 12/29/2024 11:13:19 01/01/2025 13:31:42 Atherosclerosis of coronary artery without angina pectoris 6875279063 29075 I25.10 Atrial fibrillation 4943 6004 I48.0 Cardiac pa cemaker in situ 106979616 Z95.0 Diabetes mellitus 095082 09 E11.9 Obesity 164628855 E66.9 [id number] Eliz Ha PA-C [facility] [address] [place] [address] 01/02/2025 11:26:56 01/05/2025 09:15:01 Renal mass 827401838 N28.89 Overweight 625923816 E66 .3 Administra tion of pneumococcal vaccine 12936494 Z23 Health Concerns Section Related Observation LastModified by Organization Detai ls LastModified Time None Recorded Concern Status LastModified by Organization Details LastModified Time None Recorded Advance Directives Directive None Recorded Payers Encounter Date Sequence Insurance Name Policy Number Policy Jefferson Covered Member ID Jefferson Member ID Guarantor Name 03/26/2024 2 [place] Ankur L Perry [id number] Ankur Shayna 03/26/2024 1 [facility] ON OR AFTER 09/24/2020 - DUAL ELIGIBLE (MEDICARE REPLACEMENT/A DVANTAGE - HMO) [id number] Ankur L Perry [id number] Ankur Shayna 10/20/2024 2 [place] Ankur L Perry [id number] Ankur Perry 10/20/2024 1 [facility] ON OR AFTER 09/24/2020 - DUAL ELIGIBLE (MEDICARE REPLACEMENT/A DVANTAGE - HMO) [id number] Ankur L Shayna [id number] Ankur Perry 11/17/2024 2 [place] Ankur L Perry [id number] Ankur Perry 11/17/2024 1 [facility] ON OR AFTER 09/24/2020 - DUAL ELIGIBLE (MEDICARE REPLACEMENT/A DVANTAGE - HMO) [id number] Ankur L Perry [id number] Ankur Shayna 12/29/2024 1 [facility] ON OR AFTER 09/24/2020 - DUAL ELIGIBLE (MEDICARE REPLACEMENT/A DVANTAGE - HMO) Ankur Perry [id number] Ankur Perry 01/02/2025 1 [facility] ON OR AFTER 09/24/2020 - DUAL ELIGIBLE (MEDICARE REPLACEMENT/A DVANTAGE - HMO) Ankur Perry [id number] Ankur Perry Notes Date Note Type Note Provider Name and Address Organization Details Recorded Time 03/26/2024 text/html ct unremarkable except for sinus infection...describes loss of equilibrium..falling. .syncope..headache..d oes not describe orthostatic...does describe deadness in his arms when he wakes up in the morning sometimes Eliz Ha PA-C Attn: Accounting,[address], [place], [address], [place] [facility] 03/26/2024 11:27:00 10/20/2024 text/html started with URI symptoms..SOB...no fever..wheezing Eliz Ha PA-C Attn: [facility],[address], [place], [address], [place] [facility] 10/20/2024 14:45:53 11/17/2024 text/html HPI:I had the pleasure of seeing this patient as a new consultation from Eliz Ha PA-C for recommendations regarding evaluation and management of CAD and CHF. Previously seen at [facility] Cardiology. MOTOR DRIVER-P still managed by Dr. Truong. Interval history: Since last evaluation in Cardiology has had 5 falls, these are related to syncopal episode, there has premonitory symptom of visual aura with brief loss of consciousness. Denies loss of bladder/bowel control. Reports NYHA class 3 dyspnea which is stable. Denies orthopnea or PND. No recent heart failure hospitalization. Denies chest pain or pressure. Cardiac history:- Initial Biotronik dual-chamber pacemaker placement for complete heart block which was upgraded to MOTOR DRIVER-P in April 2023 in light of heart failure symptoms and drop in LVEF- Coronary artery disease status post PCI to RCA in October 2020- Paroxysmal atrial fibrillation maintained on apixaban anticoagulation, PVI April 2021 and previously on sotalol- Hypertension- Mixed hyperlipidemia- Type 2 diabetes- CKD stage IIIB- Marijuana use with previous history of nicotine use- Obesity- BILLY- Chronic pain following multiple orthopedic injuries. [facility]: LVEF 42%, apical, apical anterior and apical lateral akinesis, RVSP 36 mmHg Cardiac catheterization, 12/24/2019 2:50 a.m.-60% mid LAD stenosis distal to the diagonal with IFR 0.92, 50% diffuse stenosis proximal diagonal, patent proximal-mid RCA stent with residual 20-30% distal RCA stenosis John Allan MD Attn: Accounting[address] [facility], [place], [address], [place] [facility] 11/17/2024 14:18:43 12/29/2024 text/html HPI:I had the pleasure of seeing this patient as a new consultation from Eliz Ha PA-C for recommendations regarding evaluation and management of CAD and CHF. Previously seen at [facility] Cardiology. MOTOR DRIVER-P still managed by Dr. Trimble. Interval history: has not had any falls since last evaluation. No chest pain or pressure. Reports easy bruisability. Denies palpitations, presyncope or syncope. Scheduled for left atrial appendage occlusion by Dr. Trimble. Glycemic management per PCP. Cardiac history:- Initial Biotronik dual-chamber pacemaker placement for complete heart block which was upgraded to MOTOR DRIVER-P in April 2023 in light of heart failure symptoms and drop in LVEF- Coronary artery disease status post PCI to RCA in October 2020- Paroxysmal atrial fibrillation maintained on apixaban anticoagulation, PVI April 2021 and previously on sotalol- Hypertension- Mixed hyperlipidemia- Type 2 diabetes- CKD stage IIIB- Marijuana use with previous history of nicotine use- Obesity- BILLY- Chronic pain following multiple orthopedic injuries. Cardiac diagnostics:Transthor acic echocardiogram 12/16/2024: LVEF 50-55%, grade diastolic dysfunction, apical lateral hypokinesis, mildly dilated RV, normal RVSP Transthoracic echocardiogram, 11/25/2021: LVEF 42%, apical, apical anterior and apical lateral akinesis, RVSP 36 mmHg Cardiac catheterization, 12/24/2019: 60% mid LAD stenosis distal to the diagonal with IFR 0.92, 50% diffuse stenosis proximal diagonal, patent proximal-mid RCA stent with residual 20-30% distal RCA stenosis John Allan MD Attn: [address] [place], [address], [facility] 12/29/2024 14:02:02 01/02/2025 text/html was sent by Jerrell...was jerrell sent him for testing...during course a ct scan 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 needs ultrasound Eliz Ha PA-C Attn: [address] [place], [address], [facility] 01/02/2025 12:13:21
--- OUTSIDE RECORDS SUMMARY | 2025-01-06 14:28 | XMS_ITS | Continuity of Care Document ---
Author Organization [facility] Address [address] [place] [address] Phone Care Team Providers Care Generation Engineering Technologist Name Role Phone Carole French Unavailable Unavailable Advance Directives Directive Yes / No Effective Date File Name No Information Encounters Encounter Description Practice Location Reason(s) For Visit Diagnoses Date Provider Providers Copied on Encounter [facility], [address], [place], [place], [id number], [place] tel:[phone] [facility] No Information [address] , [address], [place], [address], [place]. tel:[phone] Referring Provider: Arnie Osorio MD, [address], [address]. tel:[phone] Family History Family Member Type Diagnosis Age At Onset No Information Payers Payer name Insurance type Covered constitution party ID Authoriza tion(s) Medicaid [facility] [id number] Social History Type Description Quantity Date Captured Comments Sex Male Smoking Status No Information Chief Complaint And Reason For Visit No Information Reason For Referral Reason For Referral No Information History Of Present Illness Encounter Date Complaint History Of Prese nt Illness No Information Functional Status Date Functional Assessmen t No Information Instructions Date Instruction Additional Infor mation No Information Assessments Type Assessment Date No Information Patient Care Teams Name Effective Dates (start - stop) Status Members No Information
--- OUTSIDE RECORDS SUMMARY | 2025-01-06 14:28 | XMS_ITS | Clinical Summary ---
Author Organization [facility] Address [address] [place] [address] Care Team Providers Care Staff Radiologist Name Role Phone Unavailable Primary Care Provider Unavailabl e Source Comments [facility],non-owned Affiliates and Associated Physician Practices is amultiple site organization consisting of ambulatory clinics and hospital sitesin [place], [place], [place] and [place]. This disclosure is being madepursuant to the Care Everywhere program and may not contain all information available regarding this patient. Last updated 18.[facility] Allergies Active Allergy Reactions Criticality Noted Date Comments Ibuprofen Swelling Low 10/19/2015 Social History Tobacco Use Types Packs/Day Years Used Date Smoking Tobacco: Never Smokeless Tobacco: Never Alcohol Use Standard Drinks/Week Comments No 0 (1 standard drink = 0.6 oz pur e alcohol) Sex and Gender Information Value Date Recorded Sex Assigned at Not on file Legal Sex Male 5:54 PM COUNTY HEALTH OFFICER Gender Identity Not on file Sexual Orientation Not on file Last Filed Vital Signs Vital Sign Reading Time Taken Comments Blood Pressure 161/81 10/19/2015 12:34 PM COUNTY HEALTH OFFICER Pulse 71 10/19/2015 12:34 PM COUNTY HEALTH OFFICER Temperature - - Respiratory Rate 17 10/19/2015 12:34 PM COUNTY HEALTH OFFICER Oxygen Saturation - - Inhaled Oxygen Concentration - - Weight 114.8 kg (253 lb) 10/19/2015 12:34 PM COUNTY HEALTH OFFICER Height 188 cm (6' 2 ) 10/19/2015 12:34 PM COUNTY HEALTH OFFICER Body Mass Index 32.48 10/19/2015 12:34 PM COUNTY HEALTH OFFICER Plan of Treatment Health Maintenance Due Date Last Done Comments COLOGUARD (AGES 45-75) - COL ON CA SCREENING 1955 COLON MONITORING 1955 COLONOSCOPY - COLON CA SCREENING 1953 CT COLONOGRAPHY - COLON CA SCREENING 1955 Colorectal Cancer Screening 1955 FIT - COLON CA SCREENING 1953 FLEX SIG - COLON CA SCREENING 1955 LIPID TESTING 1955 HEPATITIS C SCREENING 12/06/1971 DTAP/TDAP/TD VACCINES (1 - Tdap) 1972 PNEUMOCOCCAL VACCINE 50+ (1 of 1 - PCV) 12/11/2003 ZOSTER VACCINE (1 of 2) 12/11/2003 COVID-19 VACCINE (1 - 2023-2 5 season) 2024 DEPRESSION SCREENING 09/24/2024 INFLUENZA VACCINE (Season Ended) 2025 Respiratory Syncytial Virus (RSV) Vaccine Pt: or over 60 yrs (1 - 1-dose 75+ series) 2028 HEPATITIS B VACCINE Aged Out No longe r eligible based on patient's age to complete this topic HIB VACCINE Aged Out No longer eligi ble based on patient's age to complete this topic HPV VACCINE Aged Out No longer eligi ble based on patient's age to complete this topic MENINGOCOCCAL (Group B) VACC INE SHARED DECISION-MAKING Aged Out No longer eligibl e based on patient's age to complete this topic MENINGOCOCCAL GROUPS A/C/Y/W VACCINE Aged Out No longer eligible b ased on patient's age to complete this topic Insurance [address] [address]
--- OUTSIDE RECORDS SUMMARY | 2025-01-06 14:28 | XMS_ITS | Encounter Summary ---
Author Organization [facility] Healthcare Address [address] [place] [address] Care Team Providers Care Screw Supervisor Name Role Phone Jayjay Ha Primary Care Provider [phone] Saeid Rosen MD Unavailable [phone] Heath Salcedo MD Unavailable Encounter Details Date Type Department Care Team (Late st Contact Info) Description 01/06/2025 Telephone Ar[facility]hythmia Center [address] [address] Jojo Ta RN Social History Tobacco Use Types Packs/Day Years Used Date Smoking Tobacco: Former Cigarettes Q uit: 2008 Smokeless Tobacco: Never Alcohol Use Standard Drinks/Week Comments Yes 0 [...] on file Legal Sex Male 1:08 PM RESEARCH GEOLOGIST Gender Identity Male 11/20/2020 10:36 AM RESEARCH GEOLOGIST Sexual Orientation Straight 11/20/2020 10 :36 AM RESEARCH GEOLOGIST documented as of this encounter Miscellaneous Notes * Telephone Encounter - Jojo Ta RN - 01/06/2025 1:33 PM CDT Received call from [facility], stating they do not get electronic lab requisitionsdespite being selectable as an option in Epic. Printed lab orders and sent them via fax to number provided by staff. documented in this encounter Plan of Treatment Upcoming Encounters Date Type Department Care Team (Latest Contact Info) Description 01/08/2025 11:10 AM CDT Hospital Encounter [facility] [address] [place] [address] Feliciano Trimble III, MD [address] [id number] Paroxysmal atrial fibrillation (HCC) 01/08/2025 11:10 AM CDT - 01/08/2025 1:00 PM CDT Surgery [facility] [address] [address] Feliciano Trimble III, MD [address] [address] [address] ANTONY CLOSE W/IMPLANT [id number] documented as of this encounter Visit Diagnoses Not on filedocumented in this encounter Care Teams Screw Supervisor Relationship Specialty Start Date End Date Jayjay Ha PA [address] [place] [address] PCP - General Family Practice 05/03/20 Saeid Rosen MD [address] [place] [address] Consulting Physician Cardiology 02/11/21 Heath Salcedo MD [address] [facility] [address] [place] [id number] Consulting Physician Cardiology 02/11/21 documented as of this encounter
--- OUTSIDE RECORDS SUMMARY | 2025-01-06 14:28 | XMS_ITS | Clinical Summary ---
Author Organization [facility] Address [address] [place] [address] Care Team Providers Care Assistant Maintenance Manager Name Role Phone Unavailable Primary Care Provider Unavailabl e Social History Tobacco Use Types Packs/Day Years Used Date Smoking Tobacco: Never Assessed Sex and Gender Information Value Date Recorded Sex Assigned at Not on file Legal Sex Male 4:23 PM CDT Gender Identity Not on file Sexual Orientation Not on file Last Filed Vital Signs Vital Sign Reading Time Taken Comments Blood Pressure 112/70 02/26/2015 10:36 AM CDT Pulse 56 02/26/2015 10:36 AM CDT Temperature - - Respiratory Rate - - Oxygen Saturation - - Inhaled Oxygen Concentration - - Weight 133.8 kg (295 lb) 02/26/2015 10:36 AM CDT Height - - Body Mass Index - - Plan of Treatment Health Maintenance Due Date Last Done Comments Colorectal Cancer Screening Colonoscopy (10 Years) 1955 Hepatitis C 12/11/1971 DTaP, Tdap and Td Vaccines ( 1 - Tdap) 1972 Zoster Vaccines (1 of 2) 12/11/2003 Pneumococcal Vaccine: 50+ Ye ars (1 of 1 - PCV) 2018 COVID-19 Vaccine ( - 2023-2 5 season) 2024 RSV Immunization or 60+ Years (1 - 1-dose 75+ series) 2028 Meningococcal B Vaccine Aged Out No l onger eligible based on patient's age to complete this topic Meningococcal Vaccine Aged Out No arpit ryan eligible based on patient's age to complete this topic RSV Immunizations Under 20 Months Aged Out No longer eligible based on patient's age to complete this topic
--- OUTSIDE RECORDS SUMMARY | 2025-01-06 14:28 | XMS_ITS | Encounter Summary ---
Author Organization [facility] Healthcare Address [address] [place] [address] Care Team Providers Care Spring Coiling Machine Setter Name Role Phone Jayjay Ha Primary Care Provider [phone] Saeid Rosen MD Unavailable [phone] Heath Salcedo MD Unavailable Encounter Details Date Type Department Care Team (Late st Contact Info) Description 12/31/2024 Results Follow-Up Arrhythmia Center [address] [facility] [address] [address] Feliciano Trimble III, MD [address] [facility] [address], [place] [address] Social History Tobacco Use Types Packs/Day Years [...] on file Legal Sex Male 1:08 PM LINUX VMWARE ADMINISTRATOR Gender Identity Male 11/20/2020 10:36 AM LINUX VMWARE ADMINISTRATOR Sexual Orientation Straight 11/20/2020 10 :36 AM LINUX VMWARE ADMINISTRATOR documented as of this encounter Miscellaneous Notes * Result Encounter Note - Myrtle Soto MA - 01/06/2025 9:28 AM CDT Faxed to number provided. * Result Encounter Note - Mayi Palmer NP - 12/31/2024 2:45 PM CDT Have spoken with the patient and his primary care. Please fax results to [phone] for further evaluation documented in this encounter Plan of Treatment Upcoming Encounters Date Type Department Care Team (Latest Contact Info) Description 01/08/2025 11:10 AM CDT Hospital Encounter [facility] Heart [address] [phone] Feliciano Trimble III, MD [address] [address] Paroxysmal atrial fibrillation (HCC) 01/08/2025 11:10 AM CDT - 01/08/2025 1:00 PM CDT Surgery [facility] [address] [place] [address] Feliciano Trimble III, MD [address] [address] PERC ANTONY CLOSE W/IMPLANT [address] documented as of this encounter Visit Diagnoses Not on filedocumented in this encounter Care Teams Spring Coiling Machine Setter Relationship Specialty Start Date End Date Jayjay Ha PA [address] [place] [address] PCP - General Family Practice 05/03/20 Saeid Rosen MD [address] [place] [address] Consulting Physician Cardiology 02/11/21 Heath Salcedo MD [address] [address] Consulting Physician Cardiology 02/11/21 documented as of this encounter
--- OUTSIDE RECORDS SUMMARY | 2025-01-06 14:28 | XMS_ITS | Referral Summary ---
Author Organization [facility] [place] [address] Address [address] [place] [address] Care Team Providers Care Data Network Architect Name Role Phone Jayjay Ha Primary Care Provider [phone] Saeid Rosen MD Unavailable Heath Salcedo MD Unavailable Encounters Date Type Department Care Team Description 01/06/2025 Telephone [facility] [address] [facility] [address] [place] [phone] Jojo Ta RN 12/31/2024 Documentation [facility] Card[facility] [address] [facility] [address] [place] [phone] Mayi Palmer NP 12/31/2024 Results Follow-Up [facility] [address] [facility] [address] [place] [address] Feliciano Trimble III, MD 12/26/2024 10:19 AM CDT - 12/26/2024 11:59 PM CDT Hospital Encounter [facility] [address] [place] [address] Paroxysmal atrial fibrillation (HCC) Discharge Disposition: Discharge to home or self care 11/18/2024 Telephone [facility] [address] [facility] [address] [place] [phone] Feliciano Trimble III, MD 11/10/2024 7:00 AM OIL DRILLER Ancillary Procedure [facility] [address] [facility] [address], [place] [address] Cardiac pacemaker in situ (Primary Dx); Complete heart block (HCC) from Last 3 Months Allergies Active Allergy Reactions Criticality Noted Date [...] Active nitroglycerin (NITROSTAT) 0.4 mg SL tabletIndications:ac [place] episode of anginal pain Place 1 tablet [...] extended release tabletIndications:Co ronary artery disease of [place] artery of [place] heart with stable angina pectoris Take 1 tablet by mouth once daily 90 tablet 10/07/19 25 Active Active Problems Problem Noted Date Diagnosed Date Complete heart block 01/24/2023 Assessment & Plan (05/20/2024 4:29 PM CDT): S/p pacemaker, subsequent revision to NURSE COMPANION-P system. Excellent device function. --Continue remote device f/u Assessment & Plan (01/24/2023 9:04 PM CDT): S/p dual PPM. Now with fatigue, dyspnea. Mild LV dysfunction by last assessment. Will recheck LV function. If stable/declining, would recommend device revision to NURSE COMPANION system. --TTE --Will contact pt to discuss [...] (11/24/2021): Added automatically from request for surgery [id number] S/P atrioventricular clemencia ablation 05/07/2021 Cardiovascular stress test abnormal 11/04/2020 Overview (11/04/2020): Added automatically from request for surgery [id number] Atrial fibrillation 11/04/2020 Overview (11/04/2020): Added automatically from request for surgery [id number] Assessment & Plan (05/20/2024 4:29 PM CDT): [...] Cardiac pacemaker in situ 05/11/2020 Overview (06/08/2023): [employer] Edora HF-T QP BIV Pacemaker. Dx; CHB, Afib, AV Node Ablation. DOI 05/04/2023-Stmisael. Chronic A & RV leads 05/10/2020. Tim. [employer] remote home monitoring. PM followed by [facility]. Immunizations Immunization Administration Dates Next Due Influenza, Quadrivalent, Split, Intramuscular Pneumococcal Polysaccharide PPV23 07/19/2014 Social History Tobacco Use Types Packs/Day Years Used Date Smoking Tobacco: Former Cigarettes Q uit: 2007 Smokeless Tobacco: Never Tobacco Cessation:Counseling Given: Not [...] on file Legal Sex Male 1:08 PM OIL DRILLER Gender Identity Male 11/20/2020 10:36 AM OIL DRILLER Sexual Orientation Straight 11/20/2020 10 :36 AM OIL DRILLER Last Filed Vital Signs Vital Sign Reading [...] Description 01/08/2025 11:10 AM CDT Hospital Encounter [facility] [address] [place] [phone] Feliciano Trimble III, MD [address] [phone] Paroxysmal atrial fibrillation (HCC) 01/08/2025 11:10 AM CDT - 01/08/2025 1:00 PM CDT Surgery [facility] [address] [place] [phone] Feliciano Trimble III, MD [address] [phone] PERC ANTONY CLOSE W/IMPLANT 94912 Medical Devices Implanted Type Area Mine Captain Device Identifier Shelf Expiration Date Model / Serial / Lot [employer] Inc [id number] Device Closure Vascade Od5 Fr Femoral Artery - [id number] - [id number] Implanted:Qty: 1 on 05/06/2021 by Saeid Rosen MD at [facility] Collagen [employer] Inc 02/14/2023 [id number] -[id number] / [id number] / [id number] [employer] [id number] System 6-12fr Mvp Venous Closure Vascade - [id number] - [id number] Implanted:Qty: 1 on 05/06/2021 by Saeid Rosen MD at [facility] Collagen [employer] 02/21/2023 800-612C- 10U / [id number] [id number] / [id number] [employer] [id number] System 6-12fr Mvp Venous Closure Vascade - [id number] - [id number] Implanted:Qty: 1 on 05/06/2021 by Saeid Rosen MD at [facility] Collagen [employer] 02/21/2023 800-612C- 10U / [id number] [id number] / [id number] [employer] [id number] System 6-12fr Mvp Venous Closure Vascade - [id number] - [id number] Implanted:Qty: 1 on 05/06/2021 by Saeid Rosen MD at [facility] Collagen [employer] 02/21/2023 800-612C- 10U / [id number] [id number] / [id number] [employer] Inc Sentus Promri Otw Quadripolar Left Ventricular Lead Icd L-85/49 200575 - [id number] - [id number] Implanted:Qty: 1 on 05/04/2023 by Feliciano Trimble III, MD at [facility] Lead [employer] Inc [id number] 02/21/2025 [id number] / [id number] / [employer] Inc Edora 8 Quadripolar Pacemaker Cardiac Hf-T 302812 - [id number] - [id number] Implanted:Qty: 1 on 05/04/2023 by Feliciano Trimble III, MD at [facility] Pacemaker [employer] Inc [id number] 01/22/2024 [id number] / [id number] / Medtronic Usa [employer] X [id number] Resolute Ricardo 3mm 2.1-2.7fr 18mm 140cm Rapid Exchange Radiopaque - [id number] Implanted:Qty: 1 on 11/19/2020 by Heath Salcedo MD at [facility] Medtronic Inc [id number] / / Medtronic U[employer] X [id number] Resolute Ricardo 4mm 2.1-2.7fr 15mm 140cm Rapid Exchange Radiopaque - [id number] Implanted:Qty: 1 on 11/19/2020 by Heath Salcedo MD at [facility] Medtronic Inc [id number] / / Med[employer] U[employer] X [id number] Resolute [place] 4mm 2.1-2.7fr 12mm 140cm Rapid Exchange Radiopaque - [id number] Implanted:Qty: 1 on 11/19/2020 by Heath Salcedo MD at [facility] Medtronic Inc [id number] / / Medtronic Usa Inc X [id number] Resolute Ricardo 4mm 2.1-2.7fr 26mm 140cm Rapid Exchange Radiopaque - [id number] Implanted:Qty: 1 on 11/19/[facility] [id number] / / Explanted Type Area Mine Captain Device Identifier Shelf Expiration Date Model / Serial / Lot Pacemaker-2019 Implanted:05/10 by Nico Arnold MD (Quantity not on file) Explanted:Qty: 1 on 05/04/2023 by Feliciano Trimble III, MD at [facility] Pacemaker Chest Biotronik / [id number] / Procedures Procedure Name Priority Date/Time Associated Diagnosis Comments CT HEART MORPHOLOGY W CONTRAST Schedule Routine, Read Routine (OP Routine) 12/26/2024 11:00 AM CDT Paroxysmal atrial fibrillation (HCC) POCT CREATININE FOR CONTRAST EVALUATION Routine 12/26/2024 10:40 AM CDT DEVICE CHECK - REMOTE Routine 11/10/2024 1:47 PM OIL DRILLER Complete heart block (HCC) from Last 3 [...] it. Electronically signed by: Ranjana Jenkins M.D. Feliciano Trimble III, MD IM CT PROCEDURES F inal Result * POCT creatinine for contrast evaluation (12/26/2024 10:40 AM CDT) Creatinine, POC 1.4 0.6 - 1.5 mg/dL Comment:eGFR: 55 Blood 12/26/2024 10:4 0 AM CDT Feliciano Trimble III, MD POINT OF CARE TEST ORDERABLES Final Result * DEVICE CHECK - REMOTE (11/10/2024 1:47 PM OIL DRILLER) Anatomical Region Laterality Modality Other Narrative 11/11/2024 8:38 PM OIL DRILLER Table formatting from the original result was [...] 85% longevity Episodes last 90 days/Comments: AF Rockwell 3 %, longest duration occurring on August 20. No EGMs available for review. No new [...] Final Result from Last 3 Months Insurance [facility] Advance Directives For more information, please contact: [phone] * Full Code (Latest Code Status on File) Date Activated Date Inactivated Comments 05/04/2023 2:10 PM 05/04/2023 10:22 PM * Full Code Date Activated Date Inactivated Comments 05/06/2021 7:02 PM 05/08/2021 4:34 PM * Full Code Date Activated Date Inactivated Comments 02/07/2021 11:20 AM 02/11/2021 8:33 PM Care Teams Data Network Architect Relationship Specialty Start Date End Date Jayjay Ha PA [address] [place] [address] PCP - General Family Practice 05/03/20 Saeid Rosen MD [address] [place] [address] Consulting Physician Cardiology 02/11/21 Heath Salcedo MD [facility] [address] Consulting Physician Cardiology 02/11/21
--- OUTSIDE RECORDS SUMMARY | 2025-01-06 14:28 | XMS_ITS | Encounter Summary ---
Author Organization [facility] Healthcare Address [address] [place] [address] Care Team Providers Care Shear Helper Name Role Phone Jayjay Ha Primary Care Provider [phone] Saeid Rosen MD Unavailable [phone] Heath Salcedo MD Unavailable Reason for Referral * MRI/CAT/PET Scan (Routine) - Closed Specialty Diagnoses / Procedures Referred By Contac t Referred To Contact Radiology Diagnoses Paroxysmal atrial fibrillation (HCC) Procedures CT Heart Morphology W Contrast Feliciano Trimble III, MD [address] [address] Phone: tel: fax: [address] [address] Referral ID Status Reason Start Date Expiration Date Visits Re quested Visits Authorized [id number] Closed 11/24/2024 12/24/2025 1 1 TOR OPERATOR BATTERY Encounter Details Date Type Department Care Team (Late st Contact Info) Description 11/18/2024 Telephone [facility] [address] [facility] [address] [place] [phone] Feliciano Trimble III, MD [address] [address] Social History Tobacco Use Types Packs/Day [...] on file Legal Sex Male 1:08 PM TRACTOR OPERATOR BATTERY Gender Identity Male 11/20/2020 10:36 AM TRACTOR OPERATOR BATTERY Sexual Orientation Straight 11/20/2020 10 :36 AM TRACTOR OPERATOR BATTERY documented as of this encounter Miscellaneous Notes * Addendum Note - Kelly Ta RN - 01/05/2025 11:14 AM CDTAddended by: KELLY TA on: 01/05/2025 11:14 AM Modules accepted: Orders * Addendum Note - Kelly Ta RN - 11/24/2024 11:31 AM CSTAddended by: KELLY TA on: 11/24/2024 11:31 AM Modules accepted: Orders TOR OPERATOR BATTERY * Telephone Encounter - Kelly Ta RN - 11/24/2024 11:16 AM TRACTOR OPERATOR BATTERY [place] Initial Phone Call Primary Dx: Referring provider Jerrell HENDRIX VAS Score (i.e. 3, CHF, HTN, Age) 5 (Age, HTN, CAD, CHF, DM) Who is completing Follow-Ups? Hx cardiac surgery? No If yes--> Op notes obtained and reviewed? N/A ANTONY noted as ligated or occluded already? N/A Current blood thinners? Eliquis ASA/plavix? Plavix, Asa Confirm allergy to iodinated contrast? No Confirm allergy to nickel? No Pt on dialysis? No Fast acting insulin? No Topic Pt answer Additional pt comments Discussed with/educated regarding watchman? What the procedure looks like and what is actually performed for the procedure Minimally invasive procedure Eliminates need for blood thinners such as warfarin, eliquis, xarelto by accomplishing the same desired outcome that blood thinners serve: decreasing risk for clotting The procedure decreases risk of clotting by sealing off a non-functional pocket off the left upper chamber of the heart (left atrium) called the left atrial appendage (ANTONY) Does not fully contract with each beat, allowing blood to sit there increasing chance of clotting Will make small incision at groin and thread catheter up to specific area of heart Guidance imaging through a type of echo called a HOLGER- which means pinot-wvxjkbjdbe-hvouacfkrrzljo The echo probe is positioned through mouth in esophagus to allow best possible images of the ANTONY Once position is confirmed, will thread the watchman device on catheter up to the ANTONY and insert it Use the echo they confirm it is well placed in the ANTONY and confirm no blood flow around the device Remind that this procedure does have the potential chance to be unsuccessful if the appendage anatomy results in not fitting one of the device sizes, if the angle of the appendage does not allow for adequate placement, or if thrombus is viewed on/in the appendage on the pre-HOLGER Pt has been educatedand reviewed the included topic points: [x] Endorses having been given thorough education and explanation of procedure by provider [] Denies [] If denies, verbally acknowledged understanding of the discussed topic points After the procedure: One potential overnight stay in hospital for observation following the watchman procedure Can resume mostly all activities, only restriction would be to avoid lifting >10 lbs for the purpose of allowing the incision site to heal Will be on a dual antiplatelet therapy (DAPT) x 6 months, then transition to a once daily baby aspirin (ASA) Requires a 45 day post-HOLGER, to confirm healing appropriately and confirmation device is sealed off well. Will require a same day office visit (OV) with Nurse Practitioner (ADVANCED CLINICAL SPECIALIST) in person at [facility] Since HOLGER requires sedation, a steam train driver will be needed on the 45 day follow up Remaining requirements of watchman completion are office visits only (no further testing) at the 6 month, 1 year, 2 year [x]Pt verbalizes understanding and acceptance to completing the following requirements after the watchman procedure: - DAPT x6fopmd - HOLGER and same day office visit with the ADVANCED CLINICAL SPECIALIST/generating plant superintendent - 45 day naif - Office visit at 6 month with ADVANCED CLINICAL SPECIALIST - Office visit at 1 year with ADVANCED CLINICAL SPECIALIST - Office visit at 2 year with ADVANCED CLINICAL SPECIALIST Timeframe & requirements prior to procedure: Need to complete a shared decision making (SDM) either through referral form by one of the patient's care team members that is not classified as an tube mill operator (can include but not limited to: primary care physician [PCP], agile scrum master [GI], manager of tax) or setting up an OV with one of the practice's generating plant superintendent who are not actively doing interventional cardiology. Has the option to do an OV with the surgeon to discuss questions directly with him, but is not required, and will not qualify as the SDM visit/referral Lab work 3-30 days prior to both procedures (Watchman and post-HOLGER will require lab work). BMP, CBC, PT-INR. *Only if pt is not covid-vaccinated, then will need a covid test 48-72 hours prior to procedure. Pre-procedure Imaging: HOLGER CT Heart with Contrast EKG showing Afib Provider to complete SDM form? YES or NO Pt's Preferred Lab: What imaging is needed prior? [facility] [place] Length of wait time until procedure/current next available date for the watchman procedure: HOLGER Screening Questions - Any hx or current issues with swallowing food/drink with getting stuck in throat? - Do you have any hx of throat/esophagus disease? - Do you or have you previously vomit/cough up blood d/t ulcers, varices, or esophagitis? - Do you have a hx of chest/neck radiation (not including x-rays)? - Do you have liver disease or cirrhosis? *If yes to any of these questions- Barium swallow test will be needed. HOLGER cannot be scheduled until that is performed. If extenuating circumstance, verification through performing provider. [] Yes [x] No [] Yes [x] No [] Yes [x] No [] Yes [x] No [] Yes [x] No Would they like a Pamphlet mailed to them for reference back to over this information discussed: []Pt would like an educational packet mailed to them (confirm address) [x]Pt denies wanting packet/already has one from provider []Address confirmed TOR OPERATOR BATTERY * Telephone Encounter - Kelly Ta RN - 11/19/2024 9:55 AM CST Called patient again to offer to get on schedule for WM c Dr. Trimble. No answer, VM left again. TOR OPERATOR BATTERY * Telephone Encounter - Kelly aT RN - 11/18/2024 8:57 AM CST Called patient per pt's conversation c Dr. Trimble seeking to get scheduled for WM procedure. No answer, VM left. TOR OPERATOR BATTERY documented in this encounter Plan of Treatment Upcoming Encounters Date Type Department Care Team (Latest Contact Info) Description 01/08/2025 11:10 AM CDT Hospital Encounter [facility] [address] [phone] Feliciano Trimble III, MD [address] [address] Paroxysmal atrial fibrillation (HCC) 01/08/2025 11:10 AM CDT - 01/08/2025 1:00 PM CDT Surgery [facility] [address] [phone] Feliciano Trimble III, MD [address] [phone] PERC ANTONY CLOSE W/IMPLANT [id number] Scheduled Orders Name Type Priority Associated Diagnoses Orde r Schedule Basic metabolic panel Lab Routine Paroxysmal atrial fibrillation (HCC) Expected: 01/08/2025, Expires: 01/05/2026 CBC without differential Lab Routine Paroxysmal atrial fibrillation (HCC) Expected: 01/08/2025, Expires: 01/05/2026 documented as of this encounter Results * CT Heart Morphology W Contrast [...] MD IM CT PROCEDURES F inal Result documented in this encounter Visit Diagnoses Diagnosis Paroxysmal atrial fibrillation (HCC)- Primary Atrial fibrillation Atrial fibrillation (HCC)- Primary Atrial fibrillation Paroxysmal atrial fibrillation (HCC) Atrial fibrillation Paroxysmal atrial fibrillation (HCC) Atrial fibrillation Paroxysmal atrial fibrillation (HCC) Atrial fibrillation documented in this encounter Care Teams Shear Helper Relationship Specialty Start Date End Date Jayjay Ha PA [address] [place] [address] PCP - General Family Practice 05/03/20 Saeid Rosen MD [address] [place] [address] Consulting Physician Cardiology 02/11/21 Heath Salcedo MD [address] [address] Consulting Physician Cardiology 02/11/21 documented as of this encounter
[2025-01-06 15:05] LABS: Anion Gap 9 mmol/L (4-12); Blood Urea Nitrogen 26 mg/dL (7-18); Calcium 9.5 mg/dL (8.5-10.1); Carbon Dioxide 29 mmol/L (21-32); Chloride 106 mmol/L (98-108); Estimated Glomerular Filt Rate 40; Glucose 138 mg/dL (70-99); Osmolality Calculated 304 mOsm/kg (285-295); Potassium 4.4 mmol/L (3.5-5.1); Sodium 144 mmol/L (136-145)
== END 2025-01-06 13:30 | disposition home or self-care (01) ==
PROVIDERS: PCP Physician Assistant
DX: N28.89 Other specified disorders of kidney and ureter (principal)
CPT/HCPCS: 36415; 76775; 80048; 85027